=== PATIENT | male | born 1950 | race Caucasian/White ===

== ENCOUNTER → 2020-11-19 13:56 | Outpatient (BNVA) | payer BC, SELFPAY | PROVIDERS: PCP Family Medicine; Visit Provider Urology ==

== ENCOUNTER 2021-04-13 10:08 | Outpatient (REF) | payer BC, SELFPAY ==
--- NOTE | ~2021-04-13 | US_ITS ---
EXAMINATION: US RETROPERITONEAL LIMITED (RENAL ONLY) CLINICAL INFORMATION: Calculus of kidney. COMPARISON: None TECHNIQUE: Real-time imaging of the kidneys. FINDINGS: RIGHT KIDNEY: 10.6 x 6.6 x 5.1 cm (SAG x AP x TRV). The kidney is normal in size, contour, and echogenicity. Renal cortical thickness is normal. No calculi or focal parenchymal lesions. No hydronephrosis. LEFT KIDNEY: 11.4 x 7.4 x 4.8 cm (SAG x AP x TRV). The kidney is normal in size, contour, and echogenicity. Renal cortical thickness is normal. No focal parenchymal lesions or hydronephrosis. There is an echogenic stone in the lower pole measuring 1.2 x 0.78 cm. There is no caliectasis or hydronephrosis. US/US renal BI IMPRESSION: Nonobstructive echogenic stone lower pole left kidney.
== END 2021-04-13 10:09 | disposition home or self-care (01) ==
LOC: HO.US 10:08
PROVIDERS: PCP Family Medicine; Visit Provider Urology
DX: N20.0 Calculus of kidney (principal)
CPT/HCPCS: 76775

== ENCOUNTER → 2021-05-26 09:44 | Outpatient (BNVA) | payer BC, SELFPAY | PROVIDERS: PCP Family Medicine; Visit Provider Urology ==

== ENCOUNTER 2021-11-23 10:18 | Outpatient (REF) | payer BC, SELFPAY ==
--- NOTE | ~2021-11-23 | US_ITS ---
EXAMINATION: US RETROPERITONEAL LIMITED (RENAL ONLY) CLINICAL INFORMATION: Calculus of kidney. COMPARISON: Ultrasound 04/13/2021. TECHNIQUE: Grayscale imaging of kidneys is performed. FINDINGS: RIGHT KIDNEY: 12.2 x 7.3 x 7.4 cm (SAG x AP x TRV). The kidney is normal in size, contour, and echogenicity. Renal cortical thickness is normal. No calculi or focal parenchymal lesions. No hydronephrosis. LEFT KIDNEY: 11.0 x 6.3 x 5.6 cm (SAG x AP x TRV). The kidney is normal in size, contour, and echogenicity. Renal cortical thickness is normal. There is a echogenic renal calculi measuring 1.1 x 0.7 x 1.3 cm and lower pole. No focal caliectasis seen. Previously same calculi measured 1.2 cm on 04/14/2021. There is anechoic cyst in the upper pole measuring 3.4 x 2.9 x 2.9 cm. US/US renal BI IMPRESSION: Nonobstructive echogenic lower pole left renal calculi, stable. New cyst upper pole left kidney. The right kidney is unremarkable.
== END 2021-11-23 10:19 | disposition home or self-care (01) ==
LOC: HO.HMGCX 10:18
PROVIDERS: Visit Provider Urology
DX: N20.0 Calculus of kidney (principal)
CPT/HCPCS: 76775

== ENCOUNTER 2022-05-04 08:01 | Outpatient (REF) | payer BC, SELFPAY ==
--- NOTE | ~2022-05-04 | US_ITS ---
EXAMINATION: US RETROPERITONEAL LIMITED (RENAL ONLY) CLINICAL INFORMATION: Calculus of kidney. COMPARISON: Renal ultrasound 11/23/2021 and 04/13/2021. TECHNIQUE: Real-time imaging of the kidneys. FINDINGS: RIGHT KIDNEY: 11.0 x 6.9 x 6.8 cm (SAG x AP x TRV). The kidney is normal in size, contour, and echogenicity. Renal cortical thickness is normal. No calculi or focal parenchymal lesions. No hydronephrosis. LEFT KIDNEY: 10.7 x 5.9 x 5.3 cm (SAG x AP x TRV). The kidney is normal in size, contour, and echogenicity. Renal cortical thickness is normal. No hydronephrosis. There is anechoic exophytic cyst in the upper pole measuring 3.9 x 2.3 x 2.7 cm and lower pole measuring 2.4 x 1.8 x 2.2 cm and likely a complex cyst. There is an echogenic stone in the lower pole measuring 1.1 x 0.4 x 1.2 cm. US/US renal BI IMPRESSION: 1. Unremarkable right kidney. 2. Complex cyst lower pole an simple cyst upper pole left kidney. 3. Nonobstructive echogenic stone lower pole left kidney.
== END 2022-05-04 08:02 | disposition home or self-care (01) ==
LOC: HO.US 08:01
PROVIDERS: Visit Provider Urology
DX: N20.0 Calculus of kidney (principal)
CPT/HCPCS: 76775

== ENCOUNTER → 2022-05-31 13:06 | Outpatient (BNVA) | payer BC, SELFPAY | PROVIDERS: PCP Family Medicine; Visit Provider Urology | DX: N20.0 Calculus of kidney (principal) ==

== ENCOUNTER → 2022-08-02 14:46 | Outpatient (BNVA) | payer BC, SELFPAY | PROVIDERS: PCP Family Medicine; Visit Provider Urology | DX: Z13.89 Encounter for screening for other disorder (principal) ==

== ENCOUNTER 2022-11-22 16:06 | Outpatient (REF) | payer MEDICARE, SELFPAY ==
--- NOTE | ~2022-11-22 | XR_ITS ---
EXAMINATION: XR ABDOMEN KUB CLINICAL INDICATION: Renal stone COMPARISON: 05/04/2022 TECHNIQUE: 2 views of the abdomen. FINDINGS: The bowel gas pattern is normal with no evidence of ileus or obstruction. 13 mm calcific lesion most consistent with a left-sided renal stone noted.. The bones are unremarkable. XR/XR KUB IMPRESSION: Left-sided nephrolithiasis as above.
== END 2022-11-22 16:07 | disposition home or self-care (01) ==
LOC: HO.XRAY 16:06
PROVIDERS: PCP Family Medicine; Visit Provider Urology
DX: N20.0 Calculus of kidney (principal)
CPT/HCPCS: 74018

== ENCOUNTER 2022-11-29 14:02 | Outpatient (AMB) | payer MEDICARE, SELFPAY ==
--- NOTE | 2022-11-29 14:03 | MHC.OFFVIS ---
Intake Intake Visit Reasons: KUB results/discuss surgical plan Intake Note: Patient is present for Telephone Follow up Urology Med: Finasteride, Terazosin, Antibiotic Allergy: None Blood Thinner: Aspirin, Clopidrogel Allergies No Known Allergies Allergy (Verified 11/29/22 14:04) Medication List - Last Reconciled 11/29/22 by Quinten Dixon MD allopurinol 100 mg PO DAILY 90 days aspirin 81 mg PO DAILY atorvastatin 40 mg PO DAILY blood sugar diagnostic As directed clopidogrel 75 mg PO DAILY dulaglutide 1.5 mg subcut QWEEK finasteride 5 mg PO DAILY 90 days insulin glargine 10 units subcut BEDTIME lisinopril 20 mg PO DAILY metformin ER 2,000 mg PO DAILY metoprolol succinate ER 25 mg PO DAILY pen needle, diabetic As directed potassium citrate ER 20 mEq (2 x 10 mEq (1,080 mg)) PO BID 90 days terazosin 2 mg PO BEDTIME 90 days HPI HPI Comments History of Present Illness Details Pool Gutierrez is a very pleasant male. He is a patient of Dr Garcia. He is seen for the following urologic conditions. - BPH and elevated PSA - nephrolithiasis - diabetic uric acid Telemedicine Evaluation 15 min Consultation [employer] Video attempted Seizure epidose in September with side effects from medications Repeat imaging with 13 mm left lower pole stone Discussion with Ilia and Would like to continue surveillance Lower Urinary Tract Symptoms Currently on finasteride and terazosin 2mg Elevated PSA/Abnormal IVEILSSE: He presents for further evaluation of elevated PSA. Current management is finasteride 5 mg Laboratory investigations include a total PSA evaluation July 2015 2.8 - 07/29 2.6, 08/31 3.7, 11/30 3.1, 4.7 Free 30%, 11/02 1.3 Individualized Prostate Cancer Risk Calculator < 5% high risk Would like to continue with observation and understands and accepts the risks of a possible delay in diagnosis. A TRUS biopsy not been performed. His current IPSS IPSS Score 1 Symptoms include nocturia, x 1, and are stable. Overall symptoms are mild. His prior IPSS was Mild. Associated conditions diabetes Yes dysuria No erectile dysfunction Yes Therapeutic plan - yearly PSA Nephrolithiasis/Urolithiasis: Recurrent uric acid stone They are here for further evaluation of urethrolitiasis. Urolithiasis was diagnosed a number of years ago. The patient previously had kidney stones whose composition w uric acid. Laboratory investigations include no recent labs. 24 Hour urine evaluation none on file. Prior treatment(s) include medical management, with dietary advice to increase fluids, decrease salt and watch protein intake - Bicarbonate therapy to alkalinize urine. Prior imaging includes a CT (computed tomography) scan of the abdomen/pelvis (stone protocol), showing radiodense stone(s), on the left, <5 mm October 2015 , a renal ultrasound, showing radiodense stone(s), bilaterally, 5-10 mm a renal ultrasound, 10/28 - left renal cyst 4 cm, left renal 7 mm stone nonobstructing 10/29 , a renal ultrasound, showing no evidence of stones. - 05/03 renal ultrasound showing left lower pole stone 12 mm - 11/02 renal ultrasound over left lower pole 10 mm - 06/05 renal ultrasound, bilateral complex cyst, left lower pole stone 12 mm - 12/03 KUB with 12 mm left lower pole stone UA today shows <5.5. Current therapeutic plan will be to restart potassium citrate and allopurinol with repeat imaging in 6 months [facility] Medical History Diabetes mellitus, type II Elevated PSA Erectile dysfunction Hyperlipidemia Sleep apnea Transient ischemic attack (TIA) Surgical History History of surgery Review of Systems Const All systems reviewed & are unremarkable except as noted in HPI and below Reports no additional complaints Resp Reports no additional complaints GI Reports no additional complaints Reports as per HPI Musc Reports no additional complaints Physical Exam Telemedicine evaluation Appropriate responses Regular breathing rate and rhythm HEENT Head: Yes normal to inspection Ears: hearing grossly normal bilaterally Eyes General: appearance normal, both eyes and all related structures Neck Neck: Yes normal visual inspection Chest Chest palpation & inspection: normal inspection of the chest Resp Effort & Inspection: normal respiratory effort and able to speak in complete sentences Assessment & Plan Assessment & Plan (1) Nephrolithiasis: Code(s): N20.0 - Calculus of kidney (2) BPH w urinary obs/LUTS: Code(s): N40.1 - Benign prostatic hyperplasia with lower urinary tract symptoms; N13.8 - Other obstructive and reflux uropathy Plan 6m f/u imaging Orders: Orders US renal BI 6 Months N20.0 - Calculus of kidney Medications: Refilled finasteride 5 mg PO DAILY 90 days 90 tabs 1RF N13.8 - Other obstructive and reflux uropathy, N40.1 - Benign prostatic hyperplasia with lower urinary tract symptoms, R33.9 - Retention of urine, unspecified finasteride 5 mg PO DAILY 90 tabs 1RF 90 days N13.8 - Other obstructive and reflux uropathy, N40.1 - Benign prostatic hyperplasia with lower urinary tract symptoms, R33.9 - Retention of urine, unspecified Patient Instructions: Imaging studies, laboratory and physical exam results were discussed and reviewed in detail. No major barriers to patient understanding were identified. An opportunity to ask questions regarding the treatment plan was provided. All questions were answered. The patient expressed understanding and agreement with the above treatment plan. The patient is aware they should contact our office by phone for worsening of their current condition or the appearance of new urologic symptoms. Compliance is encouraged with any medications and followup testing that is ordered. It is a privilege to participate in the urologic care of your patient. If you have any questions or concerns regarding treatment for the above conditions, or other urologic issues, please do not hesitate to contact me. The office telephone contact is [phone]. This note is constructed using voice recognition software. While every effort has been made to ensure accuracy airport operations supervisor errors may have been included. Yours sincerely, Dr Quinten Dixon MD, [facility] - Urology Providers of Expert, Compassionate Care for the Genitourinary System Telehealth Telehealth Location of provider rendering services: practice address Location of patient: address on file Patient Identification confirmed using: Name, : Yes Telehealth method: video Patient verbally consented to treatment: Yes Patient verbally consented to billing insurance company: Yes Patient informed of any privacy concerns related to visit: Yes Coding Level of Care Code Tele Est Pt Level 3 (44634) Diagnoses Nephrolithiasis N20.0 BPH w urinary obs/LUTS N40.1; N13.8
== END 2022-11-29 15:51 | disposition home or self-care (01) ==
LOC: HO.HUSH 14:02
PROVIDERS: PCP Family Medicine; Visit Provider Urology
DX: N20.0 Calculus of kidney (principal); N40.1 Benign prostatic hyperplasia with lower urinary tract symptoms; N13.8 Other obstructive and reflux uropathy
CPT/HCPCS: 99213

== ENCOUNTER → 2022-11-29 14:02 | Outpatient (BNVA) | payer MEDICARE, SELFPAY | PROVIDERS: PCP Family Medicine; Visit Provider Urology | DX: N20.0 Calculus of kidney (principal); N40.1 Benign prostatic hyperplasia with lower urinary tract symptoms; N13.8 Other obstructive and reflux uropathy; R97.20 Elevated prostate specific antigen [PSA] | CPT/HCPCS: Q3014 ==

== ENCOUNTER 2023-01-23 11:00 | Outpatient (REF) | payer MEDICARE, SELFPAY ==
--- NOTE | ~2023-01-23 | CT_ITS ---
EXAMINATION: CT ABDOMEN AND PELVIS WITHOUT CONTRAST CLINICAL INFORMATION: Renal calculi. COMPARISON: KUB 11/22/2022, ultrasound kidneys 05/04/2022. TECHNIQUE: Multidetector volumetric imaging was performed from the superior aspect of the liver through the pubic symphysis. Sagittal and coronal reformatted images were obtained on the technologist's workstation. This CT examination was performed using dose optimization techniques as appropriate, variously including the following: *Automated exposure control *Adjustment of mA and/or kV according to patient size (this includes techniques or standardized protocols for targeted exams where dose is matched to indication/reason for exam; i.e. extremities or head) *Use of iterative reconstruction technique DLP: 928 mGy-cm FINDINGS: LUNG BASES: Coronary calcium is present. Heart size normal. No suspicious lung masses, infiltrates or effusions. LIVER, GALLBLADDER, AND BILIARY TREE: The liver is normal in size, shape, and attenuation. No focal hepatic lesion or biliary ductal dilatation is present. The gallbladder is unremarkable with no evidence of radiopaque gallstones, gallbladder wall thickening, or obvious pericholecystic inflammatory changes. PANCREAS: Unremarkable. SPLEEN: Unremarkable. ADRENAL GLANDS: Unremarkable. KIDNEYS AND URETERS: There is an obstructing 0.8 x 0.9 x 1.4 cm stone in the proximal left ureter at the level of ureteropelvic junction. This stone measures about 1000 Hounsfield units and is 13.5 cm from the posterior axillary line. No other renal calculi are seen. The kidneys are normal in size, shape, and attenuation. A benign left upper pole 3.7 cm Bosniak class I renal cyst is noted which requires no additional imaging or follow up. No solid renal masses are seen. No perinephric stranding. BLADDER: Unremarkable. GASTROINTESTINAL TRACT: The small and large bowel are unremarkable. The appendix is not seen but there is no evidence of appendicitis. ABDOMINAL WALL: A periumbilical hernia is seen containing an unobstructed loop of small bowel. Colonic diverticulosis is present without evidence of diverticulitis. LYMPH NODES: No retroperitoneal lymphadenopathy. VASCULAR: Calcified plaque is present in the aorta and iliofemoral vessels which are ectatic but not aneurysmal. PELVIC VISCERA: Unremarkable. OSSEOUS STRUCTURES: Marked degenerative changes present from L4 through S1. CT/CT abdomen pelvis wo IV con IMPRESSION: 1. Obstructing 0.8 x 0.9 x 1.4 cm proximal left ureteral calculus. 2. Incidental note made of coronary calcium, colonic diverticulosis, periumbilical hernia containing unobstructed small bowel, degenerative changes in the spine and other findings described above. Fleischner guidelines were followed.
== END 2023-01-23 11:01 | disposition home or self-care (01) ==
LOC: HO.CT 11:00
PROVIDERS: PCP Family Medicine; Visit Provider Urology
DX: N20.0 Calculus of kidney (principal)
CPT/HCPCS: 74176

== ENCOUNTER 2023-05-16 10:39 | Outpatient (REF) | payer MEDICARE, SELFPAY | END 2023-05-16 10:40 | disposition home or self-care (01) | LOC: HO.US 10:39 | PROVIDERS: PCP Family Medicine; Visit Provider Urology | DX: N20.0 Calculus of kidney (principal) | CPT/HCPCS: 76775 ==

== ENCOUNTER 2023-06-01 11:52 | Outpatient (AMB) | payer MEDICARE, SELFPAY ==
--- NOTE | 2023-06-01 11:53 | A.OFFVIS_ITS ---
Intake Intake Visit Reasons: 6m/us(set) Intake Note: Patient is Present for Follow Up US Urology Medication: Finasteride, (Patient stopped terazosin after seizure in spring) Antibiotic Allergies: None Blood Thinners: None (Patient state he is not on aspirin or plavix) PVR: 39 Allergies No Known Allergies Allergy (Verified 06/01/23 12:00) Medication List - Last Reconciled 06/01/23 by Quinten Dixon MD allopurinol 100 mg PO DAILY 90 days aspirin 81 mg PO DAILY atorvastatin 40 mg PO DAILY blood sugar diagnostic As directed clopidogrel 75 mg PO DAILY dulaglutide 1.5 mg subcut QWEEK finasteride 5 mg PO DAILY 90 days insulin glargine 10 units subcut BEDTIME lisinopril 20 mg PO DAILY metformin ER 2,000 mg PO DAILY metoprolol succinate ER 25 mg PO DAILY pen needle, diabetic As directed potassium citrate ER 20 mEq (2 x 10 mEq (1,080 mg)) PO BID 90 days terazosin 2 mg PO BEDTIME 90 days HPI HPI Comments History of Present Illness Details Pool Gutierrez is a very pleasant male. He is a patient of Dr Garcia. He is seen for the following urologic conditions. - BPH and elevated PSA - nephrolithiasis - diabetic uric acid Prior stone seen on CT scan has resolved with potassium citrate treatment Six-month follow-up Continue on finasteride Lower Urinary Tract Symptoms Currently on finasteride Prior medications include terazosin 2mg Elevated PSA/Abnormal IVELISSE: He presents for further evaluation of elevated PSA. Current management is finasteride 5 mg Laboratory investigations include a total PSA evaluation July 2015 2.8 - 07/29 2.6, 08/31 3.7, 11/30 3.1, 4.7 Free 30%, 11/02 1.3 Individualized Prostate Cancer Risk Calculator < 5% high risk Would like to continue with observation and understands and accepts the risks of a possible delay in diagnosis. A TRUS biopsy not been performed. His current IPSS IPSS Score 1 Symptoms include nocturia, x 1, and are stable. Overall symptoms are mild. His prior IPSS was Mild. Associated conditions diabetes Yes dysuria No erectile dysfunction Yes Therapeutic plan - yearly PSA Nephrolithiasis/Urolithiasis: Recurrent uric acid stone They are here for further evaluation of urethrolitiasis. Urolithiasis was diagnosed a number of years ago. The patient previously had kidney stones whose composition w uric acid. Laboratory investigations include no recent labs. 24 Hour urine evaluation none on file. Prior treatment(s) include medical management, with dietary advice to increase fluids, decrease salt and watch protein intake - Bicarbonate therapy to alkalinize urine. Prior imaging includes a CT (computed tomography) scan of the abdomen /pelvis (stone protocol), showing radiodense stone(s), on the left, <5 mm October 2015 , a renal ultrasound, showing radiodense stone(s), bilaterally, 5-10 mm a renal ultrasound, 10/28 - left renal cyst 4 cm, left renal 7 mm stone nonobstructing 10/29 , a renal ultrasound, showing no evidence of stones. - 05/03 renal ultrasound showing left lower pole stone 12 mm - 11/02 renal ultrasound over left lower pole 10 mm - 06/05 renal ultrasound, bilateral complex cyst, left lower pole stone 12 mm - 12/03 KUB with 12 mm left lower pole stone UA today shows <5.5. Current therapeutic plan will be to restart potassium citrate and allopurinol with repeat imaging in 6 months [facility] Medical History Diabetes mellitus, type II Elevated PSA Erectile dysfunction Hyperlipidemia Sleep apnea Transient ischemic attack (TIA) Surgical History History of surgery Review of Systems Const Denies chills and Denies fever(s) Card Reports no additional complaints and Denies syncope Resp Denies cough GI Denies abdominal pain and Denies heartburn Reports as per HPI and Denies change in libido Neuro Denies syncope Psych Denies change in libido Endo Denies change in libido Physical Exam Const General: cooperative, healthy appearing, comfortable and no acute distress Orientation/consciousness: patient oriented x3 HEENT Face and sinus: Yes normal facial exam Mouth: moist mucous membranes Neck Neck: Yes normal visual inspection, Yes full ROM and Yes trachea midline Chest Chest palpation & inspection: normal inspection of the chest Resp Effort & Inspection: normal respiratory effort, able to speak in complete sentences and no respiratory distress GI Inspection: Yes normal to inspection Back/Spine/Pelvis Cervical Spine: normal cervical lordosis Thoracic/Lumbar Spine: thoracic and lumbar spine normal to inspection Skin General skin exam: no rashes or lesions noted Neuro General: patient oriented x3, gait normal, tone normal and moves all extremities Extrem General: Yes normal to inspection and Yes capillary refill normal Office Procedures Post Void Residual Post Residual Void Post Void Residual (PVR): 39 [id number] Void Residual by ultrasound Assessment & Plan Assessment & Plan (1) Nephrolithiasis: Code(s): N20.0 - Calculus of kidney (2) BPH w urinary obs/LUTS: Code(s): N40.1 - Benign prostatic hyperplasia with lower urinary tract symptoms; N13.8 - Other obstructive and reflux uropathy Plan Six-month follow-up imaging Orders: Orders AMB Post Void Residual by ultrasound Today N13.8 - Other obstructive and reflux uropathy, N40.1 - Benign prostatic hyperplasia with lower urinary tract symptoms US renal BI 6 Months N20.0 - Calculus of kidney Medications: Refilled finasteride 5 mg PO DAILY 90 days 90 tabs 1RF N13.8 - Other obstructive and reflux uropathy, N40.1 - Benign prostatic hyperplasia with lower urinary tract symptoms, R33.9 - Retention of urine, unspecified Patient Instructions: Imaging studies, laboratory and physical exam results were discussed and reviewed in detail. No major barriers to patient understanding were identified. An opportunity to ask questions regarding the treatment plan was provided. All questions were answered. The patient expressed understanding and agreement with the above treatment plan. The patient is aware they should contact our office by phone for worsening of their current condition or the appearance of new urologic symptoms. Compliance is encouraged with any medications and followup testing that is ordered. It is a privilege to participate in the urologic care of your patient. If you have any questions or concerns regarding treatment for the above conditions, or other urologic issues, please do not hesitate to contact me. The office telephone contact is [phone]. This note is constructed using voice recognition software. While every effort has been made to ensure accuracy aviation technician aircraft errors may have been included. Yours sincerely, Dr Quinten Dixon MD, [facility] - Urology Providers of Expert, Compassionate Care for the Genitourinary System Coding Level of Care Code Est Pt Level 3 (88501) Diagnoses Nephrolithiasis N20.0 BPH w urinary obs/LUTS N40.1; N13.8 CPT Codes Post Residual Void - PVR CPT Code: 27860-Rjkf Void Residual by ultrasound ([id number])
== END 2023-06-01 12:15 | disposition home or self-care (01) ==
PROVIDERS: PCP Family Medicine; Visit Provider Urology
DX: N20.0 Calculus of kidney (principal); N40.1 Benign prostatic hyperplasia with lower urinary tract symptoms; N13.8 Other obstructive and reflux uropathy
CPT/HCPCS: 99213

== ENCOUNTER → 2023-06-01 11:52 | Outpatient (BNVA) | payer MEDICARE, SELFPAY | PROVIDERS: PCP Family Medicine; Visit Provider Urology | DX: N40.1 Benign prostatic hyperplasia with lower urinary tract symptoms (principal); N13.8 Other obstructive and reflux uropathy; N20.0 Calculus of kidney | CPT/HCPCS: 51798; 99212 ==

== ENCOUNTER 2023-11-02 10:39 | Outpatient (AMB) | payer MEDICARE, SELFPAY ==
[2023-11-02 10:41] VITALS: BP 110/70; PULSE 63; O2SAT 93; BMI 36.3
--- NOTE | 2023-11-02 10:41 | HO.NEPHOV ---
Vital Signs 11/02/23 10:41 11/02/23 11:50 Height 6 ft Weight 268 lb BMI 36.3 BP 110/70 100/60 Blood Pressure Location Lt brachial Lt brachial Position Sitting Standing Pulse 63 Pulse Source Pulse Oximeter Pulse Oximetry (%) 93 Oxygen Delivery Method Room Air Intake Visit Reasons: CKD/ Confirmed State Assessed Properties Director Required: No Accompanied by: Spouse Allergies No Known Allergies Allergy (Verified 11/02/23 10:44) Medication List - Last Reconciled 11/02/23 by Naseem Wells MD acetaminophen ER (Tylenol Arthritis Pain) 650 mg PO Q12H acetaminophen-caffeine 500-65 mg (Excedrin Tension Headache) 1 tab PO Q12H PRN atorvastatin 40 mg PO DAILY blood sugar diagnostic As directed dulaglutide 1.5 mg subcut QWEEK finasteride 5 mg PO DAILY 90 days insulin glargine 22 units subcut BEDTIME levetiracetam 500 mg PO BID melatonin 10 mg PO BEDTIME PRN metoprolol succinate ER 25 mg PO DAILY pen needle, diabetic As directed HPI Comments Details: . Ilia is a pleasant 73-year-old man with a history of diabetes mellitus, hypertension with chronic leg edema. He has a history of bicuspid aortic valve, history of aneurysm of ascending aorta, status post PFO closure in 2021. History of obstructive sleep apnea and currently uses CPAP. History of obesity. Reported right ventricular systolic pressure was 25 mm He has been referred for evaluation of chronic kidney disease. Serum creatinine bumped up to 1.4. Recent creatinine was 1.17. He has been on lisinopril 20 mg which was increased to 30 mg a day a about 6 months ago. In the past he was on metformin which caused significant diarrhea and apparently he lost about 35 lb. After discontinuing metformin the diarrhea resolved and he has gradually gained back the 35 lb. His main issue seems to be chronic leg edema. He had left leg edema for the last several years which started after he had a trauma. He underwent acupuncture which seems to have relieved initially. However the swelling has returned and he continues to have left leg edema. Recently he had a right-sided leg edema. He denies any shortness of breath on exertion. No urinary complaints. He was seen by to endovascular center recently. Liver functions have been normal. He has no significant proteinuria based on recent urine studies. He has on a regular salt diet. [facility] Medical History Diabetes mellitus, type II Elevated PSA Erectile dysfunction Hyperlipidemia Sleep apnea Transient ischemic attack (TIA) Surgical History History of surgery Review of Systems Const Denies fever(s) and Denies weight loss Card Denies chest pain Resp Denies cough and Denies hemoptysis GI Denies abdominal pain, Denies diarrhea and Denies nausea Musc Denies back pain Neuro Denies focal weakness Physical Exam Vital Signs: Last Vital Signs Pulse 63 11/02/23 10:41 BP 110/70 11/02/23 10:41 Pulse Ox 93 11/02/23 10:41 Oxygen Delivery Method Room Air 11/02/23 10:41 BMI result Body Mass Index 36.3 Const General: comfortable; No acute distress Orientation/consciousness: patient oriented x3 Eyes General: appearance normal, both eyes and all related structures Visual Camp: normal visual camp by confrontation Neck Neck: Yes supple and Yes no JVD Resp Effort & Inspection: normal respiratory effort and respiratory effort not decreased Auscultation: rhonchi Cardio Palpation: no palpable S3 and no palpable S4 Heart sounds: no rubs GI Inspection: Yes normal to inspection Palpation (GI): Soft to palpation Percussion: Yes normal to percussion Auscultation: normal bowel sounds General: Yes no CVA tenderness Back/Spine/Pelvis Back: no CVA tenderness Skin General skin exam: no petechiae and no purpura Neuro General: patient oriented x3 and no focal motor deficits Extrem General: No clubbing and Yes edema (Bilateral lower extremity edema. Left more than the right. Minimal pitting) Results Reviewed Results Reviewed: As of 10/30/2023 BUN 22 creatinine 1.17. Back in May of 2023 creatinine was 1.4 mg/dL. Urinalysis did not reveal any significant proteinuria. Urine protein creatinine ratio was negligible UA was benign Nephrology Results: Renal US 05/16/23 Assessment & Plan Assessment & Plan (1) CKD (chronic kidney disease): Code(s): N18.9 - Chronic kidney disease, unspecified Category: Medical Plan: . Ilia has mild CKD. Based on recent labs he probably has stage II CKD. He did have an episode of ALEJA with a creatinine peaking up to 1.4 mg/dL in 06/02/2023. This is probably due to hypoperfusion. Serum creatinine has returned to baseline of 1.17 with a EGFR of 66 mL/minute. He has no significant proteinuria. Recent renal ultrasonogram revealed normal-size kidneys without hydronephrosis. Goal is to slow the progression of renal disease Continue to avoid nephrotoxic agents. Avoid hypotension. Since the blood pressure is rather low I will decrease lisinopril from 30 mg down to 20 mg a day. Encouraged him to keep watching his blood pressure at home. Since he has no significant proteinuria I will gradually taper the lisinopril to the lowest possible dose. This will give us room to add a diuretic if needed to decrease the leg edema. (2) Leg edema: Code(s): R60.0 - Localized edema Category: Medical Plan: . Chronic leg edema. Recent LFTs were normal. Renal function is normal without significant proteinuria. He has a history of obstructive sleep apnea and status post closure of PFO. Recent echocardiogram did not reveal elevated right heart pressures. Excessive salt intake could be contributing to the edema. Other possibility include lymphedema. I have advised him to decrease the salt intake Leg elevation at night. Complete endovascular workup which is in progress. I will re-evaluate him in the next few weeks and if his blood pressure is stable I will add a small dose of diuretic like HCTZ 12.5 mg to see if there is any improvement in the leg edema. Medications: New lisinopril 20 mg PO DAILY 30 tabs 1RF Coding Level of Care Code New Pt Level 4 (89680) Diagnoses CKD (chronic kidney disease) N18.9 Leg edema R60.0
[2023-11-02 11:50] VITALS: BP 100/60
== END 2023-11-02 11:24 | disposition home or self-care (01) ==
PROVIDERS: PCP Family Medicine; Referring Provider Family Medicine; Visit Provider Internal Medicine Hypertension Specialist
DX: N18.9 Chronic kidney disease, unspecified (principal); R60.0 Localized edema
CPT/HCPCS: 99204

== ENCOUNTER → 2023-11-02 10:39 | Outpatient (BNVA) | payer MEDICARE, SELFPAY | PROVIDERS: PCP Family Medicine; Referring Provider Family Medicine; Visit Provider Internal Medicine Hypertension Specialist | DX: N18.9 Chronic kidney disease, unspecified (principal); R60.0 Localized edema | CPT/HCPCS: 99202 ==

== ENCOUNTER 2023-11-22 11:55 | Outpatient (AMB) | payer MEDICARE, SELFPAY ==
[2023-11-22 11:55] VITALS: BP 140/72; PULSE 60; O2SAT 94; BMI 36.3
--- NOTE | 2023-11-22 11:55 | HO.NEPHOV_ITS ---
Vital Signs 11/22/23 11:55 11/22/23 12:04 Height 6 ft Weight 268 lb BMI 36.3 BP 140/72 H 130/70 Blood Pressure Location Lt brachial Lt brachial Position Sitting Sitting Pulse 60 Pulse Source Pulse Oximeter Pulse Oximetry (%) 94 Oxygen Delivery Method Room Air Intake Visit Reasons: 2-3 wks follow up/ Conf Quality Control Microbiologist Required: No Accompanied by: Spouse Allergies No Known Allergies Allergy (Verified 11/22/23 11:57) Medication List - Last Reconciled 11/22/23 by Naseem Wells MD acetaminophen ER (Tylenol Arthritis Pain) 650 mg PO Q12H acetaminophen-caffeine 500-65 mg (Excedrin Tension Headache) 1 tab PO Q12H PRN atorvastatin 40 mg PO DAILY blood sugar diagnostic As directed dulaglutide 1.5 mg subcut QWEEK finasteride 5 mg PO DAILY 90 days insulin glargine 22 units subcut BEDTIME levetiracetam 500 mg PO BID lisinopril 20 mg PO DAILY melatonin 10 mg PO BEDTIME PRN metoprolol succinate ER 25 mg PO DAILY pen gisel, diabetic As directed HPI Comments Details: . Ilia is a pleasant 73-year-old man with a history of diabetes mellitus, hypertension with chronic leg edema. He has a history of bicuspid aortic valve, history of aneurysm of ascending aorta, status post PFO closure in 2021. History of obstructive sleep apnea and currently uses CPAP. History of obesity. Reported right ventricular systolic pressure was 25 mm He has been referred for evaluation of chronic kidney disease. Serum creatinine bumped up to 1.4. Recent creatinine was 1.17. He has been on lisinopril 20 mg which was increased to 30 mg a day a about 6 months ago. In the past he was on metformin which caused significant diarrhea and apparently he lost about 35 lb. After discontinuing metformin the diarrhea resolved and he has gradually gained back the 35 lb. His main issue seems to be chronic leg edema. He had left leg edema for the last several years which started after he had a trauma. He underwent acupuncture which seems to have relieved initially. However the swelling has returned and he continues to have left leg edema. Recently he had a right-sided leg edema. He denies any shortness of breath on exertion. No urinary complaints. He was seen by to endovascular center recently. Liver functions have been normal. He has no significant proteinuria based on recent urine studies. He has on a regular salt diet. 11/22/2023. He is tolerating lisinopril 20 mg. Home blood pressure readings were reviewed Continues to have leg edema. No shortness of breath [facility] Medical History Diabetes mellitus, type II Elevated PSA Erectile dysfunction Hyperlipidemia Sleep apnea Transient ischemic attack (TIA) Surgical History History of surgery Physical Exam Vital Signs: Last Vital Signs Pulse 60 11/22/23 11:55 BP 130/70 11/22/23 12:04 Pulse Ox 94 11/22/23 11:55 Oxygen Delivery Method Room Air 11/22/23 11:55 BMI result Body Mass Index 36.3 Const General: comfortable; No acute distress Orientation/consciousness: patient oriented x3 Eyes General: appearance normal, both eyes and all related structures Visual Camp: normal visual camp by confrontation Neck Neck: Yes supple and Yes no JVD Resp Effort & Inspection: normal respiratory effort and respiratory effort not decreased Auscultation: rhonchi Cardio Palpation: no palpable S3 and no palpable S4 Heart sounds: no rubs GI Inspection: Yes normal to inspection Palpation (GI): Soft to palpation Percussion: Yes normal to percussion Auscultation: normal bowel sounds General: Yes no CVA tenderness Back/Spine/Pelvis Back: no CVA tenderness Skin General skin exam: no petechiae and no purpura Neuro General: patient oriented x3 and no focal motor deficits Extrem General: No clubbing and Yes edema Results Reviewed Results Reviewed: RIGHT KIDNEY: 10.6 x 6.8 x 5.2 cm (SAG x AP x TRV). The kidney is normal in size, contour, and echogenicity. Renal cortical thickness is normal. No calculi or focal parenchymal lesions. No hydronephrosis. LEFT KIDNEY: 10.3 x 7.3 x 4.1 cm (SAG x AP x TRV). The kidney is normal in size, contour, and echogenicity. Renal cortical thickness is normal. No renal calculi or hydronephrosis. 3.3 x 3.1 x 2.8 cm simple upper pole exophytic cyst is seen. No imaging follow-up is recommended. Previously seen lower pole cyst is not appreciated on the current study. US/US renal BI IMPRESSION: 1. Normal appearance of the right kidney. 2. No significant finding in the left kidney. Nephrology Results: Renal US 05/16/23 Assessment & Plan Assessment & Plan (1) CKD (chronic kidney disease): Code(s): N18.9 - Chronic kidney disease, unspecified Category: Medical Plan: . Ilia has mild CKD. Based on recent labs he probably has stage II CKD. He did have an episode of ALEJA with a creatinine peaking up to 1.4 mg/dL in 06/02/2023. This is probably due to hypoperfusion. Serum creatinine has returned to baseline of 1.17 with a EGFR of 66 mL/minute. He has no significant proteinuria. Recent renal ultrasonogram revealed normal-size kidneys without hydronephrosis. Goal is to slow the progression of renal disease Continue to avoid nephrotoxic agents. Avoid hypotension. Keep lisinopril at 20 mg daily next Encouraged him to keep watching his blood pressure at home. Since he has no significant proteinuria I will gradually taper the lisinopril to the lowest possible dose. This will give us room to titrate diuretic (2) Leg edema: Code(s): R60.0 - Localized edema Category: Medical Plan: . Chronic leg edema. Recent LFTs were normal. Renal function is normal without significant proteinuria. He has a history of obstructive sleep apnea and status post closure of PFO. Recent echocardiogram did not reveal elevated right heart pressures. Excessive salt intake could be contributing to the edema. Other possibility include lymphedema. I have advised him to decrease the salt intake Leg elevation at night. Complete endovascular workup which is in progress. ADDED HCTZ 12.5 mg DAILY Repeat renal function in the next 2 weeks Encouraged stay on low-sodium diet Orders: Orders Basic Metabolic Panel 2 Weeks N18.9 - Chronic kidney disease, unspecified, R60.0 - Localized edema Medications: New hydrochlorothiazide 12.5 mg PO DAILY 30 caps 3RF Coding Level of Care Code Est Pt Level 4 (55215) Diagnoses CKD (chronic kidney disease) N18.9 Leg edema R60.0
[2023-11-22 12:04] VITALS: BP 130/70
== END 2023-11-22 12:09 | disposition home or self-care (01) ==
PROVIDERS: PCP Family Medicine; Visit Provider Internal Medicine Hypertension Specialist
DX: N18.9 Chronic kidney disease, unspecified (principal); R60.0 Localized edema
CPT/HCPCS: 99214

== ENCOUNTER → 2023-11-22 11:55 | Outpatient (BNVA) | payer MEDICARE, SELFPAY | PROVIDERS: PCP Family Medicine; Visit Provider Internal Medicine Hypertension Specialist | DX: N18.9 Chronic kidney disease, unspecified (principal); R60.0 Localized edema | CPT/HCPCS: 99212 ==

== ENCOUNTER 2023-12-04 08:45 | Outpatient (AMB) | payer MEDICARE, SELFPAY ==
--- NOTE | 2023-12-04 08:36 | MHC.OFFVIS ---
Intake Visit Reasons: 6M US(set) Intake Note: Patient is Present for 6M/ US Urology Medication: Finasteride, (Patient stopped terazosin after seizure in spring) Antibiotic Allergies: None Blood Thinners: None (Patient state he is not on aspirin or plavix) PVR: 39 Environmental Compliance Inspector Required: No Allergies No Known Allergies Allergy (Verified 12/04/23 08:38) Medication List - Last Reconciled 12/04/23 by Quinten Dixon MD acetaminophen ER (Tylenol Arthritis Pain) 650 mg PO Q12H acetaminophen-caffeine 500-65 mg (Excedrin Tension Headache) 1 tab PO Q12H PRN atorvastatin 40 mg PO DAILY blood sugar diagnostic As directed dulaglutide 1.5 mg subcut QWEEK finasteride 5 mg PO DAILY 90 days hydrochlorothiazide 12.5 mg PO DAILY insulin glargine 22 units subcut BEDTIME levetiracetam 500 mg PO BID lisinopril 20 mg PO DAILY melatonin 10 mg PO BEDTIME PRN metoprolol succinate ER 25 mg PO DAILY pen needle, diabetic As directed HPI Comments Details: Pool Gutierrez is a very pleasant male. He is a patient of Dr Garcia. He is seen for the following urologic conditions. - BPH and elevated PSA - nephrolithiasis - diabetic uric acid Telemedicine Evaluation 15 min Consultation [employer] Video US no stones No longer on potassium citrate Remains on finasteride PVR today is 0 cc Nocturia x1 Adequate stream Lower Urinary Tract Symptoms Currently on finasteride Prior medications include terazosin 2mg Elevated PSA/Abnormal IVELISSE: He presents for further evaluation of elevated PSA. Current management is finasteride 5 mg Laboratory investigations include a total PSA evaluation July 2015 2.8 - 07/29 2.6, 08/31 3.7, 11/30 3.1, 4.7 Free 30%, 11/02 1.3 Individualized Prostate Cancer Risk Calculator < 5% high risk Would like to continue with observation and understands and accepts the risks of a possible delay in diagnosis. A TRUS biopsy not been performed. His current IPSS IPSS Score 1 Symptoms include nocturia, x 1, and are stable. Overall symptoms are mild. His prior IPSS was Mild. Associated conditions diabetes Yes dysuria No erectile dysfunction Yes Therapeutic plan - yearly PSA Nephrolithiasis/Urolithiasis: Recurrent uric acid stone They are here for further evaluation of urethrolitiasis. Urolithiasis was diagnosed a number of years ago. The patient previously had kidney stones whose composition w uric acid. Laboratory investigations include no recent labs. 24 Hour urine evaluation none on file. Prior treatment(s) include medical management, with dietary advice to increase fluids, decrease salt and watch protein intake - Bicarbonate therapy to alkalinize urine. Prior imaging includes a CT (computed tomography) scan of the abdomen/pelvis (stone protocol), showing radiodense stone(s), on the left, <5 mm October 2015 , a renal ultrasound, showing radiodense stone(s), bilaterally, 5-10 mm a renal ultrasound, 10/28 - left renal cyst 4 cm, left renal 7 mm stone nonobstructing 10/29 , a renal ultrasound, showing no evidence of stones. - 05/03 renal ultrasound showing left lower pole stone 12 mm - 11/02 renal ultrasound over left lower pole 10 mm - 06/05 renal ultrasound, bilateral complex cyst, left lower pole stone 12 mm - 12/03 KUB with 12 mm left lower pole stone UA today shows <5.5. Current therapeutic plan will be to restart potassium citrate and allopurinol with repeat imaging in 6 months [facility] Medical History Diabetes mellitus, type II Elevated PSA Erectile dysfunction Hyperlipidemia Sleep apnea Transient ischemic attack (TIA) Surgical History History of surgery Review of Systems Const All systems reviewed & are unremarkable except as noted in HPI and below Reports no additional complaints Resp Reports no additional complaints GI Reports no additional complaints Reports as per HPI Musc Reports no additional complaints Physical Exam Telemedicine evaluation Appropriate responses Regular breathing rate and rhythm HEENT Head: Yes normal to inspection Ears: hearing grossly normal bilaterally Eyes General: appearance normal, both eyes and all related structures Neck Neck: Yes normal visual inspection Chest Chest palpation & inspection: normal inspection of the chest Resp Effort & Inspection: normal respiratory effort and able to speak in complete sentences Telehealth Telehealth Telehealth Platform: [employer] Location of provider rendering services: practice address Location of patient: address on file Patient Identification confirmed using: Name, : Yes Telehealth method: video Patient verbally consented to treatment: Yes Patient verbally consented to billing insurance company: Yes Patient informed of any privacy concerns related to visit: Yes Minutes spent on Phone/Video with Pt.: 15 Assessment & Plan Assessment & Plan (1) BPH w urinary obs/LUTS: Code(s): N40.1 - Benign prostatic hyperplasia with lower urinary tract symptoms; N13.8 - Other obstructive and reflux uropathy Category: Medical (2) Nephrolithiasis: Code(s): N20.0 - Calculus of kidney Category: Medical (3) Elevated PSA: Code(s): R97.20 - Elevated prostate specific antigen [PSA] Category: Medical Plan Six-month follow-up renal ultrasound Orders: Orders US renal BI 6 Months N13.8 - Other obstructive and reflux uropathy, N40.1 - Benign prostatic hyperplasia with lower urinary tract symptoms Medications: Refilled finasteride 5 mg PO DAILY 90 days 90 tabs 1RF N13.8 - Other obstructive and reflux uropathy, N40.1 - Benign prostatic hyperplasia with lower urinary tract symptoms, R33.9 - Retention of urine, unspecified Patient Instructions: Imaging studies, laboratory and physical exam results were discussed and reviewed in detail. No major barriers to patient understanding were identified. An opportunity to ask questions regarding the treatment plan was provided. All questions were answered. The patient expressed understanding and agreement with the above treatment plan. The patient is aware they should contact our office by phone for worsening of their current condition or the appearance of new urologic symptoms. Compliance is encouraged with any medications and followup testing that is ordered. It is a privilege to participate in the urologic care of your patient. If you have any questions or concerns regarding treatment for the above conditions, or other urologic issues, please do not hesitate to contact me. The office telephone contact is [phone]. This note is constructed using voice recognition software. While every effort has been made to ensure accuracy poultry raiser errors may have been included. Yours sincerely, Dr Quinten Dixon MD, [facility] - Urology Providers of Expert, Compassionate Care for the Genitourinary System Coding Level of Care Code Tele Est Pt Level 3 (09458) Diagnoses BPH w urinary obs/LUTS N40.1; N13.8 Nephrolithiasis N20.0 Elevated PSA R97.20
--- OUTSIDE RECORDS SUMMARY | 2023-12-04 08:46 | XMS_ITS | Continuity of Care Document ---
Author Organization [facility] Address [address] [place] [id number]- Care Team Providers Care Shirt Operator Name Role Phone Yunier Garcia DO Primary Care Physician Encounter [facility] [place] Date(s): 01/06/21 - 03/27/21 [facility] [address] [place], [place] [id number]- Attending Physician: Larry Tafoya MD Admitting Physician: Larry Tafoya MD Referring Physician: Yunier Garcia DO Allergies, Adverse Reactions, Alerts Substance Reaction Severity Status NKA Active Immunizations Given and Recorded Vaccine Date Status Refusal Reason Zoster Vaccine Live 11/23/20 Recorded Medications acetaminophen 325 mg oral tablet 650 mg, By Mouth, Every 6 hours, May take OTC, follow directions on bottle, Refills 0, Maintenance,02/12/21 6:51:00 EDT, Partial fill upon patient request if the prescription is for a schedule II opioid drug. Start Date: 02/12/21 Status: Ordered Aspirin Low Dose 81 mg oral delayed release tablet 1 tablet = 81 mg, By Mouth, Daily, # 30 tablet, 0 Refills, Maintenance, 03/02/21 19:20:00 EDT, EC Tablet, Partial fill upon patient request if the prescription is for a schedule II opioid drug. Start Date: 03/02/21 Status: Ordered atorvastatin 40 mg oral tablet 1 tablet, By Mouth, Daily, # 90 tablet, 1 Refills, Maintenance, 10/28/20 11:23:00 EDT, [facility], 182.88, cm, 09/16/20 8:26:00 EDT, Height Start Date: 10/28/20 Status: Ordered Colace Capsule 100 mg, 1, capsule, By Mouth, 2 times a day, hold for loose stool, Refills 0, Maintenance, 216:52:00 EDT, Partial fill upon patient request if the prescription is for a schedule II opioid drug. Start Date: 02/12/21 Status: Ordered Finasteride = 5 mg, By Mouth, Daily, 0 Refills, Maintenance, 12/23/20 11:40:00 EDT, Partial fill upon patient request if the prescription is for a schedule II opioid drug. Start Date: 12/23/20 Status: Ordered Lantus Solostar Pen 100 units/mL subcutaneous solution See Instructions, take 25 units daily at bedtime e 11.9, # 30 mL, 11 Refills, Maintenance, 01/10/2111:08:00 EDT, Solution, [id number], 183, cm, 01/10/21 10:33:00 EDT, Height, 117.9, kg, 12/23/20 14:08:00 EDT, Dry Weight Start Date: 01/10/21 Status: Ordered Linzess 145 mcg oral capsule 1 capsule = 145 mcg, By Mouth, Daily, # 30 capsule, 3 Refills, Maintenance, 02/04/21 13:06:00 EDT, Capsule, [id number], Partial fill upon patient request if the prescription is for a scheduleII opioid drug., 183, cm, 01/25/21 8:55:00 EDT, Hei... Start Date: 02/04/21 Status: Ordered lisinopril 20 mg oral tablet 20 mg, 1, tablet, By Mouth, Daily, # 90 tablet, Refills 1, Tot. Refills 1, Soft Stop, 10/13/20 10:17:00 EDT, Route to Pharmacy Electronically, [facility], 182.88, cm, 09/16/20 8:26:00 EDT, Height Start Date: 10/13/20 Status: Ordered Maalox Plus Liquid 30 mL, By Mouth, Every 4 hours, PRN Other, Heartburn, 0 Refills, Maintenance, 02/12/21 6:51:00 EDT,Suspension, Partial fill upon patient request if the prescription is for a schedule II opioid drug. Start Date: 02/12/21 Status: Ordered metFORMIN 500 mg oral tablet, extended release 4 tablet = 2,000 mg, By Mouth, Daily, # 360 tablet, 3 Refills, Maintenance, 01/10/21 11:09:00 EDT, [id number], 183, cm, 01/10/21 10:33:00 EDT, Height, 117.9, kg, 12/23/20 14:08:00 EDT, Dry Weight Start Date: 01/10/21 Status: Ordered MiraLax Powder 1 pack/packet = 17 Gm, By Mouth, Daily, PRN Constipation, 0 Refills, Maintenance, 02/12/21 6:54:00 EDT, Powder, Partial fill upon patient request if the prescription is for a schedule II opioid drug. Start Date: 02/12/21 Status: Ordered pantoprazole 40 mg oral delayed release tablet = 40 mg, By Mouth, Daily in AM, 0 Refills, Maintenance, 02/12/21 6:54:00 EDT, EC Tablet Start Date: 02/12/21 Status: Ordered senna 187 mg oral tablet 1 tablet = 8.6 mg, By Mouth, Daily at bedtime, PRN as needed for constipation, 0 Refills, Maintenance, 02/12/21 6:54:00 EDT, Tablet, Partial fill upon patient request if the prescription is for a schedule II opioid drug. Start Date: 02/12/21 Status: Ordered traMADol 50 mg oral tablet 1 tablet = 50 mg, By Mouth, Every 12 hours, PRN as needed for pain, 0 Refills, Maintenance, 03/02/21 19:23:00 EDT, Tablet, Partial fill upon patient request if the prescription is for a schedule II opioid drug. Start Date: 03/02/21 Status: Ordered Trulicity Pen 1.5 mg/0.5 mL subcutaneous solution = 1.5 mg, Subcutaneous Injection, Every week, e 11.9, # 2.5 mL, 11 Refills, 01/10/21 11:09:00 EDT, [facility][id number], 183, cm, 01/10/21 10:33:00 EDT, Height, 117.9, kg, 12/23/20 14:08:00 EDT, Dry Weight Start Date: 01/10/21 Status: Ordered Problem List Condition Effective Dates Status Health Status Inform ant Aneurysm of ascending aorta( Confirmed) 1 Active Atherosclerosis of aorta(Confirmed) Active Benign essential hypertension(Confirmed) Active Bicuspid aortic valve(Confirmed) Active Cyst of kidney(Confirmed) Active Dyspnea(Confirmed) Active Chronic edema(Confirmed) 2 Active Expressive aphasia(Confirmed) Active H/O: TIA(Confirmed) Active Hearing loss(Confirmed) Active Hyperlipidemia(Confirmed) Active HTN (hypertension)(Confirmed) Active Migraine(Confirmed) Active Obstructive sleep apnea syndrome(Confirmed) Active Patent foramen ovale(Confirmed) Active Raised prostate specific antigen(Confirmed) Active Apnea, sleep(Confirmed) Active DM2 (diabetes mellitus, type 2)(Confirmed) 3 Active 1[facility] 2L leg 3[facility] Social History Social History Type Response Smoking Status Never (less than 100 in lifetime) entered on: 08/17/18 Sex
--- OUTSIDE RECORDS SUMMARY | 2023-12-04 08:46 | XMS_ITS | Continuity of Care Document ---
Author Organization [facility] Address [address] [facility] [address], [address], [address] [place] [id number] Care Team Providers Care Court Crier Name Role Phone Yunier Garcia DO Primary Care Physician Encounter [facility] [place] Date(s): 10/12/22 - 11/11/22 [facility] [address], [address], [address] [place] [id number] Allergies, Adverse Reactions, Alerts No Known Allergies Immunizations Given and Recorded Vaccine Date Status Refusal Reason SARS-CoV-2 (COVID-19) mRNA-1273 vaccine 04/04/21 R ecorded Zoster Vaccine Live 11/23/20 Recorded zoster vaccine, inactivated 02/05/20 Recorded influenza virus vaccine, inactivated 02/05/20 Chris rded influenza virus vaccine, inactivated 06/13/17 Chris rded Medications atorvastatin 40 mg oral tablet 1 tablet, By Mouth, Daily, # 90 tablet, 1 Refills, Maintenance, 11/06/22 18:41:00 EDT, [id number], 183, cm, 10/20/22 13:23:00 EDT, Height, 114, kg, 10/14/22 20:17:00 EDT, Dry Weight Start Date: 11/06/22 Status: Ordered divalproex sodium 500 mg oral enteric coated tablet = 500 mg, By Mouth, 3 times a day, 0 Refills, Maintenance, 10/20/22 11:26:00 EDT, Tablet, Partial fill upon patient request if the prescription is for a schedule II opioid drug. Start Date: 10/20/22 Status: Ordered Docusate/Senna Tablet 1 tablet, By Mouth, 2 times a day, 0 Refills, Maintenance, 10/20/22 11:53:00 EDT, Tablet, Partial fill upon patient request if the prescription is for a schedule II opioid drug. Start Date: 10/20/22 Status: Ordered Finasteride = 5 mg, By Mouth, Daily, 0 Refills, Maintenance, 12/23/20 11:40:00 EDT, Partial fill upon patient request if the prescription is for a schedule II opioid drug. Start Date: 12/23/20 Status: Ordered Keppra 500 mg oral tablet 1 tablet = 500 mg, By Mouth, 2 times a day, # 60 tablet, 5 Refills, Maintenance, 11/08/22 16:26:00 EDT, Tablet, [facility] #[id number], Partial fill upon patient request if the prescription is for a schedule II opioid drug., 183, cm, 11/07/22 10:33:00 EDT... Start Date: 11/08/22 Status: Ordered Lantus Inj 0.2 mL = 20 units, Subcutaneous Injection, Daily at bedtime, 0 Refills, Maintenance, 10/20/22 11:27:00 EDT, Injection, Partial fill upon patient request if the prescription is for a schedule II opioid drug. Start Date: 10/20/22 Status: Ordered lisinopril 20 mg oral tablet 20 mg, 1, tablet, By Mouth, Daily, # 90 tablet, Refills 0, Tot. Refills 0, Soft Stop, 11/07/22 10:40:00 EDT, Route to Pharmacy Electronically, [facility] #[id number], 183, cm, 11/07/22 10:33:00 EDT, Height, 114, kg, 10/14/22 20:17:00 EDT, Dry Weight Start Date: 11/07/22 Status: Ordered melatonin 3 mg oral tablet = 3 mg, By Mouth, Daily at bedtime, PRN Insomnia, 0 Refills, Maintenance, 10/20/22 11:26:00 EDT, Tablet, Partial fill upon patient request if the prescription is for a schedule II opioid drug. Start Date: 10/20/22 Status: Ordered MetFORMIN (Eqv-Glucophage XR) 500 mg oral tablet, extended release 4 tablet, By Mouth, Daily, # 360 tablet, 3 Refills, Maintenance, 02/17/22 10:20:00 EDT, [id number], 183, cm, 12/09/21 11:56:00 EDT, Height, 118.8, kg, 11/09/21 7:05:00 EDT, Dry Weight Start Date: 02/17/22 Status: Ordered metoprolol 25 mg oral tablet, extended release 25 mg, 1, tablet, By Mouth, Daily, # 90 tablet, Refills 0, Tot. Refills 0, Maintenance, 11/07/22 10:41:00 EDT, Route to Pharmacy Electronically, [facility]/pharmacy #[id number], Partial fill upon patient request if the prescription is for a schedule II opioid drug... Start Date: 11/07/22 Status: Ordered SEROquel 25 mg oral tablet 25 mg, 1, tablet, By Mouth, Daily at supper, Refills 0, Maintenance, 10/20/22 11:26:00 EDT, Partialfill upon patient request if the prescription is for a schedule II opioid drug. Start Date: 10/20/22 Status: Ordered SEROquel 25 mg oral tablet 25 mg, 1, tablet, By Mouth, 2 times a day, PRN, Refills 0, Maintenance, Agitation, 10/20/22 11:26:00 EDT, Partial fill upon patient request if the prescription is for a schedule II opioid drug. Start Date: 10/20/22 Status: Ordered terazosin 2 mg oral capsule TAKE 1 CAPSULE BY MOUTH AT BEDTIME Start Date: 08/18/22 Status: Ordered thiamine 100 mg oral tablet 100 mg, 1, tablet, By Mouth, Daily, Refills 0, Maintenance, 10/20/22 11:26:00 EDT, Partial fill upon patient request if the prescription is for a schedule II opioid drug. Start Date: 10/20/22 Status: Ordered Trulicity Pen 1.5 mg/0.5 mL subcutaneous solution = 1.5 mg, Subcutaneous Injection, Every 7 days, # 2 mL, 6 Refills, 05/16/22 9:37:00 EST, [facility] #[id number], 183, cm, 04/29/22 11:35:00 EST, Height, 120, kg, 04/29/22 11:35:00 EST, Dry Weight Start Date: 05/16/22 Status: Ordered Vitamin B-12 5000 mcg sublingual tablet 1 tablet = 5,000 mcg, Daily, 0 Refills, Maintenance, 10/10/22 15:58:00 EDT, Partial fill upon patient request if the prescription is for a schedule II opioid drug. Start Date: 10/10/22 Status: Ordered Vitamin D3 50,000 intl units oral capsule 1 capsule = 1,250 mcg, By Mouth, Every 7 days, # 12 capsule, 0 Refills, Maintenance, 11/07/22 10:50:00 EDT, Capsule, [id number], Partial fill upon patient request if the prescription is for aschedule II opioid drug., 183, cm, 11/07/22 10:33:0... Start Date: 11/07/22 Status: Ordered Problem List Condition Confirmation Course Effective Dates Status H ealth Status Informant Aneurysm of ascending aorta 1 Confirmed Active Atherosclerosis of aorta Confirmed Active Benign essential hypertension Confirmed Active Bicuspid aortic valve Confirmed Active Cyst of kidney Confirmed Active Dyspnea Confirmed Active Chronic edema 2 Confirmed Active H/O: TIA Confirmed Active Headache Confirmed Active Hearing loss Confirmed Active Hyperlipidemia Confirmed Active HTN (hypertension) Confirmed Active Migraine Confirmed Active Obese class I Confirmed Active Obstructive sleep apnea syndrome Confirmed Active Raised prostate specific antigen 3 Confirmed Active Apnea, sleep Confirmed Active DM2 (diabetes mellitus, type 2) 4 Confirmed Active 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 Dixon 4[facility] Social History Social History Type Response Smoking Status Never (less than 100 in lifetime) entered on: 08/17/18 Sex Patient Care team information Care Team Personnel Name: Mary Dumas RN Position: [facility] RN Supv Member Role: Primary Care Nurse Name: Denise Lu RN Position: [facility] RN Member Role: Primary Care Nurse Name: Rosanne Beyer RN Position: [facility] RN Member Role: Primary Care Nurse Name: Evelyn Shay RN Position: [facility] RN Supv Member Role: Primary Care Nurse Name: Arely Deleon RN Position: [facility] RN Member Role: Primary Care Nurse Name: Yunier Garcia DO Position: [facility] Physician - Primary Care Member Role: PCP Address: Address: [address] [place] [address] [place] [address]- Name: Mariola Becker RN Position: [facility] RN Member Role: Primary Care Nurse Name: Tl Harris RN Position: [facility] RN Member Role: Primary Care Nurse Name: Gabriela Knowles RN Position: [facility] Hospital [employer] Teacher Member Role: Primary Care Nurse Name: Essence Connor RN Position: [facility] RN Member Role: Primary Care Nurse Care Team Related Persons Name: LINN BURGESS Address: [address] [place] [address] Name: CAITLYN BURGESS Address: [address] [address]
--- OUTSIDE RECORDS SUMMARY | 2023-12-04 08:47 | XMS_ITS | Continuity of Care Document ---
Author Organization [facility] Address [address] [place] [address]- Care Team Providers Care Farm Machine Operator Name Role Phone Yunier Garcia DO Primary Care Physician Encounter [facility] [place] Date(s): 11/24/21 - 12/24/21 [facility] [address] [place] [id number] Attending Physician: Awais Cervantes Admitting Physician: Awais Cervantes Referring Physician: AdmtrAwais Allergies, Adverse Reactions, Alerts No Known Allergies [...] opioid drug. Start Date: 02/12/21 Status: Ordered allopurinol 100 mg oral tablet 100 mg, 1, tablet, By Mouth, Daily, # 30 tablet, Refills 0, Maintenance, 09/21/21 7:10:00 EDT, Partial fill upon patient request if the prescription is for a schedule II opioid drug. Start Date: 09/21/21 Status: Ordered Aspirin Low Dose 81 mg oral delayed release tablet 1 tablet = 81 mg, By Mouth, Daily, # 90 tablet, 3 Refills, Maintenance, 03/30/21 9:33:00 EST, EC Tablet, [id number], Partial fill upon patient request if the prescription is for a schedule IIopioid drug., 186, cm, 03/30/21 8:55:00 EST, Height... Start Date: 03/30/21 Status: Ordered atorvastatin 40 mg oral tablet 1 tablet, By Mouth, Daily, # 90 tablet, 1 Refills, [id number], 183, cm, 11/10/21 7:41:00 EDT, Height, 118.8, kg, 11/09/21 7:05:00 EDT, Dry Weight Start Date: 11/11/21 Status: Ordered Finasteride = 5 mg, By Mouth, Daily, 0 Refills, Maintenance, 12/23/20 11:40:00 EDT, Partial fill upon patient request if the prescription is for a schedule II opioid drug. Start Date: 12/23/20 Status: Ordered Lantus Solostar Pen 100 units/mL subcutaneous solution See Instructions, take 28 units daily at bedtime e 11.9, # 30 mL, 11 Refills, Maintenance, 12/08/2211:14:00 EDT, Solution, [facility] #[id number], 183, cm, 11/24/21 13:34:00 EDT, Height, 118.8, kg, 11/09/21 7:05:00 EDT, Dry Weight Start Date: 12/07/21 Status: Ordered lisinopril 20 mg oral tablet 20 mg, 1, tablet, By Mouth, Daily, # 90 tablet, Refills 1, Tot. Refills 1, Soft Stop, 11/28/21 12:36:00 EDT, Route to Pharmacy Electronically, [facility] #[id number], 183, cm, 11/24/21 13:34:00 EDT, Height, 118.8, kg, 11/09/21 7:05:00 EDT, Dry Weight Start Date: 11/28/21 Status: Ordered metFORMIN 500 mg oral tablet, extended release 4 tablet = 2,000 mg, By Mouth, Daily, # 360 tablet, 3 Refills, Maintenance, 01/10/21 11:09:00 EDT, [facility]/pharm[facility] #[id number], 183, cm, 01/10/21 10:33:00 EDT, Height, 117.9, kg, 12/23/20 14:08:00 EDT, Dry Weight Start Date: 01/10/21 Status: Ordered metoprolol 25 mg oral tablet, extended release 25 mg, 1, tablet, By Mouth, Daily, # 30 tablet, Refills 11, Tot. Refills 11, Maintenance, 11/10/21 9:21:00 EDT, Route to Pharmacy Electronically, [facility]/pharmacy #[id number], Partial fill upon patient requestif the prescription is for a schedule II opioid dayanna... Start Date: 11/10/21 Status: Ordered One Touch Ultra Test Strips See Instructions, # 200 each, Refills 5, Tot. Refills 5, Maintenance, pt is testing 1 to 3 times a day for Type 2 Diabetes Mellitus E11.9, 05/02/21 9:01:00 EST, Supply, 186, cm, 04/14/21 12:03:00 EST, Height, 109, kg, 04/14/21 11:56:00 EST, Dry Weight Start Date: 05/02/21 Stop Date: 10/29/21 Status: Ordered Pen [place], 32 G x 4 mm BD Ultra Fine III See Instructions, # 90 each, Refills 4, Tot. Refills 4, Maintenance, use with Lantus Pens daily, 07/20/21 15:17:00 EST, Supply, 186, cm, 04/14/21 12:03:00 EST, Height, 109, kg, 04/14/21 11:56:00 EST,Dry Weight Start Date: 07/20/21 Status: Ordered Plavix 75 mg oral tablet 75 mg, 1, tablet, By Mouth, Daily, # 30 tablet, Refills 6, Tot. Refills 6, Maintenance, 11/10/21 9:21:00 EDT, Route to Pharmacy Electronically, [facility]/pharmacy #[id number], Partial fill upon patient request if the prescription is for a schedule II opioid drug.... Start Date: 11/10/21 Status: Ordered Potassium Citrate By Mouth, 0 Refills, Maintenance, 09/21/21 7:11:00 EDT, Partial fill upon patient request if the prescription is for a schedule II opioid drug. Start Date: 09/21/21 Status: Ordered Trulicity Pen 1.5 mg/0.5 mL subcutaneous solution See Instructions, INJECT 1.5 MG (1 PEN) SUBCUTANEOUS INJECTION EVERY WEEK,INSTR:E 11.9, # 6 Unknown, 1 Refills, [id number], 183, cm, 11/10/21 7:41:00 EDT, Height, 118.8, kg, 11/09/21 7:05:00 EDT, Dry Weight Start Date: 11/17/21 Status: Ordered Problem List Condition Effective Dates Status Health Status Inform ant Aneurysm of ascending aorta( Confirmed) 1 Active Atherosclerosis of aorta(Confirmed) Active Benign essential hypertension(Confirmed) Active Bicuspid aortic valve(Confirmed) Active Cyst of kidney(Confirmed) Active Dyspnea(Confirmed) Active Chronic edema(Confirmed) 2 Active Expressive aphasia(Confirmed) Active H/O: TIA(Confirmed) Active Hearing loss(Confirmed) Active Hyperlipidemia(Confirmed) Active HTN (hypertension)(Confirmed) Active Migraine(Confirmed) Active Obese class II(Confirmed) Active Obstructive sleep apnea syndrome(Confirmed) Active Patent foramen ovale(Confirmed) Active Raised prostate specific antigen(Confirmed) Active Apnea, sleep(Confirmed) Active DM2 (diabetes mellitus, type 2)(Confirmed) 3 Active 1[facility] 2L leg 3[facility] Social History Social History Type Response Smoking Status Never (less than 100 in lifetime) entered on: 08/17/18 Sex
--- OUTSIDE RECORDS SUMMARY | 2023-12-04 08:47 | XMS_ITS | Continuity of Care Document ---
Author Organization [facility] Address [address] [facility], [address] Floor, [address] [place] [id number]- Care Team Providers Care Insulator Helper Name Role Phone Garcia Yunier CRANDALL Primary Care Physician Encounter [facility] Date(s): 11/27/22 - 12/27/22 [facility] [address] [facility], 3rd Floor, [address] [place] [address]- Allergies, Adverse Reactions, Alerts No Known Allergies [...] tablet, 1 Refills, Maintenance, 11/06/22 18:41:00 EDT, [id number], 183, cm, 10/20/22 13:23:00 EDT, Height, 114, kg, 10/14/22 20:17:00 EDT, Dry Weight Start Date: 11/06/22 Status: Ordered BD UF LUCY PEN NEEDLE [id number] BD UF LUCY PEN NEEDLE [id number], See Instructions, # 100 Unknown, 3 Refills, Maintenance, USE WITH LANTUS PENS DAILY, 11/29/22 12:20:00 EDT, 183, cm, 11/28/22 11:39:00 EDT, Height, 114, kg, 10/14/22 20:17:00 EDT, Dry Weight Start Date: 11/29/22 Status: Ordered Finasteride = 5 mg, By Mouth, Daily, 0 Refills, Maintenance, 12/23/20 11:40:00 EDT, Partial fill upon patient request if the prescription is for a schedule II opioid drug. Start Date: 12/23/20 Status: Ordered Keppra 500 mg oral tablet 1 tablet = 500 mg, By Mouth, 2 times a day, # 60 tablet, 5 Refills, Maintenance, 11/08/22 16:26:00 EDT, Tablet, [id number], Partial fill upon patient request [...] drug. Start Date: 10/20/22 Status: Ordered lisinopril 10 mg oral tablet 10 mg, 1, tablet, By Mouth, Daily, # 90 tablet, Refills 0, Tot. Refills 0, Maintenance, 11/28/22 12:18:00 EDT, Route to Pharmacy Electronically, [facility]/pharmacy #[id number], Partial fill upon patient request if the prescription is for a schedule II opioid drug... Start Date: 11/28/22 Status: Ordered melatonin 3 mg oral tablet [...] Refills, Maintenance, 02/17/22 10:20:00 EDT, [id number], 183, cm, 12/09/21 11:56:00 EDT, Height, 118.8, kg, 11/09/21 7:05:00 EDT, Dry Weight Start Date: 02/17/22 Status: Ordered metoprolol 25 mg oral tablet, extended release 25 mg, 1, tablet, By Mouth, Daily, # 90 tablet, Refills 0, Tot. Refills 0, Maintenance, 11/07/22 10:41:00 EDT, Route to Pharmacy Electronically, [facility]/pharmacy #[id number], Partial fill upon patient request if the prescription is for a schedule II opioid drug... Start Date: 11/07/22 Status: Ordered terazosin 2 mg oral capsule TAKE 1 CAPSULE BY MOUTH AT BEDTIME Start Date: 08/18/22 Status: Ordered Trulicity Pen 1.5 mg/0.5 mL subcutaneous solution = 1.5 mg, Subcutaneous Injection, Every 7 days, # 2 mL, 6 Refills, 12/22/22 10:57:00 EDT, [id number], 183, cm, 11/28/22 11:39:00 EDT, Height, 114, kg, 10/14/22 20:17:00 EDT, Dry Weight Start Date: 12/22/22 Status: Ordered Vitamin B-12 5000 mcg sublingual [...] 0 Refills, Maintenance, 11/07/22 10:50:00 EDT, Capsule, [facility]/pharmacy #[id number], Partial fill upon patient request if the prescription is for aschedule II opioid drug., 183, cm, 11/07/22 10:33:0... Start Date: 11/07/22 Status: Ordered Problem List Condition Confirmation Course Effective Dates Status H ealth Status Informant Abdominal pain Confirmed Active Aneurysm of ascending aorta 1 Confirmed Active Atherosclerosis of aorta Confirmed Active Benign essential hypertension Confirmed Active Bicuspid aortic valve Confirmed Active Cyst of kidney Confirmed Active Dyspnea Confirmed Active Chronic edema 2 Confirmed Active H/O: TIA Confirmed Active Headache Confirmed Active Hearing loss Confirmed Active Hyperlipidemia Confirmed Active Migraine Confirmed Active Obese class I Confirmed Active Obstructive sleep apnea syndrome Confirmed Active Raised prostate specific antigen 3 Confirmed Active Seizure disorder Confirmed Active Apnea, sleep Confirmed Active DM2 (diabetes mellitus, type 2) 4 Confirmed Active 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 Social History Social History Type Response Smoking Status Never (less than 100 in lifetime) entered on: 08/17/18 Sex Patient Care team information Care Team Personnel Name: Mary Dumas RN Position: [facility] RN Supv Member Role: Primary Care Nurse Name: Denise Lu RN Position: [facility] SN RN Member Role: Primary Care Nurse Name: Rosanne Beyer RN Position: S RN Member Role: Primary Care Nurse Name: Evelyn Shay RN Position: [facility] RN Supv Member Role: Primary Care Nurse Name: Arely Deleon RN Position: [facility] RN Member Role: Primary Care Nurse Name: Yunier Garcia DO Position: [facility] Physician - Primary Care Member Role: PCP Address: Address: [address] [place] [id number] Name: Mariola Becker RN Position: [facility] RN Member Role: Primary Care Nurse Name: Tl Harris RN Position: [facility] RN Member Role: Primary Care Nurse Name: Gabriela Knowles RN Position: [facility] Recording Artist Member Role: Primary Care Nurse Name: Essence Connor RN Position: [facility] RN Member Role: Primary Care Nurse Care Team Related Persons Name: LINN BURGESS Address: [address] [place] [address] Name: CAITLYN BURGESS Address: home [address] [place] [address]
--- OUTSIDE RECORDS SUMMARY | 2023-12-04 08:47 | XMS_ITS | Continuity of Care Document ---
Author Organization [facility] ter Address [address] [place] [address]- Care Team Providers Care Loan Administrator Name Role Phone Garcia Yunier CRANDALL Primary Care Physician Encounter [facility] Date(s): 09/01/21 - 10/01/[address] [address]- Attending Physician: Awais Cervantes Admitting Physician: Awais [...] Maintenance, 03/30/21 9:33:00 EST, EC Tablet, [id number], Partial fill upon patient request if the prescription is for a schedule IIopioid drug., 186, cm, 03/30/21 8:55:00 EST, Height... Start Date: 03/30/21 Status: Ordered atorvastatin 40 mg oral tablet 1 tablet, By Mouth, Daily, # 90 tablet, 1 Refills, Maintenance, 05/02/21 14:23:00 EST, [facility]/pharmacy#[id number], 186, cm, 04/14/21 12:03:00 EST, Height, 109, kg, 04/14/21 11:56:00 EST, Dry Weight Start Date: 05/02/21 Status: Ordered Finasteride = 5 mg, By Mouth, Daily, 0 Refills, Maintenance, 12/23/20 11:40:00 EDT, Partial fill upon patient request if the prescription is for a schedule II opioid drug. Start Date: 12/23/20 Status: Ordered Lantus Solostar Pen 100 units/mL subcutaneous solution See Instructions, take 25 units daily at bedtime e 11.9, # 30 mL, 11 Refills, Maintenance, 01/10/2111:08:00 EDT, Solution, [facility]/pharmacy #[id number], 183, cm, 01/10/21 10:33:00 EDT, Height, 117.9, kg, 12/23/20 14:08:00 EDT, Dry Weight Start Date: 01/10/21 Status: Ordered lisinopril 20 mg oral tablet 20 mg, 1, tablet, By Mouth, Daily, # 90 tablet, Refills 1, Tot. Refills 1, Soft Stop, 06/17/21 13:00:00 EST, Route to Pharmacy Electronically, [facility]/pharmacy #[id number], 186, cm, 04/14/21 12:03:00 EST, Height, 109, kg, 04/14/21 11:56:00 EST, Dry Weight Start Date: 06/17/21 Status: Ordered metFORMIN 500 mg oral tablet, extended release 4 tablet = 2,000 mg, By Mouth, Daily, # 360 tablet, 3 Refills, Maintenance, 01/10/21 11:09:00 EDT, [facility]/pharmacy #[id number], 183, cm, 01/10/21 10:33:00 EDT, Height, 117.9, kg, 12/23/20 14:08:00 EDT, Dry Weight Start Date: 01/10/21 Status: Ordered One Touch Ultra Test Strips See Instructions, # 200 each, Refills 5, Tot. Refills 5, Maintenance, pt is testing 1 to 3 times a day for Type 2 Diabetes Mellitus E11.9, 05/02/21 9:01:00 EST, Supply, 186, cm, 04/14/21 12:03:00 EST, Height, 109, kg, 04/14/21 11:56:00 EST, Dry Weight Start Date: 05/02/21 Stop Date: 10/29/21 Status: Ordered Pen [place], 32 G x 4 mm BD Ultra Fine III See Instructions, # 90 each, Refills 4, Tot. Refills 4, Maintenance, use with Lantus Pens daily, 07/20/21 15:17:00 EST, Supply, 186, cm, 04/14/21 12:03:00 EST, Height, 109, kg, 04/14/21 11:56:00 EST,Dry Weight Start Date: 07/20/21 Status: Ordered Potassium Citrate By Mouth, 0 Refills, Maintenance, 09/21/21 7:11:00 EDT, Partial fill upon patient request if the prescription is for a schedule II opioid drug. Start Date: 09/21/21 Status: Ordered Trulicity Pen 1.5 mg/0.5 mL subcutaneous solution = 1.5 mg, Subcutaneous Injection, Every week, e 11.9, # 6.5 mL, 1 Refills, 08/04/21 15:45:00 EDT, [facility]/pharmacy #[id number], 186, cm, 04/14/21 12:03:00 EST, Height, 109, kg, 04/14/21 11:56:00 EST, Dry Weight Start Date: 08/04/21 Status: Ordered Problem List Condition Effective Dates Status Health Status Inform ant Aneurysm of ascending aorta( Confirmed) 1 Active Atherosclerosis of aorta(Confirmed) Active Benign essential hypertension(Confirmed) Active Bicuspid aortic valve(Confirmed) Active Cyst of kidney(Confirmed) Active Dyspnea(Confirmed) Active Chronic edema(Confirmed) 2 Active Expressive aphasia(Confirmed) Active H/O: TIA(Confirmed) Active Hearing loss(Confirmed) Active Hyperlipidemia(Confirmed) Active HTN (hypertension)(Confirmed) Active Migraine(Confirmed) Active Obese class I(Confirmed) Active Obstructive sleep apnea syndrome(Confirmed) Active Patent foramen ovale(Confirmed) Active Raised prostate specific antigen(Confirmed) Active Apnea, sleep(Confirmed) Active DM2 (diabetes mellitus, type 2)(Confirmed) 3 Active 1[facility] 2L leg [facility] Social History Social History Type Response Smoking Status Never (less than 100 in lifetime) entered on: 08/17/18 Sex
--- OUTSIDE RECORDS SUMMARY | 2023-12-04 08:47 | XMS_ITS | Continuity of Care Document ---
Author Organization [facility] Address [address] [facility], [address] d Floor, [address] [place] [id number]- Care Team Providers Care Analytics Director Name Role Phone Yunier Garcia DO Primary Care Physician Encounter [facility] Date(s): 10/10/22 - 11/09/22 [facility] [address], 3rd Floor, [address] [place] [id number] Allergies, Adverse Reactions, Alerts No Known [...] tablet, 1 Refills, Maintenance, 11/06/22 18:41:00 EDT, [facility] STORE [id number], 183, cm, 10/20/22 13:23:00 EDT, Height, 114, [...] 5 Refills, Maintenance, 11/08/22 16:26:00 EDT, Tablet, [facility]/pharmacy #[id number], Partial fill upon patient request if [...] 11/07/22 10:40:00 EDT, Route to Pharmacy Electronically, [facility]/pharmacy #[id number], 183, cm, 11/07/22 10:33:00 EDT, Height, [...] Refills, Maintenance, 02/17/22 10:20:00 EDT, [facility], 183, cm, 12/09/21 11:56:00 EDT, Height, 118.8, kg, 11/09/21 7:05:00 EDT, Dry Weight Start Date: 02/17/22 Status: Ordered metoprolol 25 mg oral tablet, extended release 25 mg, 1, tablet, By Mouth, Daily, # 90 tablet, Refills 0, Tot. Refills 0, Maintenance, 11/07/22 10:41:00 EDT, Route to Pharmacy Electronically, [facility]/pharmacy #[id number], Partial fill upon patient request if [...] 2 mL, 6 Refills, 05/16/22 9:37:00 EST, [facility]/pharmacy #[id number], 183, cm, 04/29/22 11:35:00 EST, Height, [...] Active 1[facility] 2L leg 3Dr. Dixon 4[facility] Social History Social History Type Response Smoking Status Never (less than 100 in lifetime) entered on: 08/17/18 Sex Patient Care team information Care Team Personnel Name: Mary Dumas RN Position: [facility] RN Supv Member Role: Primary Care Nurse Name: Denise Lu RN Position: [facility] RN Member Role: Primary Care Nurse Name: Rosanne Beyer RN Position: [facility] RN Member Role: Primary Care Nurse Name: Evelyn Shay RN Position: [facility] RN Supv Member Role: Primary Care Nurse Name: Arely Deleon RN Position: [facility] RN Member Role: Primary Care Nurse Name: Yunier Garcia DO Position: [facility] Physician - Primary Care Member Role: PCP Address: Address: [address] [place] [address] [place] [address]- Name: Mariola Becker RN Position: [facility] RN Member Role: Primary Care Nurse Name: Tl Harris RN Position: [facility] RN Member Role: Primary Care Nurse Name: Gabriela Knowles RN Position: [facility] Hospital Cloth Presser Member Role: Primary Care Nurse Name: Essence Connor RN Position: [facility] RN Member Role: Primary Care Nurse Care Team Related Persons Name: LINN BURGESS Address: [address] [place] [address] Name: CAITLYN BURGESS Address: [address] [address]
--- OUTSIDE RECORDS SUMMARY | 2023-12-04 08:47 | XMS_ITS | Continuity of Care Document ---
Author Organization [facility] Address [address] [place] [phone]- Care Team Providers Care Reference Data Expert Name Role Phone Garcia Yunier CRANDALL Primary Care Physician [place] [facility] [place] 03/19/21 [facility] [address] [place] [id number] Allergies, Adverse Reactions, Alerts Substance Reaction Severity [...] hold for loose stool, Refills 0, Maintenance, :52:00 EDT, Partial fill upon patient request if [...] 2.5 mL, 11 Refills, 01/10/21 11:09:00 EDT, [facility]/pharmacy #[id number], 183, cm, 01/10/21 10:33:00 EDT, [...] 2)(Confirmed) 3 Active 1[facility] 2L leg 3[facility] Social History Social History Type Response Smoking Status Never (less than 100 in lifetime) entered on: 08/17/18 Sex
--- OUTSIDE RECORDS SUMMARY | 2023-12-04 08:47 | XMS_ITS | Continuity of Care Document ---
Author Organization [facility] Address [address] [place] [phone]- Care Team Providers Care Inpatient Pharmacist Name Role Phone Yunier Garcia DO Primary Care Physician Encounter [facility] [place] Date(s): 04/28/22 - 05/28/22 [facility] [address] [place] [phone]- Attending Physician: Awais Cervantes Admitting Physician: Awais Cervantes Referring Physician: AdmtrAwais Allergies, Adverse Reactions, Alerts No Known Allergies Immunizations Given and Recorded Vaccine Date Status Refusal Reason SARS-CoV-2 (COVID-19) mRNA-1273 vaccine 04/04/21 R ecorded Zoster Vaccine Live 11/23/20 Recorded zoster vaccine, inactivated 02/05/20 Recorded influenza virus vaccine, inactivated 02/05/20 Chris rded influenza virus vaccine, inactivated 06/13/17 Chris rded Medications acetaminophen 325 mg oral tablet 650 [...] Dose 81 mg oral delayed release tablet See Instructions, TAKE 1 TABLET BY MOUTH EVERY DAY, # 90 tablet, 3 Refills, Maintenance, 04/10/22 7:55:00 EST, [facility] STORE 53655, 183, cm, 02/20/22 9:57:00 EDT, Height, 118.8, kg, 11/09/21 7:05:00 EDT,Dry Weight Start Date: 04/10/22 Status: Ordered Aspirin Low Dose 81 mg oral delayed release tablet 1 tablet = 81 mg, By Mouth, Daily, # 90 tablet, 3 Refills, Maintenance, 03/30/21 9:33:00 EST, EC Tablet, [facility]/pharmacy #[id number], Partial fill upon patient request if the prescription is for a schedule IIopioid drug., 186, cm, 03/30/21 8:55:00 EST, Height... Start Date: 03/30/21 Status: Ordered atorvastatin 40 mg oral tablet 1 tablet, By Mouth, Daily, # 90 tablet, 1 Refills, 05/09/22 12:43:00 EST, [facility]/pharmacy #[id number], 183, cm, 04/29/22 11:35:00 EST, Height, 120, kg, 04/29/22 11:35:00 EST, Dry Weight Start Date: 05/09/22 Status: Ordered Finasteride = 5 mg, By Mouth, Daily, 0 Refills, Maintenance, 12/23/20 11:40:00 EDT, Partial fill upon patient request if the prescription is for a schedule II opioid drug. Start Date: 12/23/20 Status: Ordered Lantus Solostar Pen 100 units/mL subcutaneous solution See Instructions, take 28 units daily at bedtime e 11.9, # 30 mL, 11 Refills, Maintenance, 12/08/2211:14:00 EDT, Solution, [facility]/pharmacy #[id number], 183, cm, 11/24/21 13:34:00 EDT, Height, 118.8, kg, 11/09/21 7:05:00 EDT, Dry Weight Start Date: 12/07/21 Status: Ordered lisinopril 20 mg oral tablet 20 mg, 1, tablet, By Mouth, Daily, # 90 tablet, Refills 1, Tot. Refills 1, Soft Stop, 11/28/21 12:36:00 EDT, Route to Pharmacy Electronically, [facility]/pharmacy #[id number], 183, cm, 11/24/21 13:34:00 EDT, Height, 118.8, kg, 11/09/21 7:05:00 EDT, Dry Weight Start Date: 11/28/21 Status: Ordered MetFORMIN (Eqv-Glucophage XR) 500 mg oral tablet, extended release 4 tablet, By Mouth, Daily, # 360 tablet, 3 Refills, Maintenance, 02/17/22 10:20:00 EDT, [facility] STORE 55744, 183, cm, 12/09/21 11:56:00 EDT, Height, 118.8, kg, 11/09/21 7:05:00 EDT, Dry Weight Start Date: 02/17/22 Status: Ordered metoprolol 25 mg oral tablet, extended release 25 mg, 1, tablet, By Mouth, Daily, # 30 tablet, Refills 11, Tot. Refills 11, Maintenance, 11/10/21 9:21:00 EDT, Route to Pharmacy Electronically, [facility]/pharmacy #[id number], Partial fill upon patient requestif the [...] 05/02/21 Stop Date: 10/29/21 Status: Ordered Pen [place], 32 G x 4 mm BD Ultra [...] 9:21:00 EDT, Route to Pharmacy Electronically, [facility]/pharmacy #[id number], Partial fill upon patient request [...] 2 mL, 6 Refills, 05/16/22 9:37:00 EST, [id number], 183, cm, 04/29/22 11:35:00 EST, Height, 120, kg, 04/29/22 11:35:00 EST, Dry Weight Start Date: 05/16/22 Status: Ordered Problem List Condition Confirmation Course Effective Dates Status H ealth Status Informant Aneurysm of ascending aorta 1 Confirmed Active Atherosclerosis of aorta Confirmed Active Benign essential hypertension Confirmed Active Bicuspid aortic valve Confirmed Active Cyst of kidney Confirmed Active Dyspnea Confirmed Active Chronic edema 2 Confirmed Active Expressive aphasia Confirmed Active H/O: TIA Confirmed Active Hearing loss Confirmed Active Hyperlipidemia Confirmed Active HTN (hypertension) Confirmed Active Migraine Confirmed Active Obese class II Confirmed Active Obstructive sleep apnea syndrome Confirmed Active Patent foramen ovale Confirmed Active Raised prostate specific antigen Confirmed Active Severe obesity (BMI 35.0-39.9) with comorbidity Confirmed Active Apnea, sleep Confirmed Active DM2 (diabetes mellitus, type 2) 3 Confirmed Active 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 Active 1[facility] 2L leg 3[facility] Social History Social History Type Response Smoking Status Never (less than 100 in lifetime) entered on: 08/17/18 Sex Patient Care team information Care Team Personnel Name: Denise Lu RN Position: [facility] RN Member Role: Primary Care Nurse Name: Rosanne Beyer RN Position: [facility] RN Member Role: Primary Care Nurse Name: Yunier Garcia DO Position: [facility] Primary Care Physician Member Role: PCP Address: Address: [address] [place] [address] [place] [address]- Name: Mariola Becker RN Position: [facility] RN Member Role: Primary Care Nurse Name: Tl Harris RN Position: [facility] RN Member Role: Primary Care Nurse Name: Gabriela Knowles RN Position: [facility] Hospital Eyeletter Member Role: Primary Care Nurse Name: Essence Connor RN Position: [facility] RN Member Role: Primary Care Nurse Care Team Related Persons Name: KAMLACAITLYN MACKAY Address: [address] [address]
--- OUTSIDE RECORDS SUMMARY | 2023-12-04 08:47 | XMS_ITS | Continuity of Care Document ---
Author Organization [facility] Address [address] [place] [address]- Care Team Providers Care Coloring Checker Name Role Phone Garcia Yunier CRANDALL Primary Care Physician En[place] [facility] [place] Date(s): 05/16/22 - 06/15/22 [facility] [address] [place] [id number] Allergies, Adverse Reactions, Alerts No [...] tablet, 3 Refills, Maintenance, 04/10/22 7:55:00 EST, [facility] ST[facility] 85792, 183, cm, 02/20/22 9:57:00 EDT, Height, 118.8, kg, 11/09/21 7:05:00 EDT,Dry Weight Start Date: 04/10/22 Status: Ordered Aspirin Low Dose 81 mg oral delayed release tablet 1 tablet = 81 mg, By Mouth, Daily, # 90 tablet, 3 Refills, Maintenance, 03/30/21 9:33:00 EST, EC Tablet, [facility]/pharmacy #[id number], Partial fill upon patient request if the prescription is for a schedule IIopioid drug., 186, cm, 03/30/21 8:55:00 EST, Height... Start Date: 03/30/21 Status: Ordered atorvastatin 40 mg oral tablet 1 tablet, By Mouth, Daily, # 90 tablet, 1 Refills, 05/09/22 12:43:00 EST, [facility]/pharmacy #[id number], 183, cm, 04/29/22 11:35:00 EST, [...] mL, 11 Refills, Maintenance, 12/08/2211:14:00 EDT, Solution, [facility]/pharmacy #[id number], 183, cm, 11/24/21 13:34:00 EDT, Height, 118.8, kg, 11/09/21 7:05:00 EDT, Dry Weight Start Date: 12/07/21 Status: Ordered lisinopril 20 mg oral tablet 20 mg, 1, tablet, By Mouth, Daily, # 90 tablet, Refills 1, Tot. Refills 1, Soft Stop, 06/15/22 14:05:00 EST, Route to Pharmacy Electronically, [facility]/pharmacy #[id number], 183, cm, 04/29/22 11:35:00 EST, Height, 120, kg, 04/29/22 11:35:00 EST, Dry Weight Start Date: 06/15/22 Status: Ordered MetFORMIN (Eqv-Glucophage XR) 500 mg oral tablet, extended release 4 tablet, By Mouth, Daily, # 360 tablet, 3 Refills, Maintenance, 02/17/22 10:20:00 EDT, [facility] STORE 76734, 183, cm, 12/09/21 11:56:00 EDT, Height, 118.8, kg, 11/09/21 7:05:00 EDT, Dry Weight Start Date: 02/17/22 Status: Ordered metoprolol 25 mg oral tablet, extended release 25 mg, 1, tablet, By Mouth, Daily, # 30 tablet, Refills 11, Tot. Refills 11, Maintenance, 11/10/21 9:21:00 EDT, Route to Pharmacy Electronically, [facility]/pharmacy #[id number], Partial fill upon patient requestif the [...] 05/02/21 Stop Date: 10/29/21 Status: Ordered Pen [place], 32 G x 4 mm BD Ultra [...] 11/10/21 9:21:00 EDT, Route to Pharmacy Electronically, [facility]/pharmacy #[id number], Partial fill upon patient request [...] 2 mL, 6 Refills, 05/16/22 9:37:00 EST, [facility]/pharmacy #[id number], 183, cm, 04/29/22 11:35:00 EST, [...] nephropathy Confirmed Active 1[facility] 2L leg 3[facility] Social History Social History Type Response Smoking Status Never (less than 100 in lifetime) entered on: 08/17/18 Sex Patient Care team information Care Team Personnel Name: Denise Lu RN Position: [facility] RN Member Role: Primary Care Nurse Name: Rosanne Beyer RN Position: [facility] RN Member Role: Primary Care Nurse Name: Yunier Garcia DO Position: [facility] Primary Care Physician Member Role: PCP Address: Address: [address] [place] [address] [place] [address]- Name: Mariola Becker RN Position: [facility] RN Member Role: Primary Care Nurse Name: Tl Harris RN Position: [facility] RN Member Role: Primary Care Nurse Name: Gabriela Knowles RN Position: [facility] Hospital Accounts Payable Manager Member Role: Primary Care Nurse Name: Essence Connor RN Position: [facility] RN Member Role: Primary Care Nurse Care Team Related Persons Name: CAITLYN BURGESS Address: home [address] [place] [id number]
--- OUTSIDE RECORDS SUMMARY | 2023-12-04 08:47 | XMS_ITS | Continuity of Care Document ---
Author Organization [facility] Address [address] [place] [phone]- Care Team Providers Care Piping Blocker Name Role Phone Jose Yunier CRANDALL Primary Care Physician En[place] [facility] [place] Date(s): 02/13/22 - 03/15/22 [facility] [address] [place] [id number] Allergies, Adverse Reactions, Alerts No Known Allergies [...] Maintenance, 03/30/21 9:33:00 EST, EC Tablet, [id number], Partial fill upon patient request if the prescription is for a schedule IIopioid drug., 186, cm, 03/30/21 8:55:00 EST, Height... Start Date: 03/30/21 Status: Ordered atorvastatin 40 mg oral tablet 1 tablet, By Mouth, Daily, # 90 tablet, 1 Refills, [id number], 183, cm, 11/10/21 7:41:00 EDT, Height, 118.8, [...] mL, 11 Refills, Maintenance, 12/08/2211:14:00 EDT, Solution, [facility]/pharmacy #[id number], 183, cm, 11/24/21 13:34:00 EDT, Height, 118.8, kg, 11/09/21 7:05:00 EDT, Dry Weight Start Date: 12/07/21 Status: Ordered lisinopril 20 mg oral tablet 20 mg, 1, tablet, By Mouth, Daily, # 90 tablet, Refills 1, Tot. Refills 1, Soft Stop, 11/28/21 12:36:00 EDT, Route to Pharmacy Electronically, [facility]/pharmacy #[id number], 183, cm, 11/24/21 13:34:00 EDT, Height, 118.8, kg, 11/09/21 7:05:00 EDT, Dry Weight Start Date: 11/28/21 Status: Ordered MetFORMIN (Eqv-Glucophage XR) 500 mg oral tablet, extended release 4 tablet, By Mouth, Daily, # 360 tablet, 3 Refills, Maintenance, 02/17/22 10:20:00 EDT, [id number], 183, cm, 12/09/21 11:56:00 EDT, Height, 118.8, kg, 11/09/21 7:05:00 EDT, Dry Weight Start Date: 02/17/22 Status: Ordered metoprolol 25 mg oral tablet, extended release 25 mg, 1, tablet, By Mouth, Daily, # 30 tablet, Refills 11, Tot. Refills 11, Maintenance, 11/10/21 9:21:00 EDT, Route to Pharmacy Electronically, [facility]/pharmacy #[id number], Partial fill upon patient requestif [...] 05/02/21 Stop Date: 10/29/21 Status: Ordered Pen [place], 32 G x 4 mm BD Ultra [...] 11/10/21 9:21:00 EDT, Route to Pharmacy Electronically, [facility]/pharmacy #[id number], Partial fill upon patient request [...] WEEK,INSTR:E 11.9, # 6 Unknown, 1 Refills, [facility] [id number], 183, cm, 11/10/21 7:41:00 EDT, Height, 118.8, kg, 11/09/21 7:05:00 EDT, Dry Weight Start Date: 11/17/21 Status: Ordered Problem List Condition Confirmation Course [...] Active Raised prostate specific antigen Confirmed Active Apnea, sleep Confirmed Active DM2 (diabetes mellitus, type 2) 3 Confirmed Active 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
--- OUTSIDE RECORDS SUMMARY | 2023-12-04 08:47 | XMS_ITS | Continuity of Care Document ---
Author Organization [facility] Address [address] [place] [phone]- Care Team Providers Care Cnc Machine Setter Name Role Phone Yunier Garcia DO Primary Care Physician Encounter [facility] [place] Date(s): 01/31/21 - 03/27/21 [facility] [address] [place], [place] [id number]- Attending Physician: Larry Tafoya MD Admitting Physician: [...] 2)(Confirmed) 3 Active 1[facility] 2L leg 3[facility] Social History Social History Type Response Smoking Status Never (less than 100 in lifetime) entered on: 08/17/18 Sex
--- OUTSIDE RECORDS SUMMARY | 2023-12-04 08:47 | XMS_ITS | Continuity of Care Document ---
Author Organization [facility] Address [address] [place] [address]- Care Team Providers Care Environmental Compliance Officer Name Role Phone Yunier Garcia DO Primary Care Physician Encounter 02/13/21 - 02/24/21 [facility] [address] [place] [phone]- Discharge Disposition: GOALS MET Allergies, Adverse Reactions, Alerts Substance Reaction Severity [...] opioid drug. Start Date: 02/12/21 Status: Ordered aspirin 162.5 mg oral capsule, extended release = 325 mg, By Mouth, 2 times a day, enteric coated, 0 Refills, Maintenance, 02/12/21 6:51:00 EDT, ERCapsule, Partial fill upon patient request if the prescription is for a schedule II opioid drug. Start Date: 02/12/21 Status: Ordered atorvastatin 40 mg oral tablet 1 tablet, By Mouth, Daily, # 90 tablet, 1 Refills, Maintenance, 10/28/20 11:23:00 EDT, [facility], 182.88, cm, 09/16/20 8:26:00 EDT, Height Start Date: 10/28/20 Status: Ordered celecoxib 200 mg oral capsule 1 capsule = 200 mg, By Mouth, Daily in AM, 0 Refills, Maintenance, 02/12/21 6:52:00 EDT, Capsule, Partial fill upon patient request if the prescription is for a schedule II opioid drug. Start Date: 02/12/21 Status: Ordered Colace Capsule 100 mg, 1, capsule, By Mouth, 2 times a day, hold for loose stool, Refills 0, Maintenance, :52:00 EDT, Partial fill upon patient request if the prescription is for a schedule II opioid drug. Start Date: 02/12/21 Status: Ordered Contour Next EZ Glucometer See Instructions, # 1 each, Maintenance, use as directed for Type 1 Diabetes Mellitus, 09/11/19 11:03:00 EDT, Supply, 183, cm, 12/17/18 9:27:00 EDT, Height, 125.1, kg, 08/20/18 8:44:00 EDT, Dry Weight Start Date: 09/11/19 Status: Ordered Contour Next EZ Test Strips See Instructions, # 1 each, Refills 2, Tot. Refills 2, Maintenance, use as directed for Type 2 Diabetes Mellitus, 09/11/19 11:04:00 EDT, Supply, 183, cm, 12/17/18 9:27:00 EDT, Height, 125.1, kg, 08/20/18 8:44:00 EDT, Dry Weight Start Date: 09/11/19 Stop Date: 06/07/20 Status: Ordered Finasteride By Mouth, Daily, 0 Refills, Maintenance, 12/23/20 11:40:00 EDT, Partial fill upon patient request if the prescription is for a schedule II opioid drug. Start Date: 12/23/20 Status: Ordered Lancets See Instructions, # 100 each, Maintenance, Check 2 times a day for t2dm, 09/11/19 11:04:00 EDT, Supply, 183, cm, 12/17/18 9:27:00 EDT, Height, 125.1, kg, 08/20/18 8:44:00 EDT, Dry Weight Start Date: 09/11/19 Status: Ordered Lantus Solostar Pen 100 units/mL [...] 3 Refills, Maintenance, 02/04/21 13:06:00 EDT, Capsule, [facility]/pharmacy #[id number], Partial fill upon patient request if [...] 3 Refills, Maintenance, 01/10/21 11:09:00 EDT, [facility]/pharmacy #[id number], 183, cm, 01/10/21 10:33:00 EDT, Height, 117.9, kg, 12/23/20 14:08:00 EDT, Dry Weight Start Date: 01/10/21 Status: Ordered Milk of Magnesia Liquid 30 mL, By Mouth, Daily, PRN Constipation, 0 Refills, Maintenance, 02/12/21 6:53:00 EDT, Suspension,Partial fill upon patient request if the prescription is for a schedule II opioid drug. Start Date: 02/12/21 Status: Ordered MiraLax Powder 1 pack/packet = 17 Gm, By Mouth, Daily, PRN Constipation, 0 Refills, Maintenance, 02/12/21 6:54:00 EDT, Powder, Partial fill upon patient request if the prescription is for a schedule II opioid drug. Start Date: 02/12/21 Status: Ordered One Touch Ultra Test Strips See Instructions, # 75 each, Refills 11, Tot. Refills 11, Maintenance, Use to test blood glucose levels 2x per day. E11.9. 30 day supply., 11/11/19 8:12:00 EDT, Dx E11.65, Compound, 183, cm, :27:00 EDT, Height, 125.1, kg, 08/20/18 8:44:00 ED... Start Date: 11/11/19 Status: Ordered pantoprazole 40 mg oral delayed release tablet = 40 mg, By Mouth, Daily in AM, 0 Refills, Maintenance, 02/12/21 6:54:00 EDT, EC Tablet Start Date: 02/12/21 Status: Ordered Pen [place], 32 G x 4 mm BD Ultra Fine III See instructions, # 90 each, Refills 3, Tot. Refills 3, Maintenance, Use pen needle to inject insulin 1x a day at 8pm. E11.9, 90 Day supply, 01/08/21 8:07:00 EDT, Supply, 182.88, cm, 07/29/20 15:34:00 EDT, Height, 125.1, kg, 08/20/18 8:44:00 EDT, Dry... Start Date: 01/08/21 Stop Date: 01/03/22 Status: Ordered senna 187 mg oral tablet 1 tablet = 8.6 mg, By Mouth, Daily at bedtime, PRN as needed for constipation, 0 Refills, Maintenance, 02/12/21 6:54:00 EDT, Tablet, Partial fill upon patient request if the prescription is for a schedule II opioid drug. Start Date: 02/12/21 Status: Ordered Trulicity Pen 1.5 mg/0.5 mL subcutaneous solution = 1.5 mg, Subcutaneous Injection, Every week, e 11.9, # 2.5 mL, 11 Refills, 01/10/21 11:09:00 EDT, [facility]/pharmacy #[id number], 183, cm, 01/10/21 10:33:00 EDT, Height, [...] 2)(Confirmed) 3 Active 1[facility] 2L leg 3[facility] Social History Social History Type Response Smoking Status Never (less than 100 in lifetime) entered on: 08/17/18 Sex
--- OUTSIDE RECORDS SUMMARY | 2023-12-04 08:47 | XMS_ITS | Continuity of Care Document ---
Author Organization [facility] Address [address] [place] [phone]- Care Team Providers Care Promotion Specialist Name Role Phone Yunier Garcia DO Primary Care Physician [place] [facility] [place](s): 02/06/23 - 03/08/23 [facility] [address] [place] [id number] Allergies, Adverse Reactions, Alerts No Known Allergies Immunizations Given and Recorded Vaccine Date Status Refusal Reason [id number] bivalent booster vax 03/08/22 Recorded SARS-CoV-2 (COVID-19) mRNA-1273 vaccine 04/04/21 R ecorded Zoster Vaccine Live 11/23/20 Recorded zoster vaccine, inactivated 02/05/20 Recorded influenza virus vaccine, inactivated 02/05/20 Chris rded influenza virus vaccine, inactivated 06/13/17 Chris rded Medications acetaminophen 325 mg oral tablet 650 mg, 2, tablet, By Mouth, Every 4 hours, PRN, # 24 tablet, Refills 0, Maintenance, as needed forpain, 01/09/23 10:35:00 EDT, Partial fill upon patient request if the prescription is for a schedule II opioid drug. Start Date: 01/09/23 Status: Ordered atorvastatin 40 mg oral tablet 1 tablet, By Mouth, Daily, # 90 tablet, 1 Refills, Maintenance, 11/06/22 18:41:00 EDT, [id number], 183, cm, 10/20/22 13:23:00 EDT, Height, 114, kg, 10/14/22 20:17:00 EDT, Dry Weight Start Date: 11/06/22 Status: Ordered BD UF LUCY PEN NEEDLE [id number] BD UF LUCY PEN NEEDLE [id number], See Instructions, # 100 Unknown, 3 Refills, Maintenance, USE WITH LANTUS PENS DAILY, 11/29/22 12:20:00 EDT, 183, cm, 11/28/22 11:39:00 EDT, Height, 114, kg, 10/14/22 20:17:00 EDT, Dry Weight Start Date: 11/29/22 Status: Ordered Excedrin 1 tablet, By Mouth, Every 6 hours, 0 Refills, Maintenance, 01/09/23 10:35:00 EDT, Partial fill uponpatient request if the prescription is for a schedule II opioid drug. Start Date: 01/09/23 Status: Ordered Finasteride = 5 mg, By Mouth, Daily, 0 Refills, Maintenance, 12/23/20 11:40:00 EDT, Partial fill upon patient request if the prescription is for a schedule II opioid drug. Start Date: 12/23/20 Status: Ordered Keppra 500 mg oral tablet 1 tablet = 500 mg, By Mouth, 2 times a day, # 60 tablet, 5 Refills, Maintenance, 11/08/22 16:26:00 EDT, Tablet, [facility]/pharmacy #[id number], Partial fill upon patient request if [...] Status: Ordered lisinopril 10 mg oral tablet 1, tablet, By Mouth, Daily, # 90 tablet, Refills 0, Maintenance, 02/13/23 23:08:00 EDT, Route to Pharmacy Electronically, [facility] 530[facility], 183, cm, 01/30/23 9:35:00 EDT, Height, 114, kg, 10/14/22 20:17:00 EDT, Dry Weight Start Date: 02/13/23 Status: Ordered melatonin 3 mg oral tablet = 3 mg, By Mouth, Daily at bedtime, PRN Insomnia, 0 Refills, Maintenance, 10/20/22 11:26:00 EDT, Tablet, Partial fill upon patient request if the prescription is for a schedule II opioid drug. Start Date: 10/20/22 Status: Ordered MetFORMIN (Eqv-Glucophage XR) 500 mg oral tablet, extended release 2 tablet = 1,000 mg, By Mouth, Daily, # 360 tablet, 3 Refills, Maintenance, 02/17/22 10:20:00 EDT, [id number], 183, cm, 12/09/21 11:56:00 EDT, Height, 118.8, kg, 11/09/21 7:05:00 EDT, Dry Weight Start Date: 02/17/22 Status: Ordered Metoprolol Succinate ER 25 mg oral tablet, extended release 1 tablet, By Mouth, Daily, # 90 tablet, 0 Refills, Maintenance, 02/24/23 12:16:00 EDT, [facility], 183, cm, 01/30/23 9:35:00 EDT, Height, 114, kg, 10/14/22 20:17:00 EDT, Dry Weight Start Date: 02/24/23 Status: Ordered terazosin 2 mg oral capsule [...] ealth Status Informant Abdominal pain Confirmed Active Anemia Confirmed Active Aneurysm of ascending aorta 1 [...] Active 1[facility] 2[facility] Social History Social History Type Response Smoking Status Never (less than 100 in lifetime) entered on: 08/17/18 Sex Patient Care team information Care Team Personnel Name: Mary Dumas RN Position: [facility] RN Member Role: Primary Care Nurse Name: Denise Lu RN Position: [facility] SN RN Member Role: Primary Care Nurse Name: Rosanne Beyer RN Position: [facility] RN Member Role: Primary Care Nurse Name: Evelyn Shay RN Position: [facility] RN Supv Member Role: Primary Care Nurse Name: Arely Deleon RN Position: [facility] RN Member Role: Primary Care Nurse Name: Yunier Garcia DO Position: [facility] Physician - Primary Care Member Role: PCP Address: Address: [address] [place] [address] [place] [address]- Name: Mariola Becker RN Position: [facility] RN Member Role: Primary Care Nurse Name: Tl Harris RN Position: [facility] RN Member Role: Primary Care Nurse Name: Gabriela Knowles RN Position: [facility] Hospital Air Brakes Inspector Member Role: Primary Care Nurse Name: Essence Connor RN Position: [facility] RN Member Role: Primary Care Nurse Care Team Related Persons Name: LINN BURGESS Address: [address] [place] [address] Name: CAITLYN BURGESS Address: home [address] [place] [address]
--- OUTSIDE RECORDS SUMMARY | 2023-12-04 08:47 | XMS_ITS | Continuity of Care Document ---
Author Organization [facility] Address [address] [facility], [address] Floor, [address] [place] [phone]- Care Team Providers Care Residential Treatment Counselor Name Role Phone Yunier Garcia DO Primary Care Physician Encounter [facility] [place] [place] Date(s): 08/21/22 - 09/20/22 [facility] [address], [address], [address] [place] [id number] Attending Physician: Awais Cervantes Admitting Physician: Admtr, Ar8 Referring Physician: Admtr, Ar8 Allergies, Adverse Reactions, Alerts No Known Allergies [...] tablet, 3 Refills, Maintenance, 04/10/22 7:55:00 EST, [facility] 90329, 183, cm, 02/20/22 9:57:00 EDT, Height, 118.8, kg, 11/09/21 7:05:00 EDT,Dry Weight Start Date: 04/10/22 Status: Ordered Aspirin Low Dose 81 mg oral delayed release tablet 1 tablet = 81 mg, By Mouth, Daily, # 90 tablet, 3 Refills, Maintenance, 03/30/21 9:33:00 EST, EC Tablet, [facility]/pharmacy #[id number], Partial fill upon patient request if the prescription is for a schedule IIopioid drug., 186, cm, 03/30/21 8:55:00 EST, Height... Start Date: 03/30/21 Status: Ordered atorvastatin 40 mg oral tablet 1 tablet, By Mouth, Daily, # 90 tablet, 1 Refills, 05/09/22 12:43:00 EST, [facility]/pharmacy #[id number], 183, cm, 04/29/22 11:35:00 EST, [...] mL, 11 Refills, Maintenance, 12/08/2211:14:00 EDT, Solution, [facility]/pharmacy #[id number], 183, cm, 11/24/21 13:34:00 EDT, Height, 118.8, kg, 11/09/21 7:05:00 EDT, Dry Weight Start Date: 12/07/21 Status: Ordered lisinopril 20 mg oral tablet 20 mg, 1, tablet, By Mouth, Daily, # 90 tablet, Refills 1, Tot. Refills 1, Soft Stop, 06/15/22 14:05:00 EST, Route to Pharmacy Electronically, [facility]/pharmacy #[id number], 183, cm, 04/29/22 11:35:00 EST, Height, 120, kg, 04/29/22 11:35:00 EST, Dry Weight Start Date: 2/2/23 Status: Ordered MetFORMIN (Eqv-Glucophage XR) 500 mg oral tablet, extended release 4 tablet, By Mouth, Daily, # 360 tablet, 3 Refills, Maintenance, 02/17/22 10:20:00 EDT, [facility], 183, cm, 12/09/21 11:56:00 EDT, Height, 118.8, kg, 11/09/21 7:05:00 EDT, Dry Weight Start Date: 02/17/22 Status: Ordered metoprolol 25 mg oral tablet, extended release 25 mg, 1, tablet, By Mouth, Daily, # 30 tablet, Refills 11, Tot. Refills 11, Maintenance, 11/10/21 9:21:00 EDT, Route to Pharmacy Electronically, [facility]/pharmacy #[id number], Partial fill upon patient requestif the prescription is for a schedule II opioid dyaanna... Start Date: 11/10/21 Status: Ordered One Touch Ultra Test Strips See Instructions, # 200 each, Refills 5, Tot. Refills 5, Maintenance, pt is testing 1 to 3 times a day for Type 2 Diabetes Mellitus E11.9, 07/21/22 10:50:00 EST, Supply, 183, cm, 04/29/22 11:35:00 EST, Height, 120, kg, 04/29/22 11:35:00 EST, Dry Weight Start Date: 07/21/22 Stop Date: 01/17/23 Status: Ordered Pen [place], 32 G x 4 mm BD Ultra Fine III See Instructions, # 90 each, Refills 0, Tot. Refills 0, Maintenance, use with Lantus Pens daily, 07/28/22 17:05:00 EDT, Supply, 183, cm, 04/29/22 11:35:00 EST, Height, 120, kg, 04/29/22 11:35:00 EST,Dry Weight Start Date: 07/28/22 Status: Ordered Plavix 75 mg oral tablet 75 mg, 1, tablet, By Mouth, Daily, # 30 tablet, Refills 6, Tot. Refills 6, Maintenance, 11/10/21 9:21:00 EDT, Route to Pharmacy Electronically, [facility]/pharmacy #[id number], Partial fill upon patient request if the prescription is for a schedule II opioid drug.... Start Date: 11/10/21 Status: Ordered Potassium Citrate By Mouth, 0 Refills, Maintenance, 09/21/21 7:11:00 EDT, Partial fill upon patient request if the prescription is for a schedule II opioid drug. 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 Dixon 4endo-[facility] Social History Social History Type Response Smoking Status Never (less than 100 in lifetime) entered on: 08/17/18 Sex Patient Care team information Care Team Personnel Name: Denise Lu RN Position: [facility] RN Member Role: Primary Care Nurse Name: Rosanne Beyer RN Position: S RN Member Role: Primary Care Nurse Name: Yunier Garcia DO Position: [facility] Primary Care Physician Member Role: PCP Address: Address: [address] [place] [address] [place] [address]- Name: Mariola Becker RN Position: S RN Member Role: Primary Care Nurse Name: Tl Harris RN Position: [facility] RN Member Role: Primary Care Nurse Name: Gabriela Knowles RN Position: [facility] Telecommunication Systems Designer Member Role: Primary Care Nurse Name: Essence Connor RN Position: [facility] RN Member Role: Primary Care Nurse Care Team Related Persons Name: CAITLYN BURGESS Address: [place] [id number]
--- OUTSIDE RECORDS SUMMARY | 2023-12-04 08:47 | XMS_ITS | Continuity of Care Document ---
Author Organization [facility] Address [address] [place] [address]- Care Team Providers Care Clocksmith Name Role Phone Yunier Garcia DO Primary Care Physician [place] [facility] [place] 07/20/21 - 08/19/21 [facility] [address] [place] [id number] Allergies, Adverse Reactions, Alerts No Known [...] Maintenance, 03/30/21 9:33:00 EST, EC Tablet, [id number], Partial fill upon patient request if the prescription is for a schedule IIopioid drug., 186, cm, 03/30/21 8:55:00 EST, Height... Start Date: 03/30/21 Status: Ordered atorvastatin 40 mg oral tablet 1 tablet, By Mouth, Daily, # 90 tablet, 1 Refills, Maintenance, 05/02/21 14:23:00 EST, [id number], 186, cm, 04/14/21 12:03:00 EST, Height, 109, [...] mL, 11 Refills, Maintenance, 01/10/2111:08:00 EDT, Solution, [facility]/pharmacy #[id number], 183, cm, 01/10/21 10:33:00 EDT, Height, 117.9, kg, 12/23/20 14:08:00 EDT, Dry Weight Start Date: 01/10/21 Status: Ordered Linzess 145 mcg oral capsule 1 capsule = 145 mcg, By Mouth, Daily, # 30 capsule, 3 Refills, Maintenance, 02/04/21 13:06:00 EDT, Capsule, [facility]/pharmacy #[id number], Partial fill upon patient request if the prescription is for a scheduleII opioid drug., 183, cm, 01/25/21 8:55:00 EDT, Hei... Start Date: 02/04/21 Status: Ordered lisinopril 20 mg oral tablet 20 mg, 1, tablet, By Mouth, Daily, # 90 tablet, Refills 1, Tot. Refills 1, Soft Stop, 06/17/21 13:00:00 EST, Route to Pharmacy Electronically, [facility]/pharmacy #[id number], 186, cm, 04/14/21 12:03:00 EST, Height, 109, kg, 04/14/21 11:56:00 EST, Dry Weight Start Date: 06/17/21 Status: Ordered metFORMIN 500 mg oral tablet, extended release 4 tablet = 2,000 mg, By Mouth, Daily, # 360 tablet, 3 Refills, Maintenance, 01/10/21 11:09:00 EDT, [facility]/pharmacy #[id number], 183, cm, 01/10/21 10:33:00 EDT, Height, [...] 05/02/21 Stop Date: 10/29/21 Status: Ordered Pen [place], 32 G x 4 mm BD Ultra Fine III See Instructions, # 90 each, Refills 4, Tot. Refills 4, Maintenance, use with Lantus Pens daily, 07/20/21 15:17:00 EST, Supply, 186, cm, 04/14/21 12:03:00 EST, Height, 109, kg, 04/14/21 11:56:00 EST,Dry Weight Start Date: 07/20/21 Status: Ordered Trulicity Pen 1.5 mg/0.5 mL subcutaneous solution = 1.5 mg, Subcutaneous Injection, Every week, e 11.9, # 6.5 mL, 1 Refills, 08/04/21 15:45:00 EDT, [facility]/pharmacy #[id number], 186, cm, 04/14/21 12:03:00 EST, Height, [...] 2)(Confirmed) 3 Active 1[facility] 2L leg 3endo-[facility] Social History Social History Type Response Smoking Status Never (less than 100 in lifetime) entered on: 08/17/18 Sex
--- OUTSIDE RECORDS SUMMARY | 2023-12-04 08:47 | XMS_ITS | Continuity of Care Document ---
Author Organization [facility] Address [address] [place] [phone]- Care Team Providers Care Forest Fire Lookout Name Role Phone Yunier Garcia DO Primary Care Physician En[place] [facility] [place] 04/27/21 - 07/24/21 [facility] [address] [place] [id number]- Attending Physician: Larry Tafoya MD Admitting Physician: Larry Tafoya MD Referring Physician: Yunier Garcia DO Allergies, Adverse Reactions, Alerts No Known Allergies [...] mL, 11 Refills, Maintenance, 01/10/2111:08:00 EDT, Solution, [facility]/pharmacy #[id number], 183, cm, 01/10/21 10:33:00 EDT, [...] 06/17/21 13:00:00 EST, Route to Pharmacy Electronically, [facility]/pharmacy #[id number], 186, cm, 04/14/21 12:03:00 EST, [...] 05/02/21 Stop Date: 10/29/21 Status: Ordered Pen [place], 32 G x 4 mm BD Ultra [...] 2.5 mL, 11 Refills, 01/10/21 11:09:00 EDT, [id number], 183, cm, [...] 2)(Confirmed) 3 Active 1[facility] 2L leg 3endo-[facility] Social History Social History Type Response Smoking Status Never (less than 100 in lifetime) entered on: 08/17/18 Sex
--- OUTSIDE RECORDS SUMMARY | 2023-12-04 08:47 | XMS_ITS | Continuity of Care Document ---
Author Organization [facility] Address [address] [place] [phone]- Care Team Providers Care Abrasive Coating Machine Operator Name Role Phone Yunier Garcia DO Primary Care Physician Encounter [facility] [place] Date(s): 10/01/19 - 10/31/19 [facility] [address] [place] [phone]- [facility] Attending Physician: Admtr, [id number] Admitting Physician: Admtr, [id number] Referring Physician: Admtr, Ar8 Allergies, Adverse Reactions, Alerts Substance Reaction Severity Status NKA Active Medications Advil PM 2 tablet, By Mouth, Daily at bedtime, 0 Refills, Maintenance, 06/10/15 13:23:12 Start Date: 06/10/15 Status: Ordered aspirin 81 mg oral enteric coated tablet 1 tablet = 81 mg, By Mouth, Daily, # 30 tablet, 0 Refills, Maintenance, EC Tablet Start Date: 12/01/11 Stop Date: 12/31/11 Status: Ordered atorvastatin 40 mg oral tablet 1 tablet, By Mouth, Daily, # 90 tablet, 0 Refills, Maintenance, 09/05/19 10:27:00 EDT, [facility], 183, cm, 12/17/18 9:27:00 EDT, Height, 125.1, kg, 08/20/18 8:44:00 EDT, Dry Weight Start Date: 09/05/19 Status: Ordered Contour Next EZ Glucometer See [...] Date: 09/11/19 Stop Date: 06/07/20 Status: Ordered Ibuprofen PRN, Maintenance, as needed for pain, 06/10/15 13:23:23 Start Date: 06/10/15 Status: Ordered Lancets See Instructions, # 100 each, Maintenance, Check 2 times a day for t2dm, 09/11/19 11:04:00 EDT, Supply, 183, cm, 12/17/18 9:27:00 EDT, Height, 125.1, kg, 08/20/18 8:44:00 EDT, Dry Weight Start Date: 09/11/19 Status: Ordered Lantus Solostar Pen 100 units/mL subcutaneous solution = 10 units, Subcutaneous Injection, Daily at bedtime, at bedtime, # 15 mL, 2 Refills, Maintenance, 10/13/19 15:17:00 EDT, Solution, [facility]/pharmacy #[id number], 183, cm, 12/17/18 9:27:00 EDT, Height, 125.1, kg, 08/20/18 8:44:00 EDT, Dry Weight Start Date: 10/13/19 Status: Ordered lisinopril 20 mg oral tablet 20 mg, 1, tablet, By Mouth, Daily, # 90 tablet, Refills 1, Tot. Refills 1, Soft Stop, 09/05/19 12:04:00 EDT, Route to Pharmacy Electronically, [facility], 183, cm, 12/17/18 9:27:00EDT, Height, 125.1, kg, 08/20/18 8:44:00 EDT, Dry W... Start Date: 09/05/19 Status: Ordered metFORMIN 500 mg oral tablet, extended release 4 tablet = 2,000 mg, By Mouth, Daily, # 120 tablet, 5 Refills, Maintenance, 12/27/18 18:56:47 EDT Start Date: 12/27/18 Status: Ordered metFORMIN 500 mg oral tablet, extended release 1 tablet = 500 mg, By Mouth, Daily, # 90 tablet, 2 Refills, Soft Stop, 12/23/18 20:04:00 EDT Start Date: 12/23/18 Status: Ordered metFORMIN 500 mg oral tablet, extended release 4 tablet = 2,000 mg, By Mouth, Daily, # 360 tablet, 1 Refills, Maintenance, 09/05/19 12:08:00 EDT, ER Tablet, [facility], 183, cm, 12/17/18 9:27:00 EDT, Height, 125.1, kg, :44:00 EDT, Dry Weight Start Date: 09/05/19 Status: Ordered One Touch Ultra Test Strips See Instructions, # 2 bottle, Refills 11, Tot. Refills 11, Maintenance, Use to test BG twice daily,02/19/18 10:50:21 EDT, Dx E11.65, Compound Start Date: 02/19/18 Status: Ordered Pen [place], 32 G x 4 mm BD Ultra Fine III See instructions, for 90 days, # 600 each, Refills 0, Tot. Refills 0, Hard Stop 01/14/20 8:07:00 EDT, use as directed for Type 2 Diabetes Mellitus, 10/16/19 8:07:00 EDT, Supply, 183, cm, 12/17/18 9:27:00 EDT, Height, 125.1, kg, 08/20/18 8:44:00 EDT, D... Start Date: 10/16/19 Stop Date: 01/14/20 Status: Ordered Pen [place], 32 G x 4 mm BD Ultra Fine III See instructions, # 90 each, Refills 3, Tot. Refills 3, Maintenance, Use pen needle to inject insulin 1x a day at 8pm. E11.9, 90 Day supply, 01/14/20 8:07:00 EDT, Supply, 183, cm, 12/17/18 9:27:00 EDT, Height, 125.1, kg, 08/20/18 8:44:00 EDT, Dry Weight Start Date: 01/14/20 Stop Date: 01/08/21 Status: Ordered Trulicity Pen 1.5 mg/0.5 mL subcutaneous solution 0.5 mL = 1.5 mg, Subcutaneous Injection, Every week, # 6.5 mL, 3 Refills, Maintenance, 09/05/19 12:03:00 EDT, Solution, [facility], 183, cm, 12/17/18 9:27:00 EDT, Height, 125.1, kg, 08/20/18 8:44:00 EDT, Dry Weight Start Date: 09/05/19 Status: Ordered Problem List Condition Effective Dates Status Health Status Inform ant Aneurysm of ascending aorta( Confirmed) 1 Active Atherosclerosis of aorta(Confirmed) Active Benign essential hypertension(Confirmed) Active Bicuspid aortic valve(Confirmed) Active Cyst of kidney(Confirmed) Active Dyspnea(Confirmed) Active Chronic edema(Confirmed) 2 Active H/O: TIA(Confirmed) Active Hearing loss(Confirmed) Active Hyperlipidemia(Confirmed) Active HTN (hypertension)(Confirmed) Active Migraine(Confirmed) Active Obstructive sleep apnea syndrome(Confirmed) Active Patent foramen ovale(Confirmed) Active Screening PSA (prostate spec ific antigen)(Confirmed) Active Raised prostate specific antigen(Confirmed) Active Apnea, sleep(Confirmed) Active TIA (transient ischemic attack)(Confirmed) Active DM2 (diabetes mellitus, type 2)(Confirmed) 3 Active 1[facility] 2L leg 3endo-[facility] Social History Social History Type Response Smoking Status Never (less than 100 in lifetime) entered on: 08/17/18 Sex
--- OUTSIDE RECORDS SUMMARY | 2023-12-04 08:47 | XMS_ITS | Continuity of Care Document ---
Author Organization [facility] Address [facility] [place] [address]- Care Team Providers Care Correctional Substance Abuse Counselor Name Role Phone Garcia Yunier CRANDALL Primary Care Physician Encounter [facility] [place] Date(s): 04/10/22 - 05/10/22 [facility] [address] [place] [phone]- [place] Allergies, Adverse Reactions, Alerts No Known Allergies [...] tablet, 3 Refills, Maintenance, 04/10/22 7:55:00 EST, [facility], 183, cm, 02/20/22 9:57:00 EDT, Height, 118.8, kg, 11/09/21 7:05:00 EDT,Dry Weight Start Date: 04/10/22 Status: Ordered Aspirin Low Dose 81 mg oral delayed release tablet 1 tablet = 81 mg, By Mouth, Daily, # 90 tablet, 3 Refills, Maintenance, 03/30/21 9:33:00 EST, EC Tablet, [facility]/pharmacy #[id number], Partial fill upon patient request if the prescription is for a schedule IIopioid drug., 186, cm, 03/30/21 8:55:00 EST, Height... Start Date: 03/30/21 Status: Ordered atorvastatin 40 mg oral tablet 1 tablet, By Mouth, Daily, # 90 tablet, 1 Refills, 05/09/22 12:43:00 EST, [facility]/pharmacy #[id number], 183, cm, 04/29/22 11:35:00 EST, [...] mL, 11 Refills, Maintenance, 12/08/2211:14:00 EDT, Solution, [facility]/pharmacy #[id number], 183, cm, 11/24/21 13:34:00 EDT, Height, 118.8, kg, 11/09/21 7:05:00 EDT, Dry Weight Start Date: 12/07/21 Status: Ordered lisinopril 20 mg oral tablet 20 mg, 1, tablet, By Mouth, Daily, # 90 tablet, Refills 1, Tot. Refills 1, Soft Stop, 11/28/21 12:36:00 EDT, Route to Pharmacy Electronically, [facility]/pharmacy #[id number], 183, cm, 11/24/21 13:34:00 EDT, Height, 118.8, kg, 11/09/21 7:05:00 EDT, Dry Weight Start Date: 11/28/21 Status: Ordered MetFORMIN (Eqv-Glucophage XR) 500 mg oral tablet, extended release 4 tablet, By Mouth, Daily, # 360 tablet, 3 Refills, Maintenance, 02/17/22 10:20:00 EDT, [facility] STORE 495[facility], 183, cm, 12/09/21 11:56:00 EDT, Height, 118.8, kg, 11/09/21 7:05:00 EDT, Dry Weight Start Date: 02/17/22 Status: Ordered metoprolol 25 mg oral tablet, extended release 25 mg, 1, tablet, By Mouth, Daily, # 30 tablet, Refills 11, Tot. Refills 11, Maintenance, 11/10/21 9:21:00 EDT, Route to Pharmacy Electronically, [facility]/pharmacy #[id number], Partial fill upon patient requestif [...] 05/02/21 Stop Date: 10/29/21 Status: Ordered Pen [place], 32 G x 4 mm BD Ultra [...] 11/10/21 9:21:00 EDT, Route to Pharmacy Electronically, [facility]/pharmacy #[id number], Partial fill upon patient request [...] WEEK,INSTR:E 11.9, # 6 Unknown, 1 Refills, [facility], 183, cm, 11/10/21 7:41:00 EDT, Height, 118.8, [...] nephropathy Confirmed Active 1[facility] 2L leg 3endo-[facility] Social History Social History Type Response Smoking Status Never (less than 100 in lifetime) entered on: 08/17/18 Sex Patient Care team information Care Team Personnel Name: Denise Lu RN Position: [facility] RN Member Role: Primary Care Nurse Name: Rosanne Beyer RN Position: [facility] RN Member Role: Primary Care Nurse Name: Yunier Garcia DO Position: [facility] Primary Care Physician Member Role: PCP Address: Address: [address] [place] [address] Primary [place] [address] Name: Mariola Becker RN Position: [facility] RN Member Role: Primary Care Nurse Name: Tl Harris RN Position: [facility] RN Member Role: Primary Care Nurse Name: Gabriela Knowles RN Position: [facility] Hospital Dairy Science Teacher Member Role: Primary Care Nurse Name: Essence Connor RN Position: [facility] RN Member Role: Primary Care Nurse Care Team Related Persons Name: DAYNE BURGESSAN Address: home [address] [place] [address]
--- OUTSIDE RECORDS SUMMARY | 2023-12-04 08:47 | XMS_ITS | Continuity of Care Document ---
Author Organization [facility] ter Address [address] [place] [address]- Care Team Providers Care Smart Grid Engineer Name Role Phone Yunier Garcia DO Primary Care Physician Encounter [facility] [place] Date(s): 01/11/21 - 02/20/[address] [address] Attending Physician: Austin Yin MD Admitting Physician: Austin Yin MD Referring Physician: Austin Yin MD Allergies, Adverse Reactions, Alerts Substance Reaction Severity [...] mL, 11 Refills, Maintenance, 01/10/2111:08:00 EDT, Solution, [facility]/pharmacy #[id number], 183, cm, 01/10/21 10:33:00 EDT, Height, 117.9, kg, 12/23/20 14:08:00 EDT, Dry Weight Start Date: 01/10/21 Status: Ordered Linzess 145 mcg oral capsule 1 capsule = 145 mcg, By Mouth, Daily, # 30 capsule, 3 Refills, Maintenance, 02/04/21 13:06:00 EDT, Capsule, [facility]/pharmacy #[id number], Partial fill upon patient [...] tablet, 3 Refills, Maintenance, 01/10/21 11:09:00 EDT, [facility]/pharmacy #[id number], 183, cm, 01/10/21 10:33:00 [...] 8:12:00 EDT, Dx E11.65, Compound, 183, cm, 199:27:00 EDT, Height, 125.1, kg, 08/20/18 8:44:00 ED... Start Date: 11/11/19 Status: Ordered pantoprazole 40 mg oral delayed release tablet = 40 mg, By Mouth, Daily in AM, 0 Refills, Maintenance, 02/12/21 6:54:00 EDT, EC Tablet Start Date: 02/12/21 Status: Ordered Pen [place], 32 G x 4 mm BD Ultra [...] 2.5 mL, 11 Refills, 01/10/21 11:09:00 EDT, [facility]/pharmacy #[id number], 183, cm, 01/10/21 10:33:00 [...] 2)(Confirmed) 3 Active 1[facility] 2L leg 3endo-[facility] Social History Social History Type Response Smoking Status Never (less than 100 in lifetime) entered on: 08/17/18 Sex
--- OUTSIDE RECORDS SUMMARY | 2023-12-04 08:47 | XMS_ITS | Continuity of Care Document ---
Author Organization [facility] Address [address] [facility], [address] Floor, [address] [place] [address]- Care Team Providers Care Python Django Developer Name Role Phone Garcia Yunier CRANDALL Primary Care Physician Encounter [facility] Date(s): 11/27/22 - 12/27/22 [facility] [address], [address], [address] [place] [address]- Allergies, Adverse Reactions, Alerts No Known Allergies [...] tablet, 1 Refills, Maintenance, 11/06/22 18:41:00 EDT, [facility], 183, cm, 10/20/22 13:23:00 EDT, Height, 114, kg, 10/14/22 20:17:00 EDT, Dry Weight Start Date: 11/06/22 Status: Ordered BD UF LUCY PEN NEEDLE [id number] BD UF LUCY PEN NEEDLE [id number], See Instructions, # 100 Unknown, 3 Refills, [...] 11/28/22 12:18:00 EDT, Route to Pharmacy Electronically, [facility]/pharmacy #[id number], Partial fill upon patient request [...] Refills, Maintenance, 02/17/22 10:20:00 EDT, [facility], 183, cm, 12/09/21 11:56:00 EDT, Height, 118.8, kg, 11/09/21 7:05:00 EDT, Dry Weight Start Date: 02/17/22 Status: Ordered metoprolol 25 mg oral tablet, extended release 25 mg, 1, tablet, By Mouth, Daily, # 90 tablet, Refills 0, Tot. Refills 0, Maintenance, 11/07/22 10:41:00 EDT, Route to Pharmacy Electronically, [facility]/pharmacy #[id number], Partial fill upon patient request [...] 0 Refills, Maintenance, 11/07/22 10:50:00 EDT, Capsule, [facility]/pharmacy #[id number], Partial fill upon patient request [...] Active 1[facility] 2L leg [facility] Social History Social History Type Response Smoking Status Never (less than 100 in lifetime) entered on: 08/17/18 Sex Patient Care team information Care Team Personnel Name: Mary Dumas RN Position: [facility] RN Supv Member Role: Primary Care Nurse Name: Denise Lu RN Position: [facility] SN RN Member Role: Primary Care Nurse Name: Rosanne Beyer RN Position: S RN Member Role: Primary Care Nurse Name: Evelyn Shay RN Position: [facility] RN Supv Member Role: Primary Care Nurse Name: Arely Deleon RN Position: [facility] RN Member Role: Primary Care Nurse Name: Yunier Garcia DO Position: [facility] Physician - Primary Care Member Role: PCP Address: Address: [address] [place] [id number] Name: Mariola Becker RN Position: [facility] RN Member Role: Primary Care Nurse Name: Tl Harris RN Position: [facility] RN Member Role: Primary Care Nurse Name: Gabriela Knowles RN Position: [facility] Suspender Cutter Member Role: Primary Care Nurse Name: Essence Connor RN Position: [facility] RN Member Role: Primary Care Nurse Care Team Related Persons Name: LINN BURGESS Address: [address] [place] [address] Name: CAITLYN BURGESS Address: home [address] [place] [address]
--- OUTSIDE RECORDS SUMMARY | 2023-12-04 08:47 | XMS_ITS | Continuity of Care Document ---
Author Organization [facility] Address [address] [place] [address]- Care Team Providers Care Assistant Professor Of English Name Role Phone Yunier Garcia DO Primary Care Physician Encounter [facility] [place] Date(s): 12/21/22 - 01/20/23 [facility] [address] [place] [id number] Allergies, Adverse Reactions, Alerts No Known Allergies Immunizations Given and Recorded Vaccine Date Status Refusal Reason [id number] bivalent booster vax 03/08/22 Recorded SARS-CoV-2 (COVID-19) [...] tablet, 1 Refills, Maintenance, 11/06/22 18:41:00 EDT, [facility], 183, cm, 10/20/22 13:23:00 EDT, Height, 114, kg, 10/14/22 20:17:00 EDT, Dry Weight Start Date: 11/06/22 Status: Ordered BD UF LUCY PEN NEEDLE [id number] BD UF LUCY PEN NEEDLE [id number], See Instructions, # 100 Unknown, 3 Refills, [...] 5 Refills, Maintenance, 11/08/22 16:26:00 EDT, Tablet, [facility]/pharmacy #[id number], Partial fill upon patient request [...] 11/28/22 12:18:00 EDT, Route to Pharmacy Electronically, [facility]/pharmacy #[id number], Partial fill upon patient request [...] Refills, Maintenance, 02/17/22 10:20:00 EDT, [facility], 183, cm, 12/09/21 11:56:00 EDT, Height, 118.8, kg, 11/09/21 7:05:00 EDT, Dry Weight Start Date: 02/17/22 Status: Ordered metoprolol 25 mg oral tablet, extended release 25 mg, 1, tablet, By Mouth, Daily, # 90 tablet, Refills 0, Tot. Refills 0, Maintenance, 11/07/22 10:41:00 EDT, Route to Pharmacy Electronically, [facility]/pharmacy #[id number], Partial fill upon patient request [...] Active 1[facility] 2L leg [facility] Social History Social History Type Response Smoking Status Never (less than 100 in lifetime) entered on: 08/17/18 Sex Patient Care team information Care Team Personnel Name: Mary Dumas RN Position: [facility] RN Member Role: Primary Care Nurse Name: Denise Lu RN Position: [facility] SN RN Member Role: Primary Care Nurse Name: Rosanne Beyer RN Position: [facility] RN Member Role: Primary Care Nurse Name: Evelyn Shay RN Position: [facility] RN Supv Member Role: Primary Care Nurse Name: Arely Deleon RN Position: [facility] RN Member Role: Primary Care Nurse Name: Yunier Garcia DO Position: [facility] Physician - Primary Care Member Role: PCP Address: Address: [address] [place] [address] Primary Care [place], [place] [address] Name: Mariola Becker RN Position: [facility] RN Member Role: Primary Care Nurse Name: Tl Harris RN Position: [facility] RN Member Role: Primary Care Nurse Name: Gabriela Knowles RN Position: [facility] Hospital Bridal Gown Fitter Member Role: Primary Care Nurse Name: Essence Connor RN Position: [facility] RN Member Role: Primary Care Nurse Care Team Related Persons Name: LINN BURGESS Address: home [address] [place] [address] Name: CAITLYN BURGESS Address: home [address] [place] [address]
--- OUTSIDE RECORDS SUMMARY | 2023-12-04 08:47 | XMS_ITS | Continuity of Care Document ---
Author Organization [facility] ter Address [address] [place] [address]- Care Team Providers Care Woodwork Teacher Name Role Phone Yunier Garcia DO Primary Care Physician Encounter [facility] [place] Date(s): 12/02/19 - 01/01/[address] [address]- [facility] Attending Physician: AdmAwais lang Admitting Physician: AdmtrAwais Referring Physician: Admtr, Ar8 Allergies, Adverse Reactions, [...] Daily, # 90 tablet, 0 Refills, Maintenance, 12/26/19 8:17:00 EDT, [facility], 183, cm, 12/12/19 8:50:00 EDT, Height, 125.1, kg, 08/20/18 8:44:00 EDT, Dry Weight Start Date: 12/26/19 Status: Ordered Contour Next EZ Glucometer See [...] Solostar Pen 100 units/mL subcutaneous solution = 15 units, Subcutaneous Injection, Daily at bedtime, E11.9. 30 day supply., # 15 mL, 6 Refills, Maintenance, 11/11/19 13:30:00 EDT, Solution, [id number], 183, cm, 12/17/18 9:27:00 EDT, Height, 125.1, kg, 08/20/18 8:44:00 EDT, Dry Weight Start Date: 11/11/19 Status: Ordered lisinopril 20 mg oral tablet [...] 8:44:00 ED... Start Date: 11/11/19 Status: Ordered Pen [place], 32 G x 4 mm BD Ultra Fine III See instructions, for 90 days, # 600 each, Refills 0, Tot. Refills 0, Hard Stop 01/14/20 8:07:00 EDT, use as directed for Type 2 Diabetes Mellitus, 10/16/19 8:07:00 EDT, Supply, 183, cm, 12/17/18 9:27:00 EDT, Height, 125.1, kg, 08/20/18 8:44:00 EDT, D... Start Date: 10/16/19 Stop Date: 01/14/20 Status: Ordered Pen [place], 32 G x 4 mm BD Ultra [...] 2)(Confirmed) 3 Active 1[facility] 2L leg 3[facility] Social History Social History Type Response Smoking Status Never (less than 100 in lifetime) entered on: 08/17/18 Sex
--- OUTSIDE RECORDS SUMMARY | 2023-12-04 08:48 | XMS_ITS | Continuity of Care Document ---
Author Organization [facility] Address [address] [facility] [address], [address] Floor, [address] [place] [address]- Care Team Providers Care Housing Liaison Name Role Phone Yunier Garcia DO Primary Care Physician [place] [facility] [place] - 05/06/23 [facility] [address], 3[address] Floor, [address] [place] [id number] Allergies, Adverse Reactions, Alerts No Known Allergies Immunizations Given and Recorded Vaccine Date Status Refusal Reason [id number] bivalent booster vax 03/08/22 Recorded SARS-CoV-2 (COVID-19) [...] tablet, 1 Refills, Maintenance, 11/06/22 18:41:00 EDT, [facility] STORE 85219, 183, cm, 10/20/22 13:23:00 EDT, Height, 114, kg, 10/14/22 20:17:00 EDT, Dry Weight Start Date: 11/06/22 Status: Ordered BD UF LUCY PEN NEEDLE [id number] BD UF LUCY PEN NEEDLE [id number], See Instructions, # 100 Unknown, 3 Refills, [...] drug. Start Date: 12/23/20 Status: Ordered Lantus Inj 0.2 mL = 20 units, Subcutaneous Injection, Daily at bedtime, 0 Refills, Maintenance, 10/20/22 11:27:00 EDT, Injection, Partial fill upon patient request if the prescription is for a schedule II opioid drug. Start Date: 10/20/22 Status: Ordered Lantus Solostar Pen 100 units/mL subcutaneous solution = 14 units, Subcutaneous Injection, Daily, # 6 mL, 0 Refills, Maintenance, 03/15/23 20:20:00 EDT, Solution, [facility]/pharmacy #[id number], Partial fill upon patient request if the prescription is for a scheduleII opioid drug., 183, cm, 01/30/23 9:35:00 EDT, Hei... Start Date: 03/15/23 Status: Ordered levETIRAcetam 500 mg oral tablet 1 tablet, By Mouth, 2 times a day, # 180 tablet, 1 Refills, Maintenance, 04/12/23 13:01:00 EST, [facility], 183, cm, 01/30/23 9:35:00 EDT, Height, 114, kg, 10/14/22 20:17:00 EDT, Dry Weight Start Date: 04/12/23 Status: Ordered lisinopril 10 mg oral tablet 1, tablet, By Mouth, Daily, # 90 tablet, Refills 0, Maintenance, 02/13/23 23:08:00 EDT, Route to Pharmacy Electronically, [facility] 73418, 183, cm, 01/30/23 9:35:00 EDT, Height, 114, kg, 10/14/22 20:17:00 EDT, Dry Weight Start Date: 02/13/23 Status: Ordered melatonin 3 mg oral tablet = 3 mg, By Mouth, Daily at bedtime, PRN Insomnia, 0 Refills, Maintenance, 10/20/22 11:26:00 EDT, Tablet, Partial fill upon patient request if the prescription is for a schedule II opioid drug. Start Date: 10/20/22 Status: Ordered Metoprolol Succinate ER 25 mg oral tablet, extended release 1 tablet, By Mouth, Daily, # 90 tablet, 0 Refills, Maintenance, 02/24/23 12:16:00 EDT, [facility] 02057, 183, cm, 01/30/23 9:35:00 EDT, Height, 114, kg, 10/14/22 20:17:00 EDT, Dry Weight Start Date: 02/24/23 Status: Ordered Trulicity Pen 1.5 mg/0.5 mL subcutaneous solution = 1.5 mg, Subcutaneous Injection, Every 7 days, # 2 mL, 6 Refills, 12/22/22 10:57:00 EDT, [id number], 183, cm, 11/28/22 11:39:00 EDT, Height, 114, kg, 10/14/22 20:17:00 EDT, Dry Weight Start Date: 12/22/22 Status: Ordered Problem List Condition Confirmation Course [...] Active Hyperlipidemia Confirmed Active Migraine Confirmed Active Obstructive sleep apnea syndrome Confirmed Active Raised prostate specific antigen 3 Confirmed Active Seizure disorder Confirmed Active Severe obesity (BMI 35.0-39.9) with comorbidity Confirmed Active Apnea, sleep Confirmed Active DM2 (diabetes mellitus, type 2) 4 Confirmed Active 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 Active Insulin-treated type 2 diabetes mellitus Confirmed Active Chronic kidney disease in type 2 diabetes mellitus Confirmed Active Vitamin D deficiency Confirmed Active 1[facility] 2L leg 3[facility] Social History Social History Type Response Smoking Status Never (less than 100 in lifetime) entered on: 08/17/18 Sex Patient Care team information Care Team Personnel Name: Mary Dumas RN Position: [facility] RN Member Role: Primary Care Nurse Name: Denise Lu RN Position: [facility] SN RN Member Role: Primary Care Nurse Name: Rosanne Beyer RN Position: [facility] RN Member Role: Primary Care Nurse Name: Evelyn Shay RN Position: [facility] RN Supv Member Role: Primary Care Nurse Name: Arely Deleon RN Position: [facility] RN Member Role: Primary Care Nurse Name: Yunier Garcia DO Position: [facility] Physician - Primary Care Member Role: PCP Address: Address: [address] [place] [address]- Name: Mariola Becker RN Position: [facility] RN Member Role: Primary Care Nurse Name: Tl Harris RN Position: [facility] RN Member Role: Primary Care Nurse Name: Gabriela Knowles RN Position: [facility] Microsoft Office Instructor Member Role: Primary Care Nurse Name: Essence Connor RN Position: [facility] RN Member Role: Primary Care Nurse Care Team Related Persons Name: LINN BURGESS Address: home [address] [place] [address] Name: CAITLYN BURGESS Address: home [address] [place] [address]
--- OUTSIDE RECORDS SUMMARY | 2023-12-04 08:48 | XMS_ITS | Continuity of Care Document ---
Author Organization [facility] Address [address] [place] [address]- Care Team Providers Care Fire Fighting Equipment Specialist Name Role Phone Yunier Garcia DO Primary Care Physician Encounter 10/29/22 - 12/22/22 [facility] [address] [place] [address]- Discharge Disposition: [facility] Allergies, Adverse Reactions, Alerts No Known Allergies [...] tablet, 1 Refills, Maintenance, 11/06/22 18:41:00 EDT, [facility] STORE 21106, 183, cm, 10/20/22 13:23:00 EDT, Height, 114, kg, 10/14/22 20:17:00 EDT, Dry Weight Start Date: 11/06/22 Status: Ordered BD UF LUCY PEN NEEDLE [id number] BD UF LUCY PEN NEEDLE [id number], See Instructions, # 100 Unknown, 3 Refills, [...] 5 Refills, Maintenance, 11/08/22 16:26:00 EDT, Tablet, [facility]/pharmacy #[id number], Partial fill upon patient request if [...] 11/28/22 12:18:00 EDT, Route to Pharmacy Electronically, [facility]/pharmacy #[id number], Partial fill upon patient request if [...] tablet, 3 Refills, Maintenance, 02/17/22 10:20:00 EDT, [facility] STORE 16152, 183, cm, 12/09/21 11:56:00 EDT, Height, 118.8, kg, 11/09/21 7:05:00 EDT, Dry Weight Start Date: 02/17/22 Status: Ordered metoprolol 25 mg oral tablet, extended release 25 mg, 1, tablet, By Mouth, Daily, # 90 tablet, Refills 0, Tot. Refills 0, Maintenance, 11/07/22 10:41:00 EDT, Route to Pharmacy Electronically, [facility]/pharmacy #[id number], Partial fill upon patient request if [...] 0 Refills, Maintenance, 11/07/22 10:50:00 EDT, Capsule, [facility]/pharmacy #[id number], Partial fill upon patient request if [...] Active 1[facility] 2L leg 3[facility]. Dixon [facility] Social History Social History Type Response Smoking Status Never (less than 100 in lifetime) entered on: 08/17/18 Sex Patient Care team information Care Team Personnel Name: Mary Dumas RN Position: S RN Supv Member Role: Primary Care Nurse Name: Denise Lu RN Position: [facility] SN RN Member Role: Primary Care Nurse Name: Rosanne Beyer RN Position: [facility] RN Member Role: Primary Care Nurse Name: Evelyn Shay RN Position: [facility] RN Supv Member Role: Primary Care Nurse Name: Arely Deleon RN Position: [facility] RN Member Role: Primary Care Nurse Name: Yunier Garcia DO Position: [facility] Physician - Primary Care Member Role: PCP Address: Address: [address] [place] [id number] Name: Mariola Becker RN Position: [facility] RN Member Role: Primary Care Nurse Name: Tl Harris RN Position: [facility] RN Member Role: Primary Care Nurse Name: Gabriela Knowles RN Position: [facility] Hospital Wrecker Operator Member Role: Primary Care Nurse Name: Essence Connor RN Position: [facility] RN Member Role: Primary Care Nurse Care Team Related Persons Name: LINN BURGESS Address: home [address] [place] [address] Name: CAITLYN BURGESS Address: home [address] [place] [address]
--- OUTSIDE RECORDS SUMMARY | 2023-12-04 08:48 | XMS_ITS | Continuity of Care Document ---
Author Organization [facility] Address [address] [place] [address]- Care Team Providers Care Burner Technician Name Role Phone Garcia Yunier CRANDALL Primary Care Physician Encounter [facility] [place] Date(s): 11/11/21 - 12/11/21 [facility] [address] [place] [address]- [place] Allergies, Adverse Reactions, Alerts No Known [...] Refills, Maintenance, 03/30/21 9:33:00 EST, EC Tablet, [facility]/pharmacy #[id number], Partial fill upon patient request if the prescription is for a schedule IIopioid drug., 186, cm, 03/30/21 8:55:00 EST, Height... Start Date: 03/30/21 Status: Ordered atorvastatin 40 mg oral tablet 1 tablet, By Mouth, Daily, # 90 tablet, 1 Refills, [facility], 183, cm, 11/10/21 7:41:00 EDT, Height, 118.8, [...] mL, 11 Refills, Maintenance, 12/08/2211:14:00 EDT, Solution, [facility]/pharmacy #[id number], 183, cm, 11/24/21 13:34:00 EDT, Height, 118.8, kg, 11/09/21 7:05:00 EDT, Dry Weight Start Date: 12/07/21 Status: Ordered lisinopril 20 mg oral tablet 20 mg, 1, tablet, By Mouth, Daily, # 90 tablet, Refills 1, Tot. Refills 1, Soft Stop, 11/28/21 12:36:00 EDT, Route to Pharmacy Electronically, [facility]/pharmacy #[id number], 183, cm, 11/24/21 13:34:00 EDT, Height, 118.8, kg, 11/09/21 7:05:00 EDT, Dry Weight Start Date: 11/28/21 Status: Ordered metFORMIN 500 mg oral tablet, extended release 4 tablet = 2,000 mg, By Mouth, Daily, # 360 tablet, 3 Refills, Maintenance, 01/10/21 11:09:00 EDT, [facility]/pharmacy #[id number], 183, cm, 01/10/21 10:33:00 EDT, Height, 117.9, kg, 12/23/20 14:08:00 EDT, Dry Weight Start Date: 01/10/21 Status: Ordered metoprolol 25 mg oral tablet, extended release 25 mg, 1, tablet, By Mouth, Daily, # 30 tablet, Refills 11, Tot. Refills 11, Maintenance, 11/10/21 9:21:00 EDT, Route to Pharmacy Electronically, [facility]/pharmacy #[id number], Partial fill upon patient [...] 05/02/21 Stop Date: 10/29/21 Status: Ordered Pen [place], 32 G x 4 mm BD Ultra [...] 11/10/21 9:21:00 EDT, Route to Pharmacy Electronically, [facility]/pharmacy #[id number], Partial fill upon patient request if the [...] WEEK,INSTR:E 11.9, # 6 Unknown, 1 Refills, [facility] STORE 66758, 183, cm, 11/10/21 7:41:00 EDT, Height, 118.8, [...] 2)(Confirmed) 3 Active 1[facility] 2L leg 3[facility] Social History Social History Type Response Smoking Status Never (less than 100 in lifetime) entered on: 08/17/18 Sex
--- OUTSIDE RECORDS SUMMARY | 2023-12-04 08:48 | XMS_ITS | Continuity of Care Document ---
Author Organization [facility] Address [address] [place] [address]- Care Team Providers Care Nanofabrication Specialist Name Role Phone Garcia Yunier CRANDALL Primary Care Physician [place] [facility] [place] 10[place]/21 [facility] [address] [place] [address]- [place] Allergies, Adverse Reactions, Alerts No Known [...] Refills, Maintenance, 03/30/21 9:33:00 EST, EC Tablet, [facility]/pharmacy #[id number], Partial fill upon patient [...] mL, 11 Refills, Maintenance, 01/10/2111:08:00 EDT, Solution, [facility]/pharmacy #[id number], 183, cm, 01/10/21 10:33:00 EDT, Height, 117.9, kg, 12/23/20 14:08:00 EDT, Dry Weight Start Date: 01/10/21 Status: Ordered lisinopril 20 mg oral tablet 20 mg, 1, tablet, By Mouth, Daily, # 90 tablet, Refills 1, Tot. Refills 1, Soft Stop, 06/17/21 13:00:00 EST, Route to Pharmacy Electronically, [facility]/pharmacy #[id number], 186, cm, 04/14/21 12:03:00 EST, Height, 109, kg, 04/14/21 11:56:00 EST, Dry Weight Start Date: 06/17/21 Status: Ordered metFORMIN 500 mg oral tablet, extended release 4 tablet = 2,000 mg, By Mouth, Daily, # 360 tablet, 3 Refills, Maintenance, 01/10/21 11:09:00 EDT, [facility]/pharmacy #[id number], 183, cm, 01/10/21 10:33:00 [...] 05/02/21 Stop Date: 10/29/21 Status: Ordered Pen [place], 32 G x 4 mm BD Ultra [...] 6.5 mL, 1 Refills, 08/04/21 15:45:00 EDT, [facility]/pharmacy #[id number], 186, cm, 04/14/21 12:03:00 [...] 2)(Confirmed) 3 Active 1[facility] 2L leg 3endo-[facility] Social History Social History Type Response Smoking Status Never (less than 100 in lifetime) entered on: 08/17/18 Sex
--- OUTSIDE RECORDS SUMMARY | 2023-12-04 08:48 | XMS_ITS | Continuity of Care Document ---
Author Organization [facility] Address [address] [place] [address]- Care Team Providers Care Munitions Handler Name Role Phone Yunier Garcia DO Primary Care Physician Encounter [facility] [place] Date(s): 03/05/20 - 07/03/20 [facility] [address] [place] [id number] Attending Physician: Joya Kauffman MD Admitting Physician: Joya Kauffman MD Referring Physician: Yunier Garcia DO Allergies, Adverse Reactions, Alerts Substance Reaction Severity Status NKA Active Medications Advil PM 2 tablet, By Mouth, Daily at bedtime, 0 Refills, Maintenance, 06/10/15 13:23:12 Start Date: 06/10/15 Status: Ordered atorvastatin 40 mg oral tablet 1 tablet, By Mouth, Daily, # 90 tablet, 0 Refills, Maintenance, 04/09/20 9:01:00 EST, [facility], 182.88, cm, 02/09/20 14:50:00 EDT, Height, 125.1, kg, 08/20/18 8:44:00 EDT, Dry Weight Start Date: 04/09/20 Status: Ordered Contour Next EZ Glucometer See [...] Solostar Pen 100 units/mL subcutaneous solution = 17 units, Subcutaneous Injection, Daily at bedtime, E11.9. 30 day supply., # 15 mL, 6 Refills, Maintenance, 02/02/20 13:01:00 EDT, Solution, [facility]/pharmacy #[id number], 183, cm, 02/02/20 12:39:00 EDT, Height, 125.1, kg, 08/20/18 8:44:00 EDT, Dry Weight Start Date: 02/02/20 Stop Date: 10/24/21 Status: Ordered lisinopril 20 mg oral tablet 20 mg, 1, tablet, By Mouth, Daily, # 90 tablet, Refills 1, Tot. Refills 1, Soft Stop, 04/09/20 9:01:00 EST, Route to Pharmacy Electronically, [facility], 182.88, cm, 02/09/20 14:50:00 EDT, Height, 125.1, kg, 08/20/18 8:44:00 EDT, . Start Date: 04/09/20 Status: Ordered metFORMIN 500 mg oral tablet, extended release 4 tablet = 2,000 mg, By Mouth, Daily, # 360 tablet, 0 Refills, Maintenance, 04/09/20 9:01:00 EST, [facility], 182.88, cm, 02/09/20 14:50:00 EDT, Height, 125.1, kg, 08/20/18 8:44:00EDT, Dry Weight Start Date: 04/09/20 Status: Ordered One Touch Ultra Test Strips See Instructions, # 75 each, Refills 11, Tot. Refills 11, Maintenance, Use to test blood glucose levels 2x per day. E11.9. 30 day supply., 11/11/19 8:12:00 EDT, Dx E11.65, Compound, 183, cm, :27:00 EDT, Height, 125.1, kg, 08/20/18 8:44:00 ED... Start Date: 11/11/19 Status: Ordered Pen [place], 32 G x 4 mm BD Ultra [...] 2)(Confirmed) 3 Active 1[facility] 2L leg 3endo-[facility] Social History Social History Type Response Smoking Status Never (less than 100 in lifetime) entered on: 08/17/18 Sex
--- OUTSIDE RECORDS SUMMARY | 2023-12-04 08:48 | XMS_ITS | Continuity of Care Document ---
Author Organization [facility] Address [address] [place] [address]- Care Team Providers Care Jig And Fixture Builder Apprentice Name Role Phone Garcia Yunier CRANDALL Primary Care Physician [place] [facility] [place] 08/12/21 - 10/01/[address] [id number] Attending Physician: Austin Yin MD Admitting Physician: Austin Yin MD Referring Physician: Austin Yin MD Allergies, Adverse Reactions, Alerts No Known Allergies [...] Maintenance, 03/30/21 9:33:00 EST, EC Tablet, [id number], Partial fill upon patient request if the prescription is for a schedule IIopioid drug., 186, cm, 03/30/21 8:55:00 EST, Height... Start Date: 03/30/21 Status: Ordered atorvastatin 40 mg oral tablet 1 tablet, By Mouth, Daily, # 90 tablet, 1 Refills, Maintenance, 05/02/21 14:23:00 EST, [facility]/pharmacy#0838, 186, cm, 04/14/21 12:03:00 EST, Height, 109, [...] mL, 11 Refills, Maintenance, 01/10/2111:08:00 EDT, Solution, [facility]/pharmacy #0838, 183, cm, 01/10/21 10:33:00 EDT, Height, 117.9, kg, 12/23/20 14:08:00 EDT, Dry Weight Start Date: 01/10/21 Status: Ordered lisinopril 20 mg oral tablet 20 mg, 1, tablet, By Mouth, Daily, # 90 tablet, Refills 1, Tot. Refills 1, Soft Stop, 06/17/21 13:00:00 EST, Route to Pharmacy Electronically, [facility]/pharmacy #[id number], 186, cm, 04/14/21 12:03:00 EST, Height, 109, kg, 04/14/21 11:56:00 EST, Dry Weight Start Date: 06/17/21 Status: Ordered metFORMIN 500 mg oral tablet, extended release 4 tablet = 2,000 mg, By Mouth, Daily, # 360 tablet, 3 Refills, Maintenance, 01/10/21 11:09:00 EDT, [facility]/pharmacy #[id number], 183, cm, 01/10/21 10:33:00 [...] 05/02/21 Stop Date: 10/29/21 Status: Ordered Pen [place], 32 G x 4 mm BD Ultra [...] 6.5 mL, 1 Refills, 08/04/21 15:45:00 EDT, [facility]/pharmacy #[id number], 186, cm, 04/14/21 12:03:00 [...] 2)(Confirmed) 3 Active 1[facility] 2L leg 3endo-[facility] Social History Social History Type Response Smoking Status Never (less than 100 in lifetime) entered on: 08/17/18 Sex
--- OUTSIDE RECORDS SUMMARY | 2023-12-04 08:48 | XMS_ITS | Continuity of Care Document ---
Author Organization [facility] Address Unknown Care Team Providers Care Supervisor Cellars Name Role Phone Garcia Yunier CRANDALL Primary Care Physician [place] [facility] [place] 04[place]21 [facility] Attending Physician: Awais Cervantes Admitting Physician: Awais Cervantes Referring Physician: Awais Cervantes Allergies, Adverse Reactions, Alerts Substance Reaction Severity [...] Refills, Maintenance, 03/30/21 9:33:00 EST, EC Tablet, [facility]/pharmacy #[id number], Partial fill [...] EDT, Height Start Date: 10/28/20 Status: Ordered Finasteride = 5 mg, By [...] EDT, Height Start Date: 10/13/20 Status: Ordered metFORMIN 500 mg oral tablet, extended release 4 tablet = 2,000 mg, By Mouth, Daily, # 360 tablet, 3 Refills, Maintenance, 01/10/21 11:09:00 EDT, [id number], 183, cm, 01/10/21 10:33:00 EDT, Height, 117.9, kg, 12/23/20 14:08:00 EDT, Dry Weight Start Date: 01/10/21 Status: Ordered Trulicity Pen 1.5 mg/0.5 mL [...] 2)(Confirmed) 3 Active 1[facility] 2L leg 3endo-[facility] Social History Social History Type Response Smoking Status Never (less than 100 in lifetime) entered on: 08/17/18 Sex
--- OUTSIDE RECORDS SUMMARY | 2023-12-04 08:48 | XMS_ITS | Continuity of Care Document ---
Author Organization [facility] Address [address] [place] [address]- Care Team Providers Care Stiff Leg Derrick Operator Name Role Phone Yunier Garcia DO Primary Care Physician Encounter [facility] [place] Date(s): 07/03/19 - 10/31/19 [facility] [address] [place] [address] Attending Physician: Larry Tafoya MD Admitting Physician: [...] 2 Refills, Maintenance, 10/13/19 15:17:00 EDT, Solution, [facility]/pharmacy #[id number], 183, cm, 12/17/18 9:27:00 EDT, Height, [...] Compound Start Date: 02/19/18 Status: Ordered Pen [place], 32 G x 4 mm BD Ultra Fine III See instructions, for 90 days, # 600 each, Refills 0, Tot. Refills 0, Hard Stop 01/14/20 8:07:00 EDT, use as directed for Type 2 Diabetes Mellitus, 10/16/19 8:07:00 EDT, Supply, 183, cm, 12/17/18 9:27:00 EDT, Height, 125.1, kg, 08/20/18 8:44:00 EDT, D... Start Date: 10/16/19 Stop Date: 01/14/20 Status: Ordered Pen [place], 32 G x 4 mm BD Ultra [...] 2)(Confirmed) 3 Active 1[facility] 2L leg 3endo-[facility] Social History Social History Type Response Smoking Status Never (less than 100 in lifetime) entered on: 08/17/18 Sex
--- OUTSIDE RECORDS SUMMARY | 2023-12-04 08:48 | XMS_ITS | Continuity of Care Document ---
Author Organization [facility] Address [address] [place] [address]- Care Team Providers Care Supplier Specialist Name Role Phone Yunier Garcia DO Primary Care Physician Encounter [facility] [place] Date(s): 12/19/22 - 01/18/23 [facility] [address] [place] [address] Allergies, Adverse Reactions, Alerts No Known Allergies Immunizations Given and Recorded Vaccine Date Status Refusal Reason [id number] bivalent booster vax 03/08/22 Recorded SARS-CoV-2 (COVID-19) [...] tablet, 1 Refills, Maintenance, 11/06/22 18:41:00 EDT, [facility] 630[facility], 183, cm, 10/20/22 13:23:00 EDT, Height, 114, kg, 10/14/22 20:17:00 EDT, Dry Weight Start Date: 11/06/22 Status: Ordered BD UF LUCY PEN NEEDLE [id number] BD UF LUCY PEN NEEDLE [id number], See Instructions, # 100 Unknown, 3 Refills, [...] Maintenance, 11/08/22 16:26:00 EDT, Tablet, [facility]/pharmacy #[id number], Partial fill upon patient request if [...] 11/28/22 12:18:00 EDT, Route to Pharmacy Electronically, [facility]/pharmacy #[id number], Partial fill upon patient request if [...] Refills, Maintenance, 02/17/22 10:20:00 EDT, [facility], 183, cm, 12/09/21 11:56:00 EDT, Height, 118.8, kg, 11/09/21 7:05:00 EDT, Dry Weight Start Date: 02/17/22 Status: Ordered metoprolol 25 mg oral tablet, extended release 25 mg, 1, tablet, By Mouth, Daily, # 90 tablet, Refills 0, Tot. Refills 0, Maintenance, 11/07/22 10:41:00 EDT, Route to Pharmacy Electronically, [facility]/pharmacy #[id number], Partial fill upon patient request if [...] Active 1[facility] 2L leg 3[facility] Social History Social History Type Response Smoking Status Never (less than 100 in lifetime) entered on: 08/17/18 Sex Patient Care team information Care Team Personnel Name: Mary Dumas RN Position: [facility] RN Supv Member Role: Primary Care Nurse Name: Denise Lu RN Position: [facility] RN Member Role: Primary Care Nurse Name: Rosanne Beyre RN Position: [facility] RN Member Role: Primary Care Nurse Name: Evelyn Shay RN Position: [facility] RN Supv Member Role: Primary Care Nurse Name: Arely Deleon RN Position: [facility] RN Member Role: Primary Care Nurse Name: Yunier Garcia DO Position: [facility] Physician - Primary Care Member Role: PCP Address: Address: [address] [place] [address] Primary [place], [place] [address] Name: Mariola Becker RN Position: [facility] RN Member Role: Primary Care Nurse Name: Tl Harris RN Position: [facility] RN Member Role: Primary Care Nurse Name: Gabriela Knowles RN Position: [facility] Hospital Investment Representative Member Role: Primary Care Nurse Name: Essence Connor RN Position: [facility] RN Member Role: Primary Care Nurse Care Team Related Persons Name: LINN BURGESS Address: home [address] [place] [address] Name: CAITLYN BURGESS Address: home [address] [place] [id number]
--- OUTSIDE RECORDS SUMMARY | 2023-12-04 08:48 | XMS_ITS | Continuity of Care Document ---
Author Organization [facility] Address [address] [place] [address]- Care Team Providers Care Pbx Teacher Name Role Phone Yunier Garcia DO Primary Care Physician Encounter [facility] [place] Date(s): 12/17/22 - 01/16/23 [facility] [address] [place] [id number] Allergies, Adverse Reactions, Alerts No Known Allergies Immunizations Given and Recorded Vaccine Date Status Refusal Reason [id number] bivalent booster vax 03/08/22 Recorded SARS-CoV-2 (COVID-19) [...] tablet, 1 Refills, Maintenance, 11/06/22 18:41:00 EDT, [facility] 87898, 183, cm, 10/20/22 13:23:00 EDT, Height, 114, kg, 10/14/22 20:17:00 EDT, Dry Weight Start Date: 11/06/22 Status: Ordered BD UF LUCY PEN NEEDLE [id number] BD UF LUCY PEN NEEDLE [id number], See Instructions, # 100 Unknown, 3 Refills, [...] 5 Refills, Maintenance, 11/08/22 16:26:00 EDT, Tablet, [facility]/pharmacy #[id number], Partial fill upon [...] 11/28/22 12:18:00 EDT, Route to Pharmacy Electronically, [facility]/pharmacy #[id number], Partial fill upon [...] Refills, Maintenance, 02/17/22 10:20:00 EDT, [facility], 183, cm, 12/09/21 11:56:00 EDT, Height, 118.8, kg, 11/09/21 7:05:00 EDT, Dry Weight Start Date: 02/17/22 Status: Ordered metoprolol 25 mg oral tablet, extended release 25 mg, 1, tablet, By Mouth, Daily, # 90 tablet, Refills 0, Tot. Refills 0, Maintenance, 11/07/22 10:41:00 EDT, Route to Pharmacy Electronically, [facility]/pharmacy #[id number], Partial fill upon [...] Active 1[facility] 2L leg 3[facility] Social History Social History Type Response Smoking Status Never (less than 100 in lifetime) entered on: 08/17/18 Sex Patient Care team information Care Team Personnel Name: Mary Dumas RN Position: [facility] RN Supv Member Role: Primary Care Nurse Name: Denise Lu RN Position: [facility] RN Member Role: Primary Care Nurse Name: Rosanne Beyer RN Position: [facility] RN Member Role: Primary Care Nurse Name: Evelyn Shay RN Position: [facility] RN Supv Member Role: Primary Care Nurse Name: Arely Deleon RN Position: [facility] RN Member Role: Primary Care Nurse Name: Yunier Garcia DO Position: [facility] Physician - Primary Care Member Role: PCP Address: Address: [address] [place] [address] Primary Care [place], [place] [address] Name: Mariola Becker RN Position: [facility] RN Member Role: Primary Care Nurse Name: Tl Harris RN Position: [facility] RN Member Role: Primary Care Nurse Name: Gabriela Knowles RN Position: [facility] Hospital Sifter Operator Member Role: Primary Care Nurse Name: Essence Connor RN Position: [facility] RN Member Role: Primary Care Nurse Care Team Related Persons Name: LINN BURGESS Address: home [address] [place] [address] Name: CAITLYN BURGESS Address: home [address] [place] [address]
--- OUTSIDE RECORDS SUMMARY | 2023-12-04 08:48 | XMS_ITS | Continuity of Care Document ---
Author Organization [facility] Address [address] [place] [address]- Care Team Providers Care Meteorology Faculty Member Name Role Phone Yunier Garcia DO Primary Care Physician [facility]counter [facility] Date(s): 08/08/22 - 09/07/22 [facility] [address] [place] [address] Attending Physician: AdmAwais lang Admitting Physician: Admtr, Ar8 Referring Physician: Admtr, [...] tablet, 3 Refills, Maintenance, 04/10/22 7:55:00 EST, [facility] 97588, 183, cm, 02/20/22 9:57:00 EDT, Height, 118.8, kg, 11/09/21 7:05:00 EDT,Dry Weight Start Date: 04/10/22 Status: Ordered Aspirin Low Dose 81 mg oral delayed release tablet 1 tablet = 81 mg, By Mouth, Daily, # 90 tablet, 3 Refills, Maintenance, 03/30/21 9:33:00 EST, EC Tablet, [facility]/pharmacy #[id number], Partial fill upon patient request if the prescription is for a schedule IIopioid drug., 186, cm, 03/30/21 8:55:00 EST, Height... Start Date: 03/30/21 Status: Ordered atorvastatin 40 mg oral tablet 1 tablet, By Mouth, Daily, # 90 tablet, 1 Refills, 05/09/22 12:43:00 EST, [facility]/pharmacy #[id number], 183, cm, 04/29/22 11:35:00 [...] mL, 11 Refills, Maintenance, 12/08/2211:14:00 EDT, Solution, [facility]/pharmacy #[id number], 183, cm, 11/24/21 13:34:00 EDT, Height, 118.8, kg, 11/09/21 7:05:00 EDT, Dry Weight Start Date: 12/07/21 Status: Ordered lisinopril 20 mg oral tablet 20 mg, 1, tablet, By Mouth, Daily, # 90 tablet, Refills 1, Tot. Refills 1, Soft Stop, 06/15/22 14:05:00 EST, Route to Pharmacy Electronically, [facility]/pharmacy #[id number], 183, cm, 04/29/22 11:35:00 EST, Height, 120, kg, 04/29/22 11:35:00 EST, Dry Weight Start Date: 06/15/22 Status: Ordered MetFORMIN (Eqv-Glucophage XR) 500 mg oral tablet, extended release 4 tablet, By Mouth, Daily, # 360 tablet, 3 Refills, Maintenance, 02/17/22 10:20:00 EDT, [facility] STORE 78634, 183, cm, 12/09/21 11:56:00 EDT, Height, 118.8, kg, 11/09/21 7:05:00 EDT, Dry Weight Start Date: 02/17/22 Status: Ordered metoprolol 25 mg oral tablet, extended release 25 mg, 1, tablet, By Mouth, Daily, # 30 tablet, Refills 11, Tot. Refills 11, Maintenance, 11/10/21 9:21:00 EDT, Route to Pharmacy Electronically, [facility]/pharmacy #[id number], Partial fill upon patient [...] 07/21/22 Stop Date: 01/17/23 Status: Ordered Pen [place], 32 G x 4 mm BD Ultra [...] 11/10/21 9:21:00 EDT, Route to Pharmacy Electronically, [facility]/pharmacy #[id number], Partial fill upon patient [...] Active 1[facility] 2L leg 3Dr. Dixon 4endo-[facility] Social History Social History Type Response Smoking Status Never (less than 100 in lifetime) entered on: 08/17/18 Sex Note * Event Display: Non [facility] Lab Results Authored Date: * Event Display: Non BH Lab Results Authored Date: * Event Display: Non [facility] Lab Results Authored Date: Patient Care team information Care Team Personnel Name: Denise Lu RN Position: [facility] RN Member Role: Primary Care Nurse Name: Rosanne Beyer RN Position: S RN Member Role: Primary Care Nurse Name: Yunier Garcia DO Position: [facility] Primary Care Physician Member Role: PCP Address: Address: [address] [place] [address] [place] [address]- Name: Mariola Becker RN Position: [facility] RN Member Role: Primary Care Nurse Name: Tl Harris RN Position: [facility] RN Member Role: Primary Care Nurse Name: Gabriela Knowles RN Position: [facility] Hospital Visual Journalist Member Role: Primary Care Nurse Name: Essence Connor RN Position: [facility] RN Member Role: Primary Care Nurse Care Team Related Persons Name: KESHACAITLYN CHILEL Address: [address] [address]
--- OUTSIDE RECORDS SUMMARY | 2023-12-04 08:48 | XMS_ITS | Continuity of Care Document ---
Author Organization [facility] Address [address] [place] [address]- Care Team Providers Care Stapler Coil Unit Name Role Phone Garcia Yunier CRANDALL Primary Care Physician [place] [facility] [place] 05/11/21 - 06/10/21 [facility] [address] [place] [address]- [place] Allergies, Adverse Reactions, Alerts No Known [...] Refills, Maintenance, 03/30/21 9:33:00 EST, EC Tablet, [facility]/pharmacy #[id number], Partial fill upon patient request if the prescription is for a schedule IIopioid drug., 186, cm, 03/30/21 8:55:00 EST, Height... Start Date: 03/30/21 Status: Ordered atorvastatin 40 mg oral tablet 1 tablet, By Mouth, Daily, # 90 tablet, 1 Refills, Maintenance, 05/02/21 14:23:00 EST, [facility]/pharmacy#[id number], 186, cm, 04/14/21 12:03:00 EST, Height, [...] 10:17:00 EDT, Route to Pharmacy Electronically, [facility], 182.88, cm, 09/16/20 8:26:00 EDT, [...] Date: 05/02/21 Stop Date: 10/29/21 Status: Ordered Trulicity Pen 1.5 mg/0.5 mL subcutaneous solution = 1.5 mg, Subcutaneous Injection, Every week, e 11.9, # 2.5 mL, 11 Refills, 01/10/21 11:09:00 EDT, [facility]/pharmacy #[id number], 183, cm, 01/10/21 10:33:00 EDT, [...] 2)(Confirmed) 3 Active 1[facility] 2L leg 3[facility] Social History Social History Type Response Smoking Status Never (less than 100 in lifetime) entered on: 08/17/18 Sex
--- OUTSIDE RECORDS SUMMARY | 2023-12-04 08:48 | XMS_ITS | Continuity of Care Document ---
Author Organization [facility] Address [address] [place] [address]- Care Team Providers Care Chief Operations Officer Name Role Phone Garcia Yunier CRANDALL Primary Care Physician Encounter [facility] [place] Date(s): 04/13/21 - 05/13/21 [facility] [address] [place] [address]- [place] Allergies, Adverse Reactions, Alerts Substance Reaction Severity [...] Maintenance, 03/30/21 9:33:00 EST, EC Tablet, [facility]/pharmacy #[id number], Partial fill upon patient request [...] 3 Refills, Maintenance, 02/04/21 13:06:00 EDT, Capsule, [facility]/pharmacy #[id number], Partial fill upon patient request if the prescription is for a scheduleII opioid drug., 183, cm, 01/25/21 8:55:00 EDT, Hei... Start Date: 02/04/21 Status: Ordered lisinopril 20 mg oral tablet 20 mg, 1, tablet, By Mouth, Daily, # 90 tablet, Refills 1, Tot. Refills 1, Soft Stop, 10/13/20 10:17:00 EDT, Route to Pharmacy Electronically, [facility], 182.88, cm, 09/16/20 8:26:00 EDT, [...] 2)(Confirmed) 3 Active 1[facility] 2L leg 3[facility] Social History Social History Type Response Smoking Status Never (less than 100 in lifetime) entered on: 08/17/18 Sex
--- OUTSIDE RECORDS SUMMARY | 2023-12-04 08:48 | XMS_ITS | Continuity of Care Document ---
Author Organization [facility] Address [address] [facility], [address] Floor, [address] [place] [address]- Care Team Providers Care Package Dyeing Machine Operator Name Role Phone Yunier Garcia DO Primary Care Physician Encounter [facility] Date(s): 10/10/22 - 11/09/22 [facility] [address], [address], [address] [place] [address] Allergies, Adverse Reactions, Alerts [...] tablet, 1 Refills, Maintenance, 11/06/22 18:41:00 EDT, [facility] STORE 09656, 183, cm, 10/20/22 13:23:00 EDT, Height, 114, [...] 5 Refills, Maintenance, 11/08/22 16:26:00 EDT, Tablet, [facility]/pharmacy #[id number], Partial fill upon patient [...] 11/07/22 10:40:00 EDT, Route to Pharmacy Electronically, [facility]/pharmacy #[id number], 183, cm, 11/07/22 10:33:00 EDT, [...] Refills, Maintenance, 02/17/22 10:20:00 EDT, [facility], 183, cm, 12/09/21 11:56:00 EDT, Height, 118.8, kg, 11/09/21 7:05:00 EDT, Dry Weight Start Date: 02/17/22 Status: Ordered metoprolol 25 mg oral tablet, extended release 25 mg, 1, tablet, By Mouth, Daily, # 90 tablet, Refills 0, Tot. Refills 0, Maintenance, 11/07/22 10:41:00 EDT, Route to Pharmacy Electronically, [facility]/pharmacy #[id number], Partial fill upon patient [...] 2 mL, 6 Refills, 05/16/22 9:37:00 EST, [facility]/pharmacy #[id number], 183, cm, 04/29/22 11:35:00 [...] Active 1[facility] 2L leg 3Dr. Dixon 4endo-[facility] Social History Social History Type Response Smoking Status Never (less than 100 in lifetime) entered on: 08/17/18 Sex Patient Care team information Care Team Personnel Name: Mary Dumas RN Position: [facility] RN Supv Member Role: Primary Care Nurse Name: Denise Lu RN Position: [facility] RN Member Role: Primary Care Nurse Name: Rosanne Beyer RN Position: [facility] RN Member Role: Primary Care Nurse Name: Evelyn Shay RN Position: [facility] RN Supv Member Role: Primary Care Nurse Name: Arely Deleon RN Position: [facility] RN Member Role: Primary Care Nurse Name: Yunier Garcia DO Position: [facility] Physician - Primary Care Member Role: PCP Address: Address: [address] [place] [address] [place] [address]- Name: Mariola Becker RN Position: [facility] RN Member Role: Primary Care Nurse Name: Tl Harris RN Position: [facility] RN Member Role: Primary Care Nurse Name: Gabriela Knowles RN Position: [facility] Hospital Sales Product Manager Member Role: Primary Care Nurse Name: Essence Connor RN Position: [facility] RN Member Role: Primary Care Nurse Care Team Related Persons Name: LINN BURGESS Address: home [address] [place] [address] Name: CAITLYN BURGESS Address: [address] [address]
--- OUTSIDE RECORDS SUMMARY | 2023-12-04 08:48 | XMS_ITS | Continuity of Care Document ---
Author Organization [facility] Address [address] [facility], 3r [address] Floor, [address] [place] [address]- Care Team Providers Care Retort Kiln Burner Name Role Phone Garcia Yunier CRANDALL Primary Care Physician Encounter [facility] Date(s): 10/24/23 - 11/23/23 [facility] [address] [facility] 3rd Floor, [address] [place] [address] Allergies, Adverse Reactions, Alerts No Known Allergies Immunizations Given and Recorded Vaccine Date Status Refusal Reason influenza virus vaccine, inactivated 01/26/23 Chris rded influenza virus vaccine, inactivated 02/05/20 Chris rded influenza virus vaccine, inactivated 06/13/17 Chris rded [id number] bivalent booster vax 03/08/22 Recorded SARS-CoV-2 (COVID-19) mRNA-1273 vaccine 04/04/21 R ecorded Zoster Vaccine Live 11/23/20 Recorded zoster vaccine, inactivated 02/05/20 Recorded Medications atorvastatin 40 mg oral tablet 1 tablet, By Mouth, Daily, # 90 tablet, 1 Refills, Maintenance, 06/06/23 10:32:00 EST, [facility], 183, cm, 05/30/23 16:01:00 EST, Height, 114, kg, 10/14/22 20:17:00 EDT, Dry Weight Start Date: 06/06/23 Status: Ordered BD UF LUCY PEN NEEDLE [id number] BD UF LUCY PEN NEEDLE [id number], See Instructions, # 100 Unknown, 3 Refills, [...] opioid drug. Start Date: 12/23/20 Status: Ordered Freestyle [place] Sensor See Instructions, # 2 pack/packet, Refills 3, Tot. Refills 3, Maintenance, Herlinda 3 sensors apply new sensor every 2 weeks, 10/17/23 11:18:00 EDT, Supply, 183, cm, 10/17/23 11:00:00 EDT, Height, 114, kg, 10/14/22 20:17:00 EDT, Dry Weight Start Date: 10/17/23 Status: Ordered Lantus Solostar Pen 100 units/mL subcutaneous solution See Instructions, INJECT 14 UNITS SUBCUTANEOUSLY DAILY, # 15 Unknown, 1 Refills, Maintenance, 08/18/23 11:50:00 EDT, [facility], 183, cm, 08/16/23 12:33:00 EDT, Height, 114, kg, 10/14/22 20:17:00 EDT, Dry Weight Start Date: 08/18/23 Status: Ordered levETIRAcetam 500 mg oral tablet 1 tablet, By Mouth, 2 times a day, # 180 tablet, 1 Refills, Maintenance, 11/09/23 11:34:00 EDT, [facility], 183, cm, 10/31/23 15:26:00 EDT, Height, 114, kg, 10/14/22 20:17:00 EDT, Dry Weight Start Date: 11/09/23 Status: Ordered lisinopril 30 mg oral tablet 1 tablet = 30 mg, By Mouth, Daily, # 90 tablet, 1 Refills, Maintenance, 10/12/23 21:12:00 EDT, Tablet, [facility]/pharmacy #0838, Partial fill upon patient request if the prescription is for a schedule II opioid drug., 183, cm, 08/16/23 12:33:00 EDT, Height,... Start Date: 10/12/23 Status: Ordered melatonin 3 mg oral tablet [...] Daily, # 90 tablet, 0 Refills, Maintenance, 11/23/23 7:48:00 EDT, [facility], 183, cm, 10/31/23 15:26:00 EDT, Height, 114, kg, 10/14/22 20:17:00 EDT, Dry Weight Start Date: 11/23/23 Status: Ordered Trulicity Pen 1.5 mg/0.5 mL subcutaneous solution 0.5 mL = 1.5 mg, Subcutaneous Injection, Every week, rotate injection sites, # 2 mL, 2 Refills, Maintenance, 10/25/23 17:54:00 EDT, [facility], [id number], Partial fill upon patient request if the prescription is for a schedule II opioid drug.,... Start Date: 10/25/23 Status: Ordered Tylenol 8 HR Arthritis Pain 650 mg oral tablet, extended release 1 tablet = 650 mg, By Mouth, Every 8 hours, 0 Refills, Maintenance, 05/30/23 16:01:00 EST, Partial fill upon patient request if the prescription is for a schedule II opioid drug. Start Date: 05/30/23 Status: Ordered Problem List Condition Confirmation Course Effective Dates Status H ealth Status Informant Anemia Confirmed Active Aneurysm of ascending aorta 1 Confirmed Active Atherosclerosis of aorta Confirmed Active Benign essential hypertension Confirmed Active Bicuspid aortic valve Confirmed Active Cyst of kidney Confirmed Active Dyspnea Confirmed Active Chronic edema 2 Confirmed Active Edema Confirmed Active H/O: TIA Confirmed Active Headache Confirmed Active Hearing loss Confirmed Active History of anemia Confirmed Active Hyperlipidemia Confirmed Active Migraine Confirmed Active Obstructive sleep apnea syndrome Confirmed Active Peripheral edema Confirmed Active Raised prostate specific antigen 3 [...] Active 1[facility] 2L leg [facility] Social History Social History Type Response Smoking Status Never (less than 100 in lifetime) entered on: 08/17/18 Sex Patient Care team information Care Team Personnel Name: Naseem Wells MD Position: [facility] Renal MD Member Role: Lifetime Consulting Physician Address: Address: [address] [place] [address] [address] [place] [address]- [place] Name: Denise Lu RN [facility]: [facility] Primary Care Member Role: PCP Address: Address: [address] [place] [address] [place] [address]- Name: Mariola Becker RN Position: [facility] RN Member Role: Primary Care Nurse Name: Tl Harris RN Position: [facility] RN Member Role: Primary Care Nurse Name: Gabriela Knowles RN Position: [facility] Hospital Odd Bundle Worker Member Role: Primary Care Nurse Name: Essence Connor RN Position: [facility] RN Member Role: Primary Care Nurse Care Team Related Persons Name: LINN BURGESS Address: home [address] [place] [address] Name: CAITLYN BURGESS Address: home [address] [place] [address]
--- OUTSIDE RECORDS SUMMARY | 2023-12-04 08:48 | XMS_ITS | Continuity of Care Document ---
Author Organization [facility] Address [address] [place] [address]- Care Team Providers Care Supervisor Elementary Education Name Role Phone Jose MELENDREZ, Yunier [place] Primary Care Physician [place] [facility] - 09/12/19 [facility] [address] [place] [address]- [facility] Attending Physician: Larry Tafoya MD Admitting Physician: Larry Tafoya MD Allergies, Adverse Reactions, Alerts Substance Reaction [...] Dry Weight Start Date: 09/11/19 Status: Ordered lisinopril 20 mg oral tablet 20 mg, 1, tablet, By Mouth, Daily, # 90 tablet, Refills 1, Tot. Refills 1, Soft Stop, 09/05/19 12:04:00 EDT, Route to Pharmacy Electronically, [facility], 183, cm, 12/17/18 9:27:00EDT, Height, [...] cm, 12/17/18 9:27:00 EDT, Height, 125.1, kg, 198:44:00 EDT, Dry Weight Start Date: 09/05/19 Status: Ordered One Touch Ultra Test Strips See Instructions, # 2 bottle, Refills 11, Tot. Refills 11, Maintenance, Use to test BG twice daily,02/19/18 10:50:21 EDT, Dx E11.65, Compound Start Date: 02/19/18 Status: Ordered Trulicity Pen 1.5 mg/0.5 mL [...] 2)(Confirmed) 3 Active 1[facility] 2L leg 3endo-[facility] Social History Social History Type Response Smoking Status Never (less than 100 in lifetime) entered on: 08/17/18 Sex
--- OUTSIDE RECORDS SUMMARY | 2023-12-04 08:48 | XMS_ITS | Continuity of Care Document ---
Author Organization [facility] Address [address] [place] [address]- Care Team Providers Care Microwave Technician Name Role Phone Jose CRANDALL Yunier Miroslava Primary Care Physician [place] [facility] [place] - 10/29/[address] [address] Attending Physician: Larry Tafoya MD Admitting Physician: Larry Tafoya MD Allergies, Adverse Reactions, Alerts No Known [...] Maintenance, 03/30/21 9:33:00 EST, EC Tablet, [facility], Partial fill upon patient request if the prescription is for a schedule IIopioid drug., 186, cm, 03/30/21 8:55:00 EST, Height... Start Date: 03/30/21 Status: Ordered atorvastatin 40 mg oral tablet 1 tablet, By Mouth, Daily, # 90 tablet, 1 Refills, Maintenance, 05/02/21 14:23:00 EST, [facility]/pharmacy#0838, 186, cm, 04/14/21 12:03:00 EST, Height, 109, [...] mL, 11 Refills, Maintenance, 01/10/2111:08:00 EDT, Solution, [facility]/pharmacy #0838, 183, cm, 01/10/21 10:33:00 EDT, Height, 117.9, kg, 12/23/20 14:08:00 EDT, Dry Weight Start Date: 01/10/21 Status: Ordered lisinopril 20 mg oral tablet 20 mg, 1, tablet, By Mouth, Daily, # 90 tablet, Refills 1, Tot. Refills 1, Soft Stop, 06/17/21 13:00:00 EST, Route to Pharmacy Electronically, [facility]/pharmacy #0838, 186, cm, 04/14/21 12:03:00 EST, Height, 109, kg, 04/14/21 11:56:00 EST, Dry Weight Start Date: 06/17/21 Status: Ordered metFORMIN 500 mg oral tablet, extended release 4 tablet = 2,000 mg, By Mouth, Daily, # 360 tablet, 3 Refills, Maintenance, 01/10/21 11:09:00 EDT, [facility]/pharmacy #0838, 183, cm, 01/10/21 10:33:00 EDT, Height, [...] 05/02/21 Stop Date: 10/29/21 Status: Ordered Pen [place], 32 G x 4 mm BD Ultra [...] 6.5 mL, 1 Refills, 08/04/21 15:45:00 EDT, [id number], 186, cm, 04/14/21 12:03:00 EST, Height, [...] 3 Active 1[facility] 2L leg 3endo-[facility] Social History Social History Type Response Smoking Status Never (less than 100 in lifetime) entered on: 08/17/18 Sex
--- OUTSIDE RECORDS SUMMARY | 2023-12-04 08:48 | XMS_ITS | Continuity of Care Document ---
Author Organization [facility] Address [address] [place] [address]- Care Team Providers Care Inspector Optical Instrument Name Role Phone Garcia Yunier CRANDALL Primary Care Physician [place] [facility] [place] - 03/27/21 [facility] [address] [place] [id number]- Attending Physician: Awais Cervantes Admitting Physician: Awais [...] 2.5 mL, 11 Refills, 01/10/21 11:09:00 EDT, [facility]/pharmacy #[id number], 183, cm, 01/10/21 10:33:00 EDT, Height, [...] 2)(Confirmed) 3 Active 1[facility] 2L leg 3endo-[facility] Social History Social History Type Response Smoking Status Never (less than 100 in lifetime) entered on: 08/17/18 Sex
--- OUTSIDE RECORDS SUMMARY | 2023-12-04 08:48 | XMS_ITS | Continuity of Care Document ---
Author Organization [facility] Address [address] [place] [address]- Care Team Providers Care Wildlife Ecology Professor Name Role Phone Gracia Yunier CRANDALL Primary Care Physician Encounter [facility] Date(s): 04/13/21 - 05/13/21 [facility] [address] [place] [address]- [place] Allergies, Adverse Reactions, Alerts Substance Reaction [...] Refills, Maintenance, 03/30/21 9:33:00 EST, EC Tablet, [id number], Partial fill upon patient request [...] 3 Refills, Maintenance, 02/04/21 13:06:00 EDT, Capsule, [facility][id number], Partial fill upon patient request if the prescription is for a scheduleII opioid drug., 183, cm, 01/25/21 8:55:00 EDT, Hei... Start Date: 02/04/21 Status: Ordered lisinopril 20 mg oral tablet 20 mg, 1, tablet, By Mouth, Daily, # 90 tablet, Refills 1, Tot. Refills 1, Soft Stop, 10/13/20 10:17:00 EDT, Route to Pharmacy Electronically, [facility], 182.88, cm, 09/16/20 8:26:00 EDT, [...] 2)(Confirmed) 3 Active 1[facility] 2L leg 3[facility] Social History Social History Type Response Smoking Status Never (less than 100 in lifetime) entered on: 08/17/18 Sex
--- OUTSIDE RECORDS SUMMARY | 2023-12-04 08:48 | XMS_ITS | Continuity of Care Document ---
Author Organization [facility] Address [address] [place] [address]- Care Team Providers Care Liability Claims Representative Name Role Phone Yunier Garcia DO Primary Care Physician Encounter [facility] [place] Date(s): 09/16/20 - 10/16/20 [facility] [address] [place] [id number] Attending Physician: Admtr, Ar8 Admitting Physician: Admtr, Ar8 Referring Physician: Admtr, Ar8 Allergies, Adverse Reactions, Alerts Substance Reaction Severity Status NKA Active Medications Advil PM 2 tablet, By Mouth, Daily at bedtime, 0 Refills, Maintenance, 06/10/15 13:23:12 Start Date: 06/10/15 Status: Ordered atorvastatin 40 mg oral tablet 1 tablet, By Mouth, Daily, # 90 tablet, 1 Refills, Maintenance, 07/19/20 8:16:00 EST, [id number], 182.88, cm, 04/20/20 15:00:00 EST, Height, 125.1, kg, 08/20/18 8:44:00 EDT, Dry Weight Start Date: 07/19/20 Status: Ordered Contour Next EZ Glucometer See [...] 6 Refills, Maintenance, 02/02/20 13:01:00 EDT, Solution, [facility]/pharmacy #[id number], 183, cm, 02/02/20 12:39:00 EDT, Height, [...] Daily, # 360 tablet, 0 Refills, Maintenance, 07/30/20 15:59:00 EDT, [id number], 182.88, cm, 07/29/20 15:34:00 EDT, Height, 125.1, kg, 08/20/18 8:44:00 EDT, Dry Weight Start Date: 07/30/20 Status: Ordered One Touch Ultra Test Strips See Instructions, # 75 each, Refills 11, Tot. Refills 11, Maintenance, Use to test blood glucose levels 2x per day. E11.9. 30 day supply., 11/11/19 8:12:00 EDT, Dx E11.65, Compound, 183, cm, 199:27:00 EDT, Height, 125.1, kg, 08/20/18 8:44:00 ED... Start Date: 11/11/19 Status: Ordered Pen [place], 32 G x 4 mm BD Ultra Fine III See instructions, # 90 each, Refills 3, Tot. Refills 3, Maintenance, Use pen needle to inject insulin 1x a day at 8pm. E11.9, 90 Day supply, 01/08/21 8:07:00 EDT, Supply, 182.88, cm, 07/29/20 15:34:00 EDT, Height, 125.1, kg, 08/20/18 8:44:00 EDT, Dry... Start Date: 01/08/21 Stop Date: 01/03/22 Status: Ordered Pen [place], 32 G x 4 mm BD Ultra Fine III See instructions, for 90 days, # 90 each, Refills 3, Tot. Refills 3, Hard Stop 01/08/21 8:07:00 EDT, Use pen needle to inject insulin 1x a day at 8pm. E11.9, 90 Day supply, 01/14/20 8:07:00 EDT, Supply, 183, cm, 12/17/18 9:27:00 EDT, Height, 125.1, kg... Start Date: 01/14/20 Stop Date: 01/08/21 Status: Ordered Trulicity Pen 1.5 mg/0.5 mL subcutaneous solution See Instructions, INJECT 0.5 ML UNDER THE SKIN EVERY WEEK, # 6 mL, 3 Refills, Maintenance, [facility], 182.88, cm, 09/16/20 8:26:00 EDT, Height Start Date: 10/15/20 Status: Ordered Problem List Condition Effective Dates [...] 2)(Confirmed) 3 Active 1[facility] 2L leg 3[facility] Social History Social History Type Response Smoking Status Never (less than 100 in lifetime) entered on: 08/17/18 Sex
--- OUTSIDE RECORDS SUMMARY | 2023-12-04 08:48 | XMS_ITS | Continuity of Care Document ---
Author Organization [facility] Address [address] [place] [address]- Care Team Providers Care Regional Ehs Manager Name Role Phone Jose CRANDALLJiny Miroslava Primary Care Physician Encounter [facility] [place] Date(s): 08/26/21 - 09/25/21 [facility] [address] [place], [place] [address] Attending Physician: Awais Cervantes Admitting Physician: [...] Maintenance, 03/30/21 9:33:00 EST, EC Tablet, [id number], Partial fill upon patient request if the prescription is for a schedule IIopioid drug., 186, cm, 03/30/21 8:55:00 EST, Height... Start Date: 03/30/21 Status: Ordered atorvastatin 40 mg oral tablet 1 tablet, By Mouth, Daily, # 90 tablet, 1 Refills, Maintenance, 05/02/21 14:23:00 EST, [facility]/pharmacy#[id number], 186, cm, 04/14/21 12:03:00 EST, [...] mL, 11 Refills, Maintenance, 01/10/2111:08:00 EDT, Solution, [facility]/pharmacy #[id number], 183, cm, 01/10/21 10:33:00 EDT, Height, 117.9, kg, 12/23/20 14:08:00 EDT, Dry Weight Start Date: 01/10/21 Status: Ordered lisinopril 20 mg oral tablet 20 mg, 1, tablet, By Mouth, Daily, # 90 tablet, Refills 1, Tot. Refills 1, Soft Stop, 06/17/21 13:00:00 EST, Route to Pharmacy Electronically, [facility]/pharmacy #[id number], 186, cm, 04/14/21 12:03:00 EST, Height, 109, kg, 04/14/21 11:56:00 EST, Dry Weight Start Date: 06/17/21 Status: Ordered metFORMIN 500 mg oral tablet, extended release 4 tablet = 2,000 mg, By Mouth, Daily, # 360 tablet, 3 Refills, Maintenance, 01/10/21 11:09:00 EDT, [facility]/pharmacy #[id number], 183, cm, 01/10/21 10:33:00 [...] 05/02/21 Stop Date: 10/29/21 Status: Ordered Pen [place], 32 G x 4 mm BD Ultra [...] 6.5 mL, 1 Refills, 08/04/21 15:45:00 EDT, [facility]/pharmacy #[id number], 186, cm, 04/14/21 12:03:00 [...]
--- OUTSIDE RECORDS SUMMARY | 2023-12-04 08:48 | XMS_ITS | Continuity of Care Document ---
[facility] Address [address] [place] [address]- Care Team Providers Care Site Physician Name Role Phone Yunier Garcia DO Primary Care Physician Encounter [facility] Date(s): 10/02/23 - 11/01/[address] [address] Allergies, Adverse Reactions, Alerts No Known Allergies Immunizations Given and Recorded Vaccine Date Status Refusal Reason influenza virus vaccine, inactivated 01/26/23 Chris rded influenza virus vaccine, inactivated 02/05/20 Chris rded influenza virus vaccine, inactivated 06/13/17 Chris rded [id number] bivalent booster vax 03/08/22 Recorded SARS-CoV-2 (COVID-19) [...] Status: Ordered BD UF LUCY PEN NEEDLE [id number] BD UF LUCY PEN NEEDLE [id number], See Instructions, # 100 Unknown, 3 Refills, [...] Refills, Maintenance, 08/18/23 11:50:00 EDT, [id number], 183, cm, 08/16/23 12:33:00 EDT, Height, 114, kg, 10/14/22 20:17:00 EDT, Dry Weight Start Date: 08/18/23 Status: Ordered levETIRAcetam 500 mg oral tablet 1 tablet, By Mouth, 2 times a day, # 180 tablet, 1 Refills, Maintenance, 04/12/23 13:01:00 EST, [id number], 183, cm, 01/30/23 9:35:00 EDT, Height, 114, kg, 10/14/22 20:17:00 EDT, Dry Weight Start Date: 04/12/23 Status: Ordered lisinopril 30 mg oral tablet 1 tablet = 30 mg, By Mouth, Daily, # 90 tablet, 1 Refills, Maintenance, 10/12/23 21:12:00 EDT, Tablet, [id number], Partial fill upon [...] Daily, # 90 tablet, 0 Refills, Maintenance, 08/28/23 10:59:00 EDT, [facility], 183, cm, 08/16/23 12:33:00 EDT, Height, 114, kg, 10/14/22 20:17:00 EDT, Dry Weight Start Date: 08/28/23 Status: Ordered Trulicity Pen 1.5 mg/0.5 mL subcutaneous solution 0.5 mL = 1.5 mg, Subcutaneous Injection, Every week, rotate injection sites, # 2 mL, 2 Refills, Maintenance, 10/25/23 17:54:00 EDT, Solution, [facility]/pharmacy #[id number], Partial [...] 1[facility] 2L leg 3Dr. Dixon 4endo-[facility] Social History Social History Type Response Smoking Status Never (less than 100 in lifetime) entered on: 08/17/18 Sex Patient Care team information Care Team Personnel Name: Denise Lu RN Position: [facility] SN RN Member Role: Primary Care Nurse Name: Rosanne Beyer RN Position: [facility] RN Member Role: Primary Care Nurse Name: Evelyn Shay RN Position: [facility] RN Supv Member Role: Primary Care Nurse Name: Arely Deleon RN Position: [facility] RN Member Role: Primary Care Nurse Name: Yunier Garcia DO Position: [facility] Physician - Primary Care Member Role: PCP Address: Address: [address] [place] [address] [place], [place] [address] Name: Mariola Becker RN Position: [facility] RN Member Role: Primary Care Nurse Name: Tl Harris RN Position: [facility] RN Member Role: Primary Care Nurse Name: Gabriela Knowles RN Position: [facility] Talent Associate Member Role: Primary Care Nurse Name: Essence Connor RN Position: [facility] RN Member Role: Primary Care Nurse Care Team Related Persons Name: LINN BURGESS Address: home [address] [place] [address] Name: CAITLYN BURGESS Address: home [address] [place] [address]
--- OUTSIDE RECORDS SUMMARY | 2023-12-04 08:49 | XMS_ITS | Continuity of Care Document ---
Author Organization [facility] Address [address] [place] [address]- Care Team Providers Care Director Of Student Affairs Name Role Phone Yunier Garcia DO Primary Care Physician Encounter [facility] [place] Date(s): 12/15/19 - 02/28/20 [facility] [address] [place] [address]- [facility] Attending Physician: Joya Kauffman MD Admitting Physician: [...] 6 Refills, Maintenance, 02/02/20 13:01:00 EDT, [facility], [id number], 183, cm, 02/02/20 12:39:00 EDT, Height, [...] 18:56:47 EDT Start Date: 12/27/18 Status: Ordered One Touch Ultra Test Strips See Instructions, # 75 each, Refills 11, Tot. Refills 11, Maintenance, Use to test blood glucose levels 2x per day. E11.9. 30 day supply., 11/11/19 8:12:00 EDT, Dx E11.65, Compound, 183, cm, 199:27:00 EDT, Height, 125.1, kg, 08/20/18 8:44:00 ED... Start Date: 11/11/19 Status: Ordered Pen [place], 32 G x 4 mm BD Ultra [...] 2)(Confirmed) 3 Active 1[facility] 2L leg 3[facility] Social History Social History Type Response Smoking Status Never (less than 100 in lifetime) entered on: 08/17/18 Sex
--- OUTSIDE RECORDS SUMMARY | 2023-12-04 08:49 | XMS_ITS | Continuity of Care Document ---
Author Organization [facility] Address [address] [place] [address]- Care Team Providers Care Kindergarten Aide Name Role Phone Jose CRANDALL Yunier Miroslava Primary Care Physician Encounter [facility] [place] [facility] [id number] Date(s): 08/12/21 - 09/25/21 [facility] [address] [place], [place] [address] Attending Physician: Roman Leahy MD Admitting Physician: Roman Leahy MD Referring Physician: Austin Yin MD Allergies, [...] Maintenance, 03/30/21 9:33:00 EST, EC Tablet, [id number], Partial fill upon patient request if the prescription is for a schedule IIopioid drug., 186, cm, 03/30/21 8:55:00 EST, Height... Start Date: 03/30/21 Status: Ordered atorvastatin 40 mg oral tablet 1 tablet, By Mouth, Daily, # 90 tablet, 1 Refills, Maintenance, 05/02/21 14:23:00 EST, [facility]/pharmacy#0838, 186, cm, 04/14/21 12:03:00 EST, Height, [...] mL, 11 Refills, Maintenance, 01/10/2111:08:00 EDT, Solution, [facility]/pharmacy #0838, 183, cm, 01/10/21 10:33:00 EDT, Height, 117.9, kg, 12/23/20 14:08:00 EDT, Dry Weight Start Date: 01/10/21 Status: Ordered lisinopril 20 mg oral tablet 20 mg, 1, tablet, By Mouth, Daily, # 90 tablet, Refills 1, Tot. Refills 1, Soft Stop, 06/17/21 13:00:00 EST, Route to Pharmacy Electronically, [facility]/pharmacy #[id number], 186, cm, 04/14/21 12:03:00 EST, Height, 109, kg, 04/14/21 11:56:00 EST, Dry Weight Start Date: 06/17/21 Status: Ordered metFORMIN 500 mg oral tablet, extended release 4 tablet = 2,000 mg, By Mouth, Daily, # 360 tablet, 3 Refills, Maintenance, 01/10/21 11:09:00 EDT, [facility]/pharmacy #0838, 183, cm, 01/10/21 10:33:00 EDT, [...] 05/02/21 Stop Date: 10/29/21 Status: Ordered Pen [place], 32 G x 4 mm BD Ultra [...] 6.5 mL, 1 Refills, 08/04/21 15:45:00 EDT, [facility]/pharmacy #[id number], 186, cm, 04/14/21 12:03:00 EST, [...] 2)(Confirmed) 3 Active 1[facility] 2L leg 3[facility] Social History Social History Type Response Smoking Status Never (less than 100 in lifetime) entered on: 08/17/18 Sex
--- OUTSIDE RECORDS SUMMARY | 2023-12-04 08:49 | XMS_ITS | Continuity of Care Document ---
Author Organization [facility] Address [address] [place] [address]- Care Team Providers Care Printer Slotter Feeder Name Role Phone Jose Yunier CRANDALL Primary Care Physician Encounter [facility] [place] Date(s): 09/11/19 - 09/18/19 [facility] [address] [place] [address]- [facility] Attending Physician: Tod MELENDREZ, Jojo Allergies, Adverse Reactions, Alerts Substance Reaction Severity [...] 09/05/19 12:04:00 EDT, Route to Pharmacy Electronically, [facility], 183, cm, 12/17/18 9:27:00EDT, Height, [...] 2)(Confirmed) 3 Active 1[facility] 2L leg 3endo-[facility] Social History Social History Type Response Smoking Status Never (less than 100 in lifetime) entered on: 08/17/18 Sex
--- OUTSIDE RECORDS SUMMARY | 2023-12-04 08:49 | XMS_ITS | Continuity of Care Document ---
Author Organization [facility] Address [address] [place] [address]- Care Team Providers Care Collar Baster Name Role Phone Yunier Garcia DO Primary Care Physician Encounter [facility] Date(s): 03/15/23 - 04/14/[address] [address] Allergies, Adverse Reactions, Alerts No Known Allergies Immunizations Given and Recorded Vaccine Date Status Refusal Reason [id number] bivalent booster vax 03/08/22 Recorded SARS-CoV-2 (COVID-19) [...] tablet, 1 Refills, Maintenance, 11/06/22 18:41:00 EDT, [facility], 183, cm, 10/20/22 13:23:00 EDT, Height, 114, kg, 10/14/22 20:17:00 EDT, Dry Weight Start Date: 11/06/22 Status: Ordered BD UF LUCY PEN NEEDLE [id number] BD UF LUCY PEN NEEDLE [id number], See Instructions, # 100 Unknown, 3 Refills, [...] 0 Refills, Maintenance, 03/15/23 20:20:00 EDT, Solution, [facility]/pharmacy #[id number], Partial fill upon patient request if the prescription is for a scheduleII opioid drug., 183, cm, 01/30/23 9:35:00 EDT, Hei... Start Date: 03/15/23 Status: Ordered levETIRAcetam 500 mg oral tablet 1 tablet, By Mouth, 2 times a day, # 180 tablet, 1 Refills, Maintenance, 04/12/23 13:01:00 EST, [facility] 183, cm, 01/30/23 9:35:00 EDT, Height, 114, kg, 10/14/22 20:17:00 EDT, Dry Weight Start Date: 04/12/23 Status: Ordered lisinopril 10 mg oral tablet 1, tablet, By Mouth, Daily, # 90 tablet, Refills 0, Maintenance, 02/13/23 23:08:00 EDT, Route to Pharmacy Electronically, [facility], 183, cm, 01/30/23 9:35:00 EDT, Height, 114, [...] tablet, 3 Refills, Maintenance, 02/17/22 10:20:00 EDT, [facility], 183, cm, 12/09/21 11:56:00 EDT, Height, 118.8, kg, 11/09/21 7:05:00 EDT, Dry Weight Start Date: 02/17/22 Status: Ordered Metoprolol Succinate ER 25 mg oral tablet, extended release 1 tablet, By Mouth, Daily, # 90 tablet, 0 Refills, Maintenance, 02/24/23 12:16:00 EDT, [facility], 183, cm, 01/30/23 9:35:00 EDT, Height, 114, kg, 10/14/22 20:17:00 EDT, Dry Weight Start Date: 02/24/23 Status: Ordered terazosin 2 mg oral capsule TAKE 1 CAPSULE BY MOUTH AT BEDTIME Start Date: 08/18/22 Status: Ordered Trulicity Pen 1.5 mg/0.5 mL subcutaneous solution = 1.5 mg, Subcutaneous Injection, Every 7 days, # 2 mL, 6 Refills, 12/22/22 10:57:00 EDT, [facility]/pharmacy #[id number], 183, cm, 11/28/22 11:39:00 EDT, Height, [...] Confirmed Active 1[facility] 2L leg 3Dr. Zack 4endo-[facility] Social History Social History Type Response Smoking Status Never (less than 100 in lifetime) entered on: 08/17/18 Sex Patient Care team information Care Team Personnel Name: Mary Dumas RN Position: [facility] RN Member Role: Primary Care Nurse Name: Denise Lu RN Position: [facility] RN Member Role: Primary Care Nurse Name: Rosanne Beyer RN Position: [facility] RN Member Role: Primary Care Nurse Name: Evelyn Shay RN Position: [facility] [place] Supv Member Role: Primary Care Nurse Name: Arely Deleon RN Position: [facility] RN Member Role: Primary Care Nurse Name: Yunier Garcia DO Position: [facility] Physician - Primary Care Member Role: PCP Address: Address: [address] [place] [address] [place] [address]- Name: Mariola Becker RN Position: [facility] RN Member Role: Primary Care Nurse Name: Tl Harris RN Position: [facility] RN Member Role: Primary Care Nurse Name: Gabriela Knowles RN Position: [facility] [employer] Machine Operator Member Role: Primary Care Nurse Name: Essence Connor RN Position: [facility] RN Member Role: Primary Care Nurse Care Team Related Persons Name: LINN BURGESS Address: [address] [place] [address] Name: CAITLYN BURGESS Address: [place] [address]
--- OUTSIDE RECORDS SUMMARY | 2023-12-04 08:49 | XMS_ITS | Continuity of Care Document ---
Author Organization [facility] Address [address] [place] [address]- Care Team Providers Care Web Producer Name Role Phone Yunier Garcia DO Primary Care Physician Encounter [facility] [place] Date(s): 04/01/21 - 05/22/21 [facility] [address] [place] [address]- Attending Physician: Larry Tafoya MD Admitting Physician: [...] 3 Refills, Maintenance, 02/04/21 13:06:00 EDT, Capsule, [facility]/pharmacy #[id number], Partial fill upon patient request if [...] 2)(Confirmed) 3 Active 1[facility] 2L leg 3endo-[facility] Social History Social History Type Response Smoking Status Never (less than 100 in lifetime) entered on: 08/17/18 Sex
--- OUTSIDE RECORDS SUMMARY | 2023-12-04 08:49 | XMS_ITS | Continuity of Care Document ---
Author Organization [facility] Address [address] [place] [address]- Care Team Providers Care Cfa Name Role Phone Yunier Garcia DO Primary Care Physician Encounter [facility] Date(s): 10/13/19 - 01/23/20 [facility] [address] [place] [address]- [facility] Attending Physician: Jaren Foss MD Admitting Physician: Jaren Foss MD Referring Physician: Yunier Garcia DO Allergies, [...] Date: 09/11/19 Stop Date: 06/07/20 Status: Ordered GaviLyte-G oral powder for reconstitution 240 mL, By Mouth, Daily, drink 1/2 prep at 5pm day before procedure, drink the rest 6 hrs before procedure, # 4,000 mL, 0 Refills, Maintenance, 01/14/20 15:51:00 EDT, REC Powder, [facility]/pharmacy #[id number], 240 mL By Mouth Daily,Instr:drink 1/2 prep at 5pm da... Start Date: 01/14/20 Status: Ordered Ibuprofen PRN, Maintenance, as needed [...] 6 Refills, Maintenance, 11/11/19 13:30:00 EDT, Solution, [facility]/pharmacy #0838, 183, cm, 12/17/18 9:27:00 EDT, Height, [...] Maintenance, 09/05/19 12:08:00 EDT, ER Tablet, [facility], 183, cm, 12/17/18 9:27:00 EDT, [...] ED... Start Date: 11/11/19 Status: Ordered Pen [place], 32 G x 4 mm BD Ultra [...]
--- OUTSIDE RECORDS SUMMARY | 2023-12-04 08:49 | XMS_ITS | Continuity of Care Document ---
Author Organization [facility] Address [address] [place] [address]- Care Team Providers Care Cnc Milling Machinist Name Role Phone Yunier Garcia DO Primary Care Physician En[place] [facility] [place] Date(s): 04/04/23 - 05/04/23 [facility] [address] [place] [id number] Allergies, Adverse Reactions, Alerts No Known Allergies Immunizations Given and Recorded Vaccine Date Status Refusal Reason [id number] bivalent booster vax 03/08/22 Recorded SARS-CoV-2 (COVID-19) [...] tablet, 1 Refills, Maintenance, 11/06/22 18:41:00 EDT, [facility] [id number], 183, cm, 10/20/22 13:23:00 EDT, Height, 114, kg, 10/14/22 20:17:00 EDT, Dry Weight Start Date: 11/06/22 Status: Ordered BD UF LUCY PEN NEEDLE [id number] BD UF LUCY PEN NEEDLE [id number], See Instructions, # 100 Unknown, 3 Refills, [...] 0 Refills, Maintenance, 03/15/23 20:20:00 EDT, Solution, [facility]/pharmacy #[id number], Partial fill upon patient request if the prescription is for a scheduleII opioid drug., 183, cm, 01/30/23 9:35:00 EDT, Hei... Start Date: 03/15/23 Status: Ordered levETIRAcetam 500 mg oral tablet 1 tablet, By Mouth, 2 times a day, # 180 tablet, 1 Refills, Maintenance, 04/12/23 13:01:00 EST, [facility], 183, cm, 01/30/23 9:35:00 EDT, Height, 114, kg, 10/14/22 20:17:00 EDT, Dry Weight Start Date: 04/12/23 Status: Ordered lisinopril 10 mg oral tablet 1, tablet, By Mouth, Daily, # 90 tablet, Refills 0, Maintenance, 02/13/23 23:08:00 EDT, Route to Pharmacy Electronically, [facility], 183, cm, 01/30/23 9:35:00 EDT, Height, 114, [...] tablet, 0 Refills, Maintenance, 02/24/23 12:16:00 EDT, [facility] 46872, 183, cm, 01/30/23 9:35:00 EDT, Height, 114, [...] Active 1[facility] 2L leg [facility] Social History Social History Type Response Smoking Status Never (less than 100 in lifetime) entered on: 08/17/18 Sex Patient Care team information Care Team Personnel Name: Mary Dumas RN Position: [facility] RN Member Role: Primary Care Nurse Name: Denise Lu RN Position: [facility] SN RN Member Role: Primary Care Nurse Name: Rosanne Beyer RN Position: [facility] RN Member Role: Primary Care Nurse Name: Evelyn Shay RN Position: [facility] RN Supv Member Role: Primary Care Nurse Name: Arely Deleon RN Position: [facility] RN Member Role: Primary Care Nurse Name: Yunier Garcia DO Position: [facility] Physician - Primary Care Member Role: PCP Address: Address: [address] [place] [id number] Name: Mariola Becker RN Position: [facility] RN Member Role: Primary Care Nurse Name: Tl Harris RN Position: [facility] RN Member Role: Primary Care Nurse Name: Gabriela Knowles RN Position: [facility] Hospital Cement Handler Member Role: Primary Care Nurse Name: Essence Connor RN Position: [facility] RN Member Role: Primary Care Nurse Care Team Related Persons Name: LINN BURGESS Address: home [address] [place] [address] Name: CAITLYN BURGESS Address: home [address] [place] [address]
--- OUTSIDE RECORDS SUMMARY | 2023-12-04 08:49 | XMS_ITS | Continuity of Care Document ---
Author Organization [facility] Address [address] [place] [address]- Care Team Providers Care Supervisor Lead Burning Name Role Phone Yunier Garcia DO Primary Care Physician Encounter [facility] [place] Date(s): 08/04/21 - 09/03/21 [facility] [address] [place] [id number] Allergies, Adverse Reactions, Alerts No Known [...] 3 Refills, Maintenance, 02/04/21 13:06:00 EDT, Capsule, [facility]/pharmacy #[id number], Partial fill upon patient [...] 05/02/21 Stop Date: 10/29/21 Status: Ordered Pen [place], 32 G x 4 mm BD Ultra [...] 2)(Confirmed) 3 Active 1[facility] 2L leg 3[facility] Social History Social History Type Response Smoking Status Never (less than 100 in lifetime) entered on: 08/17/18 Sex
--- OUTSIDE RECORDS SUMMARY | 2023-12-04 08:49 | XMS_ITS | Continuity of Care Document ---
Author Organization [facility] Address [address] [place] [address]- Care Team Providers Care Stucco Applicator Name Role Phone Yunier Garcia DO Primary Care Physician [place] [facility] [place] 03/05/22 [facility] [address] [place], [place] [id number]- Attending Physician: Larry Tafoya MD Admitting Physician: [...] Maintenance, 03/30/21 9:33:00 EST, EC Tablet, [id number], Partial fill upon patient request if the prescription is for a schedule IIopioid drug., 186, cm, 03/30/21 8:55:00 EST, Height... Start Date: 03/30/21 Status: Ordered atorvastatin 40 mg oral tablet 1 tablet, By Mouth, Daily, # 90 tablet, 1 Refills, [facility] 97544, 183, cm, 11/10/21 7:41:00 EDT, Height, 118.8, [...] mL, 11 Refills, Maintenance, 12/08/2211:14:00 EDT, Solution, [facility]/pharmacy #[id number], 183, cm, 11/24/21 13:34:00 EDT, Height, 118.8, kg, 11/09/21 7:05:00 EDT, Dry Weight Start Date: 12/07/21 Status: Ordered lisinopril 20 mg oral tablet 20 mg, 1, tablet, By Mouth, Daily, # 90 tablet, Refills 1, Tot. Refills 1, Soft Stop, 11/28/21 12:36:00 EDT, Route to Pharmacy Electronically, [facility]/pharmacy #[id number], 183, cm, 11/24/21 13:34:00 EDT, Height, 118.8, kg, 11/09/21 7:05:00 EDT, Dry Weight Start Date: 11/28/21 Status: Ordered MetFORMIN (Eqv-Glucophage XR) 500 mg oral tablet, extended release 4 tablet, By Mouth, Daily, # 360 tablet, 3 Refills, Maintenance, 02/17/22 10:20:00 EDT, [facility], 183, cm, 12/09/21 11:56:00 EDT, Height, 118.8, kg, 11/09/21 7:05:00 EDT, Dry Weight Start Date: 02/17/22 Status: Ordered metoprolol 25 mg oral tablet, extended release 25 mg, 1, tablet, By Mouth, Daily, # 30 tablet, Refills 11, Tot. Refills 11, Maintenance, 11/10/21 9:21:00 EDT, Route to Pharmacy Electronically, [facility]/pharmacy #[id number], Partial fill upon [...] 05/02/21 Stop Date: 10/29/21 Status: Ordered Pen [place], 32 G x 4 mm BD Ultra [...] 11/10/21 9:21:00 EDT, Route to Pharmacy Electronically, [facility]/pharmacy #[id number], Partial fill upon [...] WEEK,INSTR:E 11.9, # 6 Unknown, 1 Refills, [facility] 88822, 183, cm, 11/10/21 7:41:00 EDT, Height, 118.8, [...] nephropathy Confirmed Active 1[facility] 2L leg 3[facility] Social History Social History Type Response Smoking Status Never (less than 100 in lifetime) entered on: 08/17/18 Sex Patient Care team information Personnel Name: Yunier Garcia DO Address: Address: [address] [place] [address] Primary Care [place], [place] [address]
--- OUTSIDE RECORDS SUMMARY | 2023-12-04 08:49 | XMS_ITS | Continuity of Care Document ---
Author Organization [facility] Address [address] [place] [address]- Care Team Providers Care Skin Care Technician Name Role Phone Yunier Garcia DO Primary Care Physician [place] [facility] [place] 10[place]/23 - 11/30/23 [facility] [address] [place] [address]- Attending Physician: Awais Cervantes Admitting Physician: AdmtrAwais Referring Physician: Admtr, Ar8 Allergies, Adverse Reactions, Alerts No Known Allergies Immunizations Given and Recorded Vaccine Date Status Refusal Reason influenza virus vaccine, inactivated 01/26/23 Chris rded influenza virus vaccine, inactivated 02/05/20 Chris rded influenza virus vaccine, inactivated 06/13/17 Chris rded [id number] bivalent booster vax 03/08/22 Recorded SARS-CoV-2 (COVID-19) mRNA-1273 vaccine 04/04/21 R ecorded Zoster Vaccine Live 11/23/20 Recorded zoster vaccine, inactivated 02/05/20 Recorded Medications atorvastatin 40 mg oral tablet 1 tablet, By Mouth, Daily, # 90 tablet, 1 Refills, Maintenance, 11/29/23 10:52:00 EDT, [facility] 12389, 183, cm, 10/31/23 15:26:00 EDT, Height, 114, kg, 10/14/22 20:17:00 EDT, Dry Weight Start Date: 11/29/23 Status: Ordered BD UF LUCY PEN NEEDLE [id number] BD UF LUCY PEN NEEDLE [id number], See Instructions, # 100 Unknown, 3 Refills, [...] Refills, Maintenance, 08/18/23 11:50:00 EDT, [facility], 183, cm, 08/16/23 12:33:00 EDT, Height, 114, kg, 10/14/22 20:17:00 EDT, Dry Weight Start Date: 08/18/23 Status: Ordered levETIRAcetam 500 mg oral tablet 1 tablet, By Mouth, 2 times a day, # 180 tablet, 1 Refills, Maintenance, 11/09/23 11:34:00 EDT, [facility], 183, cm, 10/31/23 15:26:00 EDT, Height, 114, kg, 10/14/22 20:17:00 EDT, Dry Weight Start Date: 11/09/23 Status: Ordered lisinopril 30 mg oral tablet 1 tablet = 30 mg, By Mouth, Daily, # 90 tablet, 1 Refills, Maintenance, 10/12/23 21:12:00 EDT, Tablet, [facility]/pharmacy #[id number], Partial fill upon patient request if [...] Refills, Maintenance, 11/23/23 7:48:00 EDT, [facility], 183, cm, 10/31/23 15:26:00 EDT, Height, 114, [...] Active 1[facility] 2L leg 3Dr. Dixon 4endo-[facility] Social History Social History Type Response Smoking Status Never (less than 100 in lifetime) entered on: 08/17/18 Sex Patient Care team information Care Team Personnel Name: Naseem Wells MD Position: [facility] Renal MD Member Role: Lifetime Consulting Physician Address: Address: [address] [place] [address] [address] [facility] [place] [address]- [place] Name: Denise Lu RN Position: [facility] SN RN Member Role: Primary Care Nurse Name: Rosanne Beyer RN Position: [facility] RN Member Role: Primary Care Nurse Name: Evelyn Shay RN Position: [facility] RN Supv Member Role: Primary Care Nurse Name: Arely Deleon RN Position: [facility] RN Member Role: Primary Care Nurse Name: Yunier Garcia DO Position: [facility] Physician - Primary Care Member Role: PCP Address: Address: [address] [place] [address] [place] [address]- Name: Mariola Becker RN Position: [facility] RN Member Role: Primary Care Nurse Name: Tl Harris RN Position: [facility] RN Member Role: Primary Care Nurse Name: Gabriela Knowles RN Position: [facility] Hospital Medical Scientist Member Role: Primary Care Nurse Name: Essence Connor RN Position: [facility] RN Member Role: Primary Care Nurse Care Team Related Persons Name: LINN BURGESS Address: home [address] [place] [address] Name: CAITLYN BURGESS Address: home [address] [place] [address]
--- OUTSIDE RECORDS SUMMARY | 2023-12-04 08:49 | XMS_ITS | Continuity of Care Document ---
Author Organization [facility] ter Address [address] [place] [address]- Care Team Providers Care Binder Technician Name Role Phone Yunier Garcia DO Primary Care Physician [place] [facility] [place](s): 08/16/23 - 09/15/[address] [address] Attending Physician: AdmtrAwais Admitting Physician: Admtr, Ar8 Referring Physician: Admtr, Ar8 Allergies, Adverse Reactions, Alerts No Known Allergies Immunizations Given and Recorded Vaccine Date Status Refusal Reason [id number] bivalent booster vax 03/08/22 Recorded SARS-CoV-2 (COVID-19) [...] Status: Ordered BD UF LUCY PEN NEEDLE [id number] BD UF LUCY PEN NEEDLE [id number], See Instructions, # 100 Unknown, 3 Refills, [...] Refills, Maintenance, 08/18/23 11:50:00 EDT, [facility], 183, cm, 08/16/23 12:33:00 EDT, Height, 114, kg, 10/14/22 20:17:00 EDT, Dry Weight Start Date: 08/18/23 Status: Ordered levETIRAcetam 500 mg oral tablet 1 tablet, By Mouth, 2 times a day, # 180 tablet, 1 Refills, Maintenance, 04/12/23 13:01:00 EST, [facility], 183, cm, 01/30/23 9:35:00 EDT, Height, 114, kg, 10/14/22 20:17:00 EDT, Dry Weight Start Date: 04/12/23 Status: Ordered lisinopril 30 mg oral tablet 1 tablet = 30 mg, By Mouth, Daily, # 90 tablet, 0 Refills, Maintenance, 07/21/23 8:36:00 EST, Tablet, [facility]/pharmacy #[id number], Partial fill upon patient request if the prescription is for a schedule II opioid drug., 183, cm, 07/13/23 13:00:00 EST, Height,... Start Date: 07/21/23 Status: Ordered melatonin 3 mg oral tablet [...] Refills, Maintenance, 08/28/23 10:59:00 EDT, [facility], 183, cm, 08/16/23 12:33:00 EDT, Height, 114, kg, 10/14/22 20:17:00 EDT, Dry Weight Start Date: 08/28/23 Status: Ordered Trulicity Pen 0.75 mg/0.5 mL subcutaneous solution See Instructions, use two of 0.75mg/0.5ml Subcutaneous Injection Every week, # 4 mL, 3 Refills, Maintenance, 07/31/23 17:22:00 EDT, Solution, [facility]/pharmacy #[id number], Partial fill upon patient request if the prescription is for a schedule II opioid drug.,... Start Date: 07/31/23 Status: Ordered Tylenol 8 HR Arthritis Pain [...] Active 1[facility] 2L leg 3Dr. Dixon 4endo-[facility] Social History Social History Type Response Smoking Status Never (less than 100 in lifetime) entered on: 08/17/18 Sex Patient Care team information Care Team Personnel Name: Denise Lu RN Position: [facility] SN RN Member Role: Primary Care Nurse Name: Rosanne Beyer RN Position: [facility] RN Member Role: Primary Care Nurse Name: Evelyn Shay RN Position: [facility] RN Supv Member Role: Primary Care Nurse Name: Arely Deleon RN Position: [facility] RN Member Role: Primary Care Nurse Name: Yunier Garcia DO Position: [facility] Physician - Primary Care Member Role: PCP Address: Address: [address] [place] [address] [place] [address]- Name: Mariola Becker RN Position: [facility] RN Member Role: Primary Care Nurse Name: Tl Harris RN Position: [facility] RN Member Role: Primary Care Nurse Name: Gabriela Knowles RN Position: [facility] Hospital Senior Program Analyst Member Role: Primary Care Nurse Name: Essence Connor RN Position: [facility] RN Member Role: Primary Care Nurse Care Team Related Persons Name: LINN BURGESS Address: home [address] [place] [address] Name: CAITLYN BURGESS Address: home [address] [place] [address]
--- OUTSIDE RECORDS SUMMARY | 2023-12-04 08:49 | XMS_ITS | Continuity of Care Document ---
Author Organization [facility] Address [address] [place] [address], [address] Floor, [address] [place] [address]- Care Team Providers Care Pricing Specialist Name Role Phone Yunier Garcia DO Primary Care Physician [place] [facility] [place] [facility] [address], [address] Floor, [address] [place] [address] Attending Physician: Zafar Salinas MD Admitting Physician: Zafar Salinas MD Allergies, Adverse Reactions, Alerts No Known [...] tablet, 1 Refills, Maintenance, 11/06/22 18:41:00 EDT, [facility] 62783, 183, cm, 10/20/22 13:23:00 EDT, Height, 114, [...] 5 Refills, Maintenance, 11/08/22 16:26:00 EDT, Tablet, [facility]/pharmacy #[id number], Partial fill upon patient request [...] 11/07/22 10:40:00 EDT, Route to Pharmacy Electronically, [facility]/pharmacy #[id number], 183, cm, 11/07/22 10:33:00 EDT, [...] Refills, Maintenance, 02/17/22 10:20:00 EDT, [facility], 183, cm, 12/09/21 11:56:00 EDT, Height, 118.8, kg, 11/09/21 7:05:00 EDT, Dry Weight Start Date: 02/17/22 Status: Ordered metoprolol 25 mg oral tablet, extended release 25 mg, 1, tablet, By Mouth, Daily, # 90 tablet, Refills 0, Tot. Refills 0, Maintenance, 11/07/22 10:41:00 EDT, Route to Pharmacy Electronically, [facility]/pharmacy #[id number], Partial fill upon patient request [...] 2 mL, 6 Refills, 05/16/22 9:37:00 EST, [facility]/pharmacy #[id number], 183, cm, 04/29/22 11:35:00 EST, [...] Active 1[facility] 2L leg 3Dr. Dixon [facility] Social History Social History Type Response Smoking Status Never (less than 100 in lifetime) entered on: 08/17/18 Sex Patient Care team information Care Team Personnel Name: Mary Dumas RN Position: [facility] RN Supv Member Role: Primary Care Nurse Name: Denise Lu RN Position: [facility] RN Member Role: Primary Care Nurse Name: Rosanne Beyer RN Position: S RN Member Role: Primary Care Nurse Name: Evelyn Shay RN Position: [facility] RN Supv Member Role: Primary Care Nurse Name: Arely Deleon RN Position: S RN Member Role: Primary Care Nurse Name: Yunier Garcia DO Position: [facility] Physician - Primary Care Member Role: PCP Address: Address: [address] [place] [address] [place] [address]- Name: Mariola Becker RN Position: [facility] RN Member Role: Primary Care Nurse Name: Tl aHrris RN Position: [facility] RN Member Role: Primary Care Nurse Name: Gabriela Knowles RN Position: [facility] Professor Of Surgery Member Role: Primary Care Nurse Name: Essence Connor RN Position: [facility] RN Member Role: Primary Care Nurse Care Team Related Persons Name: LINN BURGESS Address: [place] [address] Name: CAITLYN BURGESS Address: [place] [address]
--- OUTSIDE RECORDS SUMMARY | 2023-12-04 08:49 | XMS_ITS | Continuity of Care Document ---
Author Organization [facility] ter Address [address] [place] [address]- Care Team Providers Care Mail Censor Name Role Phone Yunier Garcia DO Primary Care Physician Encounter [facility] [place] Date(s): 01/21/21 - 02/20/[address] [address]- Attending Physician: Awais Cervantes Admitting Physician: AdmtrAwais Referring Physician: AdmtrAwais Allergies, Adverse Reactions, Alerts Substance Reaction Severity [...] mL, 11 Refills, Maintenance, 01/10/2111:08:00 EDT, Solution, [facility]/pharmacy #0838, 183, cm, 01/10/21 10:33:00 EDT, Height, 117.9, kg, 12/23/20 14:08:00 EDT, Dry Weight Start Date: 01/10/21 Status: Ordered Linzess 145 mcg oral capsule 1 capsule = 145 mcg, By Mouth, Daily, # 30 capsule, 3 Refills, Maintenance, 02/04/21 13:06:00 EDT, Capsule, [facility]/pharmacy #[id number], Partial fill upon [...] tablet, 3 Refills, Maintenance, 01/10/21 11:09:00 EDT, [facility]/pharmacy #0838, 183, cm, 01/10/21 [...] Tablet Start Date: 02/12/21 Status: Ordered Pen [place], 32 G x 4 mm BD Ultra [...] 2.5 mL, 11 Refills, 01/10/21 11:09:00 EDT, [facility]/pharmacy #[id number], 183, cm, 01/10/21 [...] 2)(Confirmed) 3 Active 1[facility] 2L leg 3[facility] Social History Social History Type Response Smoking Status Never (less than 100 in lifetime) entered on: 08/17/18 Sex
--- OUTSIDE RECORDS SUMMARY | 2023-12-04 08:49 | XMS_ITS | Continuity of Care Document ---
Author Organization [facility] Address [address] [place] [address]- Care Team Providers Care Machine Captain Name Role Phone Yunier Garcia DO Primary Care Physician Encounter [facility] Date(s): 01/18/21 - 02/17/21 [facility] [address] [place] [id number] Allergies, Adverse Reactions, Alerts Substance Reaction Severity [...] 3 Refills, Maintenance, 02/04/21 13:06:00 EDT, Capsule, [facility]/pharmacy #[id number], Partial fill [...] tablet, 3 Refills, Maintenance, 01/10/21 11:09:00 EDT, [facility]/pharmacy #[id number], 183, cm, 01/10/21 10:33:00 EDT, Height, [...] 8:44:00 ED... Start Date: 11/11/19 Status: Ordered oxyCODONE 5 mg oral tablet See Instructions, PRN, Take 1-2 tablets By Mouth Every 4 hours as needed, # 84 tablet, Refills 0, Tot. Refills 0, Acute 02/19/21 6:53:00 EDT, Pain , Moderate, 02/12/21 6:53:00 EDT, Instructions Replace Required Details, Route to Pharmacy Electronicall... Start Date: 02/12/21 Stop Date: 02/19/21 Status: Ordered pantoprazole 40 mg oral delayed release tablet = 40 mg, By Mouth, Daily in AM, 0 Refills, Maintenance, 02/12/21 6:54:00 EDT, EC Tablet Start Date: 02/12/21 Status: Ordered Pen [place], 32 G x 4 mm BD Ultra [...] Status: Ordered traMADol 50 mg oral tablet See Instructions, PRN Pain , Mild, Take 1-2 tablets By Mouth Every 6 hours as needed, # 56 tablet, 0 Refills, Acute 02/19/21 6:54:00 EDT, 02/12/21 6:54:00 EDT, Tablet, [facility], Partial fill upon patient request if the prescription is... Start Date: 02/12/21 Stop Date: 02/19/21 Status: Ordered Trulicity Pen 1.5 mg/0.5 mL subcutaneous solution = 1.5 mg, Subcutaneous Injection, Every week, e 11.9, # 2.5 mL, 11 Refills, 01/10/21 11:09:00 EDT, [facility]/pharmacy #[id number], 183, cm, 01/10/21 10:33:00 EDT, Height, [...] 2)(Confirmed) 3 Active 1[facility] 2L leg 3endo-[facility] Social History Social History Type Response Smoking Status Never (less than 100 in lifetime) entered on: 08/17/18 Sex
--- OUTSIDE RECORDS SUMMARY | 2023-12-04 08:49 | XMS_ITS | Continuity of Care Document ---
Author Organization [facility] Address [address] [place] [address]- Care Team Providers Care Alley Worker Name Role Phone Yunier Garcia DO Primary Care Physician Encounter [facility] Date(s): 02/14/23 - 03/16/[address] [address] Allergies, Adverse Reactions, Alerts No Known Allergies Immunizations Given and Recorded Vaccine Date Status Refusal Reason [id number] bivalent booster vax 03/08/22 Recorded SARS-CoV-2 (COVID-19) [...] Refills, Maintenance, 11/06/22 18:41:00 EDT, [id number], 183, cm, 10/20/22 13:23:00 EDT, Height, 114, kg, 10/14/22 20:17:00 EDT, Dry Weight Start Date: 11/06/22 Status: Ordered BD UF LUCY PEN NEEDLE [id number] BD UF LUCY PEN NEEDLE [id number], See Instructions, # 100 Unknown, 3 Refills, [...] 0 Refills, Maintenance, 03/15/23 20:20:00 EDT, Solution, [facility]/pharmacy #[id number], Partial fill upon patient request if the prescription is for a scheduleII opioid drug., 183, cm, 01/30/23 9:35:00 EDT, Hei... Start Date: 03/15/23 Status: Ordered lisinopril 10 mg oral tablet 1, tablet, By Mouth, Daily, # 90 tablet, Refills 0, Maintenance, 02/13/23 23:08:00 EDT, Route to Pharmacy Electronically, [facility], 183, cm, 01/30/23 9:35:00 EDT, Height, 114, [...] tablet, 3 Refills, Maintenance, 02/17/22 10:20:00 EDT, [facility] 345[facility], 183, cm, 12/09/21 11:56:00 EDT, Height, 118.8, kg, 11/09/21 7:05:00 EDT, Dry Weight Start Date: 02/17/22 Status: Ordered Metoprolol Succinate ER 25 mg oral tablet, extended release 1 tablet, By Mouth, Daily, # 90 tablet, 0 Refills, Maintenance, 02/24/23 12:16:00 EDT, [id number], 183, cm, 01/30/23 9:35:00 EDT, Height, 114, [...] Active 1[facility] 2L leg 3Dr. Dixon 4endo[facility] Social History Social History Type Response Smoking Status Never (less than 100 in lifetime) entered on: 08/17/18 Sex Patient Care team information Care Team Personnel Name: Mary Dumas RN Position: [facility] RN Member Role: Primary Care Nurse Name: Denise Lu RN Position: [facility] RN Member Role: Primary Care Nurse Name: Rosanne Beyer RN Position: [facility] RN Member Role: Primary Care Nurse Name: Evelyn Shay RN Position: [facility] RN Supv Member Role: Primary Care Nurse Name: Arely Deleon RN Position: [facility] RN Member Role: Primary Care Nurse Name: Yunier Garcia DO Position: [facility] Physician - Primary Care Member Role: PCP Address: Address: [address] [place] [address] [place] [address]- Name: Mariola Becker RN Position: [facility] RN Member Role: Primary Care Nurse Name: Tl Harris RN Position: [facility] RN Member Role: Primary Care Nurse Name: Gabriela Knowles RN Position: [facility] [employer] Member Role: Primary Care Nurse Name: Essence Connor RN Position: [facility] RN Member Role: Primary Care Nurse Care Team Related Persons Name: KAMLALINN MACKAY Address: [address] [place] [address] Name: CAITLYN BURGESS Address: home [address] [place] [address]
--- OUTSIDE RECORDS SUMMARY | 2023-12-04 08:49 | XMS_ITS | Continuity of Care Document ---
Author Organization [facility] ter Address [address] [place] [address]- Care Team Providers Care Machine Setup Operator Name Role Phone Garcia Yunier CRANDALL Primary Care Physician Encounter [facility] Date(s): 04/14/21 - 04/14/[address] [address] Discharge Disposition: A-D/C Home Attending Physician: Awais Shell DO Admitting Physician: Awais Shell DO Referring Physician: Larry Tafoya MD Allergies, Adverse Reactions, [...] Refills, Maintenance, 03/30/21 9:33:00 EST, EC Tablet, [facility]/pharmacy #[id number], Partial fill upon patient request if the [...] mL, 11 Refills, Maintenance, 01/10/2111:08:00 EDT, Solution, [facility]/pharmacy #[id number], 183, cm, 01/10/21 [...] 2)(Confirmed) 3 Active 1[facility] 2L leg [facility] Vital Signs Most recent to oldest [Reference Range]: 1 2 3 Height 186 cm (04/14/21 12:03 PM) 186 cm (04/14/21 11:56 AM) Weight 109 kg (04/14/21 12:03 PM) 109 kg (04/14/21 11:56 AM) Oxygen Saturation [94-100 %] 93 % *L* (04/14/21 2:45 PM) 89 % *L* (04/14/21 2:37 PM) 93 % *L* (04/14/21 1:59 PM) Pulse Rate [55-90 bpm] 72 bpm (04/14/21 2:45 PM) 81 bpm (04/14/21 2:37 PM) 73 bpm (04/14/21 1:59 PM) Blood Pressure [90-138/55-84 mm Hg] 125/65mm Hg (04/14/21 2:45 PM) 117/72mm Hg (04/14/21 2:37 PM) 146/96mm Hg *H* (04/14/21 1:59 PM) Respiratory Rate [16-30 br/min] 16 br/min (04/14/21 2:45 PM) 16 br/min (04/14/21 2:37 PM) 17 br/min (04/14/21 1:59 PM) Temperature [96.8-100.4 DegF] 98.5 DegF (04/14/21 11:52 AM) Liters per Minute 6 L/min (04/14/21 2:37 PM) Mode of Delivery (Oxygen) Room air (04/14/21 2:45 PM) Nasal cannula (04/14/21 2:37 PM) Room air (04/14/21 1:59 PM) Blood pressure sites Arm, left (04/14/21 2:45 PM) Arm, left (04/14/21 2:37 PM) Arm, left (04/14/21 1:59 PM) Temperature Route Oral (04/14/21 11:52 AM) Dry Weight 109 kg (04/14/21 11:56 AM) Social History Social History Type Response Smoking Status Never (less than 100 in lifetime) entered on: 08/17/18 Sex
--- OUTSIDE RECORDS SUMMARY | 2023-12-04 08:49 | XMS_ITS | Continuity of Care Document ---
Author Organization [facility] ter Address [address] [place] [address]- Care Team Providers Care Applications Developer Name Role Phone Jose Yunier CRANDALL Primary Care Physician Encounter [facility] Date(s): 02/11/21 - 03/13/[address] [address] Attending Physician: Not on Staff, Attending MD Admitting Physician: Not on Staff, Admitting MD Referring Physician: Not on Staff, Referring MD Allergies, Adverse Reactions, Alerts Substance Reaction [...] hold for loose stool, Refills 0, Maintenance, 10/02/216:52:00 EDT, Partial fill upon patient request if [...] 11 Refills, Maintenance, 01/10/2111:08:00 EDT, Solution, [facility]/pharmacy #[id number], 183, cm, 01/10/21 10:33:00 EDT, Height, 117.9, kg, 12/23/20 14:08:00 EDT, Dry Weight Start Date: 01/10/21 Status: Ordered Linzess 145 mcg oral capsule 1 capsule = 145 mcg, By Mouth, Daily, # 30 capsule, 3 Refills, Maintenance, 02/04/21 13:06:00 EDT, Capsule, [facility]/pharmacy #[id number], Partial fill upon patient request [...] 3 Refills, Maintenance, 01/10/21 11:09:00 EDT, [facility]/pharmacy #[id number], 183, cm, 01/10/21 10:33:00 EDT, [...] 2.5 mL, 11 Refills, 01/10/21 11:09:00 EDT, [facility]/pharmacy #[id number], 183, cm, 01/10/21 10:33:00 EDT, [...] 2)(Confirmed) 3 Active 1[facility] 2L leg 3endo-[facility] Social History Social History Type Response Smoking Status Never (less than 100 in lifetime) entered on: 08/17/18 Sex
--- OUTSIDE RECORDS SUMMARY | 2023-12-04 08:49 | XMS_ITS | Continuity of Care Document ---
Author Organization [facility] ter Address [address] [place] [address]- Care Team Providers Care Transit Coach Operator Name Role Phone Jose Yunier [place] Primary Care Physician [place] [facility]/03[place] - 03/15/[address] [id number] Attending Physician: Diamante Julio Admitting Physician: Diamante Julio Referring Physician: Diamante Julio Allergies, Adverse Reactions, Alerts No Known Allergies [...] Refills, Maintenance, 03/30/21 9:33:00 EST, EC Tablet, [facility]/pharmacy #[id number], Partial fill upon patient request if the prescription is for a schedule IIopioid drug., 186, cm, 03/30/21 8:55:00 EST, Height... Start Date: 03/30/21 Status: Ordered atorvastatin 40 mg oral tablet 1 tablet, By Mouth, Daily, # 90 tablet, 1 Refills, [facility] 24856, 183, cm, 11/10/21 7:41:00 EDT, Height, 118.8, [...] mL, 11 Refills, Maintenance, 12/08/2211:14:00 EDT, Solution, [facility]/pharmacy #[id number], 183, cm, 11/24/21 13:34:00 EDT, Height, 118.8, kg, 11/09/21 7:05:00 EDT, Dry Weight Start Date: 12/07/21 Status: Ordered lisinopril 20 mg oral tablet 20 mg, 1, tablet, By Mouth, Daily, # 90 tablet, Refills 1, Tot. Refills 1, Soft Stop, 11/28/21 12:36:00 EDT, Route to Pharmacy Electronically, [facility]/pharmacy #[id number], 183, cm, 11/24/21 13:34:00 EDT, Height, 118.8, kg, 11/09/21 7:05:00 EDT, Dry Weight Start Date: 11/28/21 Status: Ordered MetFORMIN (Eqv-Glucophage XR) 500 mg oral tablet, extended release 4 tablet, By Mouth, Daily, # 360 tablet, 3 Refills, Maintenance, 02/17/22 10:20:00 EDT, [facility] 98657, 183, cm, 12/09/21 11:56:00 EDT, Height, 118.8, kg, 11/09/21 7:05:00 EDT, Dry Weight Start Date: 02/17/22 Status: Ordered metoprolol 25 mg oral tablet, extended release 25 mg, 1, tablet, By Mouth, Daily, # 30 tablet, Refills 11, Tot. Refills 11, Maintenance, 11/10/21 9:21:00 EDT, [facility], [facility] [...] 05/02/21 Stop Date: 10/29/21 Status: Ordered Pen [place], 32 G x 4 mm BD Ultra [...] 11/10/21 9:21:00 EDT, [facility], [facility] [...] # 6 Unknown, 1 Refills, [facility], 183, cm, 11/10/21 7:41:00 EDT, Height, 118.8, [...] nephropathy Confirmed Active 1[facility] 2L leg 3endo-[facility] Social History Social History Type Response Smoking Status Never (less than 100 in lifetime) entered on: 08/17/18 Sex Patient Care team information Personnel Name: Yunier Garcia DO Address: Address: [address] [place] [address] Primary Care [place], [place] [address]
--- OUTSIDE RECORDS SUMMARY | 2023-12-04 08:49 | XMS_ITS | Continuity of Care Document ---
Author Organization [facility] ter Address [address] [place] [address]- Care Team Providers Care Cover Creaser Name Role Phone Yunier Garcia DO Primary Care Physician [place] [facility] [place]/11/[place] - 02/12/[address] [address]- Discharge Disposition: A-Transfer VNA/Home Health Attending Physician: Austin Yin MD Admitting Physician: [...] opioid drug. Start Date: 02/12/21 Status: Ordered Acetaminophen Tablet 650 mg, Tablet, By Mouth, 02/12/21 3:00:00 EDT Start Date: 02/12/21 Stop Date: 02/12/21 Status: Completed aspirin 162.5 mg oral capsule, extended release [...] Date: 02/12/21 Stop Date: 02/19/21 Status: Ordered OxyCODONE IR Tablet 10 mg, Tablet, By Mouth, Every 4 hours, PRN for Pain , Severe, Routine, 02/11/21 14:50:00 EDT Start Date: 02/11/21 Stop Date: 02/12/21 Status: Discontinued pantoprazole 40 mg oral delayed release tablet = 40 mg, By Mouth, Daily in AM, 0 Refills, Maintenance, 02/12/21 6:54:00 EDT, EC Tablet Start Date: 02/12/21 Status: Ordered Pen [place], 32 G x 4 mm BD Ultra [...] 02/19/21 6:54:00 EDT, 02/12/21 6:54:00 EDT, Tablet, [facility], Partial fill upon patient request if the prescription is... Start Date: 02/12/21 Stop Date: 02/19/21 Status: Ordered Trulicity Pen 1.5 mg/0.5 mL subcutaneous solution = 1.5 mg, Subcutaneous Injection, Every week, e 11.9, # 2.5 mL, 11 Refills, 01/10/21 11:09:00 EDT, [facility]/pharmacy #[id number], 183, cm, 01/10/21 10:33:00 EDT, [...] 2)(Confirmed) 3 Active 1[facility] 2L leg 3endo-[facility] Results Radiology Reports * Exam Date Time Procedure Performing Provider Status 02/11/21 11:28 PM Knee 1 or 2 Views Left Jaylon KumarSue Aldana (Verified) Notes: (Knee 1 or 2 Views Left) Reason For Exam: Postop;Postop RESULT: Knee 1 or 2 Views Left Knee 1 or 2 Views Left INDICATION: Postop knee replacement COMPARISON: None. FINDINGS: Distal femoral and proximal tibial metallic components are in typical position. No periprosthetic fracture. Suprapatellar surgical drains are in place. Postoperative soft tissue emphysema, as expected. IMPRESSION: Typical postoperative appearance. WSN: [id number] Ordering Physician: Yoan Christensen Dictated By: Wilmer Allen MD Dictated Date/Time: 02/11/21 11:28 p Reviewed By: Wilmer Allen MD Signed By: Wilmer Allen MD Signed Date/Time: 02/11/21 11:28 pm Transcribed By: CISCO Transcribed Date/Time: 02/11/21 11:28 pm Vital Signs Most recent to oldest [Reference Range]: 1 2 3 4 Height 182 cm (02/12/21 7:07 AM) 182 cm (02/12/21 5:08 AM) 182 cm (02/12/21 12:05 AM) Weight 114 kg (02/11/21 10:15 AM) 114 kg (02/11/21 8:07 AM) Oxygen Saturation [94-100 %] 95 % (02/12/21 7:07 AM) 98 % (02/12/21 5:08 AM) 95 % (02/12/21 12:05 AM) Pulse Rate [55-90 bpm] 67 bpm (02/12/21 7:07 AM) 68 bpm (02/12/21 5:08 AM) 71 bpm (02/12/21 12:05 AM) Body Mass Index [18.5-24.99] 34.42 *>HHI* (02/11/21 10:15 AM) 34.42 *>HHI* (02/11/21 8:07 AM) Blood Pressure [90-138/55-84 mm Hg] 110/74mm Hg (02/12/21 7:07 AM) 100/44mm Hg (02/12/21 5:08 AM) 107/59mm Hg (02/12/21 12:05 AM) Respiratory Rate [16-30 br/min] 18 br/min (02/12/21 11:28 AM) 18 br/min (02/12/21 7:07 AM) 16 br/min (02/12/21 5:36 AM) 16 br/min (02/12/21 5:36 AM) Temperature [96.8-100.4 DegF] 98.4 DegF (02/12/21 7:07 AM) 97.8 DegF (02/12/21 5:08 AM) 97.8 DegF (02/12/21 12:05 AM) Liters per Minute 2 L/min (02/11/21 3:15 PM) 2 L/min (02/11/21 3:00 PM) 6 L/min (02/11/21 2:15 PM) Mode of Delivery (Oxygen) Room air (02/12/21 7:07 AM) Room air (02/12/21 5:08 AM) Room air (02/12/21 12:05 AM) Blood pressure sites Arm, right (02/12/21 7:07 AM) Arm, left (02/12/21 5:08 AM) Arm, right (02/12/21 12:05 AM) Temperature Route Oral (02/12/21 7:07 AM) Oral (02/12/21 5:08 AM) Oral (02/12/21 12:05 AM) Dry Weight 114 kg (02/11/21 10:15 AM) 114 kg (02/11/21 8:07 AM) Weight Obtained Via Standing scale (02/11/21 8:07 AM) Dry Weight Obtained Via Standing scale (02/11/21 8:07 AM) Social History Social History Type Response Smoking Status Never (less than 100 in lifetime) entered on: 08/17/18 Sex
--- OUTSIDE RECORDS SUMMARY | 2023-12-04 08:49 | XMS_ITS | Continuity of Care Document ---
Author Organization [facility] Address [address] [place] [phone]- Care Team Providers Care Sports Broadcaster Name Role Phone Garcia Yunier CRANDALL Primary Care Physician [place] [facility] [place] 02/23/21 [facility] [address] [place] [address]- [place] Allergies, Adverse Reactions, Alerts Substance Reaction [...] Refills, Maintenance, 02/04/21 13:06:00 EDT, Capsule, [facility]/pharmacy #[id number], Partial fill upon patient request if [...] Refills, Maintenance, 01/10/21 11:09:00 EDT, [facility]/pharmacy #[id number], 183, cm, 01/10/21 10:33:00 EDT, Height, [...] Tablet Start Date: 02/12/21 Status: Ordered Pen [place], 32 G x 4 mm BD Ultra [...] mL, 11 Refills, 01/10/21 11:09:00 EDT, [facility]/pharmacy #[id number], 183, cm, 01/10/21 10:33:00 EDT, Height, [...] 2)(Confirmed) 3 Active 1[facility] 2L leg 3endo-[facility] Social History Social History Type Response Smoking Status Never (less than 100 in lifetime) entered on: 08/17/18 Sex
--- OUTSIDE RECORDS SUMMARY | 2023-12-04 08:49 | XMS_ITS | Continuity of Care Document ---
Author Organization [facility] Address [address] [place] [address]- Care Team Providers Care Thread Weaver Name Role Phone Yunier Garcia DO Primary Care Physician [place] [facility] [place]17[place]19 - 01/16/20 [facility] [address] [place] [address] [facility] Allergies, Adverse Reactions, Alerts Substance Reaction Severity [...] Refills, Maintenance, 01/14/20 15:51:00 EDT, REC Powder, [facility]/pharmacy #[id number], 240 mL By Mouth Daily,Instr:drink 1/2 [...] 6 Refills, Maintenance, 11/11/19 13:30:00 EDT, Solution, [facility]/pharmacy #[id number], 183, cm, 12/17/18 [...] ED... Start Date: 11/11/19 Status: Ordered Pen [place], 32 G x 4 mm BD Ultra [...]
--- OUTSIDE RECORDS SUMMARY | 2023-12-04 08:50 | XMS_ITS | Continuity of Care Document ---
Author Organization [facility] Address [address] [place] [address], [address] Floor, [address] [place] [address]- Care Team Providers Care Crowd Controller Name Role Phone Yunier Garcia DO Primary Care Physician Encounter [facility] [place] Date(s): 10/24/22 - 11/23/22 [facility] [address] [place], [address] Floor, [address] [place] [address] Allergies, Adverse Reactions, Alerts [...] tablet, 1 Refills, Maintenance, 11/06/22 18:41:00 EDT, [facility] 125[facility], 183, cm, 10/20/22 13:23:00 EDT, Height, 114, [...] 5 Refills, Maintenance, 11/08/22 16:26:00 EDT, Tablet, [facility]/pharmacy #[id number], Partial fill upon patient request if [...] 11/07/22 10:40:00 EDT, Route to Pharmacy Electronically, [facility]/pharmacy #[id number], 183, cm, 11/07/22 10:33:00 EDT, Height, [...] Refills, Maintenance, 02/17/22 10:20:00 EDT, [facility], 183, cm, 12/09/21 11:56:00 EDT, Height, 118.8, kg, 11/09/21 7:05:00 EDT, Dry Weight Start Date: 02/17/22 Status: Ordered metoprolol 25 mg oral tablet, extended release 25 mg, 1, tablet, By Mouth, Daily, # 90 tablet, Refills 0, Tot. Refills 0, Maintenance, 11/07/22 10:41:00 EDT, Route to Pharmacy Electronically, [facility]/pharmacy #[id number], Partial fill upon patient request if [...] 2 mL, 6 Refills, 05/16/22 9:37:00 EST, [facility]/pharmacy #[id number], 183, cm, 04/29/22 11:35:00 EST, Height, [...] Active 1[facility] 2L leg 3Dr. Dixon 4endo-[facility] Social History Social History Type Response Smoking Status Never (less than 100 in lifetime) entered on: 08/17/18 Sex Patient Care team information Care Team Personnel Name: Mary Dumas RN Position: [facility] RN Supv Member Role: Primary Care Nurse Name: Denise Lu RN Position: [facility] RN Member Role: Primary Care Nurse Name: Rosanne Beyer RN Position: [facility] RN Member Role: Primary Care Nurse Name: Evelyn Shay RN Position: [facility] RN Supv Member Role: Primary Care Nurse Name: Arely Deleon RN Position: [facility] RN Member Role: Primary Care Nurse Name: Yunier Garcia DO Position: [facility] Physician - Primary Care Member Role: PCP Address: Address: [address] [place] [address] [place] [address]- Name: Mariola Becker RN Position: [facility] RN Member Role: Primary Care Nurse Name: Tl Harris RN Position: [facility] RN Member Role: Primary Care Nurse Name: Gabriela Knowles RN Position: [facility] Hospital Strap Buckler Member Role: Primary Care Nurse Name: Essence Connor RN Position: [facility] RN Member Role: Primary Care Nurse Care Team Related Persons Name: LINN BURGESS Address: [address] [place] [address] Name: CAITLYN BURGESS Address: [address] [address]
--- OUTSIDE RECORDS SUMMARY | 2023-12-04 08:50 | XMS_ITS | Continuity of Care Document ---
Author Organization [facility] Address [address] [place] [address]- Care Team Providers Care Chemical Recovery Operator Name Role Phone Yunier Garcia DO Primary Care Physician [place] [facility] [place] 04/25/21 - 05/25/21 [facility] [address] [place] [address]- [place] Allergies, Adverse Reactions, Alerts Substance Reaction [...] Refills, Maintenance, 03/30/21 9:33:00 EST, EC Tablet, [facility]/pharmacy #[id number], Partial fill upon patient request [...] 10:17:00 EDT, Route to Pharmacy Electronically, [facility], 182.88, cm, 09/16/20 8:26:00 EDT, [...] 3 Active 1[facility] 2L leg 3endo-[facility] Social History Social History Type Response Smoking Status Never (less than 100 in lifetime) entered on: 08/17/18 Sex
--- OUTSIDE RECORDS SUMMARY | 2023-12-04 08:50 | XMS_ITS | Continuity of Care Document ---
Author Organization [facility] Address [address] [place] [id number]- Care Team Providers Care Saw Grinder Name Role Phone Yunier Garcia DO Primary Care Physician Encounter [facility] Date(s): 05/11/22 - 06/10/22 [facility] [address] [place] [id number]- Allergies, Adverse Reactions, Alerts No Known Allergies [...] tablet, 3 Refills, Maintenance, 04/10/22 7:55:00 EST, [id number], 183, cm, 02/20/22 9:57:00 EDT, Height, 118.8, kg, 11/09/21 7:05:00 EDT,Dry Weight Start Date: 04/10/22 Status: Ordered Aspirin Low Dose 81 mg oral delayed release tablet 1 tablet = 81 mg, By Mouth, Daily, # 90 tablet, 3 Refills, Maintenance, 03/30/21 9:33:00 EST, EC Tablet, [facility]/pharmacy #[id number], Partial fill upon patient request if the prescription is for a schedule IIopioid drug., 186, cm, 03/30/21 8:55:00 EST, Height... Start Date: 03/30/21 Status: Ordered atorvastatin 40 mg oral tablet 1 tablet, By Mouth, Daily, # 90 tablet, 1 Refills, 05/09/22 12:43:00 EST, [facility]/pharmacy #[id number], 183, cm, 04/29/22 11:35:00 EST, [...] mL, 11 Refills, Maintenance, 12/08/2211:14:00 EDT, Solution, [facility]/pharmacy #[id number], 183, cm, 11/24/21 13:34:00 EDT, Height, 118.8, kg, 11/09/21 7:05:00 EDT, Dry Weight Start Date: 12/07/21 Status: Ordered lisinopril 20 mg oral tablet 20 mg, 1, tablet, By Mouth, Daily, # 90 tablet, Refills 1, Tot. Refills 1, Soft Stop, 11/28/21 12:36:00 EDT, Route to Pharmacy Electronically, [facility]/pharmacy #[id number], 183, cm, 11/24/21 13:34:00 EDT, Height, 118.8, kg, 11/09/21 7:05:00 EDT, Dry Weight Start Date: 11/28/21 Status: Ordered MetFORMIN (Eqv-Glucophage XR) 500 mg oral tablet, extended release 4 tablet, By Mouth, Daily, # 360 tablet, 3 Refills, Maintenance, 10/07/22 10:20:00 EDT, [facility] STORE [id number], 183, cm, 12/09/21 11:56:00 EDT, Height, 118.8, kg, 11/09/21 7:05:00 EDT, Dry Weight Start Date: 02/17/22 Status: Ordered metoprolol 25 mg oral tablet, extended release 25 mg, 1, tablet, By Mouth, Daily, # 30 tablet, Refills 11, Tot. Refills 11, Maintenance, 11/10/21 9:21:00 EDT, [id number] Partial fill upon patient requestif the [...] 05/02/21 Stop Date: 10/29/21 Status: Ordered Pen [place], 32 G x 4 mm BD Ultra [...] 11/10/21 9:21:00 EDT, Route to Pharmacy Electronically, [facility]/pharmacy #[id number], Partial fill upon patient request [...] 2 mL, 6 Refills, 05/16/22 9:37:00 EST, [facility]/pharmacy #[id number], 183, cm, 04/29/22 11:35:00 EST, [...] nephropathy Confirmed Active 1[facility] 2L leg 3[facility] Social History Social History Type Response Smoking Status Never (less than 100 in lifetime) entered on: 08/17/18 Sex Patient Care team information Care Team Personnel Name: Denise Lu RN Position: [facility] RN Member Role: Primary Care Nurse Name: Rosanne Beyer RN Position: [facility] RN Member Role: Primary Care Nurse Name: Yunier Garcia DO Position: [facility] Primary Care Physician Member Role: PCP Address: Address: [address] [place] [address] [place] [address]- Name: Mariola Becker RN Position: [facility] RN Member Role: Primary Care Nurse Name: Tl Harris RN Position: [facility] RN Member Role: Primary Care Nurse Name: Gabriela Knolwes RN Position: [facility] Hospital Deputy Sheriff Bailiff Member Role: Primary Care Nurse Name: Essence Connor RN Position: [facility] RN Member Role: Primary Care Nurse Care Team Related Persons Name: KESHARANJANA CAITLYN Address: home [address] [place] [phone]
--- OUTSIDE RECORDS SUMMARY | 2023-12-04 08:50 | XMS_ITS | Continuity of Care Document ---
Author Organization [facility] Address [address] [place] [phone]- Care Team Providers Care Radar Engineer Name Role Phone Yunier Garcia DO Primary Care Physician Encounter [facility] Date(s): 08/12/21 - 09/15/[address] [address]- Attending Physician: Austin Yin MD Referring Physician: Austin [...] Refills, Maintenance, 01/10/2111:08:00 EDT, Solution, [facility]/pharmacy #[id number], 183, cm, 01/10/21 10:33:00 EDT, Height, 117.9, kg, 12/23/20 14:08:00 EDT, Dry Weight Start Date: 01/10/21 Status: Ordered Linzess 145 mcg oral capsule 1 capsule = 145 mcg, By Mouth, Daily, # 30 capsule, 3 Refills, Maintenance, 02/04/21 13:06:00 EDT, Capsule, [facility]/pharmacy #[id number], Partial fill upon patient request if the prescription is for a scheduleII opioid drug., 183, cm, 01/25/21 8:55:00 EDT, Hei... Start Date: 02/04/21 Status: Ordered lisinopril 20 mg oral tablet 20 mg, 1, tablet, By Mouth, Daily, # 90 tablet, Refills 1, Tot. Refills 1, Soft Stop, 06/17/21 13:00:00 EST, Route to Pharmacy Electronically, [facility]/pharmacy #[id number], 186, cm, 04/14/21 12:03:00 EST, Height, [...] 05/02/21 Stop Date: 10/29/21 Status: Ordered Pen [place], 32 G x 4 mm BD Ultra [...] 2)(Confirmed) 3 Active 1[facility] 2L leg [facility] Social History Social History Type Response Smoking Status Never (less than 100 in lifetime) entered on: 08/17/18 Sex
--- OUTSIDE RECORDS SUMMARY | 2023-12-04 08:50 | XMS_ITS | Continuity of Care Document ---
Author Organization [facility] Address [address] [place] [address], [address] Floor, [address] [place] [address]- Care Team Providers Care Database Architect Name Role Phone Yunier Garcia DO Primary Care Physician Encounter [facility] Date(s): 10/13/22 - 11/24/22 [facility] [address] [facility], [address]rd Floor, [address] [place] [id number] Attending Physician: Zafar Salinas MD Admitting Physician: [...] 1 Refills, Maintenance, 11/06/22 18:41:00 EDT, [facility] STORE [id number], 183, cm, 10/20/22 13:23:00 EDT, Height, 114, [...] Refills, Maintenance, 11/08/22 16:26:00 EDT, Tablet, [facility]/pharmacy #[id number], [...] 11/07/22 10:40:00 EDT, Route to Pharmacy Electronically, [facility]/pharmacy #[id number], 183, cm, 11/07/22 10:33:00 EDT, [...] Refills, Maintenance, 02/17/22 10:20:00 EDT, [id number], 183, cm, 12/09/21 11:56:00 EDT, Height, 118.8, kg, 11/09/21 7:05:00 EDT, Dry Weight Start Date: 02/17/22 Status: Ordered metoprolol 25 mg oral tablet, extended release 25 mg, 1, tablet, By Mouth, Daily, # 90 tablet, Refills 0, Tot. Refills 0, Maintenance, 11/07/22 10:41:00 EDT, Route to Pharmacy Electronically, [facility]/pharmacy #[id number], Partial [...] 2 mL, 6 Refills, 05/16/22 9:37:00 EST, [facility]/pharmacy #[id number], 183, cm, 04/29/22 11:35:00 EST, [...] Active 1[facility] 2L leg 3Dr. Dixon 4[facility] Social History Social History Type Response Smoking Status Never (less than 100 in lifetime) entered on: 08/17/18 Sex Patient Care team information Care Team Personnel Name: Mary Dumas RN Position: [facility] RN Supv Member Role: Primary Care Nurse Name: Denise Lu RN Position: [facility] RN Member Role: Primary Care Nurse Name: Rosanne Beyer RN Position: S RN Member Role: Primary Care Nurse Name: Evelyn Shay RN Position: [facility] RN Supv Member Role: Primary Care Nurse Name: Arely Deleon RN Position: S RN Member Role: Primary Care Nurse Name: Yunier Garcia DO Position: [facility] Physician - Primary Care Member Role: PCP Address: Address: [address] [place] [address] [place] [address]- Name: Mariola Becker RN Position: [facility] RN Member Role: Primary Care Nurse Name: Tl Harris RN Position: [facility] RN Member Role: Primary Care Nurse Name: Gabriela Knowles RN Position: [facility] Specifications Writer Member Role: Primary Care Nurse Name: Essence Connor RN Position: [facility] RN Member Role: Primary Care Nurse Care Team Related Persons Name: LINN BURGESS Address: [place] [address] Name: CAITLYN BURGESS Address: [place] [address]
--- OUTSIDE RECORDS SUMMARY | 2023-12-04 08:50 | XMS_ITS | Continuity of Care Document ---
Author Organization [facility] Address [address] [place] [address]- Care Team Providers Care Television Newscast Director Name Role Phone Jose Jin CRANDALLy Miroslava Primary Care Physician Encounter [facility] Date(s): 03/02/21 - 04/01/21 [facility] [address] [place] [phone]- [place] Allergies, Adverse Reactions, Alerts Substance Reaction [...] 10:17:00 EDT, Route to Pharmacy Electronically, [facility], 182.88, cm, 09/16/20 8:26:00 EDT, [...]
--- OUTSIDE RECORDS SUMMARY | 2023-12-04 08:50 | XMS_ITS | Continuity of Care Document ---
Author Organization [facility] Address [address] [place] [address]- Care Team Providers Care Fabrication Engineer Name Role Phone Garcia Yunier CRANDALL Primary Care Physician Encounter [facility] Date(s): 04/21/21 - 05/21/21 [facility] [address] [place] [phone]- [place] Allergies, Adverse Reactions, Alerts Substance Reaction [...] Refills, Maintenance, 03/30/21 9:33:00 EST, EC Tablet, [facility]/pharmacy #[id number], Partial fill upon patient request [...] 3 Refills, Maintenance, 02/04/21 13:06:00 EDT, Capsule, [facility]/pharmacy #[id number], Partial fill upon patient request if the prescription is for a scheduleII opioid drug., 183, cm, 01/25/21 8:55:00 EDT, Hei... Start Date: 02/04/21 Status: Ordered lisinopril 20 mg oral tablet 20 mg, 1, tablet, By Mouth, Daily, # 90 tablet, Refills 1, Tot. Refills 1, Soft Stop, 10/13/20 10:17:00 EDT, Route to Pharmacy Electronically, [facility], 182.88, cm, 09/16/20 8:26:00 EDT, [...] 2)(Confirmed) 3 Active 1[facility] 2L leg 3[facility] Social History Social History Type Response Smoking Status Never (less than 100 in lifetime) entered on: 08/17/18 Sex
--- OUTSIDE RECORDS SUMMARY | 2023-12-04 08:50 | XMS_ITS | Continuity of Care Document ---
Author Organization [facility] ter Address [address] [place] [id number] Care Team Providers [facility] Nurse Name Role Phone Yunier Garcia DO Primary Care Physician Encounter [facility] Date(s): 10/14/22 - 10/20/[address] [address] Discharge Disposition: A-Transfer SNF Attending Physician: Elian MELENDREZ, Pool Huitron Admitting Physician: Malka Egale MD Referring Physician: Maria Alejandra Mercer NP Allergies, Adverse Reactions, Alerts No Known Allergies [...] 90 tablet, 1 Refills, 05/09/22 12:43:00 EST, [facility]/pharmacy #[id number], 183, cm, 04/29/22 11:35:00 EST, Height, 120, kg, 04/29/22 11:35:00 EST, Dry Weight Start Date: 05/09/22 Status: Ordered divalproex sodium 500 mg oral [...] lisinopril 20 mg oral tablet 20 mg, Tablet, By Mouth, 10/20/22 9:00:00 EDT Start Date: 10/20/22 Stop Date: 10/20/22 Status: Completed lisinopril 20 mg oral tablet 20 mg, 1, tablet, By Mouth, Daily, # 90 tablet, Refills 1, Tot. Refills 1, Soft Stop, 06/15/22 14:05:00 EST, Route to Pharmacy Electronically, [facility]/pharmacy #[id number], 183, cm, 04/29/22 11:35:00 EST, Height, 120, kg, 04/29/22 11:35:00 EST, Dry Weight Start Date: 06/15/22 Status: Ordered melatonin 3 mg oral tablet [...] tablet, 3 Refills, Maintenance, 02/17/22 10:20:00 EDT, [facility] STORE [id number], 183, cm, 12/09/21 11:56:00 EDT, Height, 118.8, kg, 11/09/21 7:05:00 EDT, Dry Weight Start Date: 02/17/22 Status: Ordered metoprolol 25 mg oral tablet, extended release 25 mg, 1, tablet, By Mouth, Daily, # 30 tablet, Refills 11, Tot. Refills 11, Maintenance, 11/10/21 9:21:00 EDT, Route to Pharmacy Electronically, [facility]/pharmacy #[id number], Partial fill upon patient requestif the prescription is for a schedule II opioid dayanna... Start Date: 11/10/21 Status: Ordered metoprolol 25 mg oral tablet, extended release 25 mg, XL Tablet, By Mouth, 10/20/22 9:00:00 EDT Start Date: 10/20/22 Stop Date: 10/20/22 Status: Completed SEROquel 25 mg oral tablet 25 mg, [...] 2 mL, 6 Refills, 05/16/22 9:37:00 EST, [facility]/pharmacy #[id number], 183, cm, 04/29/22 11:35:00 EST, Height, 120, kg, 04/29/22 11:35:00 EST, Dry Weight Start Date: 05/16/22 Status: Ordered Vitamin B-12 5000 mcg sublingual tablet 1 tablet = 5,000 mcg, Daily, 0 Refills, Maintenance, 10/10/22 15:58:00 EDT, Partial fill upon patient request if the prescription is for a schedule II opioid drug. Start Date: 10/10/22 Status: Ordered Problem List Condition Confirmation Course [...] Active 1[facility] 2L leg 3Dr. Dixon 4end-[facility] Vital Signs Most recent to oldest [Reference Range]: 1 2 3 4 Height 183 cm (10/20/22 1:23 PM) 183 cm (10/19/22 3:14 PM) 183 cm (10/19/22 11:22 AM) Weight 114 kg (10/14/22 8:15 PM) 111.1 kg (10/14/22 6:02 PM) 114 kg (10/14/22 6:01 PM) Oxygen Saturation [94-100 %] 92 % *L* (10/20/22 1:23 PM) 97 % (10/20/22 11:00 AM) 97 % (10/20/22 7:00 AM) Pulse Rate [55-90 bpm] 73 bpm (10/20/22 1:23 PM) 90 bpm (10/20/22 11:00 AM) 67 bpm (10/20/22 9:18 AM) Body Mass Index [18.5-24.99 kg/m2] 34.04 kg/m2 *>HHI* (10/14/22 8:15 PM) Blood Pressure [90-138/55-84 mm Hg] 109/65mm Hg (10/20/22 1:23 PM) 122/86mm Hg (10/20/22 11:00 AM) 119/85mm Hg (10/20/22 9:18 AM) 119/85mm Hg (10/20/22 9:18 AM) Respiratory Rate [16-30 br/min] 18 br/min (10/20/22 1:23 PM) 18 br/min (10/20/22 11:00 AM) 17 br/min (10/20/22 7:00 AM) Temperature [96.8-100.4 DegF] 98.2 DegF (10/20/22 1:23 PM) 97.9 DegF (10/20/22 11:00 AM) 97.7 DegF (10/20/22 7:00 AM) Liters per Minute 2 L/min (10/16/22 3:00 PM) 2 L/min (10/16/22 11:00 AM) 2 L/min (10/16/22 7:00 AM) Mode of Delivery (Oxygen) Room air (10/20/22 1:23 PM) Room air (10/20/22 11:00 AM) Room air (10/20/22 7:00 AM) Blood pressure sites Arm, right (10/20/22 1:23 PM) Arm, right (10/20/22 11:00 AM) Arm, left (10/20/22 7:00 AM) Temperature Route Oral (10/20/22 1:23 PM) Oral (10/20/22 11:00 AM) Oral (10/20/22 7:00 AM) Dry Weight 114 kg (10/14/22 8:15 PM) 114 kg (10/14/22 6:01 PM) Weight Obtained Via Bed scale (10/14/22 6:02 PM) Bed scale (10/14/22 6:01 PM) Dry Weight Obtained Via Bed scale (10/14/22 6:01 PM) Social History Social History Type Response Smoking Status Never (less than 100 in lifetime) entered on: 08/17/18 Sex Consult note * Reynaldo MELENDREZ, Obie Macario: PERFORM, MODIFY Event Display: Consult Authored Date: [id number] Patient: ??POOL BURGESS ? Age:??72 Years?Sex:??Male?:??1950?? History of Present Illness Patient is a 72-year-old male with history of hypertension, diabetes with nephropathy,??prior TIA, GOLDY, obesity, ascending aortic aneurysm??and chronic complex migraines as well as recent episodes ofconfusion and agitation who presented??to [facility] after having a witnessed episode at home??in which he had an episode of shaking for no more than 30 seconds??while standing and during this time??fell to the ground striking his head.?? He had a subsequent loss of consciousness for approximately 10to 15 minutes.?? EMS was contacted and on arrival patient was combative with EMS and was given 5 mgof midazolam.?? He was initially seen at [facility] where a CT of the head was done that showedno acute intracranial pathology.?? Dr. Salinas was subsequently contacted and recommended transfer to??[facility] for??EEG. ? CT head 10/14/2022 No acute intracranial pathology. ?? MRI brain 10/11/2022 No acute/subacute infarct, mass, acute hemorrhage, or other acute intracranial abnormality.??Similar appearance of multiple chronic foci of microhemorrhage in the brain bilaterally. Many of these foci are central in location involving the basal ganglia and thalami, and may reflect hypertensive hemorrhages, though several foci are more peripherally located and could reflect sequelae of embolic disease or cerebral amyloid angiopathy.??Moderate T2/FLAIR hyperintense foci in the white matter, nonspecific but most likely reflecting chronic small vessel disease.?? Review of Systems as per HPI Physical Exam Vitals & Measurements T:??97.9?F?? HR:??80??(Peripheral)?? RR:??18?? BP:??112/92?? SpO2:??93%?? HT:??183??cm?? WT:??114??kg?? BMI:??34.04?? Constitutional: Sitting comfortably in the room in no acute distress. Good nutritional status. Appears stated age.?? Psych: Calm and cooperative. Maintains good eye contact. Good insight Skin: Warm and dry. No rashes, lesions or ulcers Eyes: Bowden conjunctiva, no ptosis. Sclera anicteric. PERRLA MSK: No swelling or tenderness of the joints, neck supple. No clubbing, cyanosis or edema of the extremities ?? Neurologic Examination ?? Mental Status: Alert with fluent and appropriate language. No neglect or left/right confusion. Attention, registration and recall intact. Fund of knowledge good.? Cranial Nerves: Visual moran full. EOMI with no nystagmus or diplopia. Facial sensation intact. Face activates symmetrically and tongue protrudes midline. Hearing is intact to conversation. No weakness in SCM or trapezius muscles.? Motor: Normal muscle bulk and tone throughout. No adventitious movements. No pronator drift or orbiting. Symmetric rapid movements. Strength 5/5 to manual muscle testing. ?? Reflexes: 2+ at bilateral biceps, triceps, brachioradialis, patella and ankle. Plantar response flexor bilaterally ?? Sensory: Sensation intact to light touch.? Coordination: Finger to nose within normal??limits ?? Gait:??deferred ?? Assessment/Plan Assessment:??Patient is a 72-year-old male with history of hypertension, diabetes with nephropathy,prior TIA, GOLDY, obesity, ascending aortic aneurysm and chronic complex migraines as well as recent episodes of confusion and agitation who??presents with an episode of??generalized shaking lasting??upwards to 30 seconds followed by confusion and agitation.??Concern for underlying epilepsy??versus perhaps??convulsive syncope??and less likely confusional migraine.??Recommend??video EEG monitoring. ?? 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 Cyst of kidney DM2 (diabetes mellitus, type 2) Dyspnea H/O: TIA Headache Hearing loss HTN (hypertension) Hyperlipidemia Insulin-treated type 2 diabetes mellitus Migraine Obese class I Obstructive sleep apnea syndrome Raised prostate specific antigen Type 2 diabetes mellitus with nephropathy Vitamin D deficiency Procedure/Surgical History Colonoscopy: 02/09/20 Colonoscopy: 02/27/15 Shoulder repair Vasectomy History of Appendectomy Home Medications Aspirin: See Instructions, TAKE 1 TABLET BY MOUTH EVERY DAY Atorvastatin: 1 tablet, By Mouth, Daily Clopidogrel: 75 mg = 1 tablet, By Mouth, Daily Cyanocobalamin: 5,000 mcg = 1 tablet, Daily dulaglutide: 1.5 mg, Subcutaneous Injection, Every 7 days dulaglutide Finasteride: 5 mg, By Mouth, Daily Insulin Glargine: See Instructions, take 28 units daily at bedtime e 11.9 Lisinopril: 20 mg = 1 tablet, By Mouth, Daily Metformin: 4 tablet, By Mouth, Daily Metoprolol: 25 mg = 1 tablet, By Mouth, Daily Potassium Citrate: By Mouth Terazosin: TAKE 1 CAPSULE BY MOUTH AT BEDTIME Allergies NKA Social History Alcohol Use: Never. Electronic Cigarette/Vaping Electronic Cigarette Use: Never. Employment/School Status: Retired. Exercise Self assessment: Fair condition. Home/Environment Living situation: Home/Independent. Nutrition/Health Diet: Diabetic. Substance Abuse Use: Never. Tobacco Use: Never (less than 100 in lifetime). Family History Mother: Cancer of colon Father (): CAD - Coronary artery disease; Congestive heart failure Admission evaluation note * Garry Carrera MD: MODIFY, MODIFY, PERFORM, MODIFY Event Display: Admission Note Authored Date: Patient: ??POOL BURGESS ? Age:??72 Years?Sex:??Male?:??1950?? HPI: 72yo M w/ PMH of HTN,??TIA, DM,??and??chronic complex migraines with recent episodes of confusion and agitation who presents after a witnessed loss of consciousness followed by confusion combativeness and altered mental status similar to an episode in June, having recently been discharged from an admission for complex migraine.? Patient doesn't recall evnets today. History is provided by EMS and the patient's . Over the last few months patient has been having increasing neurologic symptoms. ??Has been complaining of visual changes, altered mental status, worsening headaches. ?? MRI x2 this month within normal limits. ??Patient is currently following with Dr. Salinas of neurology. ??His reports that he has had ongoing visual symptoms but and his headaches have been improving. ??This evening he was sleeping and she noted that he was not wearing his CPAP machine. ??She went to place it on causing him to awaken; he noted that he had to go the bathroom and stood up. ??His says that after standing up he had an episode of shaking and fell to the ground striking his head. ??She states shaking was very brief but he had a period of loss of consciousness for approximately 10 to 15 minutes. ??She contacted EMS. ?? On arrival??by EMS??patient was very combative, violent with EMS and was given 5 mg Versed.? In the ED: Vitals unremarkable, afebrile, normotensive, normal heart rate, satting 92% RA WBC 12, rest of labs unremarkble. UA clean Noncon CT head negative. Oxygen sats drifted down and was put on 2L NC He was admitted for further workup. ?? ROS: As above, rest of full review negative. ?? 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 MEDS: Aspirin (Aspirin Low Dose 81 mg oral delayed release tablet)?See Instructions?TAKE 1 TABLET BY MOUTH EVERY DAY Atorvastatin (atorvastatin 40 mg oral tablet)?1?tab(s)?By Mouth?Daily Clopidogrel (Plavix 75 mg oral tablet)?75?Milligram?1?tablet?By Mouth?Daily Cyanocobalamin (Vitamin B-12 5000 mcg sublingual tablet)?1?tab(s)?5,000?Microgram?Daily dulaglutide (Trulicity Pen 1.5 mg/0.5 mL subcutaneous solution)?1.5?Milligram?SubcutaneousInjection?Every 7 days Finasteride?5?Milligram?By Mouth?Daily Insulin Glargine (Lantus Solostar Pen 100 units/mL subcutaneous solution)?See Instructions?take 28 units daily at bedtime e 11.9 Lisinopril (lisinopril 20 mg oral tablet)?20?Milligram?1?tablet?By Mouth?Daily Metformin (MetFORMIN (Eqv-Glucophage XR) 500 mg oral tablet, extended release)?4?tab(s)?ByMouth?Daily Metoprolol (metoprolol 25 mg oral tablet, extended release)?25?Milligram?1?tablet?ByMouth?Daily Potassium Citrate?By Mouth Terazosin (terazosin 2 mg oral capsule)?TAKE 1 CAPSULE BY MOUTH AT BEDTIME ?? Social: Lives independently ?? Exam: Temperature?98.2 ?(18:00) Systolic Blood Pressure?143 ?(18:00) Diastolic Blood Pressure?76 ?(18:00) Pulse?72 ?(18:00) SpO2?94 ?(18:01) Respiratory Rate?18 ?(18:00) GEN: Comfortable in bed HEENT: Moist membranes HEART: Warm extremities LUNGS: Breathing comfortably room air ABD: Soft, nontender : No lee EXT: Warm, no edema NEURO: Alert, oriented to self and describes recent events, but can't place the month, thinks its May. PSYCH: Calm and cooperative ?? MRI 09/2022 IMPRESSION: No acute intracranial abnormality or mass. Multiple scattered chronic microhemorrhages, mostly involving the basal ganglia, thalami, and cerebellar hemispheres, with an additional focus of chronic microhemorrhage in the left temporal lobe. These could reflect hypertensive microhemorrhages or cerebral amyloid angiopathy. Distribution predominantly in the deep devine nuclei and cerebellum favors hypertensive microhemorrhages but clinical correlation is needed. Scattered FLAIR hyperintense signal abnormality in the white matter is nonspecific but probably reflects chronic small vessel disease. ? Assessment and Plan: 72yo M w/ PMH of HTN,??TIA, DM,??and??chronic complex migraines with recent episodes of confusion and agitation who presents after a witnessed loss of consciousness followed by confusion combativeness and altered mental status similar to an episode in June, having recently been discharged from an admission for headache.? # Confusion and aggression Currently back to his baseline. Etiology is unclear, does not appear to be influenced by drugs/withdrawal.??Does not appear related to complex migraine. Does not appear to be psych. Seizure seems unlikely. It feels like it has the characteristics of REM sleep disorder, though [place]. Neurology there suggested possible cerebral amyloidosis and MRI here suggests possibility of the same, noting multiple microhemorrhages. This suggests vascular dementia with??episodes of hyperactive delirium.?? wishes to pursue EEG. - neurology consulted - will stop plavix given microhemorrhages (was on plavix for PFO procedure which appears was only supposed to be for 3 months back in Summer 2021.) - will stop asa as it appears he takes this for primary prophylaxis ?? #??HLD - cont statin ?? # DM - hold metformin - cont Lantus, reduce dose from 29 units to 20 units HS - trend AM POC glucose ?? # BPH - cont finasteride - cont Terazosin (terazosin 2 mg oral capsule)?TAKE 1 CAPSULE BY MOUTH AT BEDTIME ?? # HTN - cont Lisinopril (lisinopril 20 mg oral tablet)?20?Milligram?1?tablet?By Mouth?Daily - cont Metoprolol (metoprolol 25 mg oral tablet, extended release)?25?Milligram?1?tablet?By Mouth?Daily ?? CODE - presumed ful DVT - low risk DIET - diabetic ?? Hospital Progress note * Evelyn Shay RN: PERFORM, SIGN, VERIFY Event Display: Progress Note Hospital Authored Date: Patient: POOL BURGESS Age: 72 years Sex: Male : 1950 Associated Diagnoses: None Author: Evelyn Shay RN Findings Problem Related to Alteration in Neurological : Alteration in Neurological Function/new 10/19/2022 18:00 EDT Alteration in Neuro status Related to Seizure Goals & Outcomes, Neurological Pt will be Neurologically stable, Pt will remain free from injury Interventions, Neurological Assess/monitor for abnormal posturing, Assess/monitor for gaze pattern/extraocular movements, Assess/monitor neurologic status, Assess/monitor VS per unit standards & prn, Call/Report variances in assessments to provider, Collaborate w/ provider to implement appropriate guidelines, Collaborate with Nutrition BH Goals/Interventions, Neurological Yes Neurological, Problem Start 10/14/2022 21:40 Reviewed plan with, Neurological Patient Patient Progression, Neurological Pt progressing according to plan . Evaluation Pt A&O X's 2-3 , confused at times, but pleasantly confused. Patient denies pain, chest pain, n/t, n/v, dizziness, MOBLEY and lightheadedness. Patient able to LUO with 5/5 strength. Patient 2 assist to get oob but 1 assist with walker for ambulating. Patient +PERRLA., Tongue midline, smile symmetrical. +PP, Trace edema to b/l feet. abdomen soft, nontender, +BS. appetite adequate. incontinent of bowel and bladder. skin intact, yellow nonskid socks on. bed alarm on, bed in lowest position. Patient anticipating d/c to [facility] . Discharge Information Case Management Discharge Plan : Case Management Discharge Plan Data 10/20/2022 15:49 EDT Discharge Level of Care at Discharge long term facility Discharge Nursing Homes/Rehab Facilities Care [facility] 10/20/2022 15:26 EDT Discharge Level of Care at Discharge long term facility Discharge Nursing Homes/Rehab Facilities Care [facility] Discharge Transportation Arranged [facility] Med Response [address] [place] [id number] [phone] Discharge Arranged Transport Date/Time 10/20/2022 15:00 Mode of Transportation Arranged Ambulance Name of Agency #1 [facility] Service Categories #1 Occupational Therapy, Physical Therapy, Long-Term Service Comments #1 An ambulance has been arranged through [facility] to transfer patient to [facility] today @ 3pm Name of Person Notified of Transfer Patient and 10/14/2022 17:07 EDT Discharge Level of Care at Discharge Short-term Acute Inpatient Rehabilitation Discharge : Rehab Discharge Index 10/19/2022 11:54 EDT Transfer tub/shower OT Plan Contact guard 10/18/2022 9:49 EDT Transfer tub/shower OT Plan Contact guard 10/17/2022 9:22 EDT Comments on treatment indicated 72 y.o. M who presents after a witnessed loss of consciousness followed by confusion combativeness and altered mental status. WBAT. PT for bed mob, transfers, balance and ambulation with LRAD. Rec. rehab at this time as pt is not at PLOF. Walker: distance Difficulty negotiating obstacles with RW support Full chart review completed Yes Other findings See comment Plan of care PT Gait training, Transfer training, Therapeutic exercise, Functional Activities, Balance training 10/17/2022 8:47 EDT Comments on treatment indicated OT to address ADL's, transfers, safety. Full chart review completed Yes Hospital course Please see comment Transfer tub/shower OT Plan Contact guard * Maribel Tracy RN: PERFORM, SIGN, VERIFY Event Display: Progress Note Hospital Authored Date: [id number] Patient: POOL BURGESS Age: 72 years Sex: Male : 1950 Associated Diagnoses: None Author: Maribel Tracy RN Findings Problem Related to Alteration in Neurological : Alteration in Neurological Function/new 10/19/2022 18:00 EDT Alteration in Neuro status Related to Seizure Goals & Outcomes, Neurological Pt will be Neurologically stable, Pt will remain free from injury Interventions, Neurological Assess/monitor for abnormal posturing, Assess/monitor for gaze pattern/extraocular movements, Assess/monitor neurologic status, Assess/monitor VS per unit standards & prn, Call/Report variances in assessments to provider, Collaborate w/ provider to implement appropriate guidelines, Collaborate with Nutrition BH Goals/Interventions, Neurological Yes Neurological, Problem Start 10/14/2022 21:40 Reviewed plan with, Neurological Patient Patient Progression, Neurological Pt progressing according to plan . Evaluation patient A&O X2, forgetful, w/ generalized weakness 4/5 in upper and lower extremities. patient had a very large bowel movement after dinner. patient ambulating to bathroom with walker and max 1 assist. see biophysical for complete assessment. will continue to monitor. safety measures in place. Discharge Information Case Management Discharge Plan : Case Management Discharge Plan Data 10/14/2022 17:07 EDT Discharge Level of Care at Discharge Short-term Acute Inpatient Rehabilitation Discharge : Rehab Discharge Index 10/19/2022 11:54 EDT Transfer tub/shower OT Plan Contact guard 10/18/2022 9:49 EDT Transfer tub/shower OT Plan Contact guard 10/17/2022 9:22 EDT Comments on treatment indicated 72 y.o. M who presents after a witnessed loss of consciousness followed by confusion combativeness and altered mental status. WBAT. PT for bed mob, transfers, balance and ambulation with LRAD. Rec. rehab at this time as pt is not at PLOF. Walker: distance Difficulty negotiating obstacles with RW support Full chart review completed Yes Other findings See comment Plan of care PT Gait training, Transfer training, Therapeutic exercise, Functional Activities, Balance training 10/17/2022 8:47 EDT Comments on treatment indicated OT to address ADL's, transfers, safety. Full chart review completed Yes Hospital course Please see comment Transfer tub/shower OT Plan Contact guard * Aureliano Cade DO: PERFORM, MODIFY Event Display: Progress Note Hospital Authored Date: Patient: ??POOL BURGESS ? Age:??72 Years?Sex:??Male?:??1950?? Subjective Patient is alert and oriented this AM although tells me he has been seeing things and has to convince himself they aren't there asking for work note- which has been provided Geriatrics plans to see patient today Possible discharge to rehab tomorrow Rechecking labwork due to mild hypernatremia, and will check LFTs as he has been on Depakote. Review of Systems General:??Negative for fevers, chills Cardiovascular:??Negative for chest pain Respiratory:??Negative for shortness of breath Gastrointestinal:??Negative for abdominal pain, No N,V,D Objective Vital Signs?? Temperature: 97.9 DegF (10/19/22 11:22:00) Temperature Route: Oral (10/19/22 11:22:00) Pulse Rate: 75 bpm (10/19/22 11:22:00) Respiratory Rate: 16 br/min (10/19/22 11:22:00) Systolic Blood Pressure: 125 mm Hg (10/19/22 11:22:00) Diastolic Blood Pressure: 68 mm Hg (10/19/22 11:22:00) Blood pressure sites: Arm, right (10/19/22 11:22:00) Mean Arterial Pressure: 87 mm Hg (10/19/22 11:22:00) Pulse Pressure: 57 mm Hg (10/19/22 11:22:00) Oxygen Saturation: 96 % (10/19/22 11:22:00) Mode of Delivery (Oxygen): Room air (10/19/22 11:22:00) Early Warning Score: 8 (10/19/22 11:56:31) ?? Intake/Output? 10/14 17:41 08 07:00 06/07 07:00 0606 07:00 06/05 07:00 ?? 10/19 15:11 10/19 15:11 10/19 06:59 10/18 06:59 10/17 06:59 Intake ? 2600 ?480 ? 1200 ?0 ?320 Output ? 3278 ?0 ? 1500 ?3 ?775 Net Total ? -678 ?480 ? -300 ? -3 ? -455 ? Urine Count ?2 ?0 ?0 ?0 ?2 ? Physical Exam Constitutional: Alert, in no distress, appears stated age Mental Status: Oriented to person, place and time and events. Head: Normocephalic. Eyes: Pupils are equal, round and reactive to light. Extraocular muscles intact. Ear, Nose and Throat: Oropharynx clear, mucous membranes moist. Ears and nose without masses, lesions or deformities. Trachea midline. Neck: Supple, Full range of motion. Respiratory: Clear to auscultation. No wheezing, rales or rhonchi. Cardiovascular: S1 S2 regular. No murmurs, rubs or gallops. Gastrointestinal: Abdomen soft, non-tender, non-distended. Normal bowel sounds. No pulsatile mass. Neurologic: No focal neurological deficits. Moves all extremities spontaneously. Skin: No rashes or lesions. No petechiae or purpura.?? Musculoskeletal: No cyanosis or clubbing. No gross deformities. Normal range of motion. Psychiatric: Normal mood and affect _ Inpatient Medications Medications (20) Active SCHEDULED: (14) Atorvastatin 40 mg Tablet (atorvastatin 40 mg oral tablet) ??40 mg, By Mouth, Daily Divalproex 500 mg Tablet (Depakote Tablet) ??500 mg, By Mouth, 3 times a day Enoxaparin 40 mg Inj (Enoxaparin Inj) ??40 mg 0.4 mL, Subcutaneous Injection, Daily Finasteride 5 mg Tablet (finasteride 5 mg oral tablet) ??5 mg, By Mouth, Daily Insulin Glargine 100 units/mL Inj (Lantus Inj) ??20 units 0.2 mL, Subcutaneous Injection, Daily at bedtime Insulin Lispro 100 units/mL Inj (3mL) (Insulin LISPRO Sliding Scale) ??2-10 units, Subcutaneous Injection, 3 times a day before meals Lisinopril 20 mg Tablet (lisinopril 20 mg oral tablet) ??20 mg, By Mouth, Daily Metoprolol 25 mg XL Tablet (metoprolol 25 mg oral tablet, extended release) ??25 mg, By Mouth, Daily NaCl 0.9% Flush 3ml (NaCL 0.9% Flush) ??3 mL, IV Push, Every 8 hours Polyethylene Glycol 17 Gm Powder (MiraLax Powder) ??17 Gm 1 pack/packet, By Mouth, Daily Quetiapine 25 mg Tablet (SEROquel 25 mg oral tablet) ??25 mg, By Mouth, Daily at supper Senna 8.6 mg / Docusate 50 mg tablet (Docusate/Senna Tablet) ??1 tablet, By Mouth, 2 times a day Terazosin 2 mg Capsule (terazosin 2 mg oral capsule) ??2 mg, By Mouth, Daily at bedtime Thiamine 100 mg Inj (Thiamine Inj) ??100 mg 1 mL, IV Push Slowly, Daily CONTINUOUS: (0) PRN: (6) Acetaminophen 325 mg Tablet (Acetaminophen Tablet) ??650 mg, By Mouth, Every 4 hours Dextromethorphan-Guaifenesin 20 mg-200 mg/10 mL Liqu UD (Robitussin DM Liquid) ??10 mL, By Mouth, Every 4 hours Melatonin 3 mg Tablet (Melatonin Tablet) ??3 mg, By Mouth, Daily at bedtime NaCl 0.9% Flush 3ml (NaCL 0.9% Flush) ??3 mL, IV Push, Every 8 hours Quetiapine 25 mg Tablet (SEROquel 25 mg oral tablet) ??25 mg, By Mouth, Daily at bedtime Simethicone 80 mg Chewable Tablet (Simethicone Tablet) ??80 mg, Chew, 3 times a day ? Results Recent Labs CHEM GENERAL Glucose, POC 170 mg/dL (High)?? 10/19/2022 11:50 ? Assessment/Plan 72yo M w/ PMH of HTN, TIA, DM, and chronic complex migraines with recent episodes of confusion and agitation who presents after a witnessed loss of consciousness followed by confusion combativeness and altered mental status similar to an episode in June, having recently been discharged from an [facility] for headache. ??Recently discharged on 10/11 when he was admitted for headaches likely thought to be complex migraines. ??MRI was done on 10/11/2022 which was without any acute concerning findings. ??He is now admitted for further work-up.?? CT head was without acute cranial abnormality.??Neurology was consulted??and patient was started on Depakote 500 mg TID. Patient underwent VEEG which was without seizure activity. CT head was without acute cranial abnormality. ??Patient's aspirin andPlavix were held on admission due to concern for possible small multiple chronic microhemorrhages on last MRI.?Hospital course complicated by hyperactive delirium, geriatrics consulted for further management. ?? Confusion and aggression Suspect Dementia with behaviors Possible seizure vs Complex migraine Currently back to his baseline. Etiology is unclear, does not appear to be influenced by drugs/withdrawal.??Does not appear related to complex migraine. Does not appear to be psych. Seizure seems unlikely. It feels like it has the characteristics of REM sleep disorder, though [place]. Neurology there suggested possible cerebral amyloidosis and MRI here suggests possibility of the same, noting multiple microhemorrhages. This suggests vascular dementia with??episodes of hyperactive delirium.?? wishes to pursue EEG. MRI 09/2022: No acute intracranial abnormality or mass. Multiple scattered chronic microhemorrhages,mostly involving the basal ganglia, thalami, and cerebellar hemispheres, with an additional focus of chronic microhemorrhage in the left temporal lobe. These could reflect hypertensive microhemorrhages or cerebral amyloid angiopathy. Distribution predominantly in the deep devine nuclei and cerebellumfavors hypertensive microhemorrhages but clinical correlation is needed. Scattered FLAIR hyperintense signal abnormality in the white matter is nonspecific but probably reflects chronic small vessel disease. Concern for underlying dementia with delirium vs epilepsy versus perhaps convulsive syncope and less likely confusional migraine. VEEG w/o seizure like activity Lyme ab was negative, thiamine level in process ?? Plan: Appreciate neuro recs stop plavix given microhemorrhages (was on plavix for PFO procedure which appears was only supposedto be for 3 months back in Summer 2021)?? -? Patients states he was not taking it currentlyanyways will stop asa as it appears he takes this for primary prophylaxis Started Depakote 500 mg TID Seroquel daily at bedtime prn agitation Followup thiamine level Geriatrics consult appreicate input PT, OT eval - recommend rehab ?? Delirium Prevention Strategies: -Lights on, shades up during the day; lights off, shades drawn at night -Minimize nighttime disruptions -Help keep patient awake and engaged during the day -Maximize access to glasses/hearing aids -Avoid benzodiazepines, anticholinergic medications -Avoid restraints and other tethers eg oxygen, catheters, IV lines when possible ?? HLD - cont statin ?? DM - hold metformin - cont Lantus, reduce dose from 29 units to 20 units HS - trend AM POC glucose ?? BPH - cont finasteride - cont Terazosin (terazosin 2 mg oral capsule)?daily at bedtime ?? HTN - cont Lisinopril (lisinopril 20 mg oral tablet)?20?Milligram?1?tablet?By Mouth?Daily - cont Metoprolol (metoprolol 25 mg oral tablet, extended release)?25?Milligram?1?tablet?By Mouth?Daily ?? Subclinical hypothyroidism Recheck TSH and FT4 in 4- 6 weeks as outpatient ?? CODE - Full DVT -?? Lovenox DIET - diabetic ?? Patient case and management discussed with Dr. Plummer ?? Aureliano Cade, DO Internal Medicine, PGY3 * Elian MELENDREZ, Pool Huitron: PERFORM Event Display: Progress Note Hospital Authored Date: Attending Attestation:??I have seen and evaluated this patient. ??I have discussed the case and itsmanagement with the resident and agree with the findings and plan as documented in the resident???snote. ? This patient was seen today by me at ? The patient was seen with his in attendance. Continues to do very well mentally. ??He is awake alert interactive conversant.?? He still having some mild visual hallucinations but he does still have the insight to realize that they are not really??present??and this keeps him calm. ?? They are still waiting geriatrics consultation. ?? While I was there the case reviewer came in and informed us that??his first 2 choices??for rehab will not work because they do not take his kind of [employer] insurance.?? The third choice??in [place] is available??and after some deliberation apparently the patient and his agree to that. ?? She would like to give him a chance of some subacute rehab for now. ?? Eating well today Happy with improvement thus far. ? On exam: Patient is still doing pretty well today.. ??He is wide awake alert. ??We had a good conversation that was normal and fluent. And accurate about some old events. ??We had a bit of a political discussion about political parties in elections. ??He and his and I talked about the wisdom of??following news stories (or not )and how that can influence your??state of wellbeing etc. ? Vital signs are stable??with 98.6 temperature 65 heart rate??16 respiratory rate 126 over 8198% saturated on room air. Awake and alert see above. ?? See other exam findings above. Lyme antibody was negative ?? Blood sugars remain quite good.?? 84-1 24. ? Assessment and plan: This patient has history of hypertension may be a TIA in the past diabetes complicated migraines presenting with what sounds of a elaina tommy seizure. However he had had been having headaches and some altered symptoms lately both before and after the seizure. As things are emerging it looks like he probably has some baseline dementia going back at least 6 months. ??Now he seems to be in the throes of hospital delirium also contributed to by the multiple other issues that have been going on of late. We will be continuing the VPA. ??We will be discussing further with neurology and with geriatrics. ?? Neuro follow-up ongoing. ??Lyme antibody was negative.?? Continuing other therapies. ? As needed Seroquel for the moment.?? This may be helping some. ?? Continuing VPA for seizures. ? Work on controlling other risk factors. ?? No aspirin for now given the microhemorrhages. ?? Awaiting formal geriatrics consultation about overall??management plans as well. Probable discharge to rehab tomorrow. ? Please see above for the rest of the details of our assessments and plans. ? Note * Latricia Leary RN: PERFORM Event Display: Discharge/Transfer Note Hospital Authored Date: [id number] Nursing Discharge Note Entered On: 10/20/2022 15:50 EDT Performed On: 10/20/2022 15:49 EDT by Latricia Leary RN Nursing Discharge Note 2 Discharge Time : 10/20/2022 15:49 EDT Discharge Level of Care at Discharge : long term facility Discharge Nursing Homes/Rehab Facilities : [facility] [place] Patient Left Unit Via : Ambulance Patient Accompanied Off Unit with : Responsible adult DC Instructions Provided & Signed by Pt : Yes Patient Understands D/C Instructions : Yes Patient Instructions Discharge Signed : Yes Discharge Comments : IV dc'd with the tip intact Did Pt have Specialty Bed or Wound Vac : No Latricia Leary RN - 10/20/2022 15:49 EDT * Aureliano Cade DO: PERFORM, MODIFY, MODIFY, MODIFY, MODIFY, MODIFY, MODIFY, MODIFY, MODIFY, MODIFY, MODIFY Event Display: Discharge/Transfer Note Hospital Authored Date: [id number] Patient: ??POOL BURGESS ? Age:??72 Years?Sex:??Male?:??1950?? Patient Information Discharge Location: [facility] Primary Care Physician: Yunier Garcia DO Admit Date/Time: 10/14/22 17:41 Discharge Disposition Discharge Disposition: Long-Term Facility/Rehab Discharge Diagnosis Confusion (R41.0) Apnea, sleep Benign essential hypertension DM2 (diabetes mellitus, type 2) HTN (hypertension) Headache Hearing loss Hyperlipidemia Obese class I Vitamin D deficiency _ Discharge Medications Atorvastatin (atorvastatin 40 mg oral tablet)?1?tab(s)?By Mouth?Daily Cyanocobalamin (Vitamin B-12 5000 mcg sublingual tablet)?1?tab(s)?5,000?Microgram?Daily Divalproex Sodium (divalproex sodium 500 mg oral enteric coated tablet)?500?Milligram?By Mouth?3 times a day Docusate-Senna (Docusate/Senna Tablet)?1?tab(s)?By Mouth?2 times a day dulaglutide (Trulicity Pen 1.5 mg/0.5 mL subcutaneous solution)?1.5?Milligram?SubcutaneousInjection?Every 7 days Finasteride?5?Milligram?By Mouth?Daily Insulin Glargine (Lantus Inj)?0.2?Milliliter?20?unit(s)?Subcutaneous Injection?Daily at bedtime Lisinopril (lisinopril 20 mg oral tablet)?20?Milligram?1?tablet?By Mouth?Daily Melatonin (melatonin 3 mg oral tablet)?3?Milligram?By Mouth?Daily at bedtime?as needed?Insomnia Metformin (MetFORMIN (Eqv-Glucophage XR) 500 mg oral tablet, extended release)?4?tab(s)?ByMouth?Daily Metoprolol (metoprolol 25 mg oral tablet, extended release)?25?Milligram?1?tablet?ByMouth?Daily Quetiapine (SEROquel 25 mg oral tablet)?25?Milligram?1?tablet?By Mouth?Daily at supper Quetiapine (SEROquel 25 mg oral tablet)?25?Milligram?1?tablet?By Mouth?2 times a day?as needed?Agitation Terazosin (terazosin 2 mg oral capsule)?TAKE 1 CAPSULE BY MOUTH AT BEDTIME Thiamine (thiamine 100 mg oral tablet)?100?Milligram?1?tablet?By Mouth?Daily Medications Started Divalproex Sodium (divalproex sodium 500 mg oral enteric coated tablet)?500?Milligram?By Mouth?3 times a day Melatonin (melatonin 3 mg oral tablet)?3?Milligram?By Mouth?Daily at bedtime?as needed?Insomnia Quetiapine (SEROquel 25 mg oral tablet)?25?Milligram?1?tablet?By Mouth?Daily at supper Quetiapine (SEROquel 25 mg oral tablet)?25?Milligram?1?tablet?By Mouth?2 times a day?as needed?Agitation Thiamine (thiamine 100 mg oral tablet)?100?Milligram?1?tablet?By Mouth?Daily Docusate-Senna (Docusate/Senna Tablet)?1?tab(s)?By Mouth?2 times a day Medications Discontinued Clopidogrel (Plavix 75 mg oral tablet)?75?Milligram?1?tablet?By Mouth?Daily Aspirin (Aspirin Low Dose 81 mg oral delayed release tablet)?See Instructions?TAKE 1 TABLET BY MOUTH EVERY DAY Potassium Citrate?By Mouth Doses Changed Insulin Glargine (Lantus Solostar Pen 100 units/mL subcutaneous solution)?See Instructions?take 28 units daily at bedtime e 11.9?? ---> 20 units Allergies Allergies ?(Active and Proposed Allergies Only) NKA? (Severity: Unknown severity, Onset: Unknown) ? PCP Follow-Up/Heads-Up Started on Depakote for seizures Delirium??and suspect some degree of underlying dementia was evaluated by Geriatrics inpatient withrecommendation for cognitive testing outpatient after delirium resolves.?Cognition and function needs to be evaluated periodically outpatient to see if he is declining which would indeed support dementia dx. early vascular dementia might present with executive function problems rather than memory.??He needs to get hearing eval / scrap picker the hearing aids, and compliance with CPAP must be encouraged. Advised to??focus on safety- monitor the meds especially after he??gets out of rehab, monitor what is happening with finances (he may lose higher level??complex IADLs earlier as clue for dementia). he will definitely need closer supervision and support going forward. may benefit to beconnected to [facility] ?? Followup Thiamine level (currently in process and was checked prior to starting him on PO thiamine) Subclinical hypothyroidism Recheck TSH and FT4 in 4- 6 weeks as outpatient Future Appointments Sunday 3:30 PM EDT ?? With: Brad MELENDREZ, Zafar Paul Where: [facility] [address] [facility] [address] Floor, [address] [place] [id number]- Status: Pending Sunday 10:45 AM EDT ?? With: Yunier Garcia DO Where: [facility] [address] [place] [address]- Status: Pending Hospital Course 72yo M w/ PMH of HTN, TIA, DM, and chronic complex migraines with recent episodes of confusion and agitation who presents after a witnessed loss of consciousness followed by confusion combativeness and altered mental status similar to an episode in June, having recently been discharged from an a [facility] for headache. ??Recently discharged on 10/11 when he was admitted for headaches likely thought to be complex migraines. ??MRI was done on 10/11/2022 which was without any acute concerning findings. ??He is now admitted for further work-up.?? CT head was without acute cranial abnormality.??Neurology was consulted??and patient was started on Depakote 500 mg TID. Patient underwent VEEG which was without seizure activity. CT head was without acute cranial abnormality. ??Patient's aspirin andPlavix were held on admission due to concern for possible small multiple chronic microhemorrhages on last MRI.?Hospital course complicated by hyperactive delirium, geriatrics consulted for further management. Will need cognitive function testing done outpatient. Medically clear for discharge to rehab facility. ?? Assessment and Plan Confusion and aggression Delirium, improved Seizure Currently back to his baseline. Etiology is unclear, does not appear to be influenced by drugs/withdrawal.??Does not appear related to complex migraine. Does not appear to be psych. ??Neurology suggested possible cerebral amyloidosis and MRI here suggests possibility of the same, noting multiple microhemorrhages. This suggests vascular dementia with??episodes of hyperactive delirium.??Patient wasstarted on depakote per Neurology. MRI 09/2022: No acute intracranial abnormality or mass. Multiple scattered chronic microhemorrhages,mostly involving the basal ganglia, thalami, and cerebellar hemispheres, with an additional focus of chronic microhemorrhage in the left temporal lobe. These could reflect hypertensive microhemorrhages or cerebral amyloid angiopathy. Distribution predominantly in the deep devine nuclei and cerebellumfavors hypertensive microhemorrhages but clinical correlation is needed. Scattered FLAIR hyperintense signal abnormality in the white matter is nonspecific but probably reflects chronic small vessel disease. Concern for underlying dementia with delirium VEEG w/o seizure like activity Lyme ab was negative, thiamine level in process Neurology consulted appreciate input Geriatrics consult appreciate input ?? Recommendations: Stop Plavix given microhemorrhages (was on plavix for PFO procedure which appears was only supposedto be for 3 months back in Summer 2021)?? -? Patients states he was not taking it currentlyanyways Discontinued aspirin as it appears he takes this for primary prophylaxis Started Depakote 500 mg TID Seroquel 25 mg daily at bedtime and BID??prn agitation Followup thiamine level PT, OT eval - recommend rehab Cognition and function needs to be evaluated periodically outpatient to see if he is declining which would indeed support dementia dx. early vascular dementia might present with executive function problems rather than memory. He needs to get hearing eval / scrap picker the hearing aids, and compliance with CPAP must be encouraged Advised to??focus on safety-??monitor the meds especially after he??gets out of rehab, monitorwhat is happening with finances (he may lose higher level??complex IADLs earlier as clue for dementia). he will definitely need closer supervision and support going forward. may benefit to be connected to [facility] Followup with Neurology outpatient ?? Delirium Prevention Strategies: -Lights on, shades up during the day; lights off, shades drawn at night -Minimize nighttime disruptions -Help keep patient awake and engaged during the day -Maximize access to glasses/hearing aids -Avoid benzodiazepines, anticholinergic medications -Avoid restraints and other tethers eg oxygen, catheters, IV lines when possible ?? HLD - cont statin ?? DM - Continue Metformin - cont Lantus, reduce dose from 29 units to 20 units HS ?? BPH - cont finasteride - cont Terazosin (terazosin 2 mg oral capsule)?daily at bedtime ?? HTN - cont Lisinopril (lisinopril 20 mg oral tablet)?20?Milligram?1?tablet?By Mouth?Daily - cont Metoprolol (metoprolol 25 mg oral tablet, extended release)?25?Milligram?1?tablet?By Mouth?Daily ?? GOLDY CPAP with naps and daily at bedtime ?? Subclinical hypothyroidism Recheck TSH and FT4 in 4- 6 weeks as outpatient Objective Vital Signs?? Temperature: 97.9 DegF (10/20/22 11:00:00) Temperature Route: Oral (10/20/22 11:00:00) Pulse Rate: 90 bpm (10/20/22 11:00:00) Respiratory Rate: 18 br/min (10/20/22 11:00:00) Systolic Blood Pressure: 122 mm Hg (10/20/22 11:00:00) Diastolic Blood Pressure:??86 mm Hg??High (10/20/22 11:00:00) Blood pressure sites: Arm, right (10/20/22 11:00:00) Mean Arterial Pressure: 81 mm Hg (10/20/22 04:09:00) Pulse Pressure: 28 mm Hg (10/20/22 04:09:00) Oxygen Saturation: 97 % (10/20/22 11:00:00) Mode of Delivery (Oxygen): Room air (10/20/22 11:00:00) Early Warning Score: 2 (10/20/22 11:03:30) . Physical Exam Constitutional: Alert, in no distress, appears stated age Mental Status: Oriented to person, place and time and events. Head: Normocephalic. Eyes: Pupils are equal, round and reactive to light. Extraocular muscles intact. Ear, Nose and Throat: Oropharynx clear, mucous membranes moist. Ears and nose without masses, lesions or deformities. Trachea midline. Neck: Supple, Full range of motion. Respiratory: Clear to auscultation. No wheezing, rales or rhonchi. Cardiovascular: S1 S2 regular. No murmurs, rubs or gallops. Gastrointestinal: Abdomen soft, non-tender, non-distended. Normal bowel sounds. No pulsatile mass. Neurologic: No focal neurological deficits. Moves all extremities spontaneously. Skin: No rashes or lesions. No petechiae or purpura.?? Musculoskeletal: No cyanosis or clubbing. No gross deformities. Normal range of motion. Psychiatric: Normal mood and affect Consultants Neurology- Dr Boucher Geriatrics - ??Lorenza Mckinney MD Pending Results Add On Lab Order ordered on 10/17/2022 COVID-19 (2019 Novel Coronavirus) PCR ordered on 10/14/2022 Thiamine Level ordered on 10/17/2022 Post Discharge Care Activity: Ambulate with assistance ??3 times a day ??unless otherwise specified Code Status: Full Prognosis: Fair Discharge ?10/20/22 12:04:00 EDT Home Health Face to Face Discharged to rehab Results Discharge Labs BLOOD COUNT & DIFF WBC 5.8 k/mm3 ()?? 10/19/2022 15:39 RBC 4.88 m/mm3 ()?? 10/19/2022 15:39 Hgb 15.2 Gm/dL ()?? 10/19/2022 15:39 Hct 46.5 % ()?? 10/19/2022 15:39 MCV 95.3 femtoliters (High)?? 10/19/2022 15:39 MCH 31.1 pg ()?? 10/19/2022 15:39 MCHC 32.7 g/dL (Low)?? 10/19/2022 15:39 Platelet Count 164 k/mm3 ()?? 10/19/2022 15:39 RDW-SD 47.3 femtoliters (High)?? 10/19/2022 15:39 MPV 12.2 femtoliters ()?? 10/19/2022 15:39 Nucleated RBC (Automated) 0.0 #/100 WBC'S ()?? 10/19/2022 15:39 Abs. NRBC 0.0 k/mm3 ()?? 10/19/2022 15:39 ?? CHEM GENERAL Sodium 142 mmol/L ()?? 10/19/2022 15:39 Potassium 4.2 mmol/L ()?? 10/19/2022 15:39 Chloride 104 mmol/L ()?? 10/19/2022 15:39 Bicarbonate Level 27 mmol/L ()?? 10/19/2022 15:39 Anion Gap 11 ()?? 10/19/2022 15:39 Glucose Level 86 mg/dL ()?? 10/19/2022 15:39 Glucose, POC 119 mg/dL (High)?? 10/20/2022 10:52 Hemoglobin A1C (Monitoring) 6.2 % (High)?? 10/19/2022 15:39 BUN 27 mg/dL (High)?? 10/19/2022 15:39 Creatinine-Blood 1.1 mg/dL ()?? 10/19/2022 15:39 Estimated GFR Creatinine 72 ML/MIN/1.73 M2 ()?? 10/19/2022 15:39 Calcium 10.0 mg/dL ()?? 10/19/2022 15:39 Magnesium 2.1 mg/dL ()?? 10/19/2022 15:39 Protein, Total 6.5 Gm/dL ()?? 10/19/2022 15:39 Albumin 4.1 Gm/dL ()?? 10/19/2022 15:39 AG Ratio 1.7 ()?? 10/19/2022 15:39 Alkaline Phosphatase 85 units/L ()?? 10/19/2022 15:39 AST (SGOT) 16 units/L ()?? 10/19/2022 15:39 ALT (SGPT) 14 units/L ()?? 10/19/2022 15:39 Bilirubin, Total 1.3 mg/dL (High)?? 10/19/2022 15:39 Vitamin B12 Level 766 pg/mL ()?? 10/16/2022 13:05 Folic Acid Level 7.5 ng/mL ()?? 10/16/2022 13:05 ?? SEROLOGY INF DISEASE Lyme Disease Ab Screen NEGATIVE ()?? 10/17/2022 15:36 Syphilis Interpretation Indicative of the absence of infection with Treponemal pallidum. Test ()?? 10/15/2022 08:36 Syphilis Screen by KEHINDE NEGATIVE (N)?? 10/15/2022 08:36 RPR Titer Result NOT INDICATED ()?? 10/15/2022 08:36 TP-PA Result NOT INDICATED ()?? 10/15/2022 08:36 ? TOXICOLOGY/TDM Barbiturate Screen, Urine NONE DETECTED ()?? 10/15/2022 11:15 Cannabinoid Screen, Urine NONE DETECTED ()?? 10/15/2022 11:15 Cocaine Metabolite Screen, Urine NONE DETECTED ()?? 10/15/2022 11:15 Benzodiazepine Screen, Urine POSITIVE (Abnormal)?? 10/15/2022 11:15 Amphetamine Screen, Urine NONE DETECTED ()?? 10/15/2022 11:15 Opiate Screen, Urine NONE DETECTED ()?? 10/15/2022 11:15 PCP Screen, Urine NONE DETECTED ()?? 10/15/2022 11:15 Oxycodone Screen, Urine NONE DETECTED ()?? 10/15/2022 11:15 ?? URINE OTHER Est Creatinine Clearance 66.72 mL/min ()?? 10/19/2022 17:07 ? Result type:?MRI Brain W/O Contrast Result date:?October 11, 2022 15:31 EDT ?? IMPRESSION: ?? 1. No acute/subacute infarct, mass, acute hemorrhage, or other acute intracranial abnormality.?? 2. Similar appearance of multiple chronic foci of microhemorrhage in the brain bilaterally. Many ofthese foci are central in location involving the basal ganglia and thalami, and may reflect hypertensive hemorrhages, though several foci are more peripherally located and could reflect sequelae of embolic disease or cerebral amyloid angiopathy. 3. Moderate T2/FLAIR hyperintense foci in the white matter, nonspecific but most likely reflecting chronic small vessel disease.? Patient case and management discussed with Dr. Plummer ?? Aureliano Cade, DO Internal Medicine, PGY3 ? 35 minutes spent on discharge * Elian MELENDREZ, Pool Huitron: PERFORM Event Display: Discharge/Transfer Note Hospital Authored Date: [id number] Attending Attestation:??I have seen and evaluated this patient. ??I have discussed the case and itsmanagement with the resident and agree with the findings and plan as documented in the resident???snote. ? This patient was seen today by me at??11:42 AM. ? The patient was seen with his in attendance. Continues to do very well mentally. ??He is awake alert interactive conversant.?? He still having some mild visual hallucinations but he does still have the insight to realize that they are not really??present??and this keeps him calm.?? This is really unchanged today 10/20/2022. ?? Very thorough and detailed geriatrics consultation was performed yesterday.?? His is very happy with that evaluation as she and her at??plenty of time to express what it happened and learned a lot from the process. ?? He is also to go today to rehab. ??His is happy with that as well. ? Eating well today Happy with improvement thus far. ?? His had a number of questions which I answered for her??and I think were all set now.? She did also produce a bottle from home of a sleep aid that he is not taking.?? He was actually diphenhydramine.?? The advisory application developer had advised her to bring it in so we could look at it and advised her.?? In keeping with the geriatrics recommendations the plan was for her to no longer have them take that ever.?? She can just throw it away unless she wants to keep it for other purposes. ? On exam: Patient is still doing pretty well today.. ??He is wide awake alert. ??We had a good conversation that was normal and fluent. He was in great spirits making jokes. ? Vital signs are stable??with temperature 97.7 pulse 67 respiratory rate 17??blood pressure 119 [id number]% saturated appropriate. Awake and alert see above. ?? See other exam findings above. Laboratory studies done yesterday afternoon were all good. ??A1c hemoglobin 6.2??sodium was now normal at 142. ?? Blood sugars remain quite good.?? 84-1 24. ? Assessment and plan: This patient has history of hypertension may be a TIA in the past diabetes complicated migraines presenting with what sounds of a elaina tommy seizure. However he had had been having headaches and some altered symptoms lately both before and after the seizure. As things are emerging it looks like he probably has some baseline dementia going back at least 6 months. ??Now he seems to be in the throes of hospital delirium also contributed to by the multiple other issues that have been going on of late. We will be continuing the VPA. ??We will be discussing further with neurology and with geriatrics. ?? Neuro follow-up ongoing. ??Lyme antibody was negative.?? Continuing other therapies. ? As needed Seroquel for the moment.?? This may be helping some. ?? Continuing VPA for seizures. ? Work on controlling other risk factors. ?? No aspirin for now given the microhemorrhages. ?? All of the above are pretty much unchanged.?? Geriatric recommendations will be taken to account. ??As needed Seroquel to continue going forward. Okay and stable and ready for discharge to rehab today. ? Please see above for the rest of the details of our assessments and plans. ? * Maureen Ibrahim RN: PERFORM, SIGN, VERIFY Event Display: Case Management Discharge Plan Authored Date: [id number] Patient: POOL BURGESS Age: 72 years Sex: Male : 1950 Associated Diagnoses: None Author: Maureen Ibrahim RN Discharge Plan Case Management Discharge Plan : Case Management Discharge Plan Data 10/20/2022 15:26 EDT Discharge Level of Care at Discharge long term facility Discharge Nursing Homes/Rehab Facilities [facility] Discharge Transportation Arranged [facility] [address] [facility] [phone] Discharge Arranged Transport Date/Time 10/20/2022 15:00 Mode of Transportation Arranged Ambulance Name of Agency #1 [facility] Service Categories #1 Occupational Therapy, Physical Therapy, Long-Term Service Comments #1 An ambulance has been arranged through [facility] to transfer patient to [facility] today @ 3pm Name of Person Notified of Transfer Patient and 10/14/2022 17:07 EDT Discharge Level of Care at Discharge Short-term Acute Inpatient * Latricia Leary RN: PERFORM Event Display: Patient Education/Instruction Authored Date: [id number] Inpatient Adult Discharge Instructions [address] [address] Name: POOL BURGESS : 1950 Visit: 10/14/2022 17:41:00 Current Date: 10/20/2022 14:04 Account: [id number] Inpatient Adult Discharge Instructions We would like to thank you for allowing us to assist you with your healthcare needs. The following includes patient education materials and information regarding your injury/illness. Our entire staffstrives to provide an excellent experience for our patients and their families. PLEASE ENSURE YOU FOLLOW-UP PER THE INSTRUCTIONS BELOW! ?? YOUR OPINION IS IMPORTANT TO US! Please complete the survey you may receive by mail or email. Your feedback will be used to make improvements to the healthcare experiences of our patients and their families. Surveys are administered by [employer]. ?? If further treatment with your primary care physician or another doctor is recommended, it is important for you to keep the appointment. Call your primary care physician or return to the Emergency Department immediately if your condition worsens, fails to improve, or new symptoms develop. If you need to find a doctor, you can call [facility] for a referral at [phone] or toll free at [phone] or log in to [email or web address].. ?? You can view and manage your care through the patient portal or by using a health care ivonne of your choosing. [employer] is a website that allows you to securely view your medical information including your hospital discharge summary, office visit summaries, medications and follow-up visits. You can also request appointments, renew medications, and request access to your medical information using a health care ivonne of your choosing, or just ask a question. You can enroll at [email or web address] or register during your next office visit. You have been discharged from [facility], Patient Care Unit: S3. If you have any questions regarding these instructions after you leave, please call us and we will be happy to assist you. [facility] Your Care Team Attending Physician Elian MELENDREZ, Pool Huitron Consulting Providers Eliseo MELENDREZ, Jair Holder Discharging Providers Aureliano Cade DO Reason for Admission SEIZURES Your Diagnosis Confusion Tests Performed Below is a partial list of the tests performed during your hospitalization. You may have had other tests and procedures not included in this list. Please discuss all test results with your provider. B12 Vitamin Level Basic Metabolic Panel CBC Comprehensive Metabolic Panel Folate Level GLUCOSE POC Hemoglobin A1c, (Diagnostic) Lyme Disease Ab Screen Mg Level PCP Urine with Confirmation Syphilis Testing formerly ordered as RPR Urine Amphetamine Screen Urine Barbiturate Screen Urine Benzodiazepine Screen Urine Cannabinoid Screen Urine Cocaine Screen Urine Opiate Screen Urine Oxycodone Screen Primary Care Provider Yunier Garcia DO Advance Directive Health Care Proxy on File Yes - Health Care Proxy Yes - MOLST Discharge Vitals Temperature: 98.2 DegF Height: 183 cm Pulse Rate: 73 bpm Weight: 114 kg Respiratory Rate: 18 br/min Body Mass Index:??34.04 kg/m2??Critical Systolic Blood Pressure: 109 mm Hg Body surface area: 2.41 Diastolic Blood Pressure: 65 mm Hg ?? Oxygen Saturation:??92 %??Low ?? Studies Pending All tests and labs ordered during this hospital stay have been completed unless listed below. Please discuss all pending results with your provider listed above in these instructions. ?? Add On Lab Order COVID-19 (2019 Novel Coronavirus) PCR Thiamine Level What to do next Instructions From Your Doctor Discharge Orders Activity:??Ambulate with assistance 3 times a day unless otherwise specified Code Status:??Full Prognosis:??Fair Scheduled Follow-Up Appointments Sunday 3:30 PM EDT ?? With: Zafar Salinas MD Where: [facility] [address] [facility] 3rd Floor, [address] [place] [address]- Status: Pending Sunday 10:45 AM EDT ?? With: Yunier Garcia DO Where: [facility] [address] [place] [address]- Status: Pending Discharge Medications POOL BURGESS :1950 Visit Date:10/14/2022 Medications: Please continue your medications until treatment is completed or stopped by your provider. Medications not listed below should be discontinued. Discuss any questions related to medications with your provider. What How Much When Instructions Next Dose New Divalproex Sodium (divalproex sodium 500 mg oral enteric coated tablet) 500 Milligram Oral 3 times a day 6/9 PM New Docusate-Senna (Docusate/ Senna Tablet) 1 tab(s) Oral Twice a day 6/9 PM New Melatonin (melatonin 3 mg oral tablet) 3 Milligram Oral Daily at Bedtime as needed for Insomnia as needed New Quetiapine (SEROquel 25 mg oral tablet) 1 tab(s) Oral Daily at supper 10/20 at supper New Quetiapine (SEROquel 25 mg oral tablet) 1 tab(s) Oral Twice a day as needed for Agitation as needed New Thiamine (thiamine 100 mg oral tablet) 1 tab(s) Oral Daily 610 AM Changed Insulin Glargine (Lantus Inj) 20 unit(s) Subcutaneous Injection Daily at Bedtime 10/20 bedtime Changed dulaglutide (Trulicity Pen 1.5 mg/ 0.5 mL subcutaneous solution) 1.5 Milligram Subcutaneous Injection Every 7 days weekly Unchanged Atorvastatin (atorvastatin 40 mg oral tablet) 1 tab(s) Oral Daily 10/21 AM Unchanged Cyanocobalamin (Vitamin B-12 5000 mcg sublingual tablet) 1 tab(s) Daily 10 AM Unchanged Finasteride 5 Milligram Oral Daily 10 AM Unchanged Lisinopril (lisinopril 20 mg oral tablet) 1 tab(s) Oral Daily 10 AM Unchanged Metformin (MetFORMIN (Eqv-Glucophage XR) 500 mg oral tablet, extended release) 4 tab(s) Oral Daily 10 AM Unchanged Metoprolol (metoprolol 25 mg oral tablet, extended release) 1 tab(s) Oral Daily 10 AM Unchanged Terazosin (terazosin 2 mg oral capsule) TAKE 1 CAPSULE BY MOUTH AT BEDTIME ?? 10/20 bedtime ?? What How Much When Comments Stop Taking Aspirin (Aspirin Low Dose 81 mg oral delayed release tablet) See instructions TAKE 1 TABLET BY MOUTH EVERY DAY ?? Stop Taking Clopidogrel (Plavix 75 mg oral tablet) 1 tab(s) Oral Daily Stop Taking Potassium Citrate Oral Test Results Below is a partial list of the most recent Laboratory test results done prior to this discharge. You may have had other tests and procedures not included in this list. Please discuss all test resultswith your provider. Est Creatinine Clearance - 66.72 mL/min (10/19/2022) B12 Vitamin Level (10/16/2022) ???Vitamin B12 Level - 766 pg/mL Basic Metabolic Panel (10/17/2022) ???Sodium - 146 mmol/L???Potassium - 3.7 mmol/L???Chloride - 106 mmol/L???Bicarbonate Level - 30 mmol/L???Anion Gap - 10???Glucose Level - 106 mg/dL???BUN - 14 mg/dL???Creatinine-Blood - 1.0 mg/dL???Estimated GFR Creatinine - 80 ML/MIN/1.73 M2???Calcium - 9.6 mg/dL CBC (10/19/2022) ???WBC - 5.8 k/mm3???RBC - 4.88 m/mm3???Hgb - 15.2 Gm/dL???Hct - 46.5 %???MCV - 95.3 femtoliters???MCH - 31.1 pg???MCHC - 32.7 g/dL???Platelet Count - 164 k/mm3???RDW-SD - 47.3 femtoliters???MPV - 12.2 femtoliters???Nucleated RBC (Automated) - 0.0 #/100 WBC'S???Abs. NRBC - 0.0 k/mm3 Comprehensive Metabolic Panel (10/19/2022) ???Sodium - 142 mmol/L???Potassium - 4.2 mmol/L???Chloride - 104 mmol/L???Bicarbonate Level - 27 mmol/L???Anion Gap - 11???Glucose Level - 86 mg/dL???BUN - 27 mg/dL???Creatinine-Blood - 1.1 mg/dL???Estimated GFR Creatinine - 72 ML/MIN/1.73 M2???Calcium - 10.0 mg/dL???Protein, Total - 6.5 Gm/dL???Alb umin - 4.1 Gm/dL???AG Ratio - 1.7???Alkaline Phosphatase - 85 units/L???AST (SGOT) - 16 units/L???ALT (SGPT) - 14 units/L???Bilirubin, Total - 1.3 mg/dL Folate Level (10/16/2022) ???Folic Acid Level - 7.5 ng/mL GLUCOSE POC (10/20/2022) ???Glucose, POC - 119 mg/dL Hemoglobin A1c, (Diagnostic) (10/19/2022) ???Hemoglobin A1C (Monitoring) - 6.2 % Lyme Disease Ab Screen (10/17/2022) ???Lyme Disease Ab Screen - NEGATIVE Mg Level (10/19/2022) ???Magnesium - 2.1 mg/dL PCP Urine with Confirmation (10/15/2022) ???PCP Screen, Urine - NONE DETECTED Syphilis Testing formerly ordered as RPR (10/15/2022) ???Syphilis Interpretation - Indicative of the absence of infection with Treponemal pallidum. Test???Syphilis Screen by KEHINDE - NEGATIVE???RPR Titer Result - NOT INDICATED???TP-PA Result - NOT INDICATED Urine Amphetamine Screen (10/15/2022) ???Amphetamine Screen, Urine - NONE DETECTED Urine Barbiturate Screen (10/15/2022) ???Barbiturate Screen, Urine - NONE DETECTED Urine Benzodiazepine Screen (10/15/2022) ???Benzodiazepine Screen, Urine - POSITIVE Urine Cannabinoid Screen (10/15/2022) ???Cannabinoid Screen, Urine - NONE DETECTED Urine Cocaine Screen (10/15/2022) ???Cocaine Metabolite Screen, Urine - NONE DETECTED Urine Opiate Screen (10/15/2022) ???Opiate Screen, Urine - NONE DETECTED Urine Oxycodone Screen (10/15/2022) ???Oxycodone Screen, Urine - NONE DETECTED Allergies (NKA means No Known Allergies) NKA Problems Active Problems??(22) Aneurysm of ascending aorta?? Apnea, sleep?? Atherosclerosis of aorta?? Benign essential hypertension?? Bicuspid aortic valve?? Chronic edema?? 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 Cyst of kidney?? DM2 (diabetes mellitus, type 2)?? Dyspnea?? H/O: TIA?? Headache?? Hearing loss?? HTN (hypertension)?? Hyperlipidemia?? Insulin-treated type 2 diabetes mellitus?? Migraine?? Obese class I?? Obstructive sleep apnea syndrome?? Raised prostate specific antigen?? Type 2 diabetes mellitus with nephropathy?? Vitamin D deficiency?? Education Materials Below is the list of Educational Leaflet Providered with your Discharge Instructions. Valuables and Belongings I fully understand and agree that [facility] accepts no responsibility for all my personal property including clothing, toilet articles, radios, jewelry, dentures, hearing aids, rings, money, or any other property that is in my possession or is brought to me after admission. I understand certain valuables may be placed in a hospital safe for a short period of time. I understand that the hospital is not liable for loss or damage due to accident, fire, or other natural occurrence while said property is in the safe. I accept full responsibility for any personal property that I keep with me, and will not hold the hospital responsible in case of loss or disappearance. I acknowledge that i have been encouraged to send valuables and belongings home. ?? No Valuables/Belongings: No valuables/belongings present Date for Pt to Sign Valuables/Belongings: 10/20/22 13:23:00 ?? Other Discharge Information ? Pulmonary Rehab Status?? Pulmonary Rehab Discharge Status?? Respiratory Rate: 18 br/min ? Common Emergency Awareness Tips IS IT A STROKE? Act FAST and Check for these signs: FACE Does the face look uneven? ARM Does one arm drift down? SPEECH Does their speech sound strange? TIME Call at any sign of stroke ?? Heart Attack Signs Chest discomfort: Most heart attacks involve discomfort in the center of the chest and lasts more than a few minutes, or goes away and comes back. It can feel like uncomfortable pressure, squeezing, fullness or pain. Discomfort in upper body: Symptoms can include pain or discomfort in one or both arms, back, neck, jaw or stomach. Shortness of breath: With or without discomfort. Other signs: Breaking out in a cold sweat, nausea, or lightheaded. Remember, MINUTES DO MATTER. If you experience any of these heart attack warning signs, call to get immediate medical attention! ?? Smoking can increase your chances of developing chronic health problems and can cause harmful effects to other family members in your house. If you smoke, you are strongly encouraged to quit. Please call [facility] at [phone] or 6-109-691-Fit Steps (0017) or log in to [email or web address] for referrals to smoking cessation programs. ?? 487 Suicide & Crisis Lifeline is available 04/12 if you or someone you know needs to find a reason to keep living. By calling 782 you'll be connected to a skilled, trained counselor at a crisis center in your area. INPATIENT DISCHARGE INSTRUCTIONS SIGNATURE PAGE POOL BURGESS Location:[facility] Registration Date and Time:10/14/2022 17:41 EDT Primary Care Physician: Yunier Garcia DO, Attending Physician: Pool Plummer MD, I POOL BURGESS, have received the above patient education materials/instructions and have verbalized understanding. If ambulance or transport services are being used I further acknowledge being given a choice of service. ?? If you need to contact me, please call me at this number: . Patient/Transonic Engineer Name: Patient/Transonic Engineer Signature: Relationship to Patient: Witness Name/Signature: Date: Patient Care team information Care Team Personnel Name: Mary Dumas RN Position: [facility] Supv Member Role: Primary Care Nurse Name: Denise Lu RN Position: [facility] RN Member Role: Primary Care Nurse Name: Rosanne Beyer RN Position: [facility] RN Member Role: Primary Care Nurse Name: Evelyn Shay RN Position: [facility] RN Supv Member Role: Primary Care Nurse Name: Arely Deleon RN Position: [facility] RN Member Role: Primary Care Nurse Name: Yunier Garcia DO Position: [facility] Physician - Primary Care Member Role: PCP Address: Address: [address] [place] [id number] Name: Mariola Becker RN Position: [facility] RN Member Role: Primary Care Nurse Name: Tl Harris RN Position: [facility] RN Member Role: Primary Care Nurse Name: Gabriela Knowles RN Position: [facility] Shaker Tender Member Role: Primary Care Nurse Name: Essence Connor RN Position: [facility] RN Member Role: Primary Care Nurse Care Team Related Persons Name: LINN BURGESS Address: home [address] [place] [address] Name: CAITLYN BURGESS Address: home [address] [place] [address]
--- OUTSIDE RECORDS SUMMARY | 2023-12-04 08:50 | XMS_ITS | Continuity of Care Document ---
Author Organization [facility] Address [address] [place] [address], [address] Floor, [address] [place] [id number]- Care Team Providers Care Fish Hatchery Laborer Name Role Phone Yunier Garcia DO Primary Care Physician Encounter [facility] Date(s): 10/13/22 - 11/12/22 [facility] [address], [address] Floor, [address] [place] [address] Allergies, Adverse Reactions, Alerts No Known [...] 1 Refills, Maintenance, 11/06/22 18:41:00 EDT, [id number], 183, cm, 10/20/22 13:23:00 EDT, Height, 114, [...] 5 Refills, Maintenance, 11/08/22 16:26:00 EDT, Tablet, [facility]/pharmacy #[id number], Partial fill upon patient request if [...] 11/07/22 10:40:00 EDT, Route to Pharmacy Electronically, [facility]/pharmacy #[id number], 183, cm, 11/07/22 10:33:00 EDT, Height, [...] Refills, Maintenance, 02/17/22 10:20:00 EDT, [id number], 183, cm, 12/09/21 11:56:00 EDT, Height, 118.8, kg, 11/09/21 7:05:00 EDT, Dry Weight Start Date: 02/17/22 Status: Ordered metoprolol 25 mg oral tablet, extended release 25 mg, 1, tablet, By Mouth, Daily, # 90 tablet, Refills 0, Tot. Refills 0, Maintenance, 11/07/22 10:41:00 EDT, Route to Pharmacy Electronically, [facility]/pharmacy #[id number], Partial fill upon patient request if [...] mL, 6 Refills, 05/16/22 9:37:00 EST, [facility]/pharmacy #[id number], 183, cm, 04/29/22 11:35:00 EST, Height, [...] 1[facility] 2L leg 3Dr. Dixon 4endo-[facility] Social History Social History Type Response Smoking Status Never (less than 100 in lifetime) entered on: 08/17/18 Sex Patient Care team information Care Team Personnel Name: Mary Dumas RN Position: [facility] RN Supv Member Role: Primary Care Nurse Name: Denise Lu RN Position: [facility] RN Member Role: Primary Care Nurse Name: Rosanne Beyer RN Position: [facility] RN Member Role: Primary Care Nurse Name: Evelyn Shay RN Position: [facility] RN Supv Member Role: Primary Care Nurse Name: Arely Deleon RN Position: [facility] RN Member Role: Primary Care Nurse Name: Yunier Garcia DO Position: [facility] Physician - Primary Care Member Role: PCP Address: Address: [address] [place] [address] [place] [address]- Name: Mariola Becker RN Position: [facility] RN Member Role: Primary Care Nurse Name: Tl Harris RN Position: [facility] RN Member Role: Primary Care Nurse Name: Gabriela Knowles RN Position: [facility] Hospital M1 Armor Crewman Member Role: Primary Care Nurse Name: Essence Connor RN Position: [facility] RN Member Role: Primary Care Nurse Care Team Related Persons Name: LINN BURGESS Address: home [address] [place] [address] Name: CAITLYN BURGESS Address: [address] [address]
--- OUTSIDE RECORDS SUMMARY | 2023-12-04 08:50 | XMS_ITS | Continuity of Care Document ---
Author Organization [facility] ter Address [address] [place] [address]- Care Team Providers Care Didactic Instructor Name Role Phone Jose CRANDALL Yunier Miroslava Primary Care Physician Encounter [facility] Date(s): 09/21/21 - 09/21/[address] [address] Discharge Disposition: A-D/C Home Attending Physician: Larry Tafoya MD Admitting Physician: Larry Tafoya MD Referring Physician: Larry Tafoya MD Allergies, Adverse [...] Maintenance, 03/30/21 9:33:00 EST, EC Tablet, [id number], Partial fill upon patient request if the prescription is for a schedule IIopioid drug., 186, cm, 03/30/21 8:55:00 EST, Height... Start Date: 03/30/21 Status: Ordered atorvastatin 40 mg oral tablet 1 tablet, By Mouth, Daily, # 90 tablet, 1 Refills, Maintenance, 05/02/21 14:23:00 EST, [facility]/pharmacy#[id number], 186, cm, 04/14/21 12:03:00 EST, Height, 109, [...] mL, 11 Refills, Maintenance, 01/10/2111:08:00 EDT, Solution, [facility]/pharmacy #[id number], 183, cm, 01/10/21 10:33:00 EDT, Height, 117.9, kg, 12/23/20 14:08:00 EDT, Dry Weight Start Date: 01/10/21 Status: Ordered lisinopril 20 mg oral tablet 20 mg, 1, tablet, By Mouth, Daily, # 90 tablet, Refills 1, Tot. Refills 1, Soft Stop, 06/17/21 13:00:00 EST, Route to Pharmacy Electronically, [facility]/pharmacy #[id number], 186, cm, 04/14/21 12:03:00 EST, Height, 109, kg, 04/14/21 11:56:00 EST, Dry Weight Start Date: 06/17/21 Status: Ordered metFORMIN 500 mg oral tablet, extended release 4 tablet = 2,000 mg, By Mouth, Daily, # 360 tablet, 3 Refills, Maintenance, 01/10/21 11:09:00 EDT, [facility]/pharmacy #[id number], 183, cm, 01/10/21 10:33:00 EDT, Height, [...] 05/02/21 Stop Date: 10/29/21 Status: Ordered Pen [place], 32 G x 4 mm BD Ultra [...] 6.5 mL, 1 Refills, 08/04/21 15:45:00 EDT, [facility]/pharmacy #[id number], 186, cm, 04/14/21 12:03:00 EST, Height, [...] 3 Active 1[facility] 2L leg 3[facility] Most recent to oldest [Reference Range]: 1 2 3 Height 184 cm (09/21/21 6:45 AM) 184 cm (09/21/21 6:45 AM) Weight 117.6 kg (09/21/21 6:45 AM) 117.6 kg (09/21/21 6:45 AM) Oxygen Saturation [94-100 %] 93 % *L* (09/21/21 3:00 PM) 94 % (09/21/21 2:30 PM) 95 % (09/21/21 2:00 PM) Pulse Rate [55-90 bpm] 76 bpm (09/21/21 6:45 AM) Body Mass Index [18.5-24.99] 34.74 *>HHI* (09/21/21 6:45 AM) Blood Pressure [90-138/55-84 mm Hg] 142/82mm Hg *H* (09/21/21 3:00 PM) 136/77mm Hg (09/21/21 2:30 PM) 145/90mm Hg *H* (09/21/21 2:00 PM) Respiratory Rate [16-30 br/min] 25 br/min (09/21/21 3:00 PM) 29 br/min (09/21/21 2:30 PM) 22 br/min (09/21/21 2:00 PM) Temperature [96.8-100.4 DegF] 97 DegF (09/21/21 6:45 AM) Mode of Delivery (Oxygen) Room air (09/21/21 3:00 PM) Room air (09/21/21 2:30 PM) Room air (09/21/21 2:00 PM) Blood pressure sites Arm, left (09/21/21 3:00 PM) Arm, left (09/21/21 2:30 PM) Arm, left (09/21/21 2:00 PM) Temperature Route Temporal (09/21/21 6:45 AM) Dry Weight 117.6 kg (09/21/21 6:45 AM) 117.6 kg (09/21/21 6:45 AM) Weight Obtained Via Standing scale (09/21/21 6:45 AM) Standing scale (09/21/21 6:45 AM) Dry Weight Obtained Via Standing scale (09/21/21 6:45 AM) Standing scale (09/21/21 6:45 AM) Social History Social History Type Response Smoking Status Never (less than 100 in lifetime) entered on: 08/17/18 Sex
--- OUTSIDE RECORDS SUMMARY | 2023-12-04 08:50 | XMS_ITS | Continuity of Care Document ---
Author Organization [facility] Address [address] [place] [phone]- Care Team Providers Care Quarry Extraction Worker Name Role Phone Garcia Yunier CRANDALL Primary Care Physician Encounter [facility] [place] Date(s): 08/15/21 - 09/14/21 [facility] [address] [place] [phone]- [place] Allergies, Adverse Reactions, Alerts No Known [...] Refills, Maintenance, 03/30/21 9:33:00 EST, EC Tablet, [facility]/pharmacy #[id number], Partial fill upon patient request if the prescription is for a schedule IIopioid drug., 186, cm, 03/30/21 8:55:00 EST, Height... Start Date: 03/30/21 Status: Ordered atorvastatin 40 mg oral tablet 1 tablet, By Mouth, Daily, # 90 tablet, 1 Refills, Maintenance, 05/02/21 14:23:00 EST, [facility]/pharmacy#[id number], 186, cm, 04/14/21 12:03:00 EST, Height, [...] mL, 11 Refills, Maintenance, 01/10/2111:08:00 EDT, Solution, [facility]/pharmacy #[id number], 183, cm, 01/10/21 10:33:00 EDT, Height, 117.9, kg, 12/23/20 14:08:00 EDT, Dry Weight Start Date: 01/10/21 Status: Ordered Linzess 145 mcg oral capsule 1 capsule = 145 mcg, By Mouth, Daily, # 30 capsule, 3 Refills, Maintenance, 02/04/21 13:06:00 EDT, Capsule, [facility]/pharmacy #[id number], Partial fill upon patient request if the prescription is for a scheduleII opioid drug., 183, cm, 01/25/21 8:55:00 EDT, Hei... Start Date: 02/04/21 Status: Ordered lisinopril 20 mg oral tablet 20 mg, 1, tablet, By Mouth, Daily, # 90 tablet, Refills 1, Tot. Refills 1, Soft Stop, 06/17/21 13:00:00 EST, Route to Pharmacy Electronically, [facility]/pharmacy #[id number], 186, cm, 04/14/21 12:03:00 EST, Height, 109, kg, 04/14/21 11:56:00 EST, Dry Weight Start Date: 06/17/21 Status: Ordered metFORMIN 500 mg oral tablet, extended release 4 tablet = 2,000 mg, By Mouth, Daily, # 360 tablet, 3 Refills, Maintenance, 01/10/21 11:09:00 EDT, [facility]/pharmacy #[id number], 183, cm, 01/10/21 10:33:00 EDT, [...] 05/02/21 Stop Date: 10/29/21 Status: Ordered Pen [place], 32 G x 4 mm BD [...] 6.5 mL, 1 Refills, 08/04/21 15:45:00 EDT, [facility]/pharmacy #[id number], 186, cm, 04/14/21 12:03:00 EST, [...] 2)(Confirmed) 3 Active 1[facility] 2L leg 3endo-[facility] Social History Social History Type Response Smoking Status Never (less than 100 in lifetime) entered on: 08/17/18 Sex
--- OUTSIDE RECORDS SUMMARY | 2023-12-04 08:50 | XMS_ITS | Continuity of Care Document ---
Author Organization [facility] ter Address [address] [place] [address]- Care Team Providers Care Binding Bench Worker Name Role Phone Yunier Garcia DO Primary Care Physician Encounter [facility] Date(s): 11/09/21 - 11/10/[address] [id number] Discharge Disposition: A-D/C Home Attending Physician: [...] Maintenance, 03/30/21 9:33:00 EST, EC Tablet, [id number], Partial fill upon patient request if the prescription is for a schedule IIopioid drug., 186, cm, 03/30/21 8:55:00 EST, Height... Start Date: 03/30/21 Status: Ordered atorvastatin 40 mg oral tablet 1 tablet, By Mouth, Daily, # 90 tablet, 1 Refills, Maintenance, 05/02/21 14:23:00 EST, [facility]/pharmacy#[id number], 186, cm, 04/14/21 12:03:00 EST, Height, [...] mL, 11 Refills, Maintenance, 01/10/2111:08:00 EDT, Solution, [facility]/pharmacy #[id number], 183, cm, 01/10/21 10:33:00 EDT, Height, 117.9, kg, 12/23/20 14:08:00 EDT, Dry Weight Start Date: 01/10/21 Status: Ordered lisinopril 20 mg oral tablet 20 mg, Tablet, By Mouth, 11/10/21 9:00:00 EDT Start Date: 11/10/21 Stop Date: 11/10/21 Status: Completed lisinopril 20 mg oral tablet 20 mg, 1, tablet, By Mouth, Daily, # 90 tablet, Refills 1, Tot. Refills 1, Soft Stop, 06/17/21 13:00:00 EST, Route to Pharmacy Electronically, [facility]/pharmacy #[id number], 186, cm, 04/14/21 12:03:00 EST, Height, 109, kg, 04/14/21 11:56:00 EST, Dry Weight Start Date: 06/17/21 Status: Ordered metFORMIN 500 mg oral tablet, extended release 4 tablet = 2,000 mg, By Mouth, Daily, # 360 tablet, 3 Refills, Maintenance, 01/10/21 11:09:00 EDT, [facility]/pharmacy #[id number], 183, cm, 01/10/21 10:33:00 EDT, Height, 117.9, kg, 12/23/20 14:08:00 EDT, Dry Weight Start Date: 01/10/21 Status: Ordered metoprolol 25 mg oral tablet, extended release 25 mg, 1, tablet, By Mouth, Daily, # 30 tablet, Refills 11, Tot. Refills 11, Maintenance, 11/10/21 9:21:00 EDT, Route to Pharmacy Electronically, [facility]/pharmacy #[id number], Partial fill upon patient requestif [...] 05/02/21 Stop Date: 10/29/21 Status: Ordered Pen [place], 32 G x 4 mm BD Ultra [...] 11/10/21 9:21:00 EDT, Route to Pharmacy Electronically, [facility]/pharmacy #[id number], Partial fill upon patient request [...] 2)(Confirmed) 3 Active 1[facility] 2L leg [facility] Most recent to oldest [Reference Range]: 1 2 3 Height 183 cm (11/10/21 7:41 AM) 183 cm (11/10/21 3:48 AM) 183 cm (11/09/21 11:35 PM) Weight 118.8 kg (11/09/21 7:00 AM) 118.8 kg (11/09/21 7:00 AM) Oxygen Saturation [94-100 %] 98 % (11/10/21 7:41 AM) 99 % (11/10/21 3:48 AM) 95 % (11/09/21 11:35 PM) Pulse Rate [55-90 bpm] 72 bpm (11/10/21 7:41 AM) 74 bpm (11/10/21 3:48 AM) 72 bpm (11/09/21 11:35 PM) Body Mass Index [18.5-24.99] 35.47 *>HHI* (11/09/21 7:00 AM) Blood Pressure [90-138/55-84 mm Hg] 143/83mm Hg *H* (11/10/21 8:24 AM) 143/83mm Hg *H* (11/10/21 7:41 AM) 120/79mm Hg (11/10/21 3:48 AM) Respiratory Rate [16-30 br/min] 18 br/min (11/10/21 7:41 AM) 18 br/min (11/10/21 3:48 AM) 18 br/min (11/09/21 11:35 PM) Temperature [96.8-100.4 DegF] 98.2 DegF (11/10/21 7:41 AM) 97.3 DegF (11/10/21 3:48 AM) 97.4 DegF (11/09/21 11:35 PM) Mode of Delivery (Oxygen) Room air (11/10/21 7:41 AM) CPAP (11/10/21 3:48 AM) CPAP (11/09/21 11:35 PM) Blood pressure sites Arm, left (11/10/21 7:41 AM) Arm, left (11/10/21 3:48 AM) Arm, left (11/09/21 11:35 PM) Temperature Route Oral (11/10/21 7:41 AM) Axillary (11/10/21 3:48 AM) Axillary (11/09/21 11:35 PM) Dry Weight 118.8 kg (11/09/21 7:00 AM) 118.8 kg (11/09/21 7:00 AM) Weight Obtained Via Standing scale (11/09/21 7:00 AM) Standing scale (11/09/21 7:00 AM) Dry Weight Obtained Via Standing scale (11/09/21 7:00 AM) Standing scale (11/09/21 7:00 AM) Social History Social History Type Response Smoking Status Never (less than 100 in lifetime) entered on: 08/17/18 Sex
--- OUTSIDE RECORDS SUMMARY | 2023-12-04 08:50 | XMS_ITS | Continuity of Care Document ---
Author Organization [facility] Address [address] [place] [address]- Care Team Providers Care Sanitarian Aide Name Role Phone Garcia Yunier CRANDALL Primary Care Physician Encounter [facility] [place] Date(s): 04/21/21 - 05/21/21 [facility] [address] [place] [phone]- [place] Allergies, Adverse Reactions, Alerts Substance Reaction [...] Refills, Maintenance, 03/30/21 9:33:00 EST, EC Tablet, [facility]/pharmacy #[id number], Partial fill [...] 10:17:00 EDT, Route to Pharmacy Electronically, [facility], 182.88, cm, 09/16/20 8:26:00 EDT, [...] 2)(Confirmed) 3 Active 1[facility] 2L leg 3endo-[facility] Social History Social History Type Response Smoking Status Never (less than 100 in lifetime) entered on: 08/17/18 Sex
--- OUTSIDE RECORDS SUMMARY | 2023-12-04 08:50 | XMS_ITS | Continuity of Care Document ---
Author Organization [facility] ter Address [address] [place] [address]- Care Team Providers Care Abstract Maker Name Role Phone Jose Yunier CRANDALL Primary Care Physician [place] [facility] [place] Date(s): 02/27/21 - 04/08/[address] [address] Attending Physician: Vera Camacho NP Admitting Physician: Vera Camacho NP Referring Physician: Vera Camacho NP Allergies, Adverse Reactions, Alerts Substance Reaction Severity [...] Maintenance, 03/30/21 9:33:00 EST, EC Tablet, [facility]/pharmacy #[id number], Partial fill upon patient [...] mL, 11 Refills, Maintenance, 01/10/2111:08:00 EDT, Solution, [facility]/pharmacy #[id number], 183, cm, 01/10/21 10:33:00 [...] 2)(Confirmed) 3 Active 1[facility] 2L leg 3endo-[facility] Social History Social History Type Response Smoking Status Never (less than 100 in lifetime) entered on: 08/17/18 Sex
--- OUTSIDE RECORDS SUMMARY | 2023-12-04 08:50 | XMS_ITS | Continuity of Care Document ---
Author Organization [facility] Address [address] [place] [address]- Care Team Providers Care Ux Researcher Name Role Phone Yunier Garcia DO Miroslava Primary Care Physician [place] [facility] [place] 06[place]23[place]22 - 07/23/22 [facility] [address] [place] [address]- [place] Allergies, Adverse Reactions, Alerts No Known [...] tablet, 3 Refills, Maintenance, 04/10/22 7:55:00 EST, [id number], 183, cm, 02/20/22 9:57:00 EDT, Height, 118.8, kg, 11/09/21 7:05:00 EDT,Dry Weight Start Date: 04/10/22 Status: Ordered Aspirin Low Dose 81 mg oral delayed release tablet 1 tablet = 81 mg, By Mouth, Daily, # 90 tablet, 3 Refills, Maintenance, 03/30/21 9:33:00 EST, EC Tablet, [facility]/pharmacy #[id number], Partial fill upon patient request if the prescription is for a schedule IIopioid drug., 186, cm, 03/30/21 8:55:00 EST, Height... Start Date: 03/30/21 Status: Ordered atorvastatin 40 mg oral tablet 1 tablet, By Mouth, Daily, # 90 tablet, 1 Refills, 05/09/22 12:43:00 EST, [id number], 183, cm, 04/29/22 11:35:00 [...] 11 Refills, Maintenance, 12/08/2211:14:00 EDT, Solution, [facility]/pharmacy #[id number], 183, cm, 11/24/21 13:34:00 EDT, Height, 118.8, kg, 11/09/21 7:05:00 EDT, Dry Weight Start Date: 12/07/21 Status: Ordered lisinopril 20 mg oral tablet 20 mg, 1, tablet, By Mouth, Daily, # 90 tablet, Refills 1, Tot. Refills 1, Soft Stop, 06/15/22 14:05:00 EST, Route to Pharmacy Electronically, [facility]/pharmacy #[id number], 183, cm, 04/29/22 11:35:00 EST, Height, 120, kg, 04/29/22 11:35:00 EST, Dry Weight Start Date: 06/15/22 Status: Ordered MetFORMIN (Eqv-Glucophage XR) 500 mg oral tablet, extended release 4 tablet, By Mouth, Daily, # 360 tablet, 3 Refills, Maintenance, 02/17/22 10:20:00 EDT, [facility] [id number], 183, cm, 12/09/21 11:56:00 EDT, Height, 118.8, kg, 11/09/21 7:05:00 EDT, Dry Weight Start Date: 02/17/22 Status: Ordered metoprolol 25 mg oral tablet, extended release 25 mg, 1, tablet, By Mouth, Daily, # 30 tablet, Refills 11, Tot. Refills 11, Maintenance, 11/10/21 9:21:00 EDT, Route to Pharmacy Electronically, [facility]/pharmacy #[id number], Partial fill upon patient requestif [...] 07/21/22 Stop Date: 01/17/23 Status: Ordered Pen [place], 32 G x 4 mm BD Ultra [...] 9:21:00 EDT, Route to Pharmacy Electronically, [facility]/pharmacy #[id number], Partial fill upon patient request [...] nephropathy Confirmed Active 1[facility] 2L leg 3endo-[facility] Social History Social History Type Response Smoking Status Never (less than 100 in lifetime) entered on: 08/17/18 Sex Patient Care team information Care Team Personnel Name: Denise Lu RN Position: [facility] RN Member Role: Primary Care Nurse Name: Rosanne Beyer RN Position: [facility] RN Member Role: Primary Care Nurse Name: Yunier Garcia DO Position: [facility] Primary Care Physician Member Role: PCP Address: Address: [address] [place] [address] [place] [address]- Name: Mariola Becker RN Position: [facility] RN Member Role: Primary Care Nurse Name: Tl Harris RN Position: [facility] RN Member Role: Primary Care Nurse Name: Gabriela Knowles RN Position: [facility] Hospital Emergency Medicine Nurse Practitioner Member Role: Primary Care Nurse Name: Essence Connor RN Position: [facility] RN Member Role: Primary Care Nurse Care Team Related Persons Name: CAITLYN BURGESS Address: home [address] [place] [address]
--- OUTSIDE RECORDS SUMMARY | 2023-12-04 08:50 | XMS_ITS | Continuity of Care Document ---
Author Organization [facility] Address [address] [place] [address]- Care Team Providers Care Sound Assistant Name Role Phone Yunier Garcia DO Primary Care Physician [place] [facility] [place]/10[place] - 09/07/22 [facility] [address] [place] [id number] Attending Physician: Tex ABDUL, Nayana Virk Admitting Physician: Tex ABDUL, Nayana Virk Referring Physician: Yunier Garcia DO Allergies, Adverse [...] tablet, 3 Refills, Maintenance, 04/10/22 7:55:00 EST, [facility] [id number], 183, cm, 02/20/22 9:57:00 EDT, Height, 118.8, kg, 11/09/21 7:05:00 EDT,Dry Weight Start Date: 04/10/22 Status: Ordered Aspirin Low Dose 81 mg oral delayed release tablet 1 tablet = 81 mg, By Mouth, Daily, # 90 tablet, 3 Refills, Maintenance, 03/30/21 9:33:00 EST, EC Tablet, [facility]/pharmacy #[id number], Partial fill upon patient request if the prescription is for a schedule IIopioid drug., 186, cm, 03/30/21 8:55:00 EST, Height... Start Date: 03/30/21 Status: Ordered atorvastatin 40 mg oral tablet 1 tablet, By Mouth, Daily, # 90 tablet, 1 Refills, 05/09/22 12:43:00 EST, [facility]/pharmacy #[id number], 183, cm, 04/29/22 11:35:00 EST, Height, [...] mL, 11 Refills, Maintenance, 12/08/2211:14:00 EDT, Solution, [facility]/pharmacy #[id number], 183, cm, 11/24/21 13:34:00 EDT, Height, 118.8, kg, 11/09/21 7:05:00 EDT, Dry Weight Start Date: 12/07/21 Status: Ordered lisinopril 20 mg oral tablet 20 mg, 1, tablet, By Mouth, Daily, # 90 tablet, Refills 1, Tot. Refills 1, Soft Stop, 06/15/22 14:05:00 EST, Route to Pharmacy Electronically, [facility]/pharmacy #[id number], 183, cm, 04/29/22 11:35:00 EST, Height, 120, kg, 04/29/22 11:35:00 EST, Dry Weight Start Date: 06/15/22 Status: Ordered MetFORMIN (Eqv-Glucophage XR) 500 mg oral tablet, extended release 4 tablet, By Mouth, Daily, # 360 tablet, 3 Refills, Maintenance, 02/17/22 10:20:00 EDT, [facility], 183, cm, 12/09/21 11:56:00 EDT, Height, 118.8, kg, 11/09/21 7:05:00 EDT, Dry Weight Start Date: 02/17/22 Status: Ordered metoprolol 25 mg oral tablet, extended release 25 mg, 1, tablet, By Mouth, Daily, # 30 tablet, Refills 11, Tot. Refills 11, Maintenance, 11/10/21 9:21:00 EDT, Route to Pharmacy Electronically, [facility]/pharmacy #[id number], Partial fill upon patient requestif the [...] 07/21/22 Stop Date: 01/17/23 Status: Ordered Pen [place], 32 G x 4 mm BD Ultra [...] 11/10/21 9:21:00 EDT, Route to Pharmacy Electronically, [facility]/pharmacy #[id number], Partial fill [...] 2 mL, 6 Refills, 05/16/22 9:37:00 EST, [facility]/pharmacy #[id number], 183, cm, 04/29/22 11:35:00 EST, Height, [...] Active 1[facility] 2L leg 3Dr. Dixon 4endo-[facility] Social History Social History Type Response Smoking Status Never (less than 100 in lifetime) entered on: 08/17/18 Sex Patient Care team information Care Team Personnel Name: Denise Lu RN Position: [facility] RN Member Role: Primary Care Nurse Name: Rosanne Beyer RN Position: S RN Member Role: Primary Care Nurse Name: Yunier Garcia DO Position: [facility] Primary Care Physician Member Role: PCP Address: Address: [address] [place] [address] [place] [address]- Name: Mariola Becker RN Position: S RN Member Role: Primary Care Nurse Name: Tl Harris RN Position: [facility] RN Member Role: Primary Care Nurse Name: Gabriela Knowles RN Position: [facility] Core Inserter Member Role: Primary Care Nurse Name: Essence Connor RN Position: [facility] RN Member Role: Primary Care Nurse Care Team Related Persons Name: CAITLYN BURGESS Address: [place] [address]
--- OUTSIDE RECORDS SUMMARY | 2023-12-04 08:50 | XMS_ITS | Continuity of Care Document ---
Author Organization [facility] Address [address] [place] [address]- Care Team Providers Care Cogeneration Operator Name Role Phone Yunier Garcia DO Primary Care Physician [place] [facility] [place](s): 04/16/20 - 05/16/20 [facility] [address] [place] [id number] Allergies, Adverse Reactions, Alerts Substance Reaction [...] 04/09/20 9:01:00 EST, Route to Pharmacy Electronically, [facility], 182.88, cm, 02/09/20 14:50:00 EDT, Height, 125.1, kg, 08/20/18 8:44:00 EDT, . Start Date: 04/09/20 Status: Ordered metFORMIN 500 mg oral tablet, extended release 4 tablet = 2,000 mg, By Mouth, Daily, # 360 tablet, 0 Refills, Maintenance, 04/09/20 9:01:00 EST, [facility], 182.88, cm, 02/09/20 14:50:00 EDT, [...] ED... Start Date: 11/11/19 Status: Ordered Pen [place], 32 G x 4 mm BD Ultra [...] 2)(Confirmed) 3 Active 1[facility] 2L leg 3endo-[facility] Social History Social History Type Response Smoking Status Never (less than 100 in lifetime) entered on: 08/17/18 Sex
== END 2023-12-04 09:40 | disposition home or self-care (01) ==
LOC: HO.HUSH 08:45
PROVIDERS: PCP Family Medicine; Visit Provider Urology
DX: N40.1 Benign prostatic hyperplasia with lower urinary tract symptoms (principal); N13.8 Other obstructive and reflux uropathy; N20.0 Calculus of kidney; R97.20 Elevated prostate specific antigen [PSA]
CPT/HCPCS: 99213

== ENCOUNTER → 2023-12-04 08:45 | Outpatient (BNVA) | payer MEDICARE, SELFPAY | PROVIDERS: PCP Family Medicine; Visit Provider Urology ==

== ENCOUNTER 2024-01-10 14:37 | Outpatient (AMB) | payer MEDICARE, SELFPAY ==
[2024-01-10 14:37] VITALS: BP 104/62; PULSE 62; O2SAT 96; BMI 36.1
--- NOTE | 2024-01-10 14:37 | HO.NEPHOV ---
Vital Signs 01/10/24 14:37 Height 6 ft Weight 266 lb BMI 36.1 BP 104/62 Blood Pressure Location Rt brachial Position Sitting Pulse 62 Pulse Source Pulse Oximeter Pulse Oximetry (%) 96 Oxygen Delivery Method Room Air Intake Visit Reasons: CKD/ conf Manager Commission Required: No Accompanied by: Spouse Allergies No Known Allergies Allergy (Verified 01/10/24 14:40) HPI Comments Details: . Ilia is a pleasant 73-year-old man with a history of diabetes mellitus, hypertension with chronic leg edema. He has a history of bicuspid aortic valve, history of aneurysm of ascending aorta, status post PFO closure in 2021. History of obstructive sleep apnea and currently uses CPAP. History of obesity. Reported right ventricular systolic pressure was 25 mm He has been referred for evaluation of chronic kidney disease. Serum creatinine bumped up to 1.4. Recent creatinine was 1.17. He has been on lisinopril 20 mg which was increased to 30 mg a day a about 6 months ago. In the past he was on metformin which caused significant diarrhea and apparently he lost about 35 lb. After discontinuing metformin the diarrhea resolved and he has gradually gained back the 35 lb. His main issue seems to be chronic leg edema. He had left leg edema for the last several years which started after he had a trauma. He underwent acupuncture which seems to have relieved initially. However the swelling has returned and he continues to have left leg edema. Recently he had a right-sided leg edema. He denies any shortness of breath on exertion. No urinary complaints. He was seen by to endovascular center recently. Liver functions have been normal. He has no significant proteinuria based on recent urine studies. He has on a regular salt diet. 11/22/2023. He is tolerating lisinopril 20 mg. Home blood pressure readings were reviewed Continues to have leg edema. No shortness of breath 01/10/24 Tolerating HCTZ Lost 2 lbs BP is low Cr at 1.39 [facility] Medical History Diabetes mellitus, type II Elevated PSA Erectile dysfunction Hyperlipidemia Sleep apnea Transient ischemic attack (TIA) Surgical History History of surgery Physical Exam Vital Signs: Last Vital Signs Pulse 62 01/10/24 14:37 BP 104/62 01/10/24 14:37 Pulse Ox 96 01/10/24 14:37 Oxygen Delivery Method Room Air 01/10/24 14:37 BMI result Body Mass Index 36.1 Const General: comfortable; No acute distress Orientation/consciousness: patient oriented x3 Eyes General: appearance normal, both eyes and all related structures Visual Morna: normal visual moran by confrontation Neck Neck: Yes supple and Yes no JVD Resp Effort & Inspection: normal respiratory effort and respiratory effort not decreased Auscultation: rhonchi Cardio Palpation: no palpable S3 and no palpable S4 Heart sounds: no rubs GI Inspection: Yes normal to inspection Palpation (GI): Soft to palpation Percussion: Yes normal to percussion Auscultation: normal bowel sounds General: Yes no CVA tenderness Back/Spine/Pelvis Back: no CVA tenderness Skin General skin exam: no petechiae and no purpura Neuro General: patient oriented x3 and no focal motor deficits Extrem General: No clubbing and Yes edema Results Reviewed Nephrology Results: Renal US 05/16/23 Assessment & Plan Assessment & Plan (1) CKD (chronic kidney disease): Code(s): N18.9 - Chronic kidney disease, unspecified Category: Medical Plan: . Ilia has mild CKD. Based on recent labs he probably has stage II CKD. He did have an episode of ALEJA with a creatinine peaking up to 1.4 mg/dL in 06/02/2023. This is probably due to hypoperfusion. Serum creatinine has returned to baseline of 1.17 with a EGFR of 66 mL/minute. He has no significant proteinuria. Recent renal ultrasonogram revealed normal-size kidneys without hydronephrosis. Goal is to slow the progression of renal disease Continue to avoid nephrotoxic agents. Avoid hypotension. DECREASE lisinopril 10 mg daily KEEP HCTZ 12.5 mg Encouraged him to keep watching his blood pressure at home. Since he has no significant proteinuria I will gradually taper the lisinopril to the lowest possible dose. This will give us room to titrate diuretic (2) Leg edema: Code(s): R60.0 - Localized edema Category: Medical Plan: . Chronic leg edema. Recent LFTs were normal. Renal function is normal without significant proteinuria. He has a history of obstructive sleep apnea and status post closure of PFO. Recent echocardiogram did not reveal elevated right heart pressures. Excessive salt intake could be contributing to the edema. Other possibility include lymphedema. I have advised him to decrease the salt intake Leg elevation at night. Orders: Orders Basic Metabolic Panel 4 Weeks N18.9 - Chronic kidney disease, unspecified Medications: Changed From lisinopril 20 mg PO DAILY 90 tabs 1RF To lisinopril 10 mg PO DAILY 90 tabs 1RF Coding Level of Care Code Est Pt Level 4 (06471) Diagnoses CKD (chronic kidney disease) N18.9 Leg edema R60.0
== END 2024-01-10 15:04 | disposition home or self-care (01) ==
PROVIDERS: PCP Family Medicine; Visit Provider Internal Medicine Hypertension Specialist
DX: N18.9 Chronic kidney disease, unspecified (principal); R60.0 Localized edema
CPT/HCPCS: 99214

== ENCOUNTER → 2024-01-10 14:37 | Outpatient (BNVA) | payer MEDICARE, SELFPAY | PROVIDERS: PCP Family Medicine; Visit Provider Internal Medicine Hypertension Specialist | DX: N18.9 Chronic kidney disease, unspecified (principal); R60.0 Localized edema | CPT/HCPCS: 99212 ==

== ENCOUNTER 2024-02-21 12:16 | Outpatient (AMB) | payer MEDICARE, SELFPAY ==
[2024-02-21 12:17] VITALS: BP 112/60; PULSE 57; O2SAT 96; BMI 36.5
--- NOTE | 2024-02-21 12:17 | HO.NEPHOV ---
Vital Signs 02/21/24 12:17 Height 6 ft Weight 269 lb BMI 36.5 BP 112/60 Blood Pressure Location Lt brachial Position Sitting Pulse 57 Pulse Source Pulse Oximeter Pulse Oximetry (%) 96 Oxygen Delivery Method Room Air Intake Visit Reasons: 6-8 wks follow up/ Conf Accompanied by: Spouse Allergies No Known Allergies Allergy (Verified 02/21/24 12:18) Medication List - Last Reconciled 02/21/24 by Naseem Wells MD acetaminophen ER (Tylenol Arthritis Pain) 650 mg PO Q12H acetaminophen-caffeine 500-65 mg (Excedrin Tension Headache) 1 tab PO Q12H PRN atorvastatin 40 mg PO DAILY blood sugar diagnostic As directed dulaglutide 1.5 mg subcut QWEEK finasteride 5 mg PO DAILY 90 days hydrochlorothiazide 12.5 mg PO DAILY insulin glargine 22 units subcut BEDTIME levetiracetam 500 mg PO BID lisinopril 10 mg PO DAILY melatonin 10 mg PO BEDTIME PRN metoprolol succinate ER 25 mg PO DAILY pen needle, diabetic As directed HPI Comments Details: . Ilia is a pleasant 73-year-old man with a history of diabetes mellitus, hypertension with chronic leg edema. He has a history of bicuspid aortic valve, history of aneurysm of ascending aorta, status post PFO closure in 2021. History of obstructive sleep apnea and currently uses CPAP. History of obesity. Reported right ventricular systolic pressure was 25 mm He has been referred for evaluation of chronic kidney disease. Serum creatinine bumped up to 1.4. Recent creatinine was 1.17. He has been on lisinopril 20 mg which was increased to 30 mg a day a about 6 months ago. In the past he was on metformin which caused significant diarrhea and apparently he lost about 35 lb. After discontinuing metformin the diarrhea resolved and he has gradually gained back the 35 lb. His main issue seems to be chronic leg edema. He had left leg edema for the last several years which started after he had a trauma. He underwent acupuncture which seems to have relieved initially. However the swelling has returned and he continues to have left leg edema. Recently he had a right-sided leg edema. He denies any shortness of breath on exertion. No urinary complaints. He was seen by to endovascular center recently. Liver functions have been normal. He has no significant proteinuria based on recent urine studies. He has on a regular salt diet. 11/22/2023. He is tolerating lisinopril 20 mg. Home blood pressure readings were reviewed Continues to have leg edema. No shortness of breath 01/10/24 Tolerating HCTZ Lost 2 lbs BP is low Cr at 1.39 02/21/24 Gained few lbs Admits to eating more Seen by vascular for leg edema [facility] Medical History Diabetes mellitus, type II Elevated PSA Erectile dysfunction Hyperlipidemia Sleep apnea Transient ischemic attack (TIA) Surgical History History of surgery Physical Exam Vital Signs: BMI result Body Mass Index 36.5 Const General: comfortable; No acute distress Orientation/consciousness: patient oriented x3 Eyes General: appearance normal, both eyes and all related structures Visual Camp: normal visual camp by confrontation Neck Neck: Yes supple and Yes no JVD Resp Effort & Inspection: normal respiratory effort and respiratory effort not decreased Auscultation: rhonchi Cardio Palpation: no palpable S3 and no palpable S4 Heart sounds: no rubs GI Inspection: Yes normal to inspection Palpation (GI): Soft to palpation Percussion: Yes normal to percussion Auscultation: normal bowel sounds General: Yes no CVA tenderness Back/Spine/Pelvis Back: no CVA tenderness Skin General skin exam: no petechiae and no purpura Neuro General: patient oriented x3 and no focal motor deficits Extrem General: No clubbing and Yes edema Assessment & Plan Assessment & Plan (1) CKD (chronic kidney disease): Code(s): N18.9 - Chronic kidney disease, unspecified Category: Medical Plan: . Ilia has mild CKD. Based on recent labs he probably has stage II CKD. He did have an episode of ALEJA with a creatinine peaking up to 1.4 mg/dL in 06/02/2023. This is probably due to hypoperfusion. Serum creatinine has returned to baseline of 1.17 with a EGFR of 66 mL/minute. He has no significant proteinuria. Recent renal ultrasonogram revealed normal-size kidneys without hydronephrosis. Goal is to slow the progression of renal disease Continue to avoid nephrotoxic agents. Avoid hypotension. Stop lisinopril 10 mg daily Stop HCTZ 12.5 mg Add Lasix 20 mg QD and titrate dose Cehck labs in 4 weeks Encouraged him to keep watching his blood pressure at home. Since he has no significant proteinuria I stopped lisinopril This will give us room to titrate diuretic (2) Leg edema: Code(s): R60.0 - Localized edema Category: Medical Plan: . Chronic leg edema. Recent LFTs were normal. Renal function is normal without significant proteinuria. He has a history of obstructive sleep apnea and status post closure of PFO. Recent echocardiogram did not reveal elevated right heart pressures. Excessive salt intake could be contributing to the edema. Other possibility include lymphedema. I have advised him to decrease the salt intake Leg elevation at night. Await recommendations from Vascular Orders: Orders Basic Metabolic Panel 4 Weeks N18.9 - Chronic kidney disease, unspecified, R60.0 - Localized edema Medications: New furosemide (Lasix) 20 mg PO DAILY 90 tabs 1RF Discontinued lisinopril Discontinued Reason: Doctor's Order 10 mg PO DAILY 90 tabs 1RF hydrochlorothiazide Discontinued Reason: Doctor's Order 12.5 mg PO DAILY 90 caps 1RF Coding Level of Care Code Est Pt Level 4 (45040) Diagnoses CKD (chronic kidney disease) N18.9 Leg edema R60.0
== END 2024-02-21 12:36 | disposition home or self-care (01) ==
PROVIDERS: PCP Family Medicine; Visit Provider Internal Medicine Hypertension Specialist
DX: E11.22 Type 2 diabetes mellitus with diabetic chronic kidney disease (principal); N18.2 Chronic kidney disease, stage 2 (mild); R60.0 Localized edema
CPT/HCPCS: 99214

== ENCOUNTER → 2024-02-21 12:16 | Outpatient (BNVA) | payer MEDICARE, SELFPAY | PROVIDERS: PCP Family Medicine; Visit Provider Internal Medicine Hypertension Specialist | DX: R60.0 Localized edema (principal); N18.9 Chronic kidney disease, unspecified | CPT/HCPCS: 99212 ==

== ENCOUNTER 2024-04-08 12:10 | Outpatient (AMB) | payer BC, SELFPAY ==
[2024-04-08 12:10] VITALS: BP 130/72; PULSE 58; O2SAT 98; BMI 37.0
--- NOTE | 2024-04-08 12:10 | HO.NEPHOV_ITS ---
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: No Accompanied by: Spouse Allergies No Known Allergies Allergy (Verified 04/08/24 12:13) Medication List - Last Reconciled 04/08/24 by Naseem Wells MD acetaminophen ER (Tylenol Arthritis Pain) 650 mg PO Q12H acetaminophen-caffeine 500-65 mg (Excedrin Tension Headache) 1 tab PO Q12H PRN atorvastatin 40 mg PO DAILY blood sugar diagnostic As directed dulaglutide 1.5 mg subcut QWEEK finasteride 5 mg PO DAILY 90 days furosemide (Lasix) 40 mg PO DAILY insulin glargine 22 units subcut BEDTIME levetiracetam 500 mg PO BID melatonin 10 mg PO BEDTIME PRN metoprolol succinate ER 25 mg PO DAILY pen needle, diabetic As directed HPI Comments Details: . Ilia is a pleasant 73-year-old man with a history of diabetes mellitus, hypertension with chronic leg edema. He has a history of bicuspid aortic valve, history of aneurysm of ascending aorta, status post PFO closure in 2021. History of obstructive sleep apnea and currently uses CPAP. History of obesity. Reported right ventricular systolic pressure was 25 mm He has been referred for evaluation of chronic kidney disease. Serum creatinine bumped up to 1.4. Recent creatinine was 1.17. He has been on lisinopril 20 mg which was increased to 30 mg a day a about 6 months ago. In the past he was on metformin which caused significant diarrhea and apparently he lost about 35 lb. After discontinuing metformin the diarrhea resolved and he has gradually gained back the 35 lb. His main issue seems to be chronic leg edema. He had left leg edema for the last several years which started after he had a trauma. He underwent acupuncture which seems to have relieved initially. Marie abimael the swelling has returned and he continues to have left leg edema. Recently he had a right-sided leg edema. He denies any shortness of breath on exertion. No urinary complaints. He was seen by to endovascular center recently. Liver functions have been normal. He has no significant proteinuria based on recent urine studies. He has on a regular salt diet. 11/22/2023. He is tolerating lisinopril 20 mg. Home blood pressure readings were reviewed Continues to have leg edema. No shortness of breath 01/10/24 Tolerating HCTZ Lost 2 lbs BP is low Cr at 1.39 02/21/24 Gained few lbs Admits to eating more Seen by vascular for leg edema 04/08/24 Gained few morelbs Edema is better [facility] Medical History Diabetes mellitus, type II Elevated PSA Erectile dysfunction Hyperlipidemia Sleep apnea Transient ischemic attack (TIA) Surgical History History of surgery Physical Exam Vital Signs: Last Vital Signs Pulse 58 04/08/24 12:10 BP 130/72 04/08/24 12:10 Pulse Ox 98 04/08/24 12:10 Oxygen Delivery Method Room Air 04/08/24 12:10 BMI result Body Mass Index 37.0 Const General: comfortable; No acute distress Orientation/consciousness: patient oriented x3 Eyes General: appearance normal, both eyes and all related structures Visual Camp: normal visual camp by confrontation Neck Neck: Yes supple and Yes no JVD Resp Effort & Inspection: normal respiratory effort and respiratory effort not decreased Auscultation: rhonchi Cardio Palpation: no palpable S3 and no palpable S4 Heart sounds: no rubs GI Inspection: Yes normal to inspection Palpation (GI): Soft to palpation Percussion: Yes normal to percussion Auscultation: normal bowel sounds General: Yes no CVA tenderness Back/Spine/Pelvis Back: no CVA tenderness Skin General skin exam: no petechiae and no purpura Neuro General: patient oriented x3 and no focal motor deficits Extrem General: No clubbing and Yes edema Results Reviewed Results Reviewed: RIGHT KIDNEY: 10.6 x 6.8 x 5.2 cm (SAG x AP x TRV). The kidney is normal in size, contour, and echogenicity. Renal cortical thickness is normal. No calculi or focal parenchymal lesions. No hydronephrosis. LEFT KIDNEY: 10.3 x 7.3 x 4.1 cm (SAG x AP x TRV). The kidney is normal in size, contour, and echogenicity. Renal cortical thickness is normal. No renal calculi or hydronephrosis. 3.3 x 3.1 x 2.8 cm simple upper pole exophytic cyst is seen. No imaging follow-up is recommended. Previously seen lower pole cyst is not appreciated on the current study. US/US renal BI IMPRESSION: 1. Normal appearance of the right kidney. 2. No significant finding in the left kidney. Nephrology Results: No Data to Display Assessment & Plan Assessment & Plan (1) CKD (chronic kidney disease): Code(s): N18.9 - Chronic kidney disease, unspecified Category: Medical Plan: . Ilia has mild CKD. Based on recent labs he probably has stage II CKD. He did have an episode of ALEJA with a creatinine peaking up to 1.4 mg/dL in 06/02/2023. This is probably due to hypoperfusion. Serum creatinine has returned to baseline of 1.17 with a EGFR of 66 mL/minute. He has no significant proteinuria. Recent renal ultrasonogram revealed normal-size kidneys without hydronephrosis. Goal is to slow the progression of renal disease Continue to avoid nephrotoxic agents. Avoid hypotension. Continue to HOLD lisinopril 10 mg daily and HOLD HCTZ 12.5 mg INCREASE Lasix 40 mg QD and titrate dose Check labs in 3 weeks Encouraged him to keep watching his blood pressure at home. Since he has no significant proteinuria I stopped lisinopril This will give us room to titrate diuretic (2) Leg edema: Code(s): R60.0 - Localized edema Category: Medical Plan: . Chronic leg edema. Recent LFTs were normal. Renal function is normal without significant proteinuria. He has a history of obstructive sleep apnea and status post closure of PFO. Recent echocardiogram did not reveal elevated right heart pressures. Excessive salt intake could be contributing to the edema. Other possibility include lymphedema. I have advised him to decrease the salt intake Leg elevation at night. seen by Vascular Waiting for follow up Orders: Orders Basic Metabolic Panel 3 Weeks N18.9 - Chronic kidney disease, unspecified Medications: Changed From furosemide (Lasix) 20 mg PO DAILY 90 tabs 1RF To furosemide (Lasix) 40 mg PO DAILY Coding Level of Care Code Est Pt Level 4 (78973) Diagnoses CKD (chronic kidney disease) N18.9 Leg edema R60.0
== END 2024-04-08 12:27 | disposition home or self-care (01) ==
PROVIDERS: PCP Family Medicine; Visit Provider Internal Medicine Hypertension Specialist
DX: N18.2 Chronic kidney disease, stage 2 (mild) (principal); R60.0 Localized edema
CPT/HCPCS: 99214

== ENCOUNTER → 2024-04-08 12:10 | Outpatient (BNVA) | payer BC, SELFPAY | PROVIDERS: PCP Family Medicine; Visit Provider Internal Medicine Hypertension Specialist ==

== ENCOUNTER 2024-05-06 10:41 | Outpatient (AMB) | payer BC, SELFPAY ==
[2024-05-06 10:43] VITALS: BP 120/60; PULSE 58; O2SAT 94; BMI 36.2
--- NOTE | 2024-05-06 10:43 | HO.NEPHOV ---
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: No Accompanied by: Spouse Allergies No Known Allergies Allergy (Verified 05/06/24 10:46) Medication List - Last Reconciled 05/06/24 by Naseem Wells MD acetaminophen ER (Tylenol Arthritis Pain) 650 mg PO Q12H acetaminophen-caffeine 500-65 mg (Excedrin Tension Headache) 1 tab PO Q12H PRN atorvastatin 40 mg PO DAILY blood sugar diagnostic As directed dulaglutide (Trulicity) mg subcut QWEEK finasteride 5 mg PO DAILY 90 days furosemide (Lasix) 20 mg PO DAILY insulin glargine 22 units subcut BEDTIME levetiracetam 500 mg PO BID melatonin 10 mg PO BEDTIME PRN metoprolol succinate ER 25 mg PO DAILY pen needle, diabetic As directed HPI Comments Details: . Ilia is a pleasant 73-year-old man with a history of diabetes mellitus, hypertension with chronic leg edema. He has a history of bicuspid aortic valve, history of aneurysm of ascending aorta, status post PFO closure in 2021. History of obstructive sleep apnea and currently uses CPAP. History of obesity. Reported right ventricular systolic pressure was 25 mm He has been referred for evaluation of chronic kidney disease. Serum creatinine bumped up to 1.4. Recent creatinine was 1.17. He has been on lisinopril 20 mg which was increased to 30 mg a day a about 6 months ago. In the past he was on metformin which caused significant diarrhea and apparently he lost about 35 lb. After discontinuing metformin the diarrhea resolved and he has gradually gained back the 35 lb. His main issue seems to be chronic leg edema. He had left leg edema for the last several years which started after he had a trauma. He underwent acupuncture which seems to have relieved initially. However the swelling has returned and he continues to have left leg edema. Recently he had a right-sided leg edema. He denies any shortness of breath on exertion. No urinary complaints. He was seen by to endovascular center recently. Liver functions have been normal. He has no significant proteinuria based on recent urine studies. He has on a regular salt diet. 11/22/2023. He is tolerating lisinopril 20 mg. Home blood pressure readings were reviewed Continues to have leg edema. No shortness of breath 01/10/24 Tolerating HCTZ Lost 2 lbs BP is low Cr at 1.39 02/21/24 Gained few lbs Admits to eating more Seen by vascular for leg edema 04/08/24 Gained few morelbs Edema is better 05/06/2024. After increasing Lasix to 40 mg daily he was lost about 7 lb. No change in edema. However creatinine is bumped up to 1.56. [facility] Medical History Diabetes mellitus, type II Elevated PSA Erectile dysfunction Hyperlipidemia Sleep apnea Transient ischemic attack (TIA) Surgical History History of surgery Physical Exam Vital Signs: Last Vital Signs Pulse 58 05/06/24 10:43 BP 120/60 05/06/24 10:43 Pulse Ox 94 05/06/24 10:43 Oxygen Delivery Method Room Air 05/06/24 10:43 BMI result Body Mass Index 36.2 Results Reviewed Nephrology Results: No Data to Display Assessment & Plan Assessment & Plan (1) CKD (chronic kidney disease): Code(s): N18.9 - Chronic kidney disease, unspecified Category: Medical Plan: . Ilia has mild CKD. Based on recent labs he probably has stage II CKD. He did have an episode of ALEJA with a creatinine peaking up to 1.4 mg/dL in 06/02/2023. This is probably due to hypoperfusion. Serum creatinine has returned to baseline of 1.17 with a EGFR of 66 mL/minute. He has no significant proteinuria. Recent renal ultrasonogram revealed normal-size kidneys without hydronephrosis. Goal is to slow the progression of renal disease Continue to avoid nephrotoxic agents. Avoid hypotension. Continue to HOLD lisinopril 10 mg daily and HOLD HCTZ 12.5 mg DeCREASE Lasix 20 mg QD in view of ALEJA from hypoperfusion There has been no significant improvement in edema after high dose of Lasix Encouraged him to keep watching his blood pressure at home. Since he has no significant proteinuria ; I stopped lisinopril (2) Leg edema: Code(s): R60.0 - Localized edema Category: Medical Plan: . Chronic leg edema. Recent LFTs were normal. Renal function is normal without significant proteinuria. He has a history of obstructive sleep apnea and status post closure of PFO. Recent echocardiogram did not reveal elevated right heart pressures. Excessive salt intake could be contributing to the edema. Other possibility include lymphedema. I have advised him to decrease the salt intake Leg elevation at night. seen by Vascular Waiting for follow up Orders: Orders Basic Metabolic Panel 6 Weeks N18.9 - Chronic kidney disease, unspecified Coding Level of Care Code Est Pt Level 4 (33028) Diagnoses CKD (chronic kidney disease) N18.9 Leg edema R60.0
== END 2024-05-06 11:04 | disposition home or self-care (01) ==
PROVIDERS: PCP Family Medicine; Visit Provider Internal Medicine Hypertension Specialist
DX: N18.2 Chronic kidney disease, stage 2 (mild) (principal); R60.0 Localized edema
CPT/HCPCS: 99214

== ENCOUNTER → 2024-05-06 10:41 | Outpatient (BNVA) | payer BC, SELFPAY | PROVIDERS: PCP Family Medicine; Visit Provider Internal Medicine Hypertension Specialist ==

== ENCOUNTER 2024-05-27 11:26 | Outpatient (REF) | payer BC, SELFPAY ==
--- NOTE | ~2024-05-27 | US_ITS ---
EXAMINATION: US RETROPERITONEAL LIMITED (RENAL ONLY) CLINICAL INFORMATION: BPH with lower urinary tract symptoms.. COMPARISON: 05/16/2023. Correlation made with CT abdomen and pelvis without contrast 01/23/2023. TECHNIQUE: Real-time imaging of the kidneys. FINDINGS: RIGHT KIDNEY: 11.3 x 8.1 x 5.9 cm (SAG x AP x TRV). The kidney is normal in size, contour, and echogenicity. Renal cortical thickness is normal. No calculi or suspicious focal parenchymal lesions. No hydronephrosis. LEFT KIDNEY: 11.0 x 6.8 x 5.5 cm (SAG x AP x TRV). The kidney is normal in size, contour, and echogenicity. Renal cortical thickness is normal. No suspicious parenchymal lesions. There is moderate hydronephrosis. There is an upper pole simple cyst measuring 2.6 x 2.1 cm. There is a mid to lower pole nonobstructing calculus measuring 0.8 x 0.6 x 1.0 cm. There is a calculus within the left proximal ureter measuring 1.2 x 0.6 x 0.8 cm. This appears obstructing. Patient complaining of no pain. US/US renal BI IMPRESSION: 1. Left renal hydronephrosis, moderate. Obstructing calculus in the proximal left ureter as described. As per technologist note, patient is complaining of no pain. 2. Nonobstructing left mid to lower pole calculus measuring up to 1.0 cm. 3. Upper pole simple cyst left kidney measuring 2.6 x 2.1 cm. 4. Normal right kidney. Fax sent to the referring clinician with the above information at 9:45 AM, 05/28/2024. Electronically signed by: Aureliano Campbell MD 05/28/2024 09:44 AM [facility]
--- OUTSIDE RECORDS SUMMARY | 2024-05-27 13:37 | XMS_ITS | Continuity of Care Document ---
Author Organization [facility] Address [address] [facility], [address]r d Floor, [address] [place] [phone] Care Team Providers Care Project Facilitator Name Role Phone Garcia Yunier CRANDALL Primary Care Physician Encounter [facility] [place] Date(s): 01/25/24 - 05/24/24 [facility] [address] [facility] 3rd Floor, [address] [place] [id number] Attending Physician: Zafar Salinas MD Admitting Physician: Zafar Salinas MD Encounter Type: Pre-OutPatient One Time Allergies, Adverse Reactions, Alerts No Known Allergies Immunizations Given and Recorded Vaccine Date Status Refusal Reason influenza virus vaccine, inactivated 03/28/24 Chris rded influenza virus vaccine, inactivated 01/26/23 Chris rded influenza virus vaccine, inactivated 02/05/20 Chris rded influenza virus vaccine, inactivated 06/13/17 Chris rded [id number] bivalent booster vax 03/08/22 Recorded SARS-CoV-2 (COVID-19) mRNA-1273 vaccine 04/04/21 R ecorded Zoster Vaccine Live 11/23/20 Recorded zoster vaccine, inactivated 02/05/20 Recorded Medications atorvastatin 40 mg oral tablet 1 tablet, By Mouth, Daily, # 90 tablet, 1 Refills, Maintenance, 11/29/23 10:52:00 AM EDT, [facility] [id number], 183, cm, 10/31/23 15:26:00 EDT, Height, 114, kg, 10/14/22 20:17:00 EDT, Dry Weight Start Date: 11/29/23 Status: Ordered Quantity: 90.0 Unit: tablet Repeat number: 1 Excedrin 1 tablet, By Mouth, Every 6 hours, 0 Refills, Maintenance, 01/09/23 10:35:00 AM EDT, Partial fill upon patient request if the prescription is for a schedule II opioid drug. Start Date: 01/09/23 Status: Ordered Repeat number: 1 Finasteride = 5 mg, By Mouth, Daily, 0 Refills, Maintenance, 12/23/20 11:40:00 AM EDT, Partial fill upon patientrequest if the prescription is for a schedule II opioid drug. Start Date: 12/23/20 Status: Ordered Repeat number: 1 Freestyle Herlinda 3 Plus Sensors Freestyle Herlinda 3 Plus Sensors, See Instructions, # 2 each, Refills 11, Tot. Refills 11, Maintenance, change sensors every 14 days for Type 2 Diabetes E11.9, 03/26/24 12:31:00 PM EST, Supply, 183, cm, 01/08/24 11:14:00 EDT, Height, 114, kg, 10/14/22 20:17:00 EDT, Dry Weight Start Date: 03/26/24 Status: Ordered Quantity: 2.0 Unit: each Repeat number: 12 Freestyle Herlinda Sensor See Instructions, # 2 pack/packet, Refills 11, Tot. Refills 11, Maintenance, Herlinda 3 sensors apply new sensor every 2 weeks, 02/07/24 8:30:00 AM EDT, Supply, 183, cm, 01/08/24 11:14:00 EDT, Height, 114, kg, 10/14/22 20:17:00 EDT, Dry Weight Start Date: 02/07/24 Status: Ordered Quantity: 2.0 Unit: pack/packet Repeat number: 12 Indication: Type 2 diabetes mellitus without complications Lantus Solostar Pen 100 units/mL subcutaneous solution See Instructions, INJECT 24 UNITS SUBCUTANEOUSLY DAILY New dose started. Please fill, # 15 Unknown,1 Refills, Maintenance, 04/04/24 9:18:00 AM EST, [facility]/pharmacy #[id number], 183, cm, 01/08/24 11:14:00 EDT, Height, 114, kg, 10/14/22 20:17:00 EDT, Dry Weight Start Date: 04/04/24 Status: Ordered Quantity: 15.0 Unit: Unknown Repeat number: 2 Lantus Solostar Pen 100 units/mL subcutaneous solution See Instructions, INJECT 14 UNITS SUBCUTANEOUSLY DAILY, # 15 Unknown, 1 Refills, Maintenance, 04/07/24 12:22:00 PM EST, [id number], 183, cm, 01/08/24 11:14:00 EDT, Height, 114, kg, 10/14/22 20:17:00 EDT, Dry Weight Start Date: 04/07/24 Status: Ordered Quantity: 15.0 Unit: Unknown Repeat number: 1 levETIRAcetam 500 mg oral tablet 1 tablet, By Mouth, 2 times a day, # 180 tablet, 2 Refills, Maintenance, 05/01/24 3:55:00 PM EST, [facility]/pharmacy #[id number], 183, cm, 01/08/24 11:14:00 EDT, Height, 114, kg, 10/14/22 20:17:00 EDT, Dry Weight Start Date: 05/01/24 Stop Date: 01/26/25 Status: Ordered Quantity: 180.0 Unit: tablet Repeat number: 3 melatonin 10 mg oral tablet 1 tablet = 10 mg, By Mouth, Daily at bedtime, PRN as needed for insomnia, 0 Refills, Maintenance, 01/03/24 10:11:00 AM EDT, Tablet, Partial fill upon patient request if the prescription is for a schedule II opioid drug. Start Date: 01/03/24 Status: Ordered Repeat number: 1 Metoprolol Succinate ER 25 mg oral tablet, extended release 1, tablet, By Mouth, Daily, # 90 tablet, Refills 0, Maintenance, 05/19/24 6:18:00 AM EST, Route to Pharmacy Electronically, [id number], 183, cm, 01/08/24 11:14:00 EDT, Height, 114, kg, 10/14/22 20:17:00 EDT, Dry Weight Start Date: 05/19/24 Status: Ordered Quantity: 90.0 Unit: tablet Repeat number: 1 Probiotic Formula By Mouth, Daily, 0 Refills, Maintenance, 01/03/24 10:11:00 AM EDT, Partial fill upon patient requestif the prescription is for a schedule II opioid drug. Start Date: 01/03/24 Status: Ordered Repeat number: 1 Trulicity Pen 3 mg/0.5 mL subcutaneous solution 0.5 mL = 3 mg, Subcutaneous Injection, Every week, rotate injection sites, # 2 mL, 0 Refills, Maintenance, 04/07/24 12:12:00 PM EST, Solution, [id number], Partial fill upon patient request ifthe prescription is for a schedule II opioid drug., 183, cm, 01/08/24 11:14:00 EDT, Height, 114, kg, 10/14/22 20:17:00 EDT, Dry Weight Start Date: 04/07/24 Status: Ordered Quantity: 2.0 Unit: mL Repeat number: 1 Tylenol 8 HR Arthritis Pain 650 mg oral tablet, extended release 1 tablet = 650 mg, By Mouth, Every 8 hours, 0 Refills, Maintenance, 05/30/23 4:01:00 PM EST, Partialfill upon patient request if the prescription is for a schedule II opioid drug. Start Date: 05/30/23 Status: Ordered Repeat number: 1 Ultra fine pen needles 4mm x 32 G Ultra fine pen needles 4mm x 32 G, See Instructions, # 100 each, Refills 5, Tot. Refills 5, Maintenance, use as directed for Type 2 Diabetes E11.9, 02/27/24 5:38:00 PM EDT, Supply, 183, cm, 01/08/24 11:14:00 EDT, Height, 114, kg, 10/14/22 20:17:00 EDT, Dry Weight Start Date: 02/27/24 Status: Ordered Quantity: 100.0 Unit: each Repeat number: 6 Problem List Condition Confirmation Course Effective Dates Status H ealth Status Informant Anemia Confirmed Active Aneurysm of ascending aorta 1 Confirmed Active Atherosclerosis of aorta Confirmed Active Benign essential hypertension Confirmed Active Bicuspid aortic valve Confirmed Active Cyst of kidney Confirmed Active Dyspnea Confirmed Active Chronic edema 2 Confirmed Active Edema Confirmed Active H/O: TIA Confirmed Active Hearing loss Confirmed Active History [...] Active 1[facility] 2L leg 3Dr. Dixon 4end-[facility] Social History Social History Type Response Smoking Status Never (less than 100 in lifetime) entered on: 08/17/18 Sex Sex Representation Male (finding) Patient Care team information Care Team Personnel Name: Naseem Wells MD Position: [facility] Renal MD Member Role: Lifetime Consulting Physician Address: [address] [place] [address] [address] [place] [address]- [place] Telecom: Name: Denise Lu RN Position: [facility] SN RN Member Role: Primary Care Nurse Name: Rosanne Beyer RN Position: [facility] AMB Nurse Member Role: Primary Care Nurse Name: Evelyn Shay RN Position: [facility] RN Member Role: Primary Care Nurse Name: Arely Deleon RN Position: [facility] ED RN W/OE and Tasks Member Role: Primary Care Nurse Name: Yunier Garcia DO Position: [facility] Physician - Primary Care Member Role: PCP Address: [address] [place] [id number]- Telecom: Name: Mariola Becker RN Position: [facility] RN Member Role: Primary Care Nurse Name: Tl Harris RN Position: [facility] RN Member Role: Primary Care Nurse Name: Gabriela Knowles RN Position: [facility] SN RN Member Role: Primary Care Nurse Name: Essence Connor RN Position: [facility] RN Member Role: Primary Care Nurse Care Team Related Persons Name: LINN BURGESS Name: CAITLYN BURGESS Insurance Providers Guarantor name: GENA JENIFER Health Plan Information #: 1 Payer: NA Member Number: [id number] Policy Number: NA Group Number: [id number] Health Plan Information #: 2 Payer: NA Member Number: [id number] Policy Number: NA Group Number: [id number]
== END 2024-05-27 11:27 | disposition home or self-care (01) ==
LOC: HO.US 11:26
PROVIDERS: PCP Family Medicine; Visit Provider Urology
DX: N40.1 Benign prostatic hyperplasia with lower urinary tract symptoms (principal); N13.8 Other obstructive and reflux uropathy
CPT/HCPCS: 76775

== ENCOUNTER → 2024-05-27 11:28 | Outpatient (BNV) | payer BC, SELFPAY | PROVIDERS: PCP Family Medicine; Visit Provider Radiology Diagnostic Radiology | DX: N13.2 Hydronephrosis with renal and ureteral calculous obstruction (principal); N20.0 Calculus of kidney; N28.1 Cyst of kidney, acquired | CPT/HCPCS: 76775 ==

== ENCOUNTER 2024-06-04 11:15 | Outpatient (AMB) | payer BC, SELFPAY ==
--- NOTE | 2024-06-04 11:28 | A.OFFVIS_ITS ---
Intake Visit Reasons: 6m/US(set) Intake Note: Patient is present for 6M/US Urology Medication:FINASTERIDE Antibiotic Allergy:NONE Blood Thinner:NONE Bioanalyst Required: No Allergies No Known Allergies Allergy (Verified 06/04/24 11:29) HPI Comments Details: Pool Gutierrez is a very pleasant male. He is a patient of Dr Garcia. He is seen for the following urologic conditions. - BPH and elevated PSA - nephrolithiasis - diabetic uric acid Six-month follow-up PVR remains low Imaging shows stones on left side. Question of left proximal ureteric stone. Nocturia x1 Adequate stream Repeat imaging in 6 weeks Lower Urinary Tract Symptoms Currently on finasteride Prior medications include terazosin 2mg Elevated PSA/Abnormal IVELISSE: He presents for further evaluation of elevated PSA. Current management is finasteride 5 mg Laboratory investigations include a total PSA evaluation July 2015 2.8 - 07/29 2.6, 08/31 3.7, 11/30 3.1, 4.7 Free 30%, 11/02 1.3 Individualized Prostate Cancer Risk Calculator < 5% high risk Would like to continue with observation and understands and accepts the risks of a possible delay in diagnosis. A TRUS biopsy not been performed. His current IPSS IPSS Score 1 Symptoms include nocturia, x 1, and are stable. Overall symptoms are mild. His prior IPSS was Mild. Associated conditions diabetes Yes dysuria No erectile dysfunction Yes Therapeutic plan - yearly PSA Nephrolithiasis/Urolithiasis: Recurrent uric acid stone They are here for further evaluation of urethrolitiasis. Urolithiasis was diagnosed a number of years ago. The patient previously had kidney stones whose composition w uric acid. Laboratory investigations include no recent labs. 24 Hour urine evaluation none on file. Prior treatment(s) include medical management, with dietary advice to increase fluids, decrease salt and watch protein intake - Bicarbonate therapy to alkalinize urine. Prior imaging includes a CT (computed tomography) scan of the abdomen/pelvis (stone protocol), showing radiodense stone(s), on the left, <5 mm October 2015 , a renal ultrasound, showing radiodense stone(s), bilaterally, 5-10 mm a renal ultrasound, 10/28 - left renal cyst 4 cm, left renal 7 mm stone nonobstructing 10/29 , a renal ultrasound, showing no evidence of stones. - 05/03 renal ultrasound showing left lower pole stone 12 mm - 11/02 renal ultrasound over left lower pole 10 mm - 06/05 renal ultrasound, bilateral complex cyst, left lower pole stone 12 mm - 12/03 KUB with 12 mm left lower pole stone - 05/06 renal ultrasound with stable left lower pole stone, left upper ureteric stone with question hydronephrosis - There is a calculus within the left proximal ureter measuring 1.2 x 0.6 x 0.8 cm. This appears obstructing. Patient complaining of no pain. UA today shows <5.5. Current therapeutic plan will be to restart potassium citrate and allopurinol with repeat imaging in 6 months [facility] Medical History Diabetes mellitus, type II Elevated PSA Erectile dysfunction Hyperlipidemia Sleep apnea Transient ischemic attack (TIA) Surgical History History of surgery Review of Systems Const Denies chills and Denies fever(s) Card Reports no additional complaints and Denies syncope Resp Denies cough GI Denies abdominal pain and Denies heartburn Reports as per HPI and Denies change in libido Neuro Denies syncope Psych Denies change in libido Endo Denies change in libido Physical Exam Const General: cooperative, healthy appearing, comfortable and no acute distress Orientation/consciousness: patient oriented x3 HEENT Face and sinus: Yes normal facial exam Mouth: moist mucous membranes Neck Neck: Yes normal visual inspection, Yes full ROM and Yes trachea midline Chest Chest palpation & inspection: normal inspection of the chest Resp Effort & Inspection: normal respiratory effort, able to speak in complete sentences and no respiratory distress GI Inspection: Yes normal to inspection Back/Spine/Pelvis Cervical Spine: normal cervical lordosis Thoracic/Lumbar Spine: thoracic and lumbar spine normal to inspection Skin General skin exam: no rashes or lesions noted Neuro General: patient oriented x3, gait normal, tone normal and moves all extremities Extrem General: Yes normal to inspection and Yes capillary refill normal Results AMB Urinalysis, Automated UA Leukoctes 0 Mariella/uL Last Edit by CONCEPCION Crespo on 06/04/24 11:49 UA Nitrite Negative Last Edit by CONCEPCION Crespo on 06/04/24 11:49 UA Urobilinogen 0.2 mg/dL Last Edit by CONCEPCION Crespo on 06/04/24 11:4 9 UA Protein 0 mg/dL Last Edit by CONCEPCION Crespo on 06/04/24 11:49 UA pH 5.0 Last Edit by CONCEPCION Crespo on 06/04/24 11:49 UA Blood 200 Alber/uL Last Edit by CONCEPCION Crespo on 06/04/24 11:49 UA Specific Harleigh 1.020 Last Edit by CONCEPCION Crespo on 06/04/24 11: 49 UA Ketone Negative Last Edit by CONCEPCION Crespo on 06/04/24 11:49 UA Bilirubin 0 mg/dL Last Edit by CONCEPCION Crespo on 06/04/24 11:49 UA Glucose 0 mg/dL Last Edit by CONCEPCION Crespo on 06/04/24 11:49 Results Reviewed Results Reviewed: Laboratory Last Values Urine pH (Auto) 5.0 06/04/24 11:49 Specific Harleigh (Auto) 1.020 06/04/24 11:49 Urine Protein (Auto) 0 mg/dL 06/04/24 11:49 Glucose (UA)(Auto) 0 mg/dL 06/04/24 11:49 Urine Ketones (Auto) Negative 06/04/24 11:49 Urine Blood (Auto) 200 Alber/uL 06/04/24 11:49 Urine Nitrite (Auto) Negative 06/04/24 11:49 Urine Bilirubin (Auto) 0 mg/dL 06/04/24 11:49 Urine Urobilinogen (Auto) 0.2 mg/dL 06/04/24 11:49 Leukocyte Esterase (Auto) 0 Mariella/uL 06/04/24 11:49 Assessment & Plan Assessment & Plan (1) Nephrolithiasis: Code(s): N20.0 - Calculus of kidney Category: Medical (2) BPH w urinary obs/LUTS: Code(s): N40.1 - Benign prostatic hyperplasia with lower urinary tract symptoms; N13.8 - Other obstructive and reflux uropathy Category: Medical Plan Repeat ultrasound in 6 weeks to confirm stone location Orders: Orders AMB Urinalysis Automated Today Z13.9 - Encounter for screening, unspecified US renal BI 6 Weeks N20.0 - Calculus of kidney Prostate Specific Antigen 6 Months N13.8 - Other obstructive and reflux uropathy, N40.1 - Benign prostatic hyperplasia with lower urinary tract symptoms Medications: Refilled finasteride 5 mg PO DAILY 90 days 90 tabs 1RF N13.8 - Other obstructive and reflux uropathy, N40.1 - Benign prostatic hyperplasia with lower urinary tract symptoms, R33.9 - Retention of urine, unspecified Patient Instructions: Imaging studies, laboratory and physical exam results were discussed and reviewed in detail. No major barriers to patient understanding were identified. An opportunity to ask questions regarding the treatment plan was provided. All questions were answered. The patient expressed understanding and agreement with the above treatment plan. The patient is aware they should contact our office by phone for worsening of their current condition or the appearance of new urologic symptoms. Compliance is encouraged with any medications and followup testing that is ordered. It is a privilege to participate in the urologic care of your patient. If you have any questions or concerns regarding treatment for the above conditions, or other urologic issues, please do not hesitate to contact me. The office telephone contact is [phone]. This note is constructed using voice recognition software. While every effort has been made to ensure accuracy maintenance parts technician errors may have been included. Yours sincerely, Dr Quinten Dixon MD, [facility]rology Providers of Expert, Compassionate Care for the Genitourinary System Coding Level of Care Code Est Pt Level 3 (03276) Diagnoses Nephrolithiasis N20.0 BPH w urinary obs/LUTS N40.1; N13.8
--- OUTSIDE RECORDS SUMMARY | 2024-06-04 12:52 | XMS_ITS | Clinical Summary ---
Author Organization [facility] Address [address] [place] [address] Care Team Providers Care Air Conditioning Coil Assembler Name Role Phone Yunier Garcia MD Primary Care Provider [phone] Allergies No known active allergies Medications Medication Sig Dispensed Refills Start Date End Date Status Trulicity 1.5 MG/0.5ML subcutaneous pen-injector 0 02/04/2021 Active finasteride (PROSCAR) 5 MG tablet 0 02/17/2021 Active lisinopril (PRINIVIL,ZESTRIL) tablet 20 mg Take 1 tablet (20 mg total) by mouth daily. 0 02/17/2021 Active levETIRAcetam (KEPPRA PO) Take 500 mg by mouth 2 (two) times a day. 0 Active metoprolol tartrate (LOPRESSOR) 25 MG tablet Take 1 tablet (25 mg total) by mouth daily. 0 Active insulin glargine (Lantus SoloStar) 100 UNIT/ML injection Inject 22 Units under the skin daily. 0 Active atorvastatin (LIPITOR) tablet 40 mg Take 1 tablet (40 mg total) by mouth daily. 0 Active Melatonin 5 MG TABS Take by mouth. 0 A ctive Acetaminophen-Caffeine (EXCEDRIN TENSION HEADACHE PO) Take by mouth. 0 Active Acetaminophen (TYLENOL 8 HOUR PO) Take by mouth. 0 Active Active Problems No known active problems Social History Tobacco Use Types Packs/Day Years Used Date Smoking Tobacco: Never Smokeless Tobacco: Never Alcohol Use Standard Drinks/Week Comments Not Currently 0 (1 standard drink = 0.6 oz pur e alcohol) Sex and Gender Information Value Date Recorded Sex Assigned at Male 01/22/2023 12:18 PM EDT Gender Identity Not on file Sexual Orientation Not on file Job Start Date Occupation Industry Not on file Not on file Not on file Last Filed Vital Signs Vital Sign Reading Time Taken Comments Blood Pressure 104/59 11/12/2023 11:06 AM EDT Pulse 61 11/12/2023 11:06 AM EDT Temperature 37.1 ??C (98.7 ??F) 11/12/2023 1 1:06 AM EDT Respiratory Rate - - Oxygen Saturation 97% 11/12/2023 11: 06 AM EDT Inhaled Oxygen Concentration - - Weight 121.4 kg (267 lb 9.6 oz) 024 11:06 AM EDT Height 182.9 cm (6') 02/20/2023 10:01 AM EDT Body Mass Index 36.29 02/20/2023 10:01 AM EDT Plan of Treatment Health Maintenance Due Date Last Done Comments Hepatitis C Screening 1950 COVID-19 Vaccine (#1) 1950 Depression Screening 1962 Preventative Health Evaluation 02/03/1968 DTap / Tdap / Td (1 - Tdap) 1969 Colon Cancer Screening (Colonoscopy) 1995 Fall Risk Assessment 2015 Pneumococcal Vaccine (1 of 1 - PCV) 2015 Shingrix-Zoster Vaccine (2 o f 2) 04/01/2020 02/05/2020 Influenza Vaccine (#1) 2024 3, 02/05/2020, 06/13/2017 RSV Adult > 60+ Yrs or (1 - 1-dose 75+ series) 2025 Hepatitis B Vaccines Aged Out No long er eligible based on patient's age to complete this topic RSV Ped < 20 months Aged Out No longe r eligible based on patient's age to complete this topic Care Teams Air Conditioning Coil Assembler Relationship Specialty Start Date End Date Yunier Garcia MD [address] [place] [address] PCP - General Family Medicine 03/11/21
--- OUTSIDE RECORDS SUMMARY | 2024-06-04 12:52 | XMS_ITS | Continuity of Care Document ---
Author Organization [facility] Address [address], [address], [address] [place] [address]- Care Team Providers Care Potato Chip Fryer Name Role Phone Yunier Garcia DO Primary Care Physician [place] [facility] [place]24 - 05/31/24 [facility] [address], [address] [place] [address] Encounter Type: Triage Allergies, Adverse Reactions, Alerts No Known Allergies Immunizations Given and Recorded Vaccine Date Status Refusal Reason influenza virus vaccine, inactivated 03/28/24 Chris rded influenza virus vaccine, inactivated 01/26/23 Chris rded influenza virus vaccine, inactivated 02/05/20 Chris rded influenza virus vaccine, inactivated 06/13/17 Chris rded [id number] bivalent booster vax 03/08/22 Recorded SARS-CoV-2 (COVID-19) mRNA-1273 vaccine 04/04/21 R ecorded Zoster Vaccine Live 11/23/20 Recorded zoster vaccine, inactivated 02/05/20 Recorded Medications atorvastatin 40 mg oral tablet 1 tablet, By Mouth, Daily, # 90 tablet, 1 Refills, Maintenance, 05/26/24 5:54:00 PM EST, [id number], 183, cm, 05/23/24 12:23:00 EST, Height, 114, kg, 10/14/22 20:17:00 EDT, Dry Weight Start Date: 05/26/24 Status: Ordered Quantity: 90.0 Unit: tablet Repeat number: 2 Excedrin 1 tablet, By Mouth, Every 6 [...] Unknown,1 Refills, Maintenance, 04/04/24 9:18:00 AM EST, [facility] #[id number], 183, cm, 01/08/24 11:14:00 EDT, Height, 114, kg, 10/14/22 20:17:00 EDT, Dry Weight Start Date: 04/04/24 Status: Ordered Quantity: 15.0 Unit: Unknown Repeat number: 2 Lantus Solostar Pen 100 units/mL subcutaneous solution See Instructions, INJECT 14 UNITS SUBCUTANEOUSLY DAILY, # 15 Unknown, 1 Refills, Maintenance, 04/07/24 12:22:00 PM EST, [id number], 183, cm, 01/08/24 11:14:00 EDT, Height, 114, kg, 10/14/22 20:17:00 EDT, Dry Weight Start Date: 04/07/24 Status: Ordered Quantity: 15.0 Unit: Unknown Repeat number: 1 levETIRAcetam 500 mg oral tablet 1 tablet, By Mouth, 2 times a day, # 180 tablet, 2 Refills, Maintenance, 05/01/24 3:55:00 PM EST, [facility]/pharmacy #[id number], 183, cm, 01/08/24 11:14:00 EDT, Height, [...] 6:18:00 AM EST, Route to Pharmacy Electronically, [facility] [id number], 183, cm, 01/08/24 11:14:00 EDT, Height, 114, [...] Active 1[facility] 2L leg 3Dr. Dixon [facility] Social History Social History Type Response Smoking Status Never (less than 100 in lifetime) entered on: 08/17/18 Sex Sex Representation Male (finding) Patient Care team information Care Team Personnel Name: Priscilla MELENDREZ, Naseem Arauz Position: [facility] Renal MD Member Role: Lifetime Consulting Physician Address: [address] [place] [address] [address] [facility] [address]- [place] Telecom: Name: Denise Lu RN Position: [facility] SN RN Member Role: Primary Care Nurse Name: Rosanne Beyer RN Position: [facility] AMB Nurse Member Role: Primary Care Nurse Name: Evelyn hSay RN Position: [facility] RN Member Role: Primary Care Nurse Name: Arely Deleon RN Position: [facility] ED RN W/OE and Tasks Member Role: Primary Care Nurse Name: Yunier Garcia DO Position: [facility] Physician - Primary Care Member Role: PCP Address: [address] [place] [address] - Telecom: Name: Mariola Becker RN Position: [facility] RN Member Role: Primary Care Nurse Name: Tl Harris RN Position: [facility] RN Member Role: Primary Care Nurse Name: Gabriela Knowles RN Position: [facility] RN Member Role: Primary Care Nurse Name: Essence Connor RN Position: [facility] RN Member Role: Primary Care Nurse Care Team Related Persons Name: LINN BURGESS Name: CAITLYN BURGESS Insurance Providers Guarantor name: GENA JENIFER Health Plan Information #: 1 Payer: NA Member Number: NA Policy Number: NA Group Number: NA
--- OUTSIDE RECORDS SUMMARY | 2024-06-04 12:53 | XMS_ITS ---
Author Organization [facility] on Address Unknown Problems Problem Status Start Date End Date EPILEPSY, UNSPECIFIED, NOT I NTRACTABLE, WITHOUT STATUS EPILEPTICUS (Primary) (G40.909 - ICD-10-CM) ACTIVE 10/20/2022 DELIRIUM DUE TO KNOWN PHYSIO LOGICAL CONDITION (F05 - ICD-10-CM) ACTIVE 10/20/2022 OTHER MIGRAINE, NOT INTRACTA BLE, WITHOUT STATUS MIGRAINOSUS (G43.809 - ICD-10-CM) ACTIVE 10/20/2022 CHRONIC KIDNEY DISEASE, STAGE 2 (MILD) (N18.2 - ICD-10 -CM) ACTIVE 10/20/2022 TYPE 2 DIABETES MELLITUS WIT H DIABETIC NEPHROPATHY (E11.21 - ICD-10-CM) ACTIVE 10/20/2022 HYPOTHYROIDISM, UNSPECIFIED (E03.9 - ICD-10-CM) ACTIVE 10/20/2022 OBSTRUCTIVE SLEEP APNEA (HASMUKH LT) (PEDIATRIC) (G47.33 - ICD-10-CM) ACTIVE 10/20/2022 AORTIC ANEURYSM OF UNSPECIFI ED SITE, WITHOUT RUPTURE (I71.9 - ICD-10-CM) ACTIVE 10/20/2022 VITAMIN D DEFICIENCY, UNSPECIFIED (E55.9 - ICD-10-CM) ACTIVE 10/20/2022 Encounters Encounter Performer Performer Role Encounter Diagnoses Location Date Discharge - Discharged to home or self care - [facility] - Private home/apt. with home health services [facility] 10/20/2022 04:30 pm EDT - 10/28/2022 11:02 am EDT Immunizations Vaccine Date Zostavax(Shingles) 11/23/2021 12:00 am EDT SARS-COV-2 (COVID-19) 04/04/2021 12:00 a m EST Shingrix 11/23/2020 12:00 am EDT SARS-COV-2 (COVID-19 BOOSTER) 03/08/2022 12:00 am EDT Social History
== END 2024-06-04 12:31 | disposition home or self-care (01) ==
PROVIDERS: PCP Family Medicine; Visit Provider Urology
DX: N20.0 Calculus of kidney (principal); N40.1 Benign prostatic hyperplasia with lower urinary tract symptoms; N13.8 Other obstructive and reflux uropathy; Z13.9 Encounter for screening, unspecified
CPT/HCPCS: 99213

== ENCOUNTER → 2024-06-04 11:15 | Outpatient (BNVA) | payer BC, SELFPAY | PROVIDERS: PCP Family Medicine; Visit Provider Urology | DX: N20.0 Calculus of kidney (principal); N40.1 Benign prostatic hyperplasia with lower urinary tract symptoms; N13.8 Other obstructive and reflux uropathy; Z79.899 Other long term (current) drug therapy | CPT/HCPCS: 81003 ==

== ENCOUNTER 2024-06-17 10:50 | Outpatient (AMB) | payer BC, SELFPAY ==
--- NOTE | 2024-06-17 10:52 | HO.NEPHOV ---
Vital Signs 06/17/24 10:53 Height 6 ft Weight 261 lb BMI 35.4 BP 110/76 Blood Pressure Location Lt brachial Position Sitting Pulse 69 Pulse Source Pulse Oximeter Pulse Oximetry (%) 95 Oxygen Delivery Method Room Air Intake Visit Reasons: CKD/ Conf Green Building Energy Engineer Required: No Accompanied by: Spouse Allergies No Known Allergies Allergy (Verified 06/17/24 10:55) Medication List - Last Reconciled 06/17/24 by Naseem Wells MD acetaminophen ER (Tylenol Arthritis Pain) 650 mg PO Q12H acetaminophen-caffeine 500-65 mg (Excedrin Tension Headache) 1 tab PO Q12H PRN atorvastatin 40 mg PO DAILY blood sugar diagnostic As directed dulaglutide (Trulicity) mg subcut QWEEK finasteride 5 mg PO DAILY 90 days furosemide (Lasix) 20 mg PO DAILY insulin glargine 24 units subcut BEDTIME levetiracetam 500 mg PO BID melatonin 10 mg PO BEDTIME PRN metoprolol succinate ER 25 mg PO DAILY pen needle, diabetic As directed HPI Comments Details: . Ilia is a pleasant 73-year-old man with a history of diabetes mellitus, hypertension with chronic leg edema. He has a history of bicuspid aortic valve, history of aneurysm of ascending aorta, status post PFO closure in 2021. History of obstructive sleep apnea and currently uses CPAP. History of obesity. Reported right ventricular systolic pressure was 25 mm He has been referred for evaluation of chronic kidney disease. Serum creatinine bumped up to 1.4. Recent creatinine was 1.17. He has been on lisinopril 20 mg which was increased to 30 mg a day a about 6 months ago. In the past he was on metformin which caused significant diarrhea and apparently he lost about 35 lb. After discontinuing metformin the diarrhea resolved and he has gradually gained back the 35 lb. His main issue seems to be chronic leg edema. He had left leg edema for the last several years which started after he had a trauma. He underwent acupuncture which seems to have relieved initially. However the swelling has returned and he continues to have left leg edema. Recently he had a right-sided leg edema. He denies any shortness of breath on exertion. No urinary complaints. He was seen by to endovascular center recently. Liver functions have been normal. He has no significant proteinuria based on recent urine studies. He has on a regular salt diet. 11/22/2023. He is tolerating lisinopril 20 mg. Home blood pressure readings were reviewed Continues to have leg edema. No shortness of breath 01/10/24 Tolerating HCTZ Lost 2 lbs BP is low Cr at 1.39 02/21/24 Gained few lbs Admits to eating more Seen by vascular for leg edema 04/08/24 Gained few morelbs Edema is better 05/06/2024. After increasing Lasix to 40 mg daily he was lost about 7 lb. No change in edema. However creatinine is bumped up to 1.56. 06/17/24 Recently found to have rnal calculi with moderate Inola Seen by Dr. Dixon Follow up [facility] on Leg edema is better Lost 6 more lbs with Lasix 20 mg QD PFSH Medical History Diabetes mellitus, type II Elevated PSA Erectile dysfunction Hyperlipidemia Sleep apnea Transient ischemic attack (TIA) Surgical History History of surgery Physical Exam Vital Signs: Last Vital Signs Pulse 69 06/17/24 10:53 BP 110/76 06/17/24 10:53 Pulse Ox 95 06/17/24 10:53 Oxygen Delivery Method Room Air 06/17/24 10:53 BMI result Body Mass Index 35.4 Const General: comfortable; No acute distress Orientation/consciousness: patient oriented x3 Eyes General: appearance normal, both eyes and all related structures Visual Camp: normal visual camp by confrontation Neck Neck: Yes supple and Yes no JVD Resp Effort & Inspection: normal respiratory effort and respiratory effort not decreased Auscultation: rhonchi Cardio Palpation: no palpable S3 and no palpable S4 Heart sounds: no rubs GI Inspection: Yes normal to inspection Palpation (GI): Soft to palpation Percussion: Yes normal to percussion Auscultation: normal bowel sounds General: Yes no CVA tenderness Back/Spine/Pelvis Back: no CVA tenderness Skin General skin exam: no petechiae and no purpura Neuro General: patient oriented x3 and no focal motor deficits Extrem General: No clubbing and Yes edema Results Reviewed Results Reviewed: US/US renal BI IMPRESSION: 1. Left renal hydronephrosis, moderate. Obstructing calculus in the proximal left ureter as described. As per technologist note, patient is complaining of no pain. 2. Nonobstructing left mid to lower pole calculus measuring up to 1.0 cm. 3. Upper pole simple cyst left kidney measuring 2.6 x 2.1 cm. 4. Normal right kidney. Nephrology Results: Renal US 05/27/24 Assessment & Plan Assessment & Plan (1) CKD (chronic kidney disease): Code(s): N18.9 - Chronic kidney disease, unspecified Category: Medical Plan: . Ilia has mild CKD. Based on recent labs he probably has stage II CKD. He did have an episode of ALEJA with a creatinine peaking up to 1.4 mg/dL in 06/02/2023. This is probably due to hypoperfusion. Serum creatinine has returned to baseline of 1.17 with a EGFR of 66 mL/minute. He has no significant proteinuria. Creatinine is bumped up to 1.5. Recent ultrasonogram showed renal calculi with hydronephrosis. Being followed by Urology. Goal is to slow the progression of renal disease Continue to avoid nephrotoxic agents. Avoid hypotension. Continue to HOLD lisinopril 10 mg daily and HOLD HCTZ 12.5 mg Keep Lasix 20 mg QD and stay on low salt diet Watch weights Encouraged him to keep watching his blood pressure at home. Since he has no significant proteinuria ; I stopped lisinopril (2) Leg edema: Code(s): R60.0 - Localized edema Category: Medical Plan: . Chronic leg edema. Recent LFTs were normal. Renal function is normal without significant proteinuria. He has a history of obstructive sleep apnea and status post closure of PFO. Recent echocardiogram did not reveal elevated right heart pressures. Excessive salt intake could be contributing to the edema. Other possibility include lymphedema. I have advised him to decrease the salt intake Leg elevation at night. seen by Vascular Waiting for follow up Orders: Orders Basic Metabolic Panel 8 Weeks N18.9 - Chronic kidney disease, unspecified Coding Level of Care Code Est Pt Level 4 (57457) Diagnoses CKD (chronic kidney disease) N18.9 Leg edema R60.0
[2024-06-17 10:53] VITALS: BP 110/76; PULSE 69; O2SAT 95; BMI 35.4
--- OUTSIDE RECORDS SUMMARY | 2024-06-17 11:45 | XMS_ITS | Clinical Summary ---
Author Organization [facility] Address [address] [place] [address] Care Team Providers Care Siebel Solution Architect Name Role Phone Yunier Garcia MD Primary Care Provider [phone] Allergies No known active allergies Medications Medication [...] age to complete this topic Care Teams Siebel Solution Architect Relationship Specialty Start Date End Date Yunier Garcia MD [address] [place] [address] PCP - General Family Medicine 03/11/21
== END 2024-06-17 11:10 | disposition home or self-care (01) ==
PROVIDERS: PCP Family Medicine; Visit Provider Internal Medicine Hypertension Specialist
DX: N18.9 Chronic kidney disease, unspecified (principal); R60.0 Localized edema
CPT/HCPCS: 99214

== ENCOUNTER → 2024-06-17 10:50 | Outpatient (BNVA) | payer BC, SELFPAY | PROVIDERS: PCP Family Medicine; Visit Provider Internal Medicine Hypertension Specialist ==

== ENCOUNTER 2024-07-02 08:46 | Outpatient (REF) | payer BC, SELFPAY ==
--- OUTSIDE RECORDS SUMMARY | 2024-07-02 08:51 | XMS_ITS | Clinical Summary ---
Author Organization [facility] Address [address] [place] [address] Care Team Providers Care Toll Line Inspector Name Role Phone Yunier Garcia MD Primary Care Provider [phone] Allergies No known active allergies Medications Medication [...] age to complete this topic Care Teams Toll Line Inspector Relationship Specialty Start Date End Date Yunier Garcia MD [address] [place] [address] PCP - General Family Medicine 03/11/21
--- OUTSIDE RECORDS SUMMARY | 2024-07-02 08:51 | XMS_ITS | Continuity of Care Document ---
Author Organization [facility] Address [address] [place] [id number]- Care Team Providers Care Wood Heel Finisher Name Role Phone Jose CRANDALL Yunier Miroslava Primary Care Physician Encounter [facility] [place] Date(s): 05/23/24 - 06/22/24 [facility] [address] [place] [address]- Attending Physician: AdmAwais lang Admitting Physician: AdmtrAwais Referring Physician: Admtr, Ar8 Encounter Type: Triage Allergies, Adverse Reactions, Alerts No Known Allergies Immunizations Given and Recorded Vaccine Date Status Refusal Reason influenza virus vaccine, inactivated 03/28/24 Chris rded influenza virus vaccine, inactivated 01/26/23 Chris rded influenza virus vaccine, inactivated 02/05/20 Chris rded influenza virus vaccine, inactivated 06/13/17 Chris rded [id number] bivalent booster vax 03/08/22 Recorded SARS-CoV-2 (COVID-19) [...] Quantity: 90.0 Unit: tablet Repeat number: 2 Quiana Dill 100 units/mL subcutaneous solution = 24 units, Subcutaneous Infusion, Daily, # 15 mL, 5 Refills, Maintenance, 1/22/25 12:38:00 PM EST,[id number], Partial fill upon patient request if the prescription is for a schedule II opioid drug., 183, cm, 05/23/24 12:23:00 EST, Height, 114, kg, 10/14/22 20:17:00 EDT, Dry Weight Start Date: 06/04/24 Status: Ordered Quantity: 15.0 Unit: mL Repeat number: 6 Indication: Type 2 diabetes mellitus with diabetic nephropathy Excedrin 1 tablet, By Mouth, Every 6 [...] Indication: Type 2 diabetes mellitus without complications furosemide 20 mg oral tablet TAKE 1 TABLET BY MOUTH EVERY DAY Start Date: 06/10/24 Status: Ordered Repeat number: 1 levETIRAcetam 500 mg oral tablet 1 tablet, By Mouth, 2 times a day, # 180 tablet, 2 Refills, Maintenance, 01/26/25 3:55:00 PM EDT, [facility]/pharmacy #[id number], 183, cm, 06/11/24 16:27:00 EST, Height, 114, kg, 10/14/22 20:17:00 EDT, Dry Weight Start Date: 01/26/25 Stop Date: 10/23/25 Status: Ordered Quantity: 180.0 Unit: tablet Repeat number: 3 levETIRAcetam 500 mg oral tablet 1 tablet, By Mouth, 2 times a day, for 90 days, # 180 tablet, 2 Refills, Hard Stop 01/26/25 3:55:00 PM EDT, 05/01/24 3:55:00 PM EST, [facility]/pharmacy #[id number], 183, cm, 01/08/24 11:14:00 EDT, [...] 6:18:00 AM EST, Route to Pharmacy Electronically, [facility] [id number], 183, cm, 01/08/24 11:14:00 EDT, Height, 114, [...] Refills, Maintenance, 04/07/24 12:12:00 PM EST, Solution, [facility]/pharmacy #[id number], Partial fill upon patient request ifthe [...] Active 1[facility] 2L leg 3Dr. Dixon 4endo-[facility] Social History Social History Type Response Smoking Status Never (less than 100 in lifetime) entered on: 08/17/18 Sex Sex Representation Male (finding) Patient Care team information Care Team Personnel Name: Naseem Wells MD Position: [facility] Renal MD Member Role: Lifetime Consulting Physician Address: [address] [place] [address] [address] [place] [address]- [place] Telecom: Name: Denise Lu RN Position: [facility] SN RN Member Role: Primary Care Nurse Name: Rosnane Beyer RN Position: [facility] AMB Nurse Member Role: Primary Care Nurse Name: Evelyn Sahy RN Position: [facility] RN Member Role: Primary Care Nurse Name: Arely Deleon RN Position: [facility] ED RN W/OE and Tasks Member Role: Primary Care Nurse Name: Yunier Garcia DO Position: [facility] Physician - Primary Care Member Role: PCP Address: [address] [place] [address]- Telecom: Name: Mariola Becker RN Position: [facility] RN Member Role: Primary Care Nurse Name: Tl Harris RN Position: [facility] RN Member Role: Primary Care Nurse Name: Gabriela Knowles RN Position: [facility] SN RN Member Role: Primary Care Nurse Name: Essence Connor RN Position: [facility] RN Member Role: Primary Care Nurse Care Team Related Persons Name: LINN BURGESS Name: CAITLYN BURGESS Insurance Providers Guarantor name: GENA BURGESS Health Plan Information #: 1 Payer: NA Member Number: ROMA Policy Number: NA Group Number: NA
[2024-07-02 11:42] LABS: Anion Gap 9 (12-20); Blood Urea Nitrogen 27 mg/dL (9-16); Calcium 9.4 mg/dL (8.4-10.2); Carbon Dioxide 29 mmol/L (22-29); Chloride 107 mmol/L (96-108); Estimated Glomerular Filt Rate 46; Glucose Random 138 mg/dL (60-115); Potassium 4.2 mmol/L (3.3-5.1); Sodium 141 mmol/L (135-145)
== END 2024-07-02 08:47 | disposition home or self-care (01) ==
LOC: HO.WFDLDS 08:46
PROVIDERS: Visit Provider Internal Medicine Hypertension Specialist
DX: N18.9 Chronic kidney disease, unspecified (principal); R60.0 Localized edema
CPT/HCPCS: 36415; 80048

== ENCOUNTER 2024-07-08 10:24 | Outpatient (REF) | payer BC, SELFPAY ==
--- NOTE | ~2024-07-08 | US_ITS ---
CLINICAL HISTORY: N20.0 - Calculus of kidney US Renal Comparison: None available. Findings: Right kidney measures 11.8 cm length. Left kidney measures 10.4 cm length. Increased echogenicity of the left kidney concerning for nephrolithiasis and/or stones measuring 6 mm in the interpolar region of the left kidney, 7 mm adjacently also in the interpolar region, and 7 mm in the lower pole of the left kidney. Mild left-sided hydronephrosis. Partially imaged cystic lesion of the upper pole of the left kidney measures 4.1 cm. No definite right-sided hydronephrosis. Partially imaged urinary bladder is unremarkable. IMPRESSION: 1. Mild left-sided hydronephrosis with multiple left-sided nephrolithiasis by ultrasound. 2. No right-sided hydronephrosis. This document has been electronically signed by: Evin Savage MD on 07/08/2024 23:12:18
--- OUTSIDE RECORDS SUMMARY | 2024-07-08 12:19 | XMS_ITS | Clinical Summary ---
Author Organization [facility] Address [address] [place] [address] Care Team Providers Care Can Maker Name Role Phone Yunier Garcia MD Primary Care Provider [phone] Allergies No known active allergies Medications Medication [...] age to complete this topic Care Teams Can Maker Relationship Specialty Start Date End Date Yunier Garcia MD [address] [place] [address] PCP - General Family Medicine 03/11/21
== END 2024-07-08 10:25 | disposition home or self-care (01) ==
LOC: HO.US 10:24
PROVIDERS: PCP Family Medicine; Visit Provider Urology
DX: N20.0 Calculus of kidney (principal)
CPT/HCPCS: 76775

== ENCOUNTER → 2024-07-08 10:26 | Outpatient (BNV) | payer BC, SELFPAY | PROVIDERS: PCP Family Medicine; Visit Provider Radiology Neuroradiology | DX: N20.0 Calculus of kidney (principal); N13.2 Hydronephrosis with renal and ureteral calculous obstruction | CPT/HCPCS: 76775 ==

== ENCOUNTER 2024-07-11 12:54 | Outpatient (REF) | payer BC, SELFPAY ==
--- OUTSIDE RECORDS SUMMARY | 2024-07-11 14:57 | XMS_ITS | Clinical Summary ---
Author Organization [facility] Address [address] [place] [address] Care Team Providers Care Clinical Rehabilitation Aide Name Role Phone Yunier Garcia MD Primary Care Provider [phone] Allergies No known active allergies Medications Medication [...] age to complete this topic Care Teams Clinical Rehabilitation Aide Relationship Specialty Start Date End Date Yunier Garcia MD [address] [place] [address] PCP - General Family Medicine 03/11/21
[2024-07-11 15:48] LABS: Prostate Specific Antigen 1.62 ng/mL (<0.05-4.0)
== END 2024-07-11 12:55 | disposition home or self-care (01) ==
LOC: HO.WFDLDS 12:54
PROVIDERS: Visit Provider Urology
DX: N40.1 Benign prostatic hyperplasia with lower urinary tract symptoms (principal); N13.8 Other obstructive and reflux uropathy; Z12.5 Encounter for screening for malignant neoplasm of prostate
CPT/HCPCS: 36415; 84153

== ENCOUNTER 2024-07-16 09:58 | Outpatient (AMB) | payer BC, SELFPAY ==
--- NOTE | 2024-07-16 10:04 | MHC.OFFVIS ---
Intake Visit Reasons: 6W/US/PSA follow up(PSA?) Intake Note: Patient is present for 6W/US/PSA Urology Medication:FINASTERIDE Antibiotic Allergy:NONE Blood Thinner:NONE Silk Washing Machine Operator Required: No Allergies No Known Allergies Allergy (Verified 07/16/24 10:04) HPI Comments Details: Pool Gutierrez is a very pleasant male. He is a patient of Dr Garcia. He is seen for the following urologic conditions. - BPH and elevated PSA - nephrolithiasis - diabetic uric acid Telemedicine Evaluation 15 min Consultation DoxOutline Henrik Video PSA remains low Discussed ultrasound finding Recurrent stones on left side Previously had uric acid stones Restart potassium citrate Organize Urorisk Lower Urinary Tract Symptoms Currently on finasteride Prior medications include terazosin 2mg Elevated PSA/Abnormal IVELISSE: He presents for further evaluation of elevated PSA. Current management is finasteride 5 mg Laboratory investigations include a total PSA evaluation July 2015 2.8 - 07/29 2.6, 08/31 3.7, 11/30 3.1, 4.7 Free 30%, 11/02 1.3, 07/08 1.6 Individualized Prostate Cancer Risk Calculator < 5% high risk Would like to continue with observation and understands and accepts the risks of a possible delay in diagnosis. A TRUS biopsy not been performed. His current IPSS IPSS Score 1 Symptoms include nocturia, x 1, and are stable. Overall symptoms are mild. His prior IPSS was Mild. Associated conditions diabetes Yes dysuria No erectile dysfunction Yes Therapeutic plan - yearly PSA Nephrolithiasis/Urolithiasis: Recurrent uric acid stone They are here for further evaluation of urethrolitiasis. Urolithiasis was diagnosed a number of years ago. The patient previously had kidney stones whose composition w uric acid. Laboratory investigations include no recent labs. 24 Hour urine evaluation none on file. Prior treatment(s) include medical management, with dietary advice to increase fluids, decrease salt and watch protein intake - Bicarbonate therapy to alkalinize urine. Prior imaging includes a CT (computed tomography) scan of the abdomen/pelvis (stone protocol), showing radiodense stone(s), on the left, <5 mm October 2015 , a renal ultrasound, showing radiodense stone(s), bilaterally, 5-10 mm a renal ultrasound, 10/28 - left renal cyst 4 cm, left renal 7 mm stone nonobstructing 10/29 , a renal ultrasound, showing no evidence of stones. - 05/03 renal ultrasound showing left lower pole stone 12 mm - 11/02 renal ultrasound over left lower pole 10 mm - 06/05 renal ultrasound, bilateral complex cyst, left lower pole stone 12 mm - 12/03 KUB with 12 mm left lower pole stone - 05/06 renal ultrasound with stable left lower pole stone, left upper ureteric stone with question hydronephrosis - There is a calculus within the left proximal ureter measuring 1.2 x 0.6 x 0.8 cm. This appears obstructing. Patient complaining of no pain. UA today shows <5.5. Current therapeutic plan will be to restart potassium citrate and allopurinol with repeat imaging in 6 months [facility] Medical History Diabetes mellitus, type II Elevated PSA Erectile dysfunction Hyperlipidemia Sleep apnea Transient ischemic attack (TIA) Surgical History History of surgery Review of Systems Const All systems reviewed & are unremarkable except as noted in HPI and below Reports no additional complaints Resp Reports no additional complaints GI Reports no additional complaints Reports as per HPI Musc Reports no additional complaints Physical Exam Telemedicine evaluation Appropriate responses Regular breathing rate and rhythm HEENT Head: Yes normal to inspection Ears: hearing grossly normal bilaterally Eyes General: appearance normal, both eyes and all related structures Neck Neck: Yes normal visual inspection Chest Chest palpation & inspection: normal inspection of the chest Resp Effort & Inspection: normal respiratory effort and able to speak in complete sentences Telehealth Telehealth Telehealth Platform: [facility] Location of provider rendering services: practice address Location of patient: address on file Patient Identification confirmed using: Name, : Yes Telehealth method: video Patient verbally consented to treatment: Yes Patient verbally consented to billing insurance company: Yes Patient informed of any privacy concerns related to visit: Yes Minutes spent on Phone/Video with Pt.: 15 Assessment & Plan Assessment & Plan (1) Nephrolithiasis: Code(s): N20.0 - Calculus of kidney Category: Medical (2) BPH w urinary obs/LUTS: Code(s): N40.1 - Benign prostatic hyperplasia with lower urinary tract symptoms; N13.8 - Other obstructive and reflux uropathy Category: Medical Plan Complete Uro risk Start potassium citrate Follow-up three-month Orders: Orders URORISK Today N20.0 - Calculus of kidney Medications: New potassium citrate ER 20 mEq (2 x 10 mEq (1,080 mg)) PO BID 90 days 360 tabs 0RF N20.0 - Calculus of kidney Patient Instructions: This note is constructed using voice recognition software. While every effort has been made to ensure accuracy continuous towel roller errors may have been included. Imaging studies, laboratory and physical exam results were discussed and reviewed in detail. No major barriers to patient understanding were identified. An opportunity to ask questions regarding the treatment plan was provided. All questions were answered. The patient expressed understanding and agreement with the above treatment plan. The patient is aware they should contact our office by phone for worsening of their current condition or the appearance of new urologic symptoms. Compliance is encouraged with any medications and followup testing that is ordered. It is a privilege to participate in the urologic care of your patient. If you have any questions or concerns regarding treatment for the above conditions, or other urologic issues, please do not hesitate to contact me. The office telephone contact is [phone]. Sincerely, Dr Quinten Dixon MD, [facility] - Urology Compassionate Specialist Care for the Genitourinary System Coding Level of Care Code Tele Est Pt Level 4 (86925) Complex EM visit Add On G2211 Diagnoses Nephrolithiasis N20.0 BPH w urinary obs/LUTS N40.1; N13.8
--- OUTSIDE RECORDS SUMMARY | 2024-07-16 11:44 | XMS_ITS | Clinical Summary ---
Author Organization [facility] Address [address] [place] [address] Care Team Providers Care Structural Design Engineer Name Role Phone Yunier Garcia MD Primary Care Provider [phone] Allergies No known active allergies Medications Medication [...] age to complete this topic Care Teams Structural Design Engineer Relationship Specialty Start Date End Date Yunier Garcia MD [address] [place] [address] PCP - General Family Medicine 03/11/21
== END 2024-07-16 10:43 | disposition home or self-care (01) ==
LOC: HO.HUSH 09:58
PROVIDERS: PCP Family Medicine; Visit Provider Urology
DX: N20.0 Calculus of kidney (principal); N40.1 Benign prostatic hyperplasia with lower urinary tract symptoms; N13.8 Other obstructive and reflux uropathy
CPT/HCPCS: 99214

== ENCOUNTER 2024-08-05 14:41 | Outpatient (AMB) | payer BC, SELFPAY ==
--- NOTE | 2024-08-05 14:51 | HO.NEPHOV_ITS ---
Vital Signs 08/05/24 14:52 Height 6 ft Weight 267 lb BMI 36.2 BP 94/62 Blood Pressure Location Lt brachial Position Sitting Pulse 67 Pulse Source Pulse Oximeter Pulse Oximetry (%) 94 Oxygen Delivery Method Room Air Intake Visit Reasons: CKD/ Conf Faculty I On Call Medical Assistant Required: No Accompanied by: Family/Other Allergies No Known Allergies Allergy (Verified 08/05/24 14:53) Medication List - Last Reconciled 08/05/24 by Naseem Wells MD acetaminophen ER (Tylenol Arthritis Pain) 650 mg PO Q12H acetaminophen-caffeine 500-65 mg (Excedrin Tension Headache) 1 tab PO Q12H PRN atorvastatin 40 mg PO DAILY blood sugar diagnostic As directed dulaglutide (Trulicity) mg subcut QWEEK finasteride 5 mg PO DAILY 90 days furosemide 20 mg PO DAILY insulin glargine 24 units subcut BEDTIME levetiracetam 500 mg PO BID melatonin 10 mg PO BEDTIME PRN metoprolol succinate ER 25 mg PO DAILY pen needle, diabetic As directed potassium citrate ER 20 mEq (2 x 10 mEq (1,080 mg)) PO BID 90 days HPI Comments Details: . Ilia is a pleasant 73-year-old man with a history of diabetes mellitus, hypertension with chronic leg edema. He has a history of bicuspid aortic valve, history of aneurysm of ascending aorta, status post PFO closure in 2021. History of obstructive sleep apnea and currently uses CPAP. History of obesity. Reported right ventricular systolic pressure was 25 mm He has been referred for evaluation of chronic kidney disease. Serum creatinine bumped up to 1.4. Recent creatinine was 1.17. He has been on lisinopril 20 mg which was increased to 30 mg a day a about 6 months ago. In the past he was on metformin which caused significant diarrhea and apparently he lost about 35 lb. After discontinuing metformin the diarrhea resolved and he has gradually gained back the 35 lb. His main issue seems to be chronic leg edema. He had left leg edema for the last several years which started after he had a trauma. He underwent acupuncture which seems to have relieved initially. However the swelling has returned and he continues to have left leg edema. Recently he had a right-sided leg edema. He denies any shortness of breath on exertion. No urinary complaints. He was seen by to endovascular center recently. Liver functions have been normal. He has no significant proteinuria based on recent urine studies. He has on a regular salt diet. 11/22/2023. He is tolerating lisinopril 20 mg. Home blood pressure readings were reviewed; Continues to have leg edema. No shortness of breath 01/10/24; Tolerating HCTZ ;Lost 2 lbs; BP is low ;Cr at 1.39 02/21/24 Gained few lbs; Admits to eating more Seen by vascular for leg edema 04/08/24 Gained few more lbs; Edema is better 05/06/2024. After increasing Lasix to 40 mg daily he was lost about 7 lb. No change in edema. However creatinine is bumped up to 1.56. 06/17/24; Recently found to have rnal calculi with moderate [place] ;Seen by Dr. Dixon ;Follow up [facility] on Leg edema is better Lost 6 more lbs with Lasix 20 mg QD 08/05/2024. History of renal stones. Urocit-K has been ordered [facility] Medical History Diabetes mellitus, type II Elevated PSA Erectile dysfunction Hyperlipidemia Sleep apnea Transient ischemic attack (TIA) Surgical History History of surgery Physical Exam Vital Signs: Last Vital Signs Pulse 67 08/05/24 14:52 BP 94/62 08/05/24 14:52 Pulse Ox 94 08/05/24 14:52 Oxygen Delivery Method Room Air 08/05/24 14:52 BMI result Body Mass Index 36.2 Const General: comfortable; No acute distress Orientation/consciousness: patient oriented x3 Eyes General: appearance normal, both eyes and all related structures Visual Camp: normal visual camp by confrontation Neck Neck: Yes supple and Yes no JVD Resp Effort & Inspection: normal respiratory effort and respiratory effort not de creased Auscultation: rhonchi Cardio Palpation: no palpable S3 and no palpable S4 Heart sounds: no rubs GI Inspection: Yes normal to inspection Palpation (GI): Soft to palpation Percussion: Yes normal to percussion Auscultation: normal bowel sounds General: Yes no CVA tenderness Back/Spine/Pelvis Back: no CVA tenderness Skin General skin exam: no petechiae and no purpura Neuro General: patient oriented x3 and no focal motor deficits Extrem General: No clubbing and Yes edema Results Reviewed Nephrology Results: Sodium 141 mmol/L (135-145) 07/02/24 Potassium 4.2 mmol/L (3.3-5.1) 07/02/24 Chloride 107 mmol/L (96-108) 07/02/24 Carbon Dioxide 29 mmol/L (22-29) 07/02/24 BUN 27 mg/dL (9-16) H 07/02/24 Creatinine 1.49 mg/dL (0.5-1.4) H 07/02/24 Calcium 9.4 mg/dL (8.4-10.2) 07/02/24 Renal US 07/08/24 Assessment & Plan Assessment & Plan (1) CKD (chronic kidney disease): Code(s): N18.9 - Chronic kidney disease, unspecified Category: Medical Plan: . Ilia has mild CKD. Based on recent labs he probably has stage II CKD. He did have an episode of ALEJA with a creatinine peaking up to 1.4 mg/dL in 06/02/2023. This is probably due to hypoperfusion. Serum creatinine has returned to baseline of 1.17 with a EGFR of 66 mL/minute. He has no significant proteinuria. Creatinine is bumped up to 1.5. Being followed by Urology. Goal is to slow the progression of renal disease Continue to avoid nephrotoxic agents. Avoid hypotension. Continue to HOLD lisinopril 10 mg daily and HOLD HCTZ 12.5 mg Keep Lasix 20 mg QD and stay on low salt diet Watch weights Encouraged him to keep watching his blood pressure at home. Since he has no significant proteinuria ; I stopped lisinopril Nephrolithiasis Currently on Urocit-K. Check renal panel along with potassium level. He is due to see a dietitian. He has stay on low-sodium low oxalate diet. Encouraged him to increase fluid intake to maintain a urine output of 2 L (2) Leg edema: Code(s): R60.0 - Localized edema Category: Medical Plan: . Chronic leg edema. Recent LFTs were normal. Renal function is normal without significant proteinuria. He has a history of obstructive sleep apnea and status post closure of PFO. Recent echocardiogram did not reveal elevated right heart pressures. Excessive salt intake could be contributing to the edema. Other possibility include lymphedema. I have advised him to decrease the salt intake Leg elevation at night. seen by Vascular Waiting for follow up Orders: Orders Basic Metabolic Panel Today N18.9 - Chronic kidney disease, unspecified Coding Level of Care Code Est Pt Level 5 (80734) Diagnoses CKD (chronic kidney disease) N18.9 Leg edema R60.0
[2024-08-05 14:52] VITALS: BP 94/62; PULSE 67; O2SAT 94; BMI 36.2
== END 2024-08-05 15:14 | disposition home or self-care (01) ==
LOC: HO.HKA 14:41
PROVIDERS: PCP Family Medicine; Visit Provider Internal Medicine Hypertension Specialist
DX: N18.9 Chronic kidney disease, unspecified (principal); R60.0 Localized edema
CPT/HCPCS: 99214

== ENCOUNTER → 2024-08-05 14:41 | Outpatient (BNVA) | payer BC, SELFPAY | PROVIDERS: PCP Family Medicine; Visit Provider Internal Medicine Hypertension Specialist ==

== ENCOUNTER 2024-08-08 11:08 | Outpatient (REF) | payer BC, SELFPAY ==
[2024-08-08 14:43] LABS: Anion Gap 11 (12-20); Blood Urea Nitrogen 22 mg/dL (9-16); Calcium 9.5 mg/dL (8.4-10.2); Carbon Dioxide 31 mmol/L (22-29); Chloride 103 mmol/L (96-108); Estimated Glomerular Filt Rate 52; Glucose Random 170 mg/dL (60-115); Potassium 4.1 mmol/L (3.3-5.1); Sodium 141 mmol/L (135-145)
== END 2024-08-08 11:09 | disposition home or self-care (01) ==
LOC: HO.WFDLDS 11:08
PROVIDERS: Visit Provider Internal Medicine Hypertension Specialist
DX: N18.9 Chronic kidney disease, unspecified (principal)
CPT/HCPCS: 36415; 80048

== ENCOUNTER 2024-10-17 11:36 | Outpatient (AMB) | payer BC, SELFPAY ==
--- NOTE | 2024-10-17 11:48 | A.OFFVIS_ITS ---
Intake Visit Reasons: 3m/l[facility]olink Intake Note: Patient is present for 3m/[facility] Urology Medication:Finasteride, Potassium Antibiotic Allergy:NONE Blood Thinner:NONE PVR:0ml New Vehicle Sales Consultant Required: No Allergies No Known Allergies Allergy (Verified 10/17/24 11:49) HPI Comments Details: Pool Gutierrez is a very pleasant male. He is a patient of Dr Garcia. He is seen for the following urologic conditions. - BPH and elevated PSA - nephrolithiasis - diabetic uric acid Here with Uro risk results discussed Good volume, high citrate on medication, high uric acid, high sodium. Dietary intake discussed Potassium citrate refill Continue finasteride Six-month follow-up imaging Granddaughter graduating and going to [place] to be senior corporate accountant Lower Urinary Tract Symptoms Currently on finasteride Prior medications include terazosin 2mg Elevated PSA/Abnormal IVELISSE: He presents for further evaluation of elevated PSA. Current management is finasteride 5 mg Laboratory investigations include a total PSA evaluation July 2015 2.8 - 07/29 2.6, 08/31 3.7, 11/30 3.1, 4.7 Free 30%, 11/02 1.3, 07/08 1.6 Individualized Prostate Cancer Risk Calculator < 5% high risk Would like to continue with observation and understands and accepts the risks of a possible delay in diagnosis. A TRUS biopsy not been performed. His current IPSS IPSS Score 1 Symptoms include nocturia, x 1, and are stable. Overall symptoms are mild. His prior IPSS was Mild. Associated conditions diabetes Yes dysuria No erectile dysfunction Yes Therapeutic plan - yearly PSA Nephrolithiasis/Urolithiasis: Recurrent uric acid stone They are here for further evaluation of urethrolitiasis. Urolithiasis was diagnosed a number of years ago. The patient previously had kidney stones whose composition w uric acid. Laboratory investigations include no recent labs. 24 Hour urine evaluation none on file. Prior treatment(s) include medical management, with dietary advice to increase fluids, decrease salt and watch protein intake - Bicarbonate therapy to alkalinize urine. Prior imaging includes a CT (computed tomography) scan of the abdomen/pelvis (stone protocol), showing radiodense stone(s), on the left, <5 mm October 2015 , a renal ultrasound, showing radiodense stone(s), lisa aterally, 5-10 mm a renal ultrasound, 6/17 - left renal cyst 4 cm, left renal 7 mm stone nonobstructing 10/29 , a renal ultrasound, showing no evidence of stones. - 05/03 renal ultrasound showing left lower pole stone 12 mm - 11/02 renal ultrasound over left lower pole 10 mm - 06/05 renal ultrasound, bilateral complex cyst, left lower pole stone 12 mm - 12/03 KUB with 12 mm left lower pole stone - 05/06 renal ultrasound with stable left lower pole stone, left upper ureteric stone with question hydronephrosis - There is a calculus within the left proximal ureter measuring 1.2 x 0.6 x 0.8 cm. This appears obstructing. Patient complaining of no pain. UA today shows <5.5. Current therapeutic plan will be to restart potassium citrate and allopurinol with repeat imaging in 6 months [facility] Medical History Transient ischemic attack (TIA) Erectile dysfunction Sleep apnea Hyperlipidemia Diabetes mellitus, type II Elevated PSA Surgical History History of surgery Review of Systems Const Denies chills and Denies fever(s) Card Reports no additional complaints and Denies syncope Resp Denies cough GI Denies abdominal pain and Denies heartburn Reports as per HPI and Denies change in libido Neuro Denies syncope Psych Denies change in libido Endo Denies change in libido Physical Exam Const General: cooperative, healthy appearing, comfortable and no acute distress Orientation/consciousness: patient oriented x3 HEENT Face and sinus: Yes normal facial exam Mouth: moist mucous membranes Neck Neck: Yes normal visual inspection, Yes full ROM and Yes trachea midline Chest Chest palpation & inspection: normal inspection of the chest Resp Effort & Inspection: normal respiratory effort, able to speak in complete sentences and no respiratory distress GI Inspection: Yes normal to inspection Back/Spine/Pelvis Cervical Spine: normal cervical lordosis Thoracic/Lumbar Spine: thoracic and lumbar spine normal to inspection Skin General skin exam: no rashes or lesions noted Neuro General: patient oriented x3, gait normal, tone normal and moves all extremities Extrem General: Yes normal to inspection and Yes capillary refill normal Results AMB Urinalysis, Automated UA Leukoctes 0 Mariella/uL Last Edit by SMA Maira on 10/17/24 13:20 UA Nitrite Last Edit by Seven Lyon, [facility] on 10/17/24 13:20 UA Urobilinogen 3.5 mg/dL Last Edit by Seven Lyon, [facility] on 10/17/24 13:20 UA Protein 0 mg/dL Last Edit by Seven Lyon, [facility] on 10/17/24 13:20 UA pH 6.0 Last Edit by Seven Lyon, [facility] on 10/17/24 13:20 UA Blood 0 Alber/uL Last Edit by Seven Lyon, [facility] on 10/17/24 13:20 UA Specific [place] 1.010 Last Edit by Seven Lyon, [facility] on 10/17/24 13:20 UA Ketone Last Edit by Seven Lyon, [facility] on 10/17/24 13:20 UA Bilirubin 0 mg/dL Last Edit by Seven Lyon, [facility] on 10/17/24 13:20 UA Glucose 0 mg/dL Last Edit by Seven Lyon, [facility] on 10/17/24 13:20 Assessment & Plan Assessment & Plan (1) Nephrolithiasis: Code(s): N20.0 - Calculus of kidney Category: Medical (2) BPH w urinary obs/LUTS: Code(s): N40.1 - Benign prostatic hyperplasia with lower urinary tract symptoms; N13.8 - Other obstructive and reflux uropathy Category: Medical Plan Six-month follow-up renal ultrasound Orders: Orders AMB Urinalysis Automated Today N13.8 - Other obstructive and reflux uropathy, N40.1 - Benign prostatic hyperplasia with lower urinary tract symptoms US renal BI 6 Months N20.0 - Calculus of kidney Patient Instructions: This note is constructed using voice recognition software. While every effort has been made to ensure accuracy electrical integrator errors may have been included. Imaging studies, laboratory and physical exam results were discussed and reviewed in detail. No major barriers to patient understanding were identified. An opportunity to ask questions regarding the treatment plan was provided. All questions were answered. The patient expressed understanding and agreement with the above treatment plan. The patient is aware they should contact our office by phone for worsening of their current condition or the appearance of new urologic symptoms. Compliance is encouraged with any medications and followup testing that is ordered. It is a privilege to participate in the urologic care of your patient. If you have any questions or concerns regarding treatment for the above conditions, or other urologic issues, please do not hesitate to contact me. The office telephone contact is [phone]. Sincerely, Dr Quinten Dixon MD, [facility] - Urology Compassionate Specialist Care for the Genitourinary System Coding Level of Care Code Est Pt Level 3 (01447) Complex EM visit Add On G2211 Diagnoses Nephrolithiasis N20.0 BPH w urinary obs/LUTS N40.1; N13.8
--- OUTSIDE RECORDS SUMMARY | 2024-10-17 12:19 | XMS_ITS | Clinical Summary ---
Author Organization [facility] Address [address] [place] [address] Care Team Providers Care Street Contractor Name Role Phone Yunier Garcia MD Primary Care Provider [phone] Allergies No known active allergies Medications Medication [...] o f 2) 04/01/2020 02/05/2020 Influenza Vaccine (Season Ended) 2025 01/26/2023, 02/05/2020, 06/13/2017 RSV Adult > 60+ Yrs or (1 - 1-dose 75+ series) 2025 Hepatitis B Vaccines Aged Out No long er eligible based on patient's age to complete this topic RSV Ped < 20 months Aged Out No longe r eligible based on patient's age to complete this topic Care Teams Street Contractor Relationship Specialty Start Date End Date Yunier Garcia MD [address] [place] [address] PCP - General Family Medicine 03/11/21
== END 2024-10-17 12:30 | disposition home or self-care (01) ==
LOC: HO.HUSH 11:36
PROVIDERS: PCP Family Medicine; Visit Provider Urology
DX: N20.0 Calculus of kidney (principal); N40.1 Benign prostatic hyperplasia with lower urinary tract symptoms; N13.8 Other obstructive and reflux uropathy
CPT/HCPCS: 99213

== ENCOUNTER → 2024-10-17 11:36 | Outpatient (BNVA) | payer BC, SELFPAY | PROVIDERS: PCP Family Medicine; Visit Provider Urology | DX: N40.1 Benign prostatic hyperplasia with lower urinary tract symptoms (principal); N13.8 Other obstructive and reflux uropathy; N20.0 Calculus of kidney | CPT/HCPCS: 81003 ==

== ENCOUNTER 2024-10-23 11:42 | Outpatient (AMB) | payer BC, SELFPAY ==
[2024-10-23 11:48] VITALS: BP 110/70; PULSE 59; O2SAT 93; BMI 35.9
--- NOTE | 2024-10-23 11:48 | HO.NEPHOV ---
Vital Signs 10/23/24 11:48 Height 6 ft Weight 265 lb BMI 35.9 BP 110/70 Blood Pressure Location Lt brachial Position Sitting Pulse 59 Pulse Source Pulse Oximeter Pulse Oximetry (%) 93 Oxygen Delivery Method Room Air Intake Visit Reasons: FU/Conf Environmental Health Specialist Required: No Accompanied by: Spouse Allergies No Known Allergies Allergy (Verified 10/17/24 11:49) Medication List - Last Reconciled 10/23/24 by Naseem Wells MD acetaminophen ER (Tylenol Arthritis Pain) 650 mg PO Q12H acetaminophen-caffeine 500-65 mg (Excedrin Tension Headache) 1 tab PO Q12H PRN atorvastatin 40 mg PO DAILY blood sugar diagnostic As directed finasteride 5 mg PO DAILY 90 days furosemide 20 mg PO DAILY insulin glargine 24 units subcut BEDTIME levetiracetam 500 mg PO BID melatonin 10 mg PO BEDTIME PRN metoprolol succinate ER 25 mg PO DAILY pen needle, diabetic As directed potassium citrate ER 20 mEq (2 x 10 mEq (1,080 mg)) PO BID 90 days tirzepatide (Mounjaro) 5 mg subcut QWEEK HPI Comments Details: . Ilia is a pleasant 73-year-old man with a history of diabetes mellitus, hypertension with chronic leg edema. He has a history of bicuspid aortic valve, history of aneurysm of ascending aorta, status post PFO closure in 2021. History of obstructive sleep apnea and currently uses CPAP. History of obesity. Reported right ventricular systolic pressure was 25 mm He has been referred for evaluation of chronic kidney disease. Serum creatinine bumped up to 1.4. Recent creatinine was 1.17. He has been on lisinopril 20 mg which was increased to 30 mg a day a about 6 months ago. In the past he was on metformin which caused significant diarrhea and apparently he lost about 35 lb. After discontinuing metformin the diarrhea resolved and he has gradually gained back the 35 lb. His main issue seems to be chronic leg edema. He had left leg edema for the last several years which started after he had a trauma. He underwent acupuncture which seems to have relieved initially. However the swelling has returned and he continues to have left leg edema. Recently he had a right-sided leg edema. He denies any shortness of breath on exertion. No urinary complaints. He was seen by to endovascular center recently. Liver functions have been normal. He has no significant proteinuria based on recent urine studies. He has on a regular salt diet. 11/22/2023. He is tolerating lisinopril 20 mg. Home blood pressure readings were reviewed; Continues to have leg edema. No shortness of breath 01/10/24; Tolerating HCTZ ;Lost 2 lbs; BP is low ;Cr at 1.39 02/21/24 Gained few lbs; Admits to eating more Seen by vascular for leg edema 04/08/24 Gained few more lbs; Edema is better 05/06/2024. After increasing Lasix to 40 mg daily he was lost about 7 lb. No change in edema. However creatinine is bumped up to 1.56. 06/17/24; Recently found to have rnal calculi with moderate [place] ;Seen by Dr. Dixon ;Follow up [facility] on Leg edema is better Lost 6 more lbs with Lasix 20 mg QD 08/05/2024. History of renal stones. Urocit-K has been ordered 10/23/24 74-year-old male presenting with nephrolithiasis and associated metabolic abnormalities. He has a prior diagnosis of kidney stones and follows up with urology. There have been no recent interventions, with an upcoming ultrasound planned to monitor the condition. In July, laboratory investigations identified elevated urinary oxalate and uric acid. Potassium citrate was prescribed previously but was stopped due to constipation issues, possibly linked to swallowing difficulties with the medication. Dietary adaptations involving increased apricot intake have resolved this issue, allowing for the resumption of potassium citrate. Dietary analysis indicates the consumption of high-oxalate foods like cashews and soft drinks, and changes suggest reduced animal protein intake despite elevated uric acid levels. The patient's hypertension is monitored and managed with furosemide, displaying stable blood pressure readings. Noticeable is a reduction in weight, partially attributed to a new medication, contributing to overall health improvements. Elevated sodium levels necessitate dietary alterations to mitigate stone formation risks and fluid retention, as previously highlighted. [facility] Medical History Transient ischemic attack (TIA) Erectile dysfunction Sleep apnea Hyperlipidemia Diabetes mellitus, type II Elevated PSA Surgical History History of surgery Physical Exam Vital Signs: Last Vital Signs Pulse 59 10/23/24 11:48 BP 110/70 10/23/24 11:48 Pulse Ox 93 10/23/24 11:48 Oxygen Delivery Method Room Air 10/23/24 11:48 BMI result Body Mass Index 35.9 Const General: comfortable; No acute distress Orientation/consciousness: patient oriented x3 Eyes General: appearance normal, both eyes and all related structures Visual Camp: normal visual camp by confrontation Neck Neck: Yes supple and Yes no JVD Resp Effort & Inspection: normal respiratory effort and respiratory effort not decreased Auscultation: rhonchi Cardio Palpation: no palpable S3 and no palpable S4 Heart sounds: no rubs GI Inspection: Yes normal to inspection Palpation (GI): Soft to palpation Percussion: Yes normal to percussion Auscultation: normal bowel sounds General: Yes no CVA tenderness Back/Spine/Pelvis Back: no CVA tenderness Skin General skin exam: no petechiae and no purpura Neuro General: patient oriented x3 and no focal motor deficits Extrem General: No clubbing and Yes edema Results Reviewed Nephrology Results: Sodium 141 mmol/L (135-145) 08/08/24 Potassium 4.1 mmol/L (3.3-5.1) 08/08/24 Chloride 103 mmol/L (96-108) 08/08/24 Carbon Dioxide 31 mmol/L (22-29) H 08/08/24 BUN 22 mg/dL (9-16) H 08/08/24 Creatinine 1.34 mg/dL (0.5-1.4) 08/08/24 Calcium 9.5 mg/dL (8.4-10.2) 08/08/24 Renal US 07/08/24 Assessment & Plan Assessment & Plan (1) CKD (chronic kidney disease): Code(s): N18.9 - Chronic kidney disease, unspecified Category: Medical Plan: . Ilia has mild CKD. Based on recent labs he probably has stage II CKD. He did have an episode of ALEJA with a creatinine peaking up to 1.4 mg/dL in 06/02/2023. This is probably due to hypoperfusion. Serum creatinine has returned to baseline of 1.17 with a EGFR of 66 mL/minute. He has no significant proteinuria. Creatinine is bumped up to 1.5. Being followed by Urology. Goal is to slow the progression of renal disease Continue to avoid nephrotoxic agents. Avoid hypotension. Continue to HOLD lisinopril 10 mg daily and HOLD HCTZ 12.5 mg Keep Lasix 20 mg QD and stay on low salt diet Watch weights Encouraged him to keep watching his blood pressure at home. Since he has no significant proteinuria ; I stopped lisinopril Nephrolithiasis Currently on Urocit-K. He has stay on low-sodium low oxalate diet. Encouraged him to increase fluid intake to maintain a urine output of 2 L Discussed low oxalate diet (2) Leg edema: Code(s): R60.0 - Localized edema Category: Medical Plan: . Chronic leg edema. Recent LFTs were normal. Renal function is normal without significant proteinuria. He has a history of obstructive sleep apnea and status post closure of PFO. Recent echocardiogram did not reveal elevated right heart pressures. Excessive salt intake could be contributing to the edema. Other possibility include lymphedema. I have advised him to decrease the salt intake Leg elevation at night. seen by Vascular Orders: Orders Basic Metabolic Panel 4 Months N18.9 - Chronic kidney disease, unspecified Coding Level of Care Code Est Pt Level 4 (32986) Diagnoses CKD (chronic kidney disease) N18.9 Leg edema R60.0
--- OUTSIDE RECORDS SUMMARY | 2024-10-23 13:50 | XMS_ITS | Clinical Summary ---
Author Organization [facility] Address [address] [place] [address] Care Team Providers Care Breaker Machine Tender Name Role Phone Yunier Garcia MD Primary Care Provider [phone] Allergies No known active allergies Medications Medication [...] age to complete this topic Care Teams Breaker Machine Tender Relationship Specialty Start Date End Date Yunier Garcia MD [address] [place] [address] PCP - General Family Medicine 03/11/21
== END 2024-10-23 12:03 | disposition home or self-care (01) ==
LOC: HO.HKA 11:42
PROVIDERS: PCP Family Medicine; Visit Provider Internal Medicine Hypertension Specialist
DX: N18.9 Chronic kidney disease, unspecified (principal); R60.0 Localized edema
CPT/HCPCS: 99214

== ENCOUNTER 2025-02-12 11:01 | Outpatient (AMB) | payer BC, SELFPAY ==
[2025-02-12 11:02] VITALS: BP 118/72; PULSE 55; O2SAT 96; BMI 36.9
--- NOTE | 2025-02-12 11:02 | HO.NEPHOV ---
Vital Signs 02/12/25 11:02 Height 6 ft Weight 272 lb BMI 36.9 BP 118/72 Blood Pressure Location Rt brachial Position Sitting Pulse 55 Pulse Source Pulse Oximeter Pulse Oximetry (%) 96 Oxygen Delivery Method Room Air Intake Visit Reasons: 4 month F/U, left v.m. 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 Accompanied by: Spouse Allergies No Known Allergies Allergy (Verified 02/12/25 11:05) Medication List - Last Reconciled 02/12/25 by Naseem Wells MD acetaminophen ER (Tylenol Arthritis Pain) 650 mg PO Q12H acetaminophen-caffeine 500-65 mg (Excedrin Tension Headache) 1 tab PO Q12H PRN atorvastatin 40 mg PO DAILY bisacodyl (Laxative (bisacodyl)) 5 mg PO BEDTIME blood sugar diagnostic As directed docusate sodium 100 mg PO BID finasteride 5 mg PO DAILY 90 days furosemide 20 mg PO DAILY insulin glargine 24 units subcut BEDTIME levetiracetam 500 mg PO BID melatonin 10 mg PO BEDTIME PRN metoprolol succinate ER 25 mg PO DAILY pen needle, diabetic As directed potassium citrate ER 20 mEq (2 x 10 mEq (1,080 mg)) PO BID 90 days sennosides (senna) 8.6 mg PO BID simethicone (Gas Relief (simethicone)) 125 mg PO BID-QID PRN tirzepatide (Mounjaro) 5 mg subcut QWEEK HPI Comments Details: . Ilia is a pleasant 73-year-old man with a history of diabetes mellitus, hypertension with chronic leg edema. He has a history of bicuspid aortic valve, history of aneurysm of ascending aorta, status post PFO closure in 2021. History of obstructive sleep apnea and currently uses CPAP. History of obesity. Reported right ventricular systolic pressure was 25 mm He has been referred for evaluation of chronic kidney disease. Serum creatinine bumped up to 1.4. Recent creatinine was 1.17. He has been on lisinopril 20 mg which was increased to 30 mg a day a about 6 months ago. In the past he was on metformin which caused significant diarrhea and apparently he lost about 35 lb. After discontinuing metformin the diarrhea resolved and he has gradually gained back the 35 lb. His main issue seems to be chronic leg edema. He had left leg edema for the last several years which started after he had a trauma. He underwent acupuncture which seems to have relieved initially. However the swelling has returned and he continues to have left leg edema. Recently he had a right-sided leg edema. He denies any shortness of breath on exertion. No urinary complaints. He was seen by to endovascular center recently. Liver functions have been normal. He has no significant proteinuria based on recent urine studies. He has on a regular salt diet. 11/22/2023. He is tolerating lisinopril 20 mg. Home blood pressure readings were reviewed; Continues to have leg edema. No shortness of breath 01/10/24; Tolerating HCTZ ;Lost 2 lbs; BP is low ;Cr at 1.39 02/21/24 Gained few lbs; Admits to eating more Seen by vascular for leg edema 04/08/24 Gained few more lbs; Edema is better 05/06/2024. After increasing Lasix to 40 mg daily he was lost about 7 lb. No change in edema. However creatinine is bumped up to 1.56. 06/17/24; Recently found to have rnal calculi with moderate [place] ;Seen by Dr. Dixon ;Follow up [facility] on Leg edema is better Lost 6 more lbs with Lasix 20 mg QD 08/05/2024. History of renal stones. Urocit-K has been ordered 10/23/24 74-year-old male presenting with nephrolithiasis and associated metabolic abnormalities. He has a prior diagnosis of kidney stones and follows up with urology. There have been no recent interventions, with an upcoming ultrasound planned to monitor the condition. In July, laboratory investigations identified elevated urinary oxalate and uric acid. Potassium citrate was prescribed previously but was stopped due to constipation issues, possibly linked to swallowing difficulties with the medication. Dietary adaptations involving increased apricot intake have resolved this issue, allowing for the resumption of potassium citrate. Dietary analysis indicates the consumption of high-oxalate foods like cashews and soft drinks, and changes suggest reduced animal protein intake despite elevated uric acid levels. The patient's hypertension is monitored and managed with furosemide, displaying stable blood pressure readings. Noticeable is a reduction in weight, partially attributed to a new medication, contributing to overall health improvements. Elevated sodium levels necessitate dietary alterations to mitigate stone formation risks and fluid retention, as previously highlighted. 10/2/25 - The patient is a 75-year-old male presenting with edema. - Edema persists without significant change. - Hypertension controlled, BP 118/72 mmHg. - Sleep apnea stable. - Constipation ongoing, infrequent bowel movements, hard stools. - Laxatives and dietary changes started for constipation. - Diabetes mellitus, blood sugar 101-152 mg/dL. - On Mounjaro, no weight loss. - Colonoscopy planned, family history of colon cancer. [facility] Medical History Transient ischemic attack (TIA) Erectile dysfunction Sleep apnea Hyperlipidemia Diabetes mellitus, type II Elevated PSA Surgical History History of surgery Physical Exam Vital Signs: Last Vital Signs Pulse 55 02/12/25 11:02 Pulse Ox 96 02/12/25 11:02 Oxygen Delivery Method Room Air 02/12/25 11:02 BMI result Body Mass Index 36.9 Const General: comfortable; No acute distress Orientation/consciousness: patient oriented x3 Eyes General: appearance normal, both eyes and all related structures Visual Camp: normal visual camp by confrontation Neck Neck: Yes supple and Yes no JVD Resp Effort & Inspection: normal respiratory effort and respiratory effort not decreased Cardio Palpation: no palpable S3 and no palpable S4 Heart sounds: no rubs GI Inspection: Yes normal to inspection Palpation (GI): Soft to palpation Percussion: Yes normal to percussion Auscultation: normal bowel sounds General: Yes no CVA tenderness Back/Spine/Pelvis Back: no CVA tenderness Skin General skin exam: no petechiae and no purpura Neuro General: patient oriented x3 and no focal motor deficits Extrem General: No clubbing and Yes edema Results Reviewed Nephrology Results: Sodium, (135-145) 141 mmol/L 08/08/24 Potassium, (3.3-5.1) 4.1 mmol/L 08/08/24 Chloride, (96-108) 103 mmol/L 08/08/24 Carbon Dioxide, (22-29) 31 mmol/L H 08/08/24 BUN, (9-16) 22 mg/dL H 08/08/24 Creatinine, (0.5-1.4) 1.34 mg/dL 08/08/24 Calcium, (8.4-10.2) 9.5 mg/dL 08/08/24 Renal US 07/08/24 Assessment & Plan Assessment & Plan (1) CKD (chronic kidney disease): Code(s): N18.9 - Chronic kidney disease, unspecified Category: Medical Plan: . Ilia has mild CKD. Based on recent labs he probably has stage II CKD. He did have an episode of ALEJA with a creatinine peaking up to 1.4 mg/dL in 06/02/2023. This is probably due to hypoperfusion. Serum creatinine has returned to baseline of 1.17 with a EGFR of 66 mL/minute. He has no significant proteinuria. Creatinine is bumped up to 1.5. Cr down to 1.29 Continue to HOLD lisinopril 10 mg daily and HOLD HCTZ 12.5 mg Keep Lasix 20 mg QD and stay on low salt diet Being followed by Urology. Goal is to slow the progression of renal disease Continue to avoid nephrotoxic agents. Avoid hypotension Encouraged him to keep watching his blood pressure at home. Since he has no significant proteinuria Nephrolithiasis Currently on Urocit-K. He has stay on low-sodium low oxalate diet. Encouraged him to increase fluid intake to maintain a urine output of 2 L Discussed low oxalate diet (2) Leg edema: Code(s): R60.0 - Localized edema Category: Medical Plan: . Chronic leg edema. Recent LFTs were normal. Renal function is normal without significant proteinuria. He has a history of obstructive sleep apnea and status post closure of PFO. Recent echocardiogram did not reveal elevated right heart pressures. Excessive salt intake could be contributing to the edema. Other possibility include lymphedema. I have advised him to decrease the salt intake Leg elevation at night. seen by Vascular Orders: Orders Basic Metabolic Panel 4 Months N18.9 - Chronic kidney disease, unspecified Coding Level of Care Code Est Pt Level 4 (18847) Diagnoses CKD (chronic kidney disease) N18.9 Leg edema R60.0
--- OUTSIDE RECORDS SUMMARY | 2025-02-12 12:56 | XMS_ITS ---
Author Name [facility] Organization Unknown Encounters Encounter Type Encounter Reason [facility]
--- OUTSIDE RECORDS SUMMARY | 2025-02-12 12:56 | XMS_ITS | Clinical Summary ---
Author Organization [facility] Address [address] [place] [address] Care Team Providers Care Licensed Clinical Psychologist Name Role Phone Yunier Garcia MD Primary Care Provider [phone] Allergies No known active allergies Medications Medication [...] 61 11/12/2023 11:06 AM EDT Temperature 37.1 C (98.7 F) 11/12/2023 11:06 AM EDT Respiratory Rate - - Oxygen [...] f 2) 04/01/2020 02/05/2020 Influenza Vaccine (#1) 2025 3, 02/05/2020, 06/13/2017 RSV Adult > 60+ Yrs or (1 - 1-dose 75+ series) 2025 Hepatitis B Vaccines Aged Out No long er eligible based on patient's age to complete this topic RSV Ped < 20 months Aged Out No longe r eligible based on patient's age to complete this topic Care Teams Licensed Clinical Psychologist Relationship Specialty Start Date End Date Yunier Garcia MD [address] [place] [address] PCP - General Family Medicine 03/11/21
== END 2025-02-12 11:22 | disposition home or self-care (01) ==
LOC: HO.HKA 11:01
PROVIDERS: PCP Family Medicine; Visit Provider Internal Medicine Hypertension Specialist
DX: N18.9 Chronic kidney disease, unspecified (principal); R60.0 Localized edema
CPT/HCPCS: 99214

== ENCOUNTER 2025-04-03 13:34 | Outpatient (REF) | payer MEDICARE, SELFPAY ==
--- NOTE | ~2025-04-03 | US_ITS ---
EXAMINATION: US KIDNEY BILATERAL HISTORY: N20.0 - Calculus of kidney TECHNIQUE: Real-time grayscale ultrasound imaging of the kidneys was performed and images were reviewed. COMPARISON: Patent is made with the prior examination dated 07/08/2024. FINDINGS: Right kidney: The right kidney measures 10.5 x 6.7 x 6.5 cm. Renal parenchymal echotexture and thickness are normal. There are no masses. There is no hydronephrosis or renal calculi. Left Kidney: The left kidney measures 8.6 x 4.8 x 4.5 cm. Renal parenchymal echotexture and thickness are normal. There is a 3.2 x 2.6 x 2.8 cm cyst at the upper pole. An additional 1.7 x 1.4 x 1.3 cm complex appearing cystic structure is noted at the upper pole. There is no hydronephrosis or renal calculi. US/US renal BI IMPRESSION: No evidence of nephrolithiasis. 1.7 cm complex cystic lesion in the upper pole of the left kidney. Follow-up is recommended. Electronically signed by: Ahsan Silvestre MD 04/03/2025 02:11 PM [facility]
--- OUTSIDE RECORDS SUMMARY | 2025-04-03 14:00 | XMS_ITS | Clinical Summary ---
Author Organization [facility] Address [address] [place] [address] Care Team Providers Care Vacuum Caster Name Role Phone Yunier Garcia MD Primary Care Provider [phone] Allergies No known active allergies Medications Medication [...] age to complete this topic Care Teams Vacuum Caster Relationship Specialty Start Date End Date Yunier Garcia MD [address] [place] [address] PCP - General Family Medicine 03/11/21
== END 2025-04-03 13:35 | disposition home or self-care (01) ==
LOC: HO.HMGCX 13:34
PROVIDERS: PCP Nurse Practitioner Family; Visit Provider Urology
DX: N20.0 Calculus of kidney (principal)
CPT/HCPCS: 76775

== ENCOUNTER → 2025-04-03 13:38 | Outpatient (BNV) | payer MEDICARE, SELFPAY | PROVIDERS: PCP Nurse Practitioner Family; Visit Provider Radiology Diagnostic Radiology | DX: N28.1 Cyst of kidney, acquired (principal) | CPT/HCPCS: 76775 ==

== ENCOUNTER 2025-04-17 09:27 | Outpatient (AMB) | payer MEDICARE, SELFPAY ==
--- NOTE | 2025-04-17 09:24 | A.OFFVIS_ITS ---
Intake Visit Reasons: 6M Ultrasound(set) Intake Note: Reason for Visit: Telehealth Ultrasound Urology Meds: Potassium, Finasteride Blood Thinners: None Labs: Last PSA- 1.62 (07/11/2024) Imaging: Renal Ultrasound- 04/03/25 Last PVR: 0ml Accompanied by: Self / Same As Patient Allergies No Known Allergies Allergy (Verified 04/17/25 09:29) HPI Comments Details: Pool Gutierrez is a very pleasant male. He is a patient of Dr Garcia. He is seen for the following urologic conditions. - BPH and elevated PSA - nephrolithiasis - diabetic uric acid Telemedicine Evaluation 15 min Consultation Sendio Henrik Video Prior Uro risk results - Good volume, high citrate on medication, high uric acid, high sodium. Dietary intake discussed Potassium citrate refill Continue finasteride Granddaughter graduating and going to [place] to be revenue accountant Lower Urinary Tract Symptoms Currently on finasteride Prior medications include terazosin 2mg Elevated PSA/Abnormal IVELISSE: He presents for further evaluation of elevated PSA. Current management is finasteride 5 mg Laboratory investigations include a total PSA evaluation July 2015 2.8 - 07/29 2.6, 08/31 3.7, 11/30 3.1, 4.7 Free 30%, 11/02 1.3, 07/08 1.6 Individualized Prostate Cancer Risk Calculator < 5% high risk Would like to continue with observation and understands and accepts the risks of a possible delay in diagnosis. A TRUS biopsy not been performed. His current IPSS IPSS Score 1 Symptoms include nocturia, x 1, and are stable. Overall symptoms are mild. His prior IPSS was Mild. Associated conditions diabetes Yes dysuria No erectile dysfunction Yes Therapeutic plan - yearly PSA Nephrolithiasis/Urolithiasis: Recurrent uric acid stone They are here for further evaluation of urethrolitiasis. Urolithiasis was diagnosed a number of years ago. The patient previously had kidney stones whose composition w uric acid. Laboratory investigations include no recent labs. 24 Hour urine evaluation none on file. Prior treatment(s) include medical management, with dietary advice to increase fluids, decrease salt and watch protein intake - Bicarbonate therapy to alkalinize urine. Prior imaging includes a CT (computed tomography) scan of the abdomen/pelvis (stone protocol), showing radiodense stone(s), on the left, <5 mm October 2015 , a renal ultrasound, showing radiodense stone(s), bilaterally, 5-10 mm a renal ultrasound, 10/28 - left renal cyst 4 cm, left renal 7 mm stone nonobstructing 10/29 , a renal ultrasound, showing no evidence of stones. - 05/03 renal ultrasound showing left lower pole stone 12 mm - 11/02 renal ultrasound over left lower pole 10 mm - 06/05 renal ultrasound, bilateral complex cyst, left lower pole stone 12 mm - 12/03 KUB with 12 mm left lower pole stone - 05/06 renal ultrasound with stable left lower pole stone, left upper ureteric stone with question hydronephrosis - There is a calculus within the left proximal ureter measuring 1.2 x 0.6 x 0.8 cm. This appears obstructing. Patient complaining of no pain. UA today shows <5.5. Current therapeutic plan will be to restart potassium citrate and allopurinol with repeat imaging in 6 months [facility] Medical History Transient ischemic attack (TIA) Erectile dysfunction Sleep apnea Hyperlipidemia Diabetes mellitus, type II Elevated PSA Surgical History History of surgery Review of Systems Const All systems reviewed & are unremarkable except as noted in HPI and below Reports no additional complaints Resp Reports no additional complaints GI Reports no additional complaints Reports as per HPI Musc Reports no additional complaints Physical Exam Telemedicine evaluation Appropriate responses Regular breathing rate and rhythm HEENT Head: Yes normal to inspection Ears: hearing grossly normal bilaterally Eyes General: appearance normal, both eyes and all related structures Neck Neck: Yes normal visual inspection Chest Chest palpation & inspection: normal inspection of the chest Resp Effort & Inspection: normal respiratory effort and able to speak in complete sentences Telehealth Telehealth Telehealth Platform: [facility] Location of provider rendering services: practice address Location of patient: address on file Patient Identification confirmed using: Name, : Yes Telehealth method: video Patient verbally consented to treatment: Yes Patient verbally consented to billing insurance company: Yes Patient informed of any privacy concerns related to visit: Yes Minutes spent on Phone/Video with Pt.: 15 Assessment & Plan Assessment & Plan (1) Elevated PSA: Code(s): R97.20 - Elevated prostate specific antigen [PSA] Category: Medical (2) BPH w urinary obs/LUTS: Code(s): N40.1 - Benign prostatic hyperplasia with lower urinary tract symptoms; N13.8 - Other obstructive and reflux uropathy Category: Medical (3) Nephrolithiasis: Code(s): N20.0 - Calculus of kidney Category: Medical Plan Twelve month follow-up PVR Orders: Orders US renal BI 12 Months N20.0 - Calculus of kidney Medications: Refilled finasteride 5 mg PO DAILY 90 tabs 3RF 90 days N13.8 - Other obstructive and reflux uropathy, N40.1 - Benign prostatic hyperplasia with lower urinary tract symptoms, R33.9 - Retention of urine, unspecified Discontinued potassium citrate ER Discontinued Reason: Patient Completed Course 20 mEq (2 x 10 mEq (1,080 mg)) PO BID 90 days 360 tabs 1RF N20.0 - Calculus of kidney Patient Instructions: This note is constructed using voice recognition software. While every effort has been made to ensure accuracy dermatology physician errors may have been included. Imaging studies, laboratory and physical exam results were discussed and reviewed in detail. No major barriers to patient understanding were identified. An opportunity to ask questions regarding the treatment plan was provided. All questions were answered. The patient expressed understanding and agreement with the above treatment plan. The patient is aware they should contact our office by phone for worsening of their current condition or the appearance of new urologic symptoms. Compliance is encouraged with any medications and followup testing that is ordered. It is a privilege to participate in the urologic care of your patient. If you have any questions or concerns regarding treatment for the above conditions, or other urologic issues, please do not hesitate to contact me. The office telephone contact is [phone]. Sincerely, Dr Quinten Dixon MD, [facility] - Urology Compassionate Specialist Care for the Genitourinary System Coding Level of Care Code Tele Est Pt Level 3 (34456) Complex visit Add On G2211 Diagnoses Elevated PSA R97.20 BPH w urinary obs/LUTS N40.1; N13.8 Nephrolithiasis N20.0
== END 2025-04-17 09:55 | disposition home or self-care (01) ==
LOC: HO.HUSH 09:27
PROVIDERS: PCP Nurse Practitioner Family; Visit Provider Urology
DX: R97.20 Elevated prostate specific antigen [PSA] (principal); N40.1 Benign prostatic hyperplasia with lower urinary tract symptoms; N13.8 Other obstructive and reflux uropathy; N20.0 Calculus of kidney
CPT/HCPCS: 99213; G2211

== ENCOUNTER 2025-05-01 10:23 | Outpatient (AMB) | payer BC, SELFPAY ==
--- NOTE | 2025-05-01 10:25 | A.OFFVIS_ITS ---
Vital Signs 05/01/25 10:31 Height 6 ft Weight 268 lb BMI 36.3 BP 135/77 Blood Pressure Location Rt brachial Position Sitting Respiration 16 Pulse 60 Pulse Oximetry (%) 98 Oxygen Delivery Method Room Air Intake Visit Reasons: re est care Comfort Station Attendant Required: No Accompanied by: Spouse Allergies No Known Allergies Allergy (Verified 05/01/25 10:33) HPI Comments Details: Pool is a 75-year-old male patient with a past medical history of seizures, migraine, and probable amyloid angiopathy who I was following at [facility]. He is here today to reestablish care. While previously in my care, we had been addressing several concerns including memory, sleep, seizure, and headaches. At the time of his last visit on 12/08/2024, he was stable on levetiracetam with out any recurrent seizures. Memory and headache were also stable and sleep was also stable with consistent use of CPAP device. Seizures: Prior history of seizure well-controlled on levetiracetam. He tells me today that he has not had any recurrent tonic-clonic events, abnormal movements, loss of awareness, staring episodes, episodes of Odilia vu, or tongue biting/urinary incontinence during sleep. He has been taking his levetiracetam 500 mg twice daily without any difficulty. Memory: According to the patient in his , memory remain stable. He does become forgetful from time to time and sometimes will have difficulty with short-term memory in particular. He has some difficulty remembering things such as upcoming events and will often repeat questions. Aside from this, his memory has not markedly changed since time of last visit. He has made attempts to remain active, social, and maintain a well-balanced diet. Headaches: He reports today that headaches have been stable. He has not had any actual headaches over the course of the last several months but does from ti me to time have visual auras. This occurs every couple of weeks or perhaps once a month on average. He will have a visual disturbance lasting approximately half an hour and then will resolve on its own. He typically does not have a headache after this. Sleep: He reports that overall he has been sleeping okay. He has been using his CPAP device nightly. Prior workup: MRI brain without contrast 10/11/2022: No acute/subacute infarct, mass, acute hemorrhage, or other acute intracranial abnormality. Similar appearance of multiple chronic foci of microhemorrhage in the brain bilaterally. 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 Moderate T2 FLAIR hyperintense foci in the white matter, nonspecific but most likely reflecting chronic small-vessel disease. [facility] Medical History Transient ischemic attack (TIA) Erectile dysfunction Sleep apnea Hyperlipidemia Diabetes mellitus, type II Elevated PSA Surgical History History of surgery Review of Systems Const All systems reviewed & are unremarkable except as noted in HPI and below Physical Exam Vital Signs: Last Vital Signs Pulse 60 05/01/25 10:31 Resp 16 05/01/25 10:31 BP 135/77 05/01/25 10:31 Pulse Ox 98 05/01/25 10:31 Oxygen Delivery Method Room Air 05/01/25 10:31 BMI result Body Mass Index 36.3 Const General: cooperative, healthy appearing, comfortable and no acute distress Nutritional Appearance: well nourished Orientation/consciousness: patient oriented x3 Limitations: no limitations HEENT Head: Yes normal to inspection and Yes normocephalic Ears: hearing grossly impaired Eyes General: appearance normal, both eyes and all related structures Visual Moran: normal visual moran by confrontation Alignment and Position: alignment normal Periorbital: periorbital findings normal Eyelids: Yes eyelids normal Conjunctivae: conjunctivae normal Sclerae: sclerae normal Direct Ophthalmoscopy: normal light reflex, no papilledema and fundi normal bilaterally Neck Neck: Yes normal visual inspection and Yes full ROM General: Yes no CVA tenderness Back/Spine/Pelvis Back: no CVA tenderness Cervical Spine: normal cervical lordosis Thoracic/Lumbar Spine: thoracic and lumbar spine normal to inspection Neuro General: patient oriented x3 Cranial nerves: Yes CN's II-XII intact bilaterally and Yes Facial sensation intact/muscles of mastication intact Cognition (Neuro): normal cognition Gait exam (Neuro): Antalgic gait present Motor exam (neuro): no tremor noted Sensory Exam: double simultaneous stimulation for sensation normal Romberg Test: Negative Pupils: Normal pupillary reactivity/response: bilateral Psych Appearance: grossly normal Mental Status: mental status grossly normal Speech and movement: Normal speech and movement present and Clear speech present Affect: normal affect Attitude: cooperative Thought process: Normal thought process present Thought content: Normal thought content present Insight: Good insight present (Psych) Judgement: Good judgement present (Psych) Assessment & Plan Assessment & Plan (1) History of seizure: Code(s): Z87.898 - Personal history of other specified conditions Category: Medical (2) Cerebral amyloid angiopathy: Code(s): E85.4 - Organ-limited amyloidosis; I68.0 - Cerebral amyloid angiopathy Category: Medical (3) Migraine with aura and without status migrainosus, not intractable: Code(s): G43.109 - Migraine with aura, not intractable, without status migrainosus Category: Medical (4) GOLDY on CPAP: Code(s): G47.33 - Obstructive sleep apnea (adult) (pediatric) Category: Medical Plan Pool is a 75-year-old male patient with a past medical history of seizures, migraine, and probable amyloid angiopathy who I was following at [facility]. He is here today to reestablish care. His seizures, headaches, memory, and sleep have been stable over the course of the last 6 months. We will continue his current regimen of levetiracetam 500 mg twice daily. He was encouraged to remain compliant with activity, remaining social, balanced diet, and use of CPAP device. He has been doing well with his blood sugars and blood pressure. I will see him again in 6 months or sooner if needed. -continue with activity, remaining social, good control of glucose, and blood pressure and upkeep of cholesterol medication -continue levetiracetam 500 mg twice daily -future considerations: re-image MRI brain -follow up in 6 months or sooner if needed Medications: Changed From levetiracetam 500 mg PO BID To levetiracetam 500 mg PO BID 180 tabs 3RF 90 days Coding Level of Care Code Est Pt Level 3 (62674) Diagnoses History of seizure Z87.898 Cerebral amyloid angiopathy E85.4; I68.0 Migraine with aura and without status migrainosus, not intractable G43.109 GOLDY on CPAP G47.33
[2025-05-01 10:31] VITALS: BP 135/77; PULSE 60; RESP 16; O2SAT 98; BMI 36.3
--- OUTSIDE RECORDS SUMMARY | 2025-05-01 11:57 | XMS_ITS | Clinical Summary ---
Author Organization [facility] Prior to 10/11/[address] [place] [id number] Care Team Providers Care Restaurant And Bar Manager Name Role Phone Yunier Garcia MD Primary Care Provider [phone] Allergies No known active allergies Medications Medication [...] age to complete this topic Care Teams Restaurant And Bar Manager Relationship Specialty Start Date End Date Yunier Garcia MD [address] [place] [id number] PCP - General Family Medicine 03/11/21
== END 2025-05-01 10:54 | disposition home or self-care (01) ==
LOC: HO.HSM 10:24
PROVIDERS: PCP Family Medicine; Visit Provider Nurse Practitioner
DX: Z87.898 Personal history of other specified conditions (principal); E85.4 Organ-limited amyloidosis; I68.0 Cerebral amyloid angiopathy; G43.109 Migraine with aura, not intractable, without status migrainosus; G47.33 Obstructive sleep apnea (adult) (pediatric)
CPT/HCPCS: 99213